=== PATIENT | male | born 1940 | race Caucasian/White ===

== ENCOUNTER 2017-06-25 19:42 | Emergency (ER) | payer OTHER ==
[2017-06-25 20:37] LABS: Absolute Lymphocytes (CBC) 1.2 K/uL (0.7-4.9); Absolute Monocytes 0.7 K/uL (0.1-1.3); Absolute Neutrophil 8.8 K/uL (1.8-8.0); Basophils % 0.5 % (0-1.3); Eosinophils % 0.5 % (0-4.4); Hematocrit 47.7 % (39.6-49.0); Lymphocytes % 11.1 % (15.3-44.8); MCH 30.1 pg (27.0-35.0); MPV 7.1 fL (7.6-11.3); Monocytes % 6.8 % (3.3-12.3); RBC Red Blood Cell Count 5.24 M/uL (4.33-5.43)
[2017-06-25 20:41] LABS: Protime INR 0.98
--- NOTE | 2017-06-25 20:41 | RAD REPORT ---
EXAM DESCRIPTION: RAD - Chest Single View - 06/25/2017 8:34 pm CLINICAL HISTORY: Chest pain. COMPARISON: 09/20/2016, 05/31/2015 FINDINGS: Portable technique limits examination quality. The lungs are grossly clear. The heart is normal in size. No displaced fractures. IMPRESSION: No acute intrathoracic process suspected.
[2017-06-25 20:53] LABS: Albumin 4.1 g/dL (3.2-5.5); Bilirubin Direct 0.2 mg/dL (0-0.2); Bilirubin Total 1.2 mg/dL (0.3-1.2)
[2017-06-25 22:05] LABS: Urine Blood TRACE (NEG); Urine Glucose NEGATIVE (NEG); Urine Protein 1+ (NEG); Urine Specific Gravity 1.025 (1.005-1.030)
--- NOTE | 2017-06-25 23:46 | ER ---
Nurse's Notes [facility] Name: Get Stephens Age: 77 yrs Sex: Male : 1940 Arrival Date: 06/25/2017 Time: 19:43 Bed 26 Private MD: Diagnosis: Chest pain, unspecified Presentation: 06/25 20:14 Presenting complaint: Patient states: Pt. c/o of a burning feeling in his chest off and rk2 on lasting approx. 5-6 min \T\ a time... pt. states that this started yesterday afternoon. Denies radiating pain; however, states that pt. comes on with exertion. Also states that he had SOB with exertion as well as episodes of sweating. Difficulty sleeping and loss of appetite. Transition of care: patient was not received from another setting of care. Onset of symptoms was June 25, 2017. Care prior to arrival: None. 20:14 Method Of Arrival: Ambulatory rk2 20:14 Acuity: LARA 3 rk2 Triage Assessment: 20:19 General: Appears in no apparent distress. Behavior is calm, cooperative. Pain: Denies rk2 pain. Historical: - Allergies: 20:19 Penicillins; rk2 - Immunization history:: Pneumococcal vaccine is up to date, Flu vaccine is not up to date. - Social history:: Smoking status: Patient/guardian denies using tobacco, the patient reports quitting approximately 36 years ago. Screenin:15 Abuse screen: Denies threats or abuse. rk2 20:15 Nutritional screening: No deficits noted. Tuberculosis screening: No symptoms or risk rk2 factors identified. Fall Risk None identified. Assessment: 20:15 General: Appears in no apparent distress. slender, well groomed, well developed, well rk2 nourished. Pain: Denies pain. Pain does not radiate. Pain began 1 day ago. Neuro: Level of Consciousness is alert, obeys commands, Oriented to person, place, time, situation. 20:15 Cardiovascular: Rhythm is sinus rhythm. Respiratory: Airway is patent Respiratory rk2 effort is even, unlabored, Respiratory pattern is regular, symmetrical. Derm: Skin is pink, warm \T\ dry. 21:30 Reassessment: Pt. resting in room \T\ this time... appears to be in no obvious distress. rk2 Denies CP \T\ this time. No needs voiced. 22:30 Reassessment: Pt. resting in room, nobody \T\ bedside. Pt. appears to be in no rk2 distress... warm blanket given. No other needs voiced \T\ this time. Vital Signs: 20:19 BP 157 / 90; Pulse 104; Resp 17; Pulse Ox 95% on R/A; rk2 22:48 BP 139 / 62; Pulse 84; Resp 16; Pulse Ox 97% on R/A; rk2 23:30 BP 133 / 66; Pulse 73; Resp 16; Pulse Ox 97% on R/A; rk2 06/26 00:20 BP 132 / 69; Pulse 93; Resp 16; Pulse Ox 98% on R/A; rk2 ED Course: 06/25 19:43 Patient arrived in ED. do 19:45 Dmitri Lassiter PA is PHCP. jr8 19:45 Darwin Carson MD is Attending Physician. jr8 20:15 Patient has correct armband on for positive identification. Placed in gown. Bed in low rk2 position. Call light in reach. air sampling and monitoring on. Pulse ox on. 20:15 Arm band placed on. rk2 20:15 Patient maintains SpO2 saturation greater than 95% on room air. rk2 20:16 Triage completed. rk2 20:35 X-ray completed. Portable x-ray completed in exam room. Patient tolerated procedure kc2 well. 20:35 XRAY Chest (1 view) In Process Unspecified. EDMS 20:45 Margi Osborne RN is Primary Nurse. rk2 23:19 Troponin (emerg Dept Use Only) Sent. rk2 06/26 00:22 No provider procedures requiring assistance completed. IV discontinued. rk2 Administered Medications: No medications were administered Outcome: 06/25 23:45 Discharge ordered by . jr8 06/26 00:22 Discharged to home ambulatory. rk2 Condition: good Discharge instructions given to patient. 00:23 Patient left the ED. rk2 Signatures: Dispatcher [employer] EDMS Dmitri Lassiter PA PA jr8 Liz Garcia Kelsie kc2 Margi Osborne, MIRELLA RN rk2
--- NOTE | 2017-06-25 23:46 | EDPHYS ---
Physician Documentation [facility] Name: Get Stephens Age: 77 yrs Sex: Male : 1940 Arrival Date: 06/25/2017 Time: 19:43 Bed 26 Private MD: ED Physician Darwin Carson HPI: 06/25 20:35 This 77 yrs old Male presents to ER via Ambulatory with complaints of Chest jr8 Pain, Breathing Difficulty. 20:35 Onset: acutely, yesterday. The pain does not radiate. Associated signs and symptoms: jr8 Pertinent positives: diaphoresis, nausea. The chest pain is described as burning. Duration: The patient or guardian reports multiple episodes. Modifying factors: The symptoms are alleviated by nothing. the symptoms are aggravated by activity. Severity of pain: At its worst the pain was moderate. The patient has not experienced similar symptoms in the past. The patient has not recently seen a physician. 20:40 Patient stated that for the past 48 hours has noticed a worsening of burning in chest. jr8 Stated that it worsens with exertion. Noticed that also extremely short of breath with minimal activity. Normally works out 5 days a week. Historical: - Allergies: 20:19 Penicillins; rk2 - Immunization history:: Pneumococcal vaccine is up to date, Flu vaccine is not up to date. - Social history:: Smoking status: Patient/guardian denies using tobacco, the patient reports quitting approximately 36 years ago. ROS: 20:35 Eyes: Negative for injury, pain, redness, and discharge, ENT: Negative for injury, jr8 pain, and discharge, Neck: Negative for injury, pain, and swelling, Back: Negative for injury and pain, MS/Extremity: Negative for injury and deformity, Skin: Negative for injury, rash, and discoloration, Neuro: Negative for headache, weakness, numbness, tingling, and seizure. 20:35 Cardiovascular: Positive for chest pain, Negative for edema, orthopnea, palpitations, paroxysmal nocturnal dyspnea. 20:35 Respiratory: Positive for dyspnea on exertion, Negative for cough, hemoptysis, orthopnea, pleurisy, sputum production, wheezing. 20:35 Abdomen/GI: Positive for nausea, Negative for abdominal pain, vomiting, diarrhea, constipation, abdominal cramps, abdominal distension, anorexia, dysphagia, hematemesis, black/tarry stool, rectal pain, rectal bleeding, bowel incontinence, flatulence. Exam: 20:35 Eyes: Pupils equal round and reactive to light, extra-ocular motions intact. Lids and jr8 lashes normal. Conjunctiva and sclera are non-icteric and not injected. Cornea within normal limits. Periorbital areas with no swelling, redness, or edema. ENT: Nares patent. No nasal discharge, no septal abnormalities noted. Tympanic membranes are normal and external auditory canals are clear. Oropharynx with no redness, swelling, or masses, exudates, or evidence of obstruction, uvula midline. Mucous membranes moist. Neck: Trachea midline, no thyromegaly or masses palpated, and no cervical lymphadenopathy. Supple, full range of motion without nuchal rigidity, or vertebral point tenderness. No Meningismus. Cardiovascular: Regular rate and rhythm with a normal S1 and S2. No gallops, murmurs, or rubs. Normal PMI, no JVD. No pulse deficits. Respiratory: Lungs have equal breath sounds bilaterally, clear to auscultation and percussion. No rales, rhonchi or wheezes noted. No increased work of breathing, no retractions or nasal flaring. Abdomen/GI: Soft, non-tender, with normal bowel sounds. No distension or tympany. No guarding or rebound. No evidence of tenderness throughout. Back: No spinal tenderness. No costovertebral tenderness. Full range of motion. Skin: Warm, dry with normal turgor. Normal color with no rashes, no lesions, and no evidence of cellulitis. MS/ Extremity: Pulses equal, no cyanosis. Neurovascular intact. Full, normal range of motion. Neuro: Awake and alert, GCS 15, oriented to person, place, time, and situation. Cranial nerves II-XII grossly intact. Motor strength 5/5 in all extremities. Sensory grossly intact. Cerebellar exam normal. Normal gait. Vital Signs: 20:19 BP 157 / 90; Pulse 104; Resp 17; Pulse Ox 95% on R/A; rk2 22:48 BP 139 / 62; Pulse 84; Resp 16; Pulse Ox 97% on R/A; rk2 23:30 BP 133 / 66; Pulse 73; Resp 16; Pulse Ox 97% on R/A; rk2 06/26 00:20 BP 132 / 69; Pulse 93; Resp 16; Pulse Ox 98% on R/A; rk2 MDM: 06/25 19:45 Patient medically screened. [facility] 23:45 Data reviewed: vital signs, nurses notes, lab test result(s), EKG, radiologic studies, [facility] plain films, and as a result, I will discharge patient. Data interpreted: Pulse oximetry: on room air is 97 %. Interpretation: normal. Counseling: I had a detailed discussion with the patient and/or guardian regarding: the historical points, exam findings, and any diagnostic results supporting the discharge/admit diagnosis, lab results, radiology results, the need for outpatient follow up, a group contract analyst, a family practitioner, to return to the emergency department if symptoms worsen or persist or if there are any questions or concerns that arise at home. Special discussion: Based on the patient's history, exam, and Dx evaluation, there is no indication for emergent intervention or inpatient Tx. It is understood by the patient/guardian that if the Sx's persist or worsen they need to return immediately for re-evaluation. 06/25 20:06 Order name: CPK; Complete Time: 21:10 [facility] 06/25 20:06 Order name: Basic Metabolic Panel; Complete Time: 21:10 [facility] 06/25 20:06 Order name: BNP; Complete Time: 21:10 [facility] 06/25 20:06 Order name: CBC with Diff; Complete Time: 20:41 [facility] 06/25 20:06 Order name: LFT's; Complete Time: 21:10 [facility] 06/25 20:06 Order name: Magnesium; Complete Time: 21:10 [facility] 06/25 20:06 Order name: PT-INR; Complete Time: 20:42 [facility] 06/25 20:06 Order name: Ptt, Activated; Complete Time: 20:42 [facility] 06/25 20:06 Order name: Troponin (emerg Dept Use Only); Complete Time: 21:10 [facility] 06/25 20:06 Order name: XRAY Chest (1 view); Complete Time: 20:42 [facility] 06/25 20:06 Order name: EKG; Complete Time: 20:07 [facility] 06/25 20:06 Order name: Cardiac monitoring; Complete Time: 20:45 [facility] 06/25 21:49 Order name: Urine Dipstick--Ancillary (enter results); Complete Time: 22:20 [facility] 06/25 23:04 Order name: Troponin (emerg Dept Use Only); Complete Time: 23:45 8 06/25 20:06 Order name: EKG - Nurse/Tech; Complete Time: 20:45 06/25 20:06 Order name: IV Saline Lock; Complete Time: 20:45 8 06/25 20:06 Order name: Labs collected and sent; Complete Time: 20:45 [facility] 06/25 20:06 Order name: O2 Per Protocol; Complete Time: :45 [facility] 06/25 20:06 Order name: O2 Sat Monitoring; Complete Time: 20:45 06/25 20:06 Order name: Urine Dipstick-Ancillary (obtain specimen); Complete Time: 21:43 jr8 Administered Medications: No medications were administered Disposition: 06/26 05:41 Co-signature as Attending Physician, Darwin Carson MD. ma2 Disposition: 06/25/17 23:45 Discharged to Home. Impression: Chest pain, unspecified. - Condition is Stable. - Discharge Instructions: Nonspecific Chest Pain, Aspirin and Your Heart. - Medication Reconciliation Form, Thank You Letter, Antibiotic Education, Prescription Opioid Use form. - Follow up: Private Physician; When: 2 - 3 days; Reason: Recheck today's complaints, Continuance of care, Re-evaluation by your physician. - Problem is new. - Symptoms have improved. Signatures: Dispatcher [employer] Dmitri Borjas PA PA jr8 Darwin Carson MD MD ma2 Margi Osborne RN RN rk2
[2017-06-26 00:39] VITALS: BP 132/69; O2SAT 98
--- NOTE | 2017-06-27 22:39 | EKG ---
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
== END 2017-06-26 00:23 | disposition home or self-care (01) ==
LOC: ER 19:42
DX: R07.9 Chest pain, unspecified (principal); Z88.0 Allergy status to penicillin
CPT/HCPCS: 36415; 71045; 80048; 80076; 81003; 82550; 83735; 83880; 84484; 85025; 85610; 85730; 93005; 99285

== ENCOUNTER 2017-11-08 12:35 | Day surgery (SDC) | payer OTHER ==
[2017-11-08] MEDS ORDERED: NS 0.9% VIAL 10 ML ONE (12:57)
[2017-11-08] MEDS ORDERED: CYCLOPENTOLATE 1% OPTH 2 ML ONE (13:01)
[2017-11-08] MEDS ORDERED: BUPIVACAINE 0.25% PF 10 ML VIAL ONE (13:01)
[2017-11-08] MEDS ORDERED: TETRACAINE HCL 0.5% 2ML OPTH ONE (13:01)
[2017-11-08] MEDS ORDERED: NA CHLORIDE 0.9% 500 ML ONE (13:02)
[2017-11-08] MEDS ORDERED: LIDOCAINE 2% INJ, MPF 2 ML 3 ML ONE (13:02)
[2017-11-08] MEDS ORDERED: PHENYLEPHRINE 10% OPTH 5ML ONE (13:02)
[2017-11-08] MEDS ORDERED: CYCLOPENTOLATE 1% OPTH 2 ML OPTH ONE ×2 (13:18→13:30)
[2017-11-08] MEDS ORDERED: PHENYLEPHRINE 10% OPTH 5ML OPTH ONE ×2 (13:18→13:30)
[2017-11-08] MEDS ORDERED: LIDOCAINE 1% MPF 5 ML VIAL ONE (13:38)
[2017-11-08] MEDS ORDERED: PROPOFOL 200 MG/20 ML VIAL IV ONE (13:38)
[2017-11-08] MEDS: EPINEPHRINE/PF 1 MG/ML AMP ONE ×4 (14:08→14:39)
[2017-11-08] MEDS: BALANCED SALT IRRIG PLAIN 500 ML BTL IRR ONE ×2 (14:08→14:39)
[2017-11-08] MEDS: DUOVISC 1 KIT OPTH ONE ×2 (14:09→14:39)
[2017-11-08] MEDS: MOXIFLOXACIN HCL 10 DROPS/ML **OR USE OPTH ONE ×2 (14:09→14:39)
--- NOTE | 2017-11-08 14:27 | P.BOP ---
Preoperative diagnosis: Nuclear sclerotic cataract OS Postoperative diagnosis: Same Primary procedure: Phacoemulsification with IOL OS Estimated blood loss: None Anesthesia: Local (Topical wtih anesthesia for cataract surgery) Complications: None Implants: [id number] +19.0 Transferred to: Other (Day surgery) Condition: Good
[2017-11-08 15:59] VITALS: BP 147/51; TEMP 97.8; O2SAT 100
--- NOTE | 2017-11-09 02:00 | OP ---
Surgeon: Jazmine Maya MD Anesthesiologist: 1. Manjeet Britton CRNA. 2. Luis Carlos Payton M.D. Preoperative Diagnosis: Nuclear sclerotic cataract left eye. Operation Performed: Phacoemulsification with intraocular lens implant, left eye. Anesthesia: Per cataract surgery. Complications: None. Description Of Procedure: In day surgery, the patient was prepped with Betadine and draped. A conju nctival incision was made in the inferior nasal quadrant with Josiah scissors. A sub-Tenon block c onsisting of a 1:1 mixture of 2% Xylocaine and 0.25% bupivacaine was placed through the conjunctival incision with a blunt cannula. A [place] balloon was placed over the eye and the patient was transferr ed to the operating room. In the operating room the patient was prepped and draped in the usual sterile fashion for ophthalmic surgery. A lid speculum was placed in the left eye. Two paracentesis sites were made superiorly and inferiorly in the limbal cornea. Viscoat was placed in the anterior chamber and a crescent blade wa s used to make a corneal groove and tunnel, and a keratome was used to enter the anterior chamber. P rovisc was placed in the anterior chamber and a 360 degree capsulotomy was performed with a cystitome . The lens was hydrodissected with BSS and rotated freely. The lens was removed with a stop and cho p technique. A 3.88 phaco CDE was used to remove the lens. Residual cortex was removed with the irr igation and aspiration. Provisc was placed in the capsular bag. A ZCB00, +19.0 diopter lens was tio dylon in the capsular bag without complications. Irrigation and aspiration was used to remove residual viscoelastic. The paracentesis sites were hydrated with BSS. The wound and paracentesis sites were inspected and found to be watertight. Vigamox 0.07 cc was placed intracamerally at the end of the p rocedure. The eye was irrigated with balanced salt solution. The eye was patched with a soft cotton patch and Dennis metal shield. The patient was returned to day surgery in good condition. Comments: 1:5000 epinephrine was placed in the anterior chamber prior to Viscoat and throughout the procedure. Discharge Instructions: Mr. Get Stephens is discharged to home in good condition and is to follow up with Dr. Maya in the morning. JHL/EL Voice ID: [id number] Report ID: [id number]
== END 2017-11-08 15:55 | disposition home or self-care (01) ==
LOC: OR 12:35
PROVIDERS: ATTEND Ophthalmology Retina Specialist
PROC: 08RK3JZ Replacement of Left Lens with Synthetic Substitute, Percutaneous Approach (ICD-10-PCS; principal; 2017-11-08 12:30)
DX: H25.12 Age-related nuclear cataract, left eye (principal); I10 Essential (primary) hypertension; E78.00 Pure hypercholesterolemia, unspecified; Z88.0 Allergy status to penicillin; K21.9 Gastro-esophageal reflux disease without esophagitis
CPT/HCPCS: 66984; J0171 ×2; J3490

== ENCOUNTER 2018-12-20 11:49 | Observation (INO) | payer OTHER ==
--- NOTE | 2018-12-20 12:26 | EKG ---
Test Date: 2018-12-20 Test Time: 12:09:11 Railroad Brake Repairer: ARMIDA MEASUREMENT RESULTS: Intervals: Rate: 99 MA: 150 QRSD: 94 QT: 370 QTc: 474 [place]: P: 83 MA: 150 QRS: 79 T: 66 INTERPRETIVE STATEMENTS: Sinus rhythm with fusion complexes Otherwise normal ECG Compared to ECG 06/25/2017 20:47:27 Fusion complex(es) now present Electronically Signed On 12-20-18 12:25:55 CDT by Edilberto Tejada
[2018-12-20 12:42] LABS: Basophils % 0.6 % (0-1.3); Hematocrit 38.4 % (39.6-49.0); Lymphocytes % 11.8 % (15.3-44.8); MPV 7.5 fL (7.6-11.3); RBC Red Blood Cell Count 4.05 M/uL (4.33-5.43)
[2018-12-20 13:01] LABS: Protime INR 1.02
[2018-12-20 13:02] LABS: ALT/SGPT 28 U/L (12-78); AST/SGOT 31 U/L (15-37); Albumin 3.5 g/dL (3.4-5.0); Alkaline Phosphatase 57 U/L (45-117); BUN Blood Urea Nitrogen 21 mg/dL (7-18); Bicarbonate 22 mmol/L (21-32); Bilirubin Direct 0.2 mg/dL (0-0.2); Bilirubin Total 0.6 mg/dL (0.2-1.0); Glucose Level 106 mg/dL (74-106); Magnesium 2.2 mg/dL (1.8-2.4); NT PRO-BNP 89 pg/mL (<450); Potassium 3.4 mmol/L (3.5-5.1); Protein, Total 6.2 g/dL (6.4-8.2); Sodium Level 137 mmol/L (136-145); Troponin (Emerg Dept Use Only) < 0.02 ng/mL (0.0-0.045)
--- NOTE | 2018-12-20 13:06 | RAD REPORT ---
EXAM DESCRIPTION: CT - Head Brain Wo Cont - 12/20/2018 1:00 pm CLINICAL HISTORY: SYNCOPE Fall, trauma, head injury COMPARISON: No comparisons TECHNIQUE: All CT scans are performed using dose optimization technique as appropriate and may inclu de automated exposure control or mA/KV adjustment according to patient size. FINDINGS: No intracranial hemorrhage, hydrocephalus or extra-axial fluid collection.No areas of brai n edema or evidence of midline shift. The paranasal sinuses and mastoids are clear. The calvarium is intact. IMPRESSION: No acute intracranial abnormality.
--- NOTE | 2018-12-20 13:06 | RAD REPORT ---
EXAM DESCRIPTION: RAD - Chest Single View - 12/20/2018 12:53 pm CLINICAL HISTORY: Syncope, htn COMPARISON: CR; Chest 01/28/2018 TECHNIQUE: AP portable chest image was obtained 1247 pm . FINDINGS: Lungs are clear. Heart and vasculature are normal. No measurable pleural effusion and no p neumothorax. No acute bony abnormality seen. No acute aortic findings suspected. IMPRESSION: No acute cardiopulmonary process.
--- NOTE | 2018-12-20 13:18 | ER ---
Nurse's Notes [facility] Name: Get Stephens Age: 78 yrs Sex: Male : 1940 Arrival Date: 12/20/2018 Time: 11:52 Bed 27 Private MD: Rafael Larios E Diagnosis: Syncope and collapse Presentation: 12/20 11:59 Presenting complaint: Patient states: At about 1045 this morning I passed out and then la1 fell on my right hip, pt ambulatory. Transition of care: patient was not received from another setting of care. Onset of symptoms was December 20, 2018. Risk Assessment: Do you want to hurt yourself or someone else? Patient reports no desire to harm self or others. Initial Sepsis Screen: Does the patient meet any 2 criteria? HR > 90 bpm. Does the patient have a suspected source of infection? No. Patient's initial sepsis screen is negative. Care prior to arrival: None. 11:59 Method Of Arrival: Wheelchair la1 11:59 Acuity: LARA 2 la1 12:14 Mechanism of Injury: Fall from standing position. Trauma event details: Injury occurred ca1 in the [facility], Injury occurred: at home. Injury occurred: December 20, 2018 Injury occurred at: 10:45. Trauma Activation: Not Applicable Physician: ED Physician; Name: ; Notified At: ; Arrived At: Physician: General Surgeon; Name: ; Notified At: ; Arrived At: Physician: Radiology; Name: ; Notified At: ; Arrived At: Physician: Respiratory; Name: ; Notified At: ; Arrived At: Physician: Lab; Name: ; Notified At: ; Arrived At: Historical: - Allergies: 12:01 PENICILLINS; la1 - Home Meds: 14:26 valsartan-hydrochlorothiazide 160-12.5 mg oral tab 1 tab once daily [Active]; ca1 tamsulosin 0.4 mg oral cp24 1 cap once daily [Active]; simvastatin 10 mg Oral tab 1 tab once daily [Active]; meclizine 25 mg Oral tab 1 tab 3 times per day for Vertigo [Active]; ondansetron HCl 4 mg Oral tab 1 tabs 3 times per day [Active]; - PMHx: 12:01 Hypertension; vertigo; GERD; High Cholesterol; la1 - PSHx: 14:26 None; ca1 - Immunization history:: Adult Immunizations up to date. - Social history:: Smoking status: Patient/guardian denies using tobacco, Patient/guardian denies using alcohol, street drugs, The patient lives with family. - Immunization history: Last tetanus immunization:. - Ebola Screening: : No symptoms or risks identified at this time. - Family history:: not pertinent. Screenin:07 Abuse screen: Denies threats or abuse. Denies injuries from another. Nutritional ca1 screening: No deficits noted. Tuberculosis screening: No symptoms or risk factors identified. Fall Risk Fall in past 12 months (25 points). Secondary diagnosis (15 points) Vertigo. IV access (20 points). Total Meyer Fall Scale indicates High Risk Score (45 or more points). Fall prevention measures have been instituted. Side Rails Up X 2 As available patient and family educated on Fall Prevention Program and Strategies. Primary Survey: 12:13 NO uncontrolled hemorrhage observed. A: The patient is alert. Airway:. Breathing/Chest: ca1 Respiratory pattern: regular, Respiratory effort: spontaneous, unlabored, Breath sounds: clear, bilaterally. Chest inspection: symmetrical rise and fall of the chest. Circulation: Cardiac rhythm: sinus tachycardia Heart tones present. Pulses: palpable bilateral radial, brachial, femoral, popliteal, posterior tibial and and dorsalis pedis arteries.. Skin color: pink, Skin temperature: warm, dry. Disability Alert. Exposure/Environment: All clothing and personal items were removed. Forensic evidence collection is not deemed to be indicated at this time. Items placed in patient belonging bag. There is no evidence of uncontrolled external bleeding. No obvious injuries are noted at this time. A warming method has been applied: A warm blanket has been provided to the patient. 12:25 Reassessment Airway Airway Patent Breathing/Chest Respiratory pattern Regular ca1 Respiratory effort Spontaneous Unlabored Breath sounds Clear Chest inspection Symmetrical Circulation Heart rhythm Sinus rhythm Heart tones Present Pulses Palpable Color [place] Temperature Warm Dry Disability Alert. Assessment: 12:07 General: Appears in no apparent distress. comfortable, Behavior is calm, cooperative, ca1 appropriate for age. Pain: Denies pain. Neuro: Level of Consciousness is awake, alert, obeys commands, Oriented to Appropriate for age Reports dizziness, since 5 years ago and takes meclizine for it, but has not worked very well. Pt states, "I have always had vertigo but this is the first time I passed out. I do not remember anything about it, I just found myself on the floor". Cardiovascular: Heart tones S1 S2 present Capillary refill < 3 seconds Patient's skin is warm and dry. Rhythm is sinus tachycardia. Respiratory: Airway is patent Respiratory effort is even, unlabored, Respiratory pattern is regular, symmetrical, Breath sounds are clear bilaterally. GI: Abdomen is flat, non-distended, Bowel sounds present X 4 quads. Abd is soft and non tender X 4 quads. Reports nausea, since "I was diagnosed with vertigo but I am also taking medication for it", as pt stated. : No deficits noted. No signs and/or symptoms were reported regarding the genitourinary system. EENT: No deficits noted. No signs and/or symptoms were reported regarding the EENT system. Derm: Skin is intact, is healthy with good turgor, Skin is pink, warm \\T\\ dry. Musculoskeletal: Circulation, motion, and sensation intact. Capillary refill < 3 seconds, Range of motion: intact in all extremities. 13:00 Reassessment: Patient appears in no apparent distress at this time. Patient and/or ca1 family updated on plan of care and expected duration. Pain level reassessed. Patient is alert, oriented x 3, equal unlabored respirations, skin warm/dry/pink. 14:00 Reassessment: Patient appears in no apparent distress at this time. Patient is alert, ca1 oriented x 3, equal unlabored respirations, skin warm/dry/pink. 14:27 Reassessment: called for report. Nurse will call back in 10 minutes. ca1 Vital Signs: 12:01 BP 97 / 71; Pulse 112; Resp 18; Temp 97.5; Pulse Ox 100% on R/A; Weight 68.04 kg; la1 Height 5 ft. 10 in. (177.80 cm); 12:07 BP 123 / 82; Pulse 102; Resp 18 S; Pulse Ox 96% on R/A; Pain 0/10; ca1 13:00 BP 108 / 60; Pulse 97; Resp 17 S; Pulse Ox 100% on R/A; ca1 14:20 BP 139 / 65; Pulse 84; Resp 20; Pulse Ox 99% on R/A; ca1 12:01 Body Mass Index 21.52 (68.04 kg, 177.80 cm) la1 Stephanie Coma Score: 12:13 Eye Response: spontaneous(4). Verbal Response: oriented(5). Motor Response: obeys ca1 commands(6). Total: 15. Trauma Score (Adult): 12:13 Eye Response: spontaneous(1); Verbal Response: oriented(1); Motor Response: obeys ca1 commands(2); Systolic BP: > 89 mm Hg(4); Respiratory Rate: 10 to 29 per min(4); Stephanie Score: 15; Trauma Score: 12 ED Course: 11:52 Patient arrived in ED. mr 11:52 Rafael Larios MD is Private Physician. mr 12:00 Triage completed. la1 12:01 Arm band placed on right wrist. la1 12:02 Sapna Morales, MIRELLA is Primary Nurse. ca1 12:07 Patient has correct armband on for positive identification. Placed in gown. Bed in low ca1 position. Call light in reach. Side rails up X2. school bus monitor on. Pulse ox on. NIBP on. Warm blanket given. 12:07 No provider procedures requiring assistance completed. ca1 12:12 EKG done, by polysomnograph tech. reviewed by Darwin Carson MD. at1 12:13 Darwin Carson MD is Attending Physician. ma2 12:14 Patient maintains SpO2 saturation greater than 95% on room air. ca1 12:15 Thermoregulation: warm blanket given to patient. ca1 12:24 Initial lab(s) drawn, by ks, sent to lab. Inserted saline lock: 20 gauge in right ca1 antecubital area, using aseptic technique. Blood collected. 12:35 Basic Metabolic Panel Sent. ca1 12:35 CBC with Diff Sent. ca1 12:35 LFT's Sent. ca1 12:35 Magnesium Sent. ca1 12:36 NT PRO-BNP Sent. ca1 12:36 PT-INR Sent. ca1 12:36 Troponin (emerg Dept Use Only) Sent. ca1 12:54 XRAY Chest (1 view) In Process Unspecified. EDMS 13:03 CT Head Brain wo Cont In Process Unspecified. EDMS 13:17 Darwin Carson MD is Hospitalizing Provider. ma2 13:17 Power Liang MD is Hospitalizing Provider. ma2 14:35 Patient admitted, IV remains in place. ca1 Administered Medications: 13:25 Drug: NS 0.9% 1000 ml Route: IV; Rate: 1 bolus; Site: right antecubital; ca1 14:26 Follow up: Response: No adverse reaction; IV Status: Completed infusion ca1 Output: 14:35 Urine: 0ml; Total: 0ml. ca1 Outcome: 13:18 Decision to Hospitalize by Provider. ma2 14:34 Admitted to Tele accompanied by tech, via stretcher, room 405, with chart, Report ca1 called to Verona Pearl RN 14:34 Condition: stable 14:34 Patient's length of stay was not longer than 2 hours. 14:50 Patient left the ED. ca1 Signatures: Dispatcher [employer] EDMS Charles Lisa Novoa, Colette, rate manager EKG Tat1 Vasquez Jones RN RN [email or web address] Darwin Carson MD MD ma2 Sapna Morales RN RN ca1 Corrections: (The following items were deleted from the chart) 12:15 12:14 Trauma event details: Injury occurred in the [facility], Injury occurred: ca1 at home. Injury occurred: December 20, 2018 Injury occurred at: 10:30 ca1 14:26 14:20 Pulse 93bpm; Resp 20bpm; Pulse Ox 99% RA; ca1 ca1
--- NOTE | 2018-12-20 13:19 | EDPHYS ---
Physician Documentation [facility] Name: Get Stephens Age: 78 yrs Sex: Male : 1940 Arrival Date: 12/20/2018 Time: 11:52 Bed 27 Private MD: Rafael Larios E ED Physician Darwin Carson HPI: 12/20 13:15 This 78 yrs old Male presents to ER via Wheelchair with complaints of Fall ma2 Injury, Syncope. 13:15 Details of fall: The patient fell from an upright position. Onset: The symptoms/episode ma2 began/occurred suddenly, gradually, 2 hour(s) ago. Severity of symptoms: At their worst the symptoms were very mild, in the emergency department the symptoms are unchanged. The patient has not experienced similar symptoms in the past. Historical: - Allergies: 12:01 PENICILLINS; la1 - Home Meds: 14:26 valsartan-hydrochlorothiazide 160-12.5 mg oral tab 1 tab once daily [Active]; ca1 tamsulosin 0.4 mg oral cp24 1 cap once daily [Active]; simvastatin 10 mg Oral tab 1 tab once daily [Active]; meclizine 25 mg Oral tab 1 tab 3 times per day for Vertigo [Active]; ondansetron HCl 4 mg Oral tab 1 tabs 3 times per day [Active]; - PMHx: 12:01 Hypertension; vertigo; GERD; High Cholesterol; la1 - PSHx: 14:26 None; ca1 - Immunization history:: Adult Immunizations up to date. - Social history:: Smoking status: Patient/guardian denies using tobacco, Patient/guardian denies using alcohol, street drugs, The patient lives with family. - Immunization history: Last tetanus immunization:. - Ebola Screening: : No symptoms or risks identified at this time. - Family history:: not pertinent. ROS: 13:15 Constitutional: Negative for fever, chills, and weight loss. ma2 13:15 All other systems are negative. Exam: 13:15 Constitutional: This is a well developed, well nourished patient who is awake, alert, ma2 and in no acute distress. Head/Face: Normocephalic, atraumatic. Eyes: Pupils equal round and reactive to light, extra-ocular motions intact. Lids and lashes normal. Conjunctiva and sclera are non-icteric and not injected. Cornea within normal limits. Periorbital areas with no swelling, redness, or edema. ENT: Nares patent. No nasal discharge, no septal abnormalities noted. Tympanic membranes are normal and external auditory canals are clear. Oropharynx with no redness, swelling, or masses, exudates, or evidence of obstruction, uvula midline. Mucous membranes moist. Neck: Trachea midline, no thyromegaly or masses palpated, and no cervical lymphadenopathy. Supple, full range of motion without nuchal rigidity, or vertebral point tenderness. No Meningismus. Chest/axilla: Normal chest wall appearance and motion. Nontender with no deformity. No lesions are appreciated. Cardiovascular: Regular rate and rhythm with a normal S1 and S2. No gallops, murmurs, or rubs. Normal PMI, no JVD. No pulse deficits. Respiratory: Lungs have equal breath sounds bilaterally, clear to auscultation and percussion. No rales, rhonchi or wheezes noted. No increased work of breathing, no retractions or nasal flaring. Abdomen/GI: Soft, non-tender, with normal bowel sounds. No distension or tympany. No guarding or rebound. No evidence of tenderness throughout. Back: No spinal tenderness. No costovertebral tenderness. Full range of motion. Skin: Warm, dry with normal turgor. Normal color with no rashes, no lesions, and no evidence of cellulitis. MS/ Extremity: Pulses equal, no cyanosis. Neurovascular intact. Full, normal range of motion. Neuro: Awake and alert, GCS 15, oriented to person, place, time, and situation. Cranial nerves II-XII grossly intact. Motor strength 5/5 in all extremities. Sensory grossly intact. Cerebellar exam normal. Normal gait. Vital Signs: 12:01 BP 97 / 71; Pulse 112; Resp 18; Temp 97.5; Pulse Ox 100% on R/A; Weight 68.04 kg; la1 Height 5 ft. 10 in. (177.80 cm); 12:07 BP 123 / 82; Pulse 102; Resp 18 S; Pulse Ox 96% on R/A; Pain 0/10; ca1 13:00 BP 108 / 60; Pulse 97; Resp 17 S; Pulse Ox 100% on R/A; ca1 14:20 BP 139 / 65; Pulse 84; Resp 20; Pulse Ox 99% on R/A; ca1 12:01 Body Mass Index 21.52 (68.04 kg, 177.80 cm) la1 [place] Coma Score: 12:13 Eye Response: spontaneous(4). Verbal Response: oriented(5). Motor Response: obeys ca1 commands(6). Total: 15. Trauma Score (Adult): 12:13 Eye Response: spontaneous(1); Verbal Response: oriented(1); Motor Response: obeys ca1 commands(2); Systolic BP: > 89 mm Hg(4); Respiratory Rate: 10 to 29 per min(4); Stephanie Score: 15; Trauma Score: 12 MDM: 12:13 Patient medically screened. ma2 13:15 Differential diagnosis: abrasion, closed head injury, contusion. Data reviewed: vital ma2 signs, nurses notes. Counseling: I had a detailed discussion with the patient and/or guardian regarding: the historical points, exam findings, and any diagnostic results supporting the discharge/admit diagnosis, the presence of at least one elevated blood pressure reading (>120/80) during this emergency department visit, the need for outpatient follow up. Response to treatment: the patient's symptoms have mildly improved after treatment. 12/20 12:08 Order name: Basic Metabolic Panel; Complete Time: 13:08 12/20 12:08 Order name: CBC with Diff; Complete Time: 12:55 12/20 12:08 Order name: LFT's; Complete Time: 13:08 12/20 12:08 Order name: Magnesium; Complete Time: 13:08 12/20 12:08 Order name: NT PRO-BNP; Complete Time: 13:08 12/20 12:08 Order name: PT-INR; Complete Time: 13:08 12/20 12:08 Order name: Troponin (emerg Dept Use Only); Complete Time: 13:08 12/20 12:08 Order name: XRAY Chest (1 view); Complete Time: 13:09 12/20 12:08 Order name: EKG; Complete Time: 12:09 12/20 12:08 Order name: Cardiac monitoring; Complete Time: 12:16 12/20 12:08 Order name: EKG - Nurse/Tech; Complete Time: 12:16 la1 12/20 12:43 Order name: CT Head Brain wo Cont; Complete Time: 13:09 ma2 12/20 13:30 Order name: Carotid Artery Bilateral EDMS 12/20 12:08 Order name: IV Saline Lock; Complete Time: 12:24 la1 12/20 12:08 Order name: Labs collected and sent; Complete Time: 12:24 la1 12/20 12:08 Order name: O2 Per Protocol; Complete Time: 12:16 la1 12/20 12:08 Order name: O2 Sat Monitoring; Complete Time: 12:16 la Administered Medications: 13:25 Drug: NS 0.9% 1000 ml Route: IV; Rate: 1 bolus; Site: right antecubital; ca1 14:26 Follow up: Response: No adverse reaction; IV Status: Completed infusion ca1 Disposition: 12/20/18 13:18 Hospitalization ordered by Power Liang for Observation. Preliminary diagnosis is Syncope and collapse. - Bed requested for Telemetry/MedSurg (observation). - Status is Observation. ca1 - Condition is Stable. - Problem is new. - Symptoms are unchanged. UTI on Admission? No Signatures: Dispatcher [employer] EDWY Sheba Jean bd Vasquez Jones RN RN la1 Darwin Carson MD MD ma2 Sapna Morales, MIRELLA RN ca1 Corrections: (The following items were deleted from the chart) 14:00 13:18 Hospitalization Ordered by Power Liang MD for Observation. Preliminary diagnosis bd is Syncope and collapse. Bed requested for Telemetry/MedSurg (observation). Status is Observation. Condition is Stable. Problem is new. Symptoms are unchanged. UTI on Admission? No. ma2 14:50 14:00 12/20/2018 13:18 Hospitalization Ordered by Power Liang MD for Observation. ca1 Preliminary diagnosis is Syncope and collapse. Bed requested for Telemetry/MedSurg (observation). Status is Observation. Condition is Stable. Problem is new. Symptoms are unchanged. UTI on Admission? No. bd
[2018-12-20] MEDS ORDERED: NA CHLORIDE 0.9% 1,000 ML ONE (13:23)
--- NOTE | 2018-12-20 14:33 | RAD REPORT ---
EXAM DESCRIPTION: US - CP - 12/20/2018 2:16 pm CLINICAL HISTORY: Syncopal episode Headache, syncope COMPARISON: CT MULTIPLANAR RECONSTRUCTION dated 04/14/2012 TECHNIQUE: Real-time sonographic evaluation of both carotid systems was performed. Doppler interroga tion was performed with waveform tracing bilaterally. FINDINGS: Normal high resistance waveforms are noted in both external carotid arteries. The common c arotid arteries and internal carotid arteries show normal low resistance waveforms. Moderate hard plaquing is seen in the right proximal internal carotid artery. Luminal narrowing based on NASCET criteria is estimated at 50%. A large amount of soft plaque is present in the proximal le ft internal carotid artery, visually resulting in stenosis of 50-70% based on NASCET criteria.Peak sy stolic and end diastolic velocity values and the ICA/CCA ratios are in the non-hemodynamically signif icant range. The left vertebral artery could not be definitively identified. Forward flow seen in the right verteb ral artery. IMPRESSION: Significant hard and soft plaquing is seen in both internal carotid arteries as detailed above. These result in a visual stenosis bilaterally however hemodynamic significance is not demonst rated. Consider follow-up MR angiography of the neck vessels for further detailed workup.
[2018-12-20 15:30] LABS: Thyroid Stimulating Hormone 1.41 uIU/mL (0.360-3.740)
[2018-12-20] MEDS: NA CHLORIDE 0.9% 1,000 ML IV SCH (15:57)
[2018-12-20] MEDS: ENOXAPARIN 40 MG/0.4 ML SQ SCH (15:58)
[2018-12-20 16:37] VITALS: BMI 20.9
[2018-12-20 17:19] LABS: Urine Appearance CLEAR; Urine Bilirubin NEGATIVE (NEG); Urine Blood TRACE (NEG); Urine Color YELLOW; Urine Glucose NEGATIVE (NEG); Urine Protein NEGATIVE (NEG); Urine Urobilinogen 0.2 mg/dL (0.2-1.0)
--- NOTE | 2018-12-20 17:53 | P.HP ---
Certification for Inpatient Patient admitted to: Observation With expected LOS: <2 Midnights Practitioner: I am a practitioner with admitting privileges, knowledge of patient current condition, hospital course, and medical plan of care. Services: Services provided to patient in accordance with Admission requirements found in Title 42 Section 412.3 of the Code of Federal Regulations Patient History Date of Service: 12/20/18 Primary Care Provider: Dr. Larios Reason for admission: Syncopal episode History of Present Illness: This is a 78-year-old male with past medical history of hypertension, GERD, hyperlipidemia and vertigo who presents to the emergency room with complaints of an episode of a fall. Per patient, he was standing up by the sink and he fell from a standing position. He states that he does not remember falling but he does remember waking up on the floor in a position. He does not think he hit anything in particular. He was able to eventually get up and pull himself up. He states that he has had a history of vertigo, he is episodes of dizziness that come on acutely. He denies any specific position that makes it worse. He states he awaiting that makes the dizziness, on more frequently as if he has any sudden movements. During this fall, he denies any specific sudden movements. He also denies moving his bowels or urine, biting his tongue , any headache, any chest pain, shortness of breath any vision changes speech changes. He denies any pain at this time from the fall. He therefore came to the emergency room via EMS. In the ER, patient's blood pressure was slightly low at 90 7/71, heart rate of 112, respirations of 18, afebrile at 97.5, satting well at 96%. His BMI is 21.5. His labs were remarkable for creatinine of 1.70. Head CT was negative for any acute abnormalities. Chest x-ray was normal. He received IV fluids in the ER At the time of my exam, he was alert oriented x3, in no acute distress. He was hemodynamically stable. He was complaining of pain at the base of his neck, in between his to shoulder blades. He states this is not a new pain, this comes on frequently due to stress and strain on her shoulders. Allergies Penicillins Allergy (Verified 11/03/17 11:08) Hives/Rash,muscular problems Home medications list reviewed: Yes Home Medications: Meclizine HCl 25 mg PO TIDP PRN 12/20/18 Ondansetron [Zofran (Odt)*] 4 mg PO Q8HP 12/20/18 Simvastatin 10 mg PO DAILY 12/20/18 Tamsulosin [Flomax*] 0.4 mg PO DAILY 12/20/18 Valsartan/Hydrochlorothiazide [Valsartan-Hctz 80-12.5 mg Tab] 1 tab PO DAILY 10/31 - Past Medical/Surgical History Has patient received pneumonia vaccine in the past: No Diabetic: No -: Hypertension -: Hyperlipidemia -: Enlarged prostate -: Polyps removal from colon - Family History Father -: Heart disease, Hypertension - Social History Smoking Status: Former smoker Alcohol use: No CD- Drugs: No Caffeine use: No Place of Residence: Home Review of Systems 10-point ROS is otherwise unremarkable Physical Examination - Vital Signs Temperature: 97.6 F Blood Pressure: 129/59 Pulse: 96 Respirations: 18 Pulse Ox (%): 96 - Physical Exam General: Alert, In no apparent distress, Oriented x3 HEENT: Atraumatic, PERRLA, Mucous membr. moist/pink, EOMI, Sclerae nonicteric Neck: Supple, 2+ carotid pulse no bruit, No LAD, Without JVD or thyroid abnormality Respiratory: Clear to auscultation bilaterally, Normal air movement Cardiovascular: Regular rate/rhythm, Normal S1 S2 Gastrointestinal: Normal bowel sounds, No tenderness Musculoskeletal: No swelling, No contractures, No erythema, No tenderness, No warmth Integumentary: No rashes Neurological: Normal gait, Normal speech, Normal strength at 5/5 x4 extr, Normal tone, Normal affect - Studies Laboratory Data (last 24 hrs) 12/20/18 12:21: PT 12.0, INR 1.02 12/20/18 12:21: WBC 8.7, Hgb 13.8, Hct 38.4 L, Plt Count 160 12/20/18 12:21: Sodium 137, Potassium 3.4 L, BUN 21 H, Creatinine 1.70 H, Glucose 106, Magnesium 2.2, Total Bilirubin 0.6, AST 31, ALT 28, Alkaline Phosphatase 57 Assessment and Plan - Problems (Diagnosis) (1) Fall Current Visit: Yes Status: Acute Plan: Unsure if this is secondary to vertigo versus other etiology -CT of the head negative -orthostatics vital signs negative -will continue meclizine to see if that will help -physical therapy consulted -echo ordered, pending Qualifiers: Encounter type: initial encounter Qualified Code(s): W19.XXXA - Unspecified fall, initial encounter (2) Carotid stenosis, bilateral Current Visit: Yes Status: Acute Plan: -carotid ultrasound shows bilateral Significant hard and soft plaquing is seen in both internal carotid arteries as detailed above. These result in a visual stenosis bilaterally however hemodynamic significance is not demonstrated.Moderate hard plaquing is seen in the right proximal internal carotid artery. Luminal narrowing based on NASCET criteria is estimated at 50%. A large amount of soft plaque is present in the proximal left internal carotid artery, visually resulting in stenosis of 50-70% based on NASCET criteria. -MRA of the neck ordered, pending -cardiology consult (3) Hypertension Current Visit: No Status: Chronic Plan: Blood pressure stable, will restart home medications as tolerated Qualifiers: Hypertension type: essential hypertension Qualified Code(s): I10 - Essential (primary) hypertension (4) Hyperlipidemia Current Visit: Yes Status: Chronic Plan: Will continue statin, Qualifiers: Hyperlipidemia type: unspecified Qualified Code(s): E78.5 - Hyperlipidemia , unspecified (5) Gastroesophageal reflux Current Visit: No Status: Chronic Plan: Stable, continue home medications Qualifiers: Esophagitis presence: esophagitis presence not specified Qualified Code(s) : K21.9 - Gastro-esophageal reflux disease without esophagitis (6) Vertigo Current Visit: No Status: Chronic Plan: -Will get physical therapy -continue meclizine (7) Acute kidney injury Current Visit: Yes Status: Acute Plan: Likely pre renal, due to hypotension -blood pressure is improved with IV fluids -will continue to monitor creatinine/kidney function - Plan DVT prophylaxis: Lovenox GI prophylaxis: Protonix, home medication Diet: Heart healthy Disposition: Pending symptomatic improvement. - Advance Directives Does patient have a Living Will: No Does patient have a Durable POA for Healthcare: No Time Spent Managing Pts Care (In Minutes): 55
[2018-12-20] MEDS ORDERED: HOME MED 1 EA UNK (Meclizine Hcl [Meclizine Hcl] 25 MG) PO PRN (17:59)
[2018-12-20] MEDS ORDERED: PNEUMOCOCCAL VACCINE 0.5 ML IMVAC ONE (18:00)
[2018-12-20] MEDS ORDERED: INFLUENZA VACCINE (for 3y+) 0.5 ML DOSE IMVAC ONE (18:00)
[2018-12-20] MEDS ORDERED: MECLIZINE HCL 12.5 MG TAB PO PRN (18:16)
[2018-12-20 18:21] LABS: Urine Bacteria <20 /HPF (NONE SEEN); Urine Culture Reflex Order REFLEXED; Urine RBC <5 /HPF (NONE SEEN)
[2018-12-20] MEDS ORDERED: POTASSIUM CL SA 10 MEQ TAB PO ONE (20:00)
[2018-12-20] MEDS: ATORVASTATIN 80 MG TAB PO SCH ×2 (21:00→22:27)
[2018-12-21] MEDS: NA CHLORIDE 0.9% 1,000 ML IV SCH ×2 (02:39→16:04)
[2018-12-21 04:38] LABS: Absolute Lymphocytes (CBC) 1.2 K/uL (0.7-4.9); Basophils % 0.6 % (0-1.3); Hematocrit 35.9 % (39.6-49.0); Lymphocytes % 16.7 % (15.3-44.8); MPV 7.6 fL (7.6-11.3); RBC Red Blood Cell Count 3.74 M/uL (4.33-5.43)
[2018-12-21 05:09] LABS: Albumin 3.2 g/dL (3.4-5.0); Bilirubin Total 1.1 mg/dL (0.2-1.0); Phosphorus 2.4 mg/dL (2.5-4.9); Potassium 3.9 mmol/L (3.5-5.1); Protein, Total 5.7 g/dL (6.4-8.2)
[2018-12-21] MEDS: ENOXAPARIN 40 MG/0.4 ML SQ SCH (08:51)
[2018-12-21] MEDS: POTASS/SODIUM PHOSPHATE 1 PKT POWD.PACK PO SCH ×3 (08:52→12:24)
[2018-12-21] MEDS ORDERED: VALSARTAN 80 MG TAB PO SCH (09:00)
[2018-12-21] MEDS ORDERED: HYDROCHLOROTHIAZIDE PO SCH (09:00)
[2018-12-21] MEDS ORDERED: hydroCHLOROthiazide 12.5 MG CAP PO SCH (09:00)
[2018-12-21] MEDS ORDERED: POTASSIUM CL SA 10 MEQ TAB PO ONE (09:00)
[2018-12-21] MEDS ORDERED: VALSARTAN PO SCH (09:00)
[2018-12-21] MEDS ORDERED: TAMSULOSIN 0.4 MG SR CAP PO SCH (09:00)
--- NOTE | 2018-12-21 10:38 | RAD REPORT ---
EXAM DESCRIPTION: CT - Neck Angio - 12/21/2018 9:13 am CLINICAL HISTORY: Plaquing of carotid arteries Carotid stenosis. COMPARISON: CT MULTIPLANAR RECONSTRUCTION dated 04/14/2012 TECHNIQUE: CT angiography of the neck vessels was performed with MIPs. All CT scans are performed using dose optimization technique as appropriate and may include automated exposure control or mA/KV adjustment according to patient size. FINDINGS: A left aortic arch is identified with normal three vessel configuration of the great vesse ls. No significant flow abnormality is seen of the common carotid bilaterally. Moderate hard plaque is seen involving the right carotid bulb resulting 50-60% stenosis based on NASC ET criteria. Mild hard plaque is seen involving the left carotid bulb with stenosis of less than 50% seen based on NASCET criteria. The left vertebral artery is very diminutive but patent. Right vertebral artery is dominant and demon strates forward flow. IMPRESSION: 50-60% atherosclerotic stenosis present right carotid bulb.
--- NOTE | 2018-12-21 11:13 | ECHO ---
HEIGHT: 5 ft 10 in WEIGHT: 146 lb 8 oz DATE OF STUDY: 12/21/[address]: Power Liang MD 2-DIMENSIONAL: YES M.MODE: YES DOPPLER: YES COLOR FLOW: YES TDS: NO PORTABLE: NO DEFINITY: NO BUBBLE STUDY: NO DIAGNOSIS: SYNCOPAL EPISODE CARDIAC HISTORY: CATHERIZATION: NO SURGERY: NO PROSTHETIC VALVE: NO PACEMAKER: NO MEASUREMENTS (cm) DIASTOLIC (NORMALS) SYSTOLIC (NORMALS) IVSd 1.0 (0.6-1.2) LA Diam 3.2 (1.9-4.0) LVEF 53% LVIDd 4.4 (3.5-5.7) LVIDs 3.2 (2.0-3.5) %FS 27% LVPWd 1.1 (0.6-1.2) Ao Diam 3.3 (2.0-3.7) 2 DIMENSIONAL ASSESSMENT: RIGHT ATRIUM: NORMAL LEFT ATRIUM: NORMAL RIGHT VENTRICLE: NORMAL LEFT VENTRICLE: NORMAL TRICUSPID VALVE: NORMAL MITRAL VALVE: NORMAL PULMONIC VALVE: NORMAL AORTIC VALVE: NORMAL PERICARDIAL EFFUSION: NONE AORTIC ROOT: NORMAL LEFT VENTRICULAR WALL MOTION: NORMAL. DOPPLER/COLOR FLOW: PHYSIOLOGIC TRICUSPID REGURGITATION. NORMAL RIGHT VENTRICULAR SYSTOLIC PRESSURE. COMMENTS: NORMAL 2D ECHO WITH DOPPLER. TECHNOLOGIST: MED SANDERSON
[2018-12-21 12:07] VITALS: TEMP 97.6
--- NOTE | 2018-12-21 12:26 | CON ---
Chief Complaint: Loss of consciousness. History Of Present Illness: Mr. Stephens is 78. He was sitting for a long time and eating breakfast, s tood up to brush his teeth, lost consciousness. He actually was aware he was swallowing, but his vis ion got dark. When he hit the ground, he was able to avoid injuring himself, used his hand, and guid ed his fall somewhat. He laid still for a minute and then was able to stand up and came to the [facility]. Since being here, cardiac enzymes are normal. He has had a carotid Doppler that revealed bilat eral 50% to 70% stenoses. These would not be considered bad enough to cause a syncope or stroke. Th e patient has never had a stroke or myocardial infarction or any vascular surgery. Home Medications: Tamsulosin, Zofran, meclizine, simvastatin, valsartan 80, hydrochlorothiazide 12.5 , and Nexium 40. Allergies: HE IS ALLERGIC TO PENICILLINS. Social History: He uses no tobacco. Physical Examination: General: Alert, oriented, pleasant, not in distress. Lungs: Clear. Heart: Within normal limits. I do not detect a carotid bruit. Impression: My impression is that the carotid arteries are unrelated to his syncope. Plan: I think we need to do bilateral arm blood pressures simultaneously and orthostatic vital signs and do a CT angio of the carotids. I think this is basically orthostasis, perhaps he should reduce his blood pressure medicin es some. SUDARSHAN/EL Voice ID: [id number] Report ID: [id number]
[2018-12-21 13:48] VITALS: O2SAT 96
[2018-12-21 16:08] VITALS: BP 123/61
--- NOTE | 2018-12-21 17:10 | P.SSS ---
Patient History Date of Service: 12/21/18 Primary Care Provider: Dr. Larios Reason for admission: Syncopal episode History of Present Illness: This is a 78-year-old male with past medical history of hypertension, GERD, hyperlipidemia and vertigo who presents to the emergency room with complaints of an episode of a fall. Per patient, he was standing up by the sink and he fell from a standing position. He states that he does not remember falling but he does remember waking up on the floor in a position. He does not think he hit anything in particular. He was able to eventually get up and pull himself up. He states that he has had a history of vertigo, he is episodes of dizziness that come on acutely. He denies any specific position that makes it worse. He states he awaiting that makes the dizziness, on more frequently as if he has any sudden movements. During this fall, he denies any specific sudden movements. He also denies moving his bowels or urine, biting his tongue , any headache, any chest pain, shortness of breath any vision changes speech changes. He denies any pain at this time from the fall. He therefore came to the emergency room via EMS. In the ER, patient's blood pressure was slightly low at 90 7/71, heart rate of 112, respirations of 18, afebrile at 97.5, satting well at 96%. His BMI is 21.5. His labs were remarkable for creatinine of 1.70. Head CT was negative for any acute abnormalities. Chest x-ray was normal. He received IV fluids in the ER At the time of my exam, he was alert oriented x3, in no acute distress. He was hemodynamically stable. He was complaining of pain at the base of his neck, in between his to shoulder blades. He states this is not a new pain, this comes on frequently due to stress and strain on her shoulders. Allergies Penicillins Allergy (Verified 11/03/17 11:08) Hives/Rash,muscular problems Home medications list reviewed: Yes Home Medications: Esomeprazole Magnesium 40 mg PO DAILY 12/20/18 Meclizine HCl 25 mg PO TIDP PRN 12/20/18 Ondansetron [Zofran (Odt)*] 4 mg PO Q8HP 12/20/18 Tamsulosin [Flomax*] 0.4 mg PO DAILY 12/20/18 Valsartan/Hydrochlorothiazide [Valsartan-Hctz 80-12.5 mg Tab] 1 tab PO DAILY 10/31 Atorvastatin Calcium [Lipitor] 80 mg PO BEDTIME #30 tab 12/21/18 - Past Medical/Surgical History Has patient received pneumonia vaccine in the past: No Diabetic: No -: Hypertension -: Hyperlipidemia -: Enlarged prostate -: Polyps removal from colon - Family History Father -: Heart disease, Hypertension - Social History Smoking Status: Former smoker Alcohol use: No CD- Drugs: No Caffeine use: No Place of Residence: Home Review of Systems 10-point ROS is otherwise unremarkable Physical Examination - Vital Signs Temperature: 97.6 F Blood Pressure: 123/61 Pulse: 94 Respirations: 18 Pulse Ox (%): 94 - Physical Exam General: Alert, In no apparent distress HEENT: Atraumatic, PERRLA, Mucous membr. moist/pink, EOMI, Sclerae nonicteric Neck: Supple, 2+ carotid pulse no bruit, No LAD, Without JVD or thyroid abnormality Respiratory: Clear to auscultation bilaterally, Normal air movement Cardiovascular: Regular rate/rhythm, Normal S1 S2 Gastrointestinal: Normal bowel sounds, No tenderness Musculoskeletal: No tenderness Integumentary: No rashes Neurological: Normal gait, Normal speech, Normal strength at 5/5 x4 extr, Normal tone, Normal affect Lymphatics: No axilla or inguinal lymphadenopathy - Diagnosis (Problem(s)) (1) Fall Current Visit: Yes Status: Acute Plan: Likely secondary to vertigo. -CT of the head negative -orthostatics vital signs negative -will continue meclizine to see if that will help -physical therapy consulted -echo negative Qualifiers: Encounter type: initial encounter Qualified Code(s): W19.XXXA - Unspecified fall, initial encounter (2) Carotid stenosis, bilateral Current Visit: Yes Status: Acute Plan: -carotid ultrasound shows bilateral Significant hard and soft plaquing is seen in both internal carotid arteries as detailed above. These result in a visual stenosis bilaterally however hemodynamic significance is not demonstrated.Moderate hard plaquing is seen in the right proximal internal carotid artery. Luminal narrowing based on NASCET criteria is estimated at 50%. A large amount of soft plaque is present in the proximal left internal carotid artery, visually resulting in stenosis of 50-70% based on NASCET criteria. -CTA of the neck shows 50-60% atherosclerotic stenosis of right carotid bulb. These findings are not likely was causing the patient's symptoms. -cardiology consult, recommendations appreciated. Cleared for discharge by cardiology (3) Hypertension Current Visit: No Status: Chronic Qualifiers: Hypertension type: essential hypertension Qualified Code(s): I10 - Essential (primary) hypertension (4) Hyperlipidemia Current Visit: Yes Status: Chronic Qualifiers: Hyperlipidemia type: unspecified Qualified Code(s): E78.5 - Hyperlipidemia , unspecified (5) Gastroesophageal reflux Current Visit: No Status: Chronic Qualifiers: Esophagitis presence: esophagitis presence not specified Qualified Code(s) : K21.9 - Gastro-esophageal reflux disease without esophagitis (6) Vertigo Current Visit: No Status: Chronic (7) Acute kidney injury Current Visit: Yes Status: Acute Plan: Resolved - Disposition Discharge Date: 12/21/18 Disposition: ROUTINE DISCHARGE Condition: GOOD Consultations: Cardiology Patient Discharge Instructions: Please follow up with primary care physician in couple of days. Please follow up with cardiology in in a few weeks. Return to the emergency room for worsening symptoms. Diet: AHA Activity: Ad mariah Time Spent Managing Pts Care (In Minutes): 55
== END 2018-12-21 18:07 | disposition home or self-care (01) ==
LOC: ER 11:49 → ERHOLD 13:27 → 4TH 14:36
PROVIDERS: ADMIT Family Medicine; ATTEND Family Medicine
DX: R42 Dizziness and giddiness (principal); I65.23 Occlusion and stenosis of bilateral carotid arteries; N17.9 Acute kidney failure, unspecified; I10 Essential (primary) hypertension; E78.5 Hyperlipidemia, unspecified; K21.9 Gastro-esophageal reflux disease without esophagitis; Z88.0 Allergy status to penicillin
CPT/HCPCS: 93005; 93306; 87088; 85025 ×2; 81001; 87086; 80048; 36415; 83735 ×2; 84100; 85610; 80076; 84443; 84484; 84439; 80053; 83880; 70450; 70498; 71045; 93880; 97112; 97116; 97161; 94760 ×3; 96360; 99285; Q9967; J1650 ×2; J7030 ×4; G0378 ×3; J8597

== ENCOUNTER 2020-11-01 08:38 | Emergency (ER) | payer OTHER ==
--- NOTE | 2020-11-01 11:08 | EKG ---
Test Date: 2020-11-01 Test Time: 09:31:04 Registry Np: BOBBI MEASUREMENT RESULTS: Intervals: Rate: 94 [place]: 144 QRSD: 84 QT: 370 QTc: 462 [place]: P: -19 [place]: 144 QRS: -46 T: -10 INTERPRETIVE STATEMENTS: Suspect unspecified pacemaker failure Sinus rhythm with marked sinus arrhythmia Left anterior fascicular block Abnormal ECG Compared to ECG 12/20/2018 12:09:11 Left anterior fascicular block now present Fusion complex(es) no longer present Electronically Signed On 11-01-20 11:07:23 CDT by Ozzy Fish
--- NOTE | 2020-11-01 11:17 | RAD REPORT ---
EXAM DESCRIPTION: RAD - Chest Single View - 11/01/2020 10:45 am CLINICAL HISTORY: CHEST PAIN COMPARISON: Portable December 2018 TECHNIQUE: AP portable chest image was obtained 11/01/2020 10:45 am . FINDINGS: Lungs are clear. Interstitial pattern not clearly different from comparison. Heart and vas culature are normal. No measurable pleural effusion and no pneumothorax. No acute bony abnormality se en. No acute aortic findings suspected. IMPRESSION: No acute cardiopulmonary process. No significant change from comparison study.
[2020-11-01 14:27] LABS: Basophils % 0.6 % (0-1.3); Hematocrit 46.6 % (39.6-49.0); Lymphocytes % 8.1 % (15.3-44.8); MPV 7.4 fL (7.6-11.3); RBC Red Blood Cell Count 4.86 M/uL (4.33-5.43)
[2020-11-01 14:30] LABS: Protime INR 0.92
[2020-11-01 15:22] LABS: ALT/SGPT 43 U/L (12-78); AST/SGOT 34 U/L (15-37); Albumin 4.1 g/dL (3.4-5.0); Alkaline Phosphatase 70 U/L (45-117); BUN Blood Urea Nitrogen 24 mg/dL (7-18); Bicarbonate 25 mmol/L (21-32); Bilirubin Direct 0.3 mg/dL (0-0.2); Bilirubin Total 0.9 mg/dL (0.2-1.0); Glucose Level 120 mg/dL (74-106); Magnesium 2.6 mg/dL (1.8-2.4); NT PRO-BNP 65 pg/mL (<450); Potassium 4.2 mmol/L (3.5-5.1); Protein, Total 7.6 g/dL (6.4-8.2); Sodium Level 141 mmol/L (136-145); Troponin (Emerg Dept Use Only) < 0.02 ng/mL (0.0-0.045)
--- NOTE | 2020-11-01 16:21 | ER ---
Nurse's Notes [facility] Name: Get Stephens Age: 80 yrs Sex: Male : 1940 Arrival Date: 11/01/2020 Time: 08:39 Bed DIS3 Private MD: Carrie Miramontes Diagnosis: Chest pain, unspecified Presentation: 11/01 09:26 Chief complaint: Patient states: chest pressure and pain. Coronavirus screen: Client da3 denies travel out of the [place] in the last 14 days. Ebola Screen: No symptoms or risks identified at this time. Risk Assessment: Do you want to hurt yourself or someone else? Patient reports no desire to harm self or others. 09:26 Method Of Arrival: Ambulatory da3 09:26 Acuity: LARA 3 da3 16:46 Initial Sepsis Screen: Does the patient meet any 2 criteria? No. Patient's initial ll1 sepsis screen is negative. Does the patient have a suspected source of infection? No. Patient's initial sepsis screen is negative. Onset of symptoms was November 01, 2020. Triage Assessment: 09:29 General: Appears in no apparent distress. uncomfortable, Behavior is calm, cooperative. da3 Historical: - Allergies: 16:46 PENICILLINS; ll1 - PMHx: 16:46 GERD; High Cholesterol; Hypertension; Vertigo; ll1 - Immunization history:: Osito and Osito 1 shot. - Social history:: Smoking status: unknown. Screenin:41 Abuse screen: Denies threats or abuse. Nutritional screening: No deficits noted. ll1 Tuberculosis screening: No symptoms or risk factors identified. Fall Risk IV access (20 points). Total Meyer Fall Scale indicates No Risk (0-24 pts). Assessment: 16:40 General: Appears in no apparent distress. Behavior is calm, cooperative, appropriate ll1 for age. Pain: Denies pain. had CP earlier, none now. Pain began today. Neuro: No deficits noted. Cardiovascular: Reports chest pain, Heart tones S1 S2 Capillary refill < 3 seconds Clubbing of nail beds is absent JVD Patient's skin is warm and dry. Rhythm is regular. Respiratory: No deficits noted. Vital Signs: 09:28 BP 113 / 53; Pulse 108; Resp 20; Temp 97.8; Pulse Ox 98% on R/A; da3 13:05 BP 120 / 55; Pulse 72; ll1 16:40 BP 147 / 64; Pulse 72; Resp 18; Pulse Ox 98% ; ll1 ED Course: 08:39 Patient arrived in ED. am2 08:39 Carrie Miramontes FNP-C is Private Physician. am2 09:02 Los Torres MD is Attending Physician. kdr 09:28 Triage completed. da3 09:36 EKG done, by ED staff, reviewed by Los Torres MD. em1 10:45 Chest Single View XRAY In Process Unspecified. EDMS 13:47 Missed attempt(s): 20 gauge in left antecubital area. Bleeding controlled, band aid dh3 applied, catheter tip intact. 13:57 Inserted saline lock: 20 gauge in right antecubital area, using aseptic technique. 3 16:28 Dixon Blackwood, RN is Primary Nurse. ll1 16:41 Arm band placed on Patient placed in an exam room, on a stretcher. ll1 16:44 No provider procedures requiring assistance completed. IV discontinued, intact, ll1 bleeding controlled, No redness/swelling at site. Pressure dressing applied. Patient maintains SpO2 saturation greater than 95% on room air. 16:46 Patient has correct armband on for positive identification. Call light in reach. Side ll1 rails up X 1. Cardiac monitoring not applicable on this patient. Administered Medications: No medications were administered Outcome: 16:20 Discharge ordered by . kdr 16:46 Discharged to home ambulatory. ll1 16:46 Condition: stable 16:46 Discharge instructions given to patient, Instructed on discharge instructions, follow up and referral plans. Demonstrated understanding of instructions, follow-up care. 16:46 Patient left the ED. ll1 Signatures: Dispatcher [employer] EDNM Los Torres MD MD kdr Martinez, Eric em1 Colette Simms amRosi Tam 3 Dixon Blackwood, RN RN ll1 Ilya Coffey, RN RN da3
--- NOTE | 2020-11-01 16:21 | EDPHYS ---
Physician Documentation [facility] Name: Get Stephens Age: 80 yrs Sex: Male : 1940 Arrival Date: 11/01/2020 Time: 08:39 Bed DIS3 Private MD: Carrie Miramontes ED Physician Los Torres HPI: 11/01 14:48 This 80 yrs old Male presents to ER via Ambulatory with complaints of Chest kdr Tightness, Chest Pain, Shortness Of Breath. 14:48 The patient or guardian reports chest pain that is located primarily in the anterior kdr chest wall, bilaterally. Onset: gradually, Has been developing for the last several months. The pain does not radiate. Associated signs and symptoms: Pertinent positives: shortness of breath, Patient states that he gets short of breath with exertion. The chest pain is described as aching, dull, a pressure, squeezing. Duration: The patient or guardian reports a single episode, that is now resolved, The patient or guardian reports multiple episodes, that have now resolved, that are intermittent, that wax and wane, with no pattern. Modifying factors: The symptoms are alleviated by nothing. the symptoms are aggravated by Patient states that he is vigorous in his exercise and normally encounter this discomfort during exertion. The pain typically occurs when he is involved in daily activities that are not especially strenuous. Severity of pain: At its worst the pain was mild moderate just prior to arrival, in the emergency department the pain is unchanged. The patient has not experienced similar symptoms in the past. The patient has not recently seen a physician. Historical: - Allergies: 16:46 PENICILLINS; ll1 - PMHx: 16:46 GERD; High Cholesterol; Hypertension; Vertigo; ll1 - Immunization history:: Osito and Osito 1 shot. - Social history:: Smoking status: unknown. ROS: 18:58 Constitutional: Negative for fever, chills, and weight loss, Eyes: Negative for injury, kdr pain, redness, and discharge, ENT: Negative for injury, pain, and discharge, Neck: Negative for injury, pain, and swelling, Respiratory: Negative for shortness of breath, cough, wheezing, and pleuritic chest pain, Abdomen/GI: Negative for abdominal pain, nausea, vomiting, diarrhea, and constipation, Back: Negative for injury and pain, : Negative for injury, bleeding, discharge, and swelling, MS/Extremity: Negative for injury and deformity, Skin: Negative for injury, rash, and discoloration, Neuro: Negative for headache, weakness, numbness, tingling, and seizure activity. Psych: Negative for depression, anxiety, suicide ideation, homicidal ideation, and hallucinations, Allergy/Immunology: Negative for hives, rash, and allergies, Endocrine: Negative for neck swelling, polydipsia, polyuria, polyphagia, and marked weight changes, Hematologic/Lymphatic: Negative for swollen nodes, abnormal bleeding, and unusual bruising. 18:58 Cardiovascular: Positive for chest pain, Negative for edema, orthopnea, palpitations, paroxysmal nocturnal dyspnea. Exam: 18:58 Constitutional: This is a well developed, well nourished patient who is awake, alert, kdr and in no acute distress. Head/Face: Normocephalic, atraumatic. Eyes: Pupils equal round and reactive to light, extra-ocular motions intact. Lids and lashes normal. Conjunctiva and sclera are non-icteric and not injected. Cornea within normal limits. Periorbital areas with no swelling, redness, or edema. Neck: Trachea midline, no thyromegaly or masses palpated, and no cervical lymphadenopathy. Supple, full range of motion without nuchal rigidity, or vertebral point tenderness. No Meningismus. Chest/axilla: Normal chest wall appearance and motion. Nontender with no deformity. No lesions are appreciated. Cardiovascular: Regular rate and rhythm with a normal S1 and S2. No gallops, murmurs, or rubs. Normal PMI, no JVD. No pulse deficits. Respiratory: Lungs have equal breath sounds bilaterally, clear to auscultation and percussion. No rales, rhonchi or wheezes noted. No increased work of breathing, no retractions or nasal flaring. Abdomen/GI: Soft, non-tender, with normal bowel sounds. No distension or tympany. No guarding or rebound. No evidence of tenderness throughout. Back: No spinal tenderness. No costovertebral tenderness. Full range of motion. Skin: Warm, dry with normal turgor. Normal color with no rashes, no lesions, and no evidence of cellulitis. MS/ Extremity: Pulses equal, no cyanosis. Neurovascular intact. Full, normal range of motion. Neuro: Awake and alert, GCS 15, oriented to person, place, time, and situation. Cranial nerves II-XII grossly intact. Motor strength 5/5 in all extremities. Sensory grossly intact. Cerebellar exam normal. Normal gait. Psych: Awake, alert, with orientation to person, place and time. Behavior, mood, and affect are within normal limits. 18:58 ECG was reviewed by the Attending Physician. Vital Signs: 09:28 BP 113 / 53; Pulse 108; Resp 20; Temp 97.8; Pulse Ox 98% on R/A; da3 13:05 BP 120 / 55; Pulse 72; ll1 16:40 BP 147 / 64; Pulse 72; Resp 18; Pulse Ox 98% ; ll1 MDM: 16:20 Patient medically screened. kdr 18:58 Data reviewed: vital signs, nurses notes, lab test result(s), radiologic studies. kdr Counseling: I had a detailed discussion with the patient and/or guardian regarding: the historical points, exam findings, and any diagnostic results supporting the discharge/admit diagnosis, lab results, radiology results, the need for outpatient follow up. 11/01 13:36 Order name: Basic Metabolic Panel; Complete Time: 16:19 [facility] 11/01 13:36 Order name: CBC with Diff [facility] 11/01 13:36 Order name: LFT's; Complete Time: 16:19 [facility] 11/01 13:36 Order name: Magnesium; Complete Time: 16:19 [facility] 11/01 13:36 Order name: NT PRO-BNP; Complete Time: 16:19 [facility] 11/01 13:36 Order name: PT-INR; Complete Time: 14:48 [facility] 11/01 09:42 Order name: EKG; Complete Time: 09:42 em1 11/01 09:42 Order name: EKG - Nurse/Tech; Complete Time: 09:42 em1 11/01 09:42 Order name: Chest Single View XRAY; Complete Time: 14:48 1 11/01 12:45 Order name: EKG Electrocardiogram [facility] 11/01 13:36 Order name: Troponin (emerg Dept Use Only); Complete Time: 16:19 kdr 11/01 13:36 Order name: IV Saline Lock; Complete Time: 13:56 kdr 11/01 13:36 Order name: Labs collected and sent; Complete Time: 13:50 kdr 11/01 13:36 Order name: O2 Per Protocol; Complete Time: 13:50 kdr 11/01 13:36 Order name: O2 Sat Monitoring; Complete Time: 13:50 kdr Administered Medications: No medications were administered Disposition Summary: 11/01/20 16:20 Discharge Ordered Location: Home kdr Problem: new kdr Symptoms: are resolved kdr Condition: Stable kdr Diagnosis - Chest pain, unspecified kdr Followup: kdr - With: Private Physician - When: 2 - 3 days - Reason: If symptoms return, Further diagnostic work-up, Recheck today's complaints, Continuance of care, Re-evaluation by your physician Discharge Instructions: - Discharge Summary Sheet ll1 Forms: - Medication Reconciliation Form kdr - Thank You Letter kdr - Antibiotic Education kdr - Prescription Opioid Use kdr - Work release form ll1 Signatures: Dispatcher [employer] Los Allen MD MD kdr Micah Sherwood Lynsay, RN RN ll1 Ilya Coffey RN RN da3
[2020-11-01 18:01] VITALS: TEMP 97.8; O2SAT 98
[2020-11-01 18:03] VITALS: BP 147/64
[2020-11-01 18:51] LABS: Blood Morphology Comment NOT SEEN (NOT SEEN); Platelet Estimate ADEQ; White Blood Cell Scan OK (OK)
--- NOTE | 2020-11-03 10:45 | EKG ---
Test Date: 2020-11-01 Test Time: 09:31:36 Boiler Inspector: EM MEASUREMENT RESULTS: Intervals: Rate: 103 CO: 148 QRSD: 84 QT: 370 QTc: 484 [place]: P: -20 CO: 148 QRS: -46 T: -8 INTERPRETIVE STATEMENTS: Sinus tachycardia Left anterior fascicular block Abnormal ECG Compared to ECG 11/01/2020 09:31:04 Sinus rhythm no longer present Sinus arrhythmia no longer present Electronically Signed On 11-03-20 10:40:23 CDT by Ozzy Fish
== END 2020-11-01 16:46 | disposition home or self-care (01) ==
LOC: ER 08:38
DX: R07.9 Chest pain, unspecified (principal); I10 Essential (primary) hypertension; Z88.0 Allergy status to penicillin
CPT/HCPCS: 36415; 71045; 80048; 80076; 83735; 83880; 84484; 85025; 85610; 93005; 99284

== ENCOUNTER 2021-07-08 08:22 | Day surgery (SDC) | payer OTHER ==
[2021-07-03 10:54] LABS: Absolute Lymphocytes (CBC) 1.2 K/uL (0.7-4.9); Hematocrit 43.4 % (39.6-49.0); Lymphocytes % 14.6 % (15.3-44.8); MPV 7.1 fL (7.6-11.3); RBC Red Blood Cell Count 4.85 M/uL (4.33-5.43)
--- NOTE | 2021-07-03 10:56 | RAD REPORT ---
EXAM DESCRIPTION: RAD - Chest Pa And Lat (2 Views) - 07/03/2021 10:43 am CLINICAL HISTORY: Preop Chest pain. COMPARISON: Chest Single View dated 11/01/2020; Chest Single View dated 12/20/2018; Chest Pa And Lat ( 2 Views) dated 01/28/2018; Chest Single View dated 06/25/2017 FINDINGS: The lungs are clear. The heart is normal in size. No displaced fractures. Aortic atheroscl erosis. IMPRESSION: No acute or concerning finding suspected.
[2021-07-03 11:02] LABS: Protime INR 1.01
[2021-07-08] MEDS ORDERED: Ringers Lactate 1,000 ML IV ONE (08:58)
[2021-07-08] MEDS: CLINDAMYCIN 600MG/D5W 600 MG/50 ML BAG IV ONE ×2 (10:04→10:31)
[2021-07-08] MEDS: Gentamicin Inj 160 MG in NA CHLORIDE 0.9% 100 ML IV ONE ×2 (10:04→10:11)
[2021-07-08] MEDS ORDERED: propofoL 200 MG/20 ML VIAL IV ONE (10:16)
[2021-07-08] MEDS ORDERED: FENTANYL CITR 100 MCG/2 ML ONE (10:17)
[2021-07-08] MEDS ORDERED: LIDOCAINE 1% MPF 5 ML VIAL ONE (10:17)
[2021-07-08] MEDS ORDERED: ONDANSETRON 4 MG/2 ML VIAL ONE ×2 (10:19→11:43)
[2021-07-08] MEDS ORDERED: EPHEDRINE SULF 50 MG/ML VIAL ONE (11:26)
[2021-07-08 12:24] VITALS: O2SAT 100
[2021-07-08] MEDS ORDERED: OPIUM/BELLADONNA SUPPOS (30-16.2 MG) PR ONE (12:38)
[2021-07-08 13:27] VITALS: BP 175/73; TEMP 96.2
--- NOTE | 2021-07-09 15:00 | OP ---
Surgeon: LINDA POLLARD Preoperative Diagnoses: 1.BPH with lower urinary tract obstruction. 2.History of acute urinary retention. Postoperative Diagnoses: 1.BPH with lower urinary tract obstruction. 2.History of acute urinary retention. Procedures: 1.Cystoscopy. 2.Urethral dilation using sounds. 3.Bipolar transurethral resection of the prostate. Indication For Procedure: Mr. Stephens is an 81-year-old gentleman with severe hearing deficit, hyperte nsion, GERD, hypercholesterolemia, and large volume incomplete emptying associated with severely both ersome lower urinary symptoms due to BPH complicated by acute cysto prostatitis in the setting of a l arge indirect right inguinal hernia with bladder diverticula and BPH with significant lateral and med briana lobar hypertrophy with intravesical projection of the median lobe seen cystoscopically on . He underwent urodynamics evaluation, which revealed significant instability of the bladder; so I counseled him on the risk of incontinence post resection of his prostate to relieve the obstructive component of his lower urinary symptoms. I also explained that once the obstruction was relieved, t here was a chance the bladder might learn to decrease its instability in time, but we would likely ne ed significant medical therapy upfront. He understood the risks and potential side effects and agree d to proceed. Procedure In Detail: The patient was consented in the preoperative holding area before being transfe rred to the operative suite where general anesthesia was induced. He was given clindamycin and genta micin IV antimicrobial prophylaxis and Pneumoboots were provided for DVT prophylaxis. He was placed in the lithotomy position, padded and secured to the table appropriately. His genitalia were prepped using Hibiclens and he was draped in standard fashion. The case was begun using urethral sounds to dilate the meatus and fossa navicularis to 30-Taiwanese. Then, using the 26-Taiwanese bipolar resectoscope sheath, the urethra was traversed using a visual obturator and the bladder entered. The bladder was surveyed, and as previously had been noted, there was significant cellule and diverticular formation at multiple points throughout his bladder and the bladder was markedly trabeculated. The median lob e was intravesically projecting and overlying the trigone. The ureteral orifices were visible and I resected the component of the median lobe directly distal and overlying the ureteral orifice on each side before then resecting the remainder of the median lobe until it was even with the level of the b ladder neck. I then resected the remainder of the median bar to create a smooth trough down to the l evel of the verumontanum. Once done, I then performed some additional resection of the lateral lobar hypertrophy and anterior intravesical projection in order to create a widely patent channel, but wit hout excessively resecting the tissue at the apex of the prostate in order to preserve some potential to decrease the expected amount of detrusor instability related urgent continence. All prostate chi ps were Ellik evacuated from his bladder. I then performed a careful search for bleeding and fulgura kaelyn any and all bleeding vessels. With his bladder decompressed, additional fulguration was performe d until the prostatic fossa was completely hemostatic with the bladder decompressed and no fluid infl ow with outflow only with no bleeding noted. As a result, with a widely patent fossa, I backfilled h is bladder and then placed a 22-Taiwanese 3-way Keen catheter with ease with 40 cc of sterile water in the balloon. I then placed the catheter to moderate traction after taking the patient out of the lit hotomy position, and he was connected to slow drip CBI. He was then transferred to a stretcher and t hen to the recovery room in good condition and the efflux of fluid and urine was crystal clear. Complications: None. Discharge Disposition: He will be discharged with a 7 day prescription of antimicrobial, likely Bact rim and will follow up on either Wednesday or Wednesday for catheter removal and voiding trial. Subsequent followup will then be planned to manage any ongoing detrusor instability; so I would likel y see him back in about a month. CHRIST/EL Voice ID: [id number] Report ID: [id number]
== END 2021-07-08 14:22 | disposition home or self-care (01) ==
LOC: OR 08:22
PROVIDERS: ATTEND Urology
PROC: 0VT08ZZ Resection of Prostate, Via Natural or Artificial Opening Endoscopic (ICD-10-PCS; principal; 2021-07-08 10:15)
DX: N40.1 Benign prostatic hyperplasia with lower urinary tract symptoms (principal); R33.9 Retention of urine, unspecified; I10 Essential (primary) hypertension; K21.9 Gastro-esophageal reflux disease without esophagitis; E78.00 Pure hypercholesterolemia, unspecified; Z20.822 Contact with and (suspected) exposure to COVID-19
CPT/HCPCS: 93005; 87088; 85025; 87086; 80048; 36415; 85610; 88305; 87077; 87186; 71046; 52601; U0002; J2704; J1580; J3010; J7120; J2405 ×2

== ENCOUNTER 2022-03-10 09:13 | Day surgery (SDC) | payer OTHER ==
[2022-02-24 16:15] LABS: Absolute Lymphocytes (CBC) 1.2 K/uL (0.7-4.9); Hematocrit 43.4 % (39.6-49.0); Lymphocytes % 15.2 % (15.3-44.8); MPV 7.4 fL (7.6-11.3); RBC Red Blood Cell Count 4.72 M/uL (4.33-5.43)
[2022-02-24 16:31] LABS: Potassium 3.5 mmol/L (3.5-5.1)
--- NOTE | 2022-02-26 08:08 | EKG ---
Test Date: 2022-02-24 Test Time: 15:41:38 Hr Receptionist: MAGO MEASUREMENT RESULTS: Intervals: Rate: 65 WI: 156 QRSD: 90 QT: 430 QTc: 447 [place]: P: 77 WI: 156 QRS: 94 T: 83 INTERPRETIVE STATEMENTS: Normal sinus rhythm Rightward axis Borderline ECG Compared to ECG 07/03/2021 09:19:34 Sinus arrhythmia no longer present Electronically Signed On 02-26-22 08:02:24 C4 PLANNER by Ozzy Fish
[2022-03-10] MEDS ORDERED: CLINDAMYCIN 600MG/D5W 50 ML IV ONE (09:30)
[2022-03-10] MEDS ORDERED: Gentamicin Inj 160 MG in NA CHLORIDE 0.9% 100 ML IV ONE (09:30)
[2022-03-10] MEDS ORDERED: Ringers Lactate 1,000 ML IV ONE ×2 (09:46→14:09)
[2022-03-10] MEDS ORDERED: LABETALOL 20 MG/4ML SYRINGE IV ONE ×2 (10:00→10:14)
[2022-03-10] MEDS ORDERED: FENTANYL CITR 100 MCG/2 ML ONE (12:38)
[2022-03-10] MEDS ORDERED: propofoL 200 MG/20 ML VIAL IV ONE (12:39)
[2022-03-10] MEDS ORDERED: LIDOCAINE 1% MPF 5 ML VIAL ONE (12:39)
[2022-03-10] MEDS ORDERED: ONDANSETRON 4 MG/2 ML VIAL ONE (12:42)
[2022-03-10] MEDS ORDERED: GLYCOPYRROLATE 0.2 MG/ML SYR ONE ×2 (13:49→13:51)
[2022-03-10] MEDS ORDERED: CODEINE 30MG/APAP 300MG TAB PO PRN (14:24)
[2022-03-10] MEDS ORDERED: PHENAZOPYRIDINE 100MG TAB PO ONE ×2 (14:24→15:08)
--- NOTE | 2022-03-10 14:31 | OP ---
Surgeon: LINDA POLLARD Preoperative Diagnoses: 1.Bladder diverticula. 2.Bladder lesion within the right lateral wall superior diverticulum. 3.BPH with obstruction and symptoms. Postoperative Diagnoses: 1.Bladder diverticula. 2.Bladder lesion within the right lateral wall superior diverticulum. 3.BPH with obstruction and symptoms. Principal Procedures: 1.Cystoscopy with diverticular bladder biopsies and fulguration. 2.Bipolar completion transurethral resection of the prostate. Indication For Procedure: Mr. Stephens is an 81-year-old gentleman who presented following prior bipola r TURP 07/08/2021 with improvement in his urinary symptoms, but persistent bothersome symptoms. He a lso had some dysuria and so he underwent cystoscopy on 02/12/2022 revealing a largely resected prosta tic fossa posteriorly, but with residual anterior overhang obstructing the prostatic urethral lumen a nd erythema of mucosa seen within the superolateral of 2 right posterior bladder diverticula. As a r esult, he was recommended for biopsy of the mucosal lesion seen in the diverticulum and we would perf orm a completion TURP at that time. Procedure In Detail: The patient was consented in the preoperative holding area before being transfe rred to the operative suite where general anesthesia was induced. He was given clindamycin and genta micin 2-3 mg/kg IV antimicrobial prophylaxis, and pneumo boots were provided for DVT prophylaxis. He was placed in the lithotomy position, padded and secured to the table appropriately. His genitalia were prepped with Hibiclens and he was draped in standard fashion. The case was begun using urethral sounds to dilate the meatus and fossa navicularis to 30-Zambian. Then, using the 26-Zambian bipolar r esectoscope sheath and visual boring machine operator horizontal, I was able to navigate via the urethra into his bladder with ease. As has previously been noted, there was significant posterior and lateral resection with some residual anterolateral tissue overhanging into the prostatic urethral lumen. I then entered the [facility] and surveyed the bladder in its entirety. There were no papillary mucosal lesions, foreign tyree s, or stones noted throughout. There were multiple bladder diverticula, particularly in the right la teral wall where there were 2. I surveyed each of those diverticula in detail, and the superior of t he 2 diverticula in the right lateral wall posteriorly was noted to have with irregular sessile eryth ematous patch of mucosa. As a result, using cold cup biopsy forceps through the resectoscope sheath, I superficially sampled the mucosa of the erythematous lesion within the diverticulum, taking care t o not enter the muscular layer because the diverticulum is notorious for not having a complete muscul ar wall. I was successfully able to biopsy just the mucosa in 3 different positions within the diver ticulum without perforating the diverticulum, and then I utilized the bipolar electrode to fulgurate the mucosa in that region. Each of those specimens were sent for pathologic analysis as right latera l wall diverticular bladder biopsy. I then turned my attention to the prostatic urethra and began re secting any residual adenoma seen within the entirety of the urethra especially that from the previou sly observed anterolateral overhang. With the bladder completely decompressed and surveyed at differ ent points, I ensured that the prostatic urethral lumen was widely patent from the verumontanum into the bladder neck. All prostate chips were Ellik evacuated and sent for pathologic analysis as prosta te chips. With the bladder decompressed, I carefully fulgurated the entirety of the prostatic fossa to ensure complete hemostasis. I then backfilled the bladder with several 100 cc of saline before pa ssing a 22-Zambian 3-way Keen catheter with ease into his bladder. 30 cc of sterile water was placed in the balloon, and the catheter was connected to a floor bag. He was then taken out of the lithoto my position, awakened from general anesthesia, transferred to a stretcher, and then transferred to [facility] recovery room in good condition. Complications: None. Discharge Disposition: He should follow up in the Urology Clinic within about 2 weeks to discuss the results of the biopsies taken. Subsequent followup should be established intervally in about 3 months' time to reassess his lower ur inary symptoms. WR/MODL Voice ID: [id number] Report ID: [id number]
[2022-03-10 14:57] VITALS: BP 164/59; TEMP 97.7; O2SAT 99
== END 2022-03-10 15:40 | disposition home or self-care (01) ==
LOC: DS 09:13 → OR 15:40
PROVIDERS: ATTEND Urology
PROC: 0VT08ZZ Resection of Prostate, Via Natural or Artificial Opening Endoscopic (ICD-10-PCS; 2022-03-10)
PROC: 0TBB8ZX Excision of Bladder, Via Natural or Artificial Opening Endoscopic, Diagnostic (ICD-10-PCS; principal; 2022-03-10 11:30)
DX: C61 Malignant neoplasm of prostate (principal); N32.9 Bladder disorder, unspecified; N40.1 Benign prostatic hyperplasia with lower urinary tract symptoms; R30.0 Dysuria; Z90.79 Acquired absence of other genital organ(s)
CPT/HCPCS: 52204; 52630; 93005; 87088; 85025; 87086; 80048; 36415; 88305; J2704; J2001; J1580; J3010; J7120 ×2; J2405

== ENCOUNTER 2022-12-12 16:28 | Inpatient (IN) | payer OTHER ==
--- OUTSIDE RECORDS SUMMARY | 2022-12-12 16:33 | XMS REPORT | Continuity of Care Document ---
:1940 Author Organization [facility] t Address 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 - [facility] urinary disorder [facility] Lower BPH with Problem Common urinary obstructio Spiri t tract n/lower - [facility] symptoms urinary [facility] due [facility] tract [facility] benign symptoms [facility] prostatic Center hypertroph y [id number] S/P TURP Problem Comm on Spirit [facility] [id number] Dysuria Problem Common Spirit [facility] [id number] Lesion of Problem Com mon bladder Spirit [facility] Benign BPH loc Problem Common prostatic w/o ur Spirit hypertroph obs/LUTS - [facility] I y without [facility] [id number] Painful Problem Commo n bladder Spirit spasm [facility] [id number] Recurrent Problem Com mon vertigo Spirit [facility] [id number] Wears Problem Common hearing Spirit aid [facility] [id number] 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 - [facility] recurrence [facility] (T1-2a, [facility] [place]<7 Center & PSA<10) Gastroesop Chronic Problem Comm on hageal GERD [facility] reflux - [facility] disease [facility] Benign BPH NOS w Problem Common prostatic ur Spirit hypertroph obs/LUTS - [facility] I y with [facility] obstructio Medica l n Center Essential Essential Problem Com mon hypertensi hypertensi Sp [place] on on [facility] Dyslipidem Dyslipidem Problem C ommon ia ia [facility] [id number] Urinary Problem Commo n retention [facility] Bladder Bladder Problem Common diverticul diverticul Sp [place] um um [facility] Disorder Bladder Problem Common of urinary disorder, Spi rit bladder unspecifie - [facility] d [facility] [id number] Indirect Problem Com mon [id number] right [facility] inguinal - [facility] hernia [facility] [id number] Acute Problem Common prostatiti Spirit s [facility] Benign Benign Problem Common prostatic prostatic Spir it hyperplasi hyperplasi - [facility] a a [facility] Allergies, Adverse Reactions, Alerts Allergy Allergy Status Severity Reaction(s) Onset Inactive Treating Comm ents Source Name Type Date Date Clinician penicill penicill Active limb Common in G in G distortion [facility] Social History Social Habit Start Date Stop Date Quantity Comments Source History of Tobacco Use Co mmon [facility] Sex Assigned At Com [facility] Smoking Status Start Date Stop Date Source Former Smoker 2022-07-30 00:00:00 2022-07-30 00:00:00 Common S pirit [facility] Medications Ordered Filled Start Stop Current Ordering Indication Dosage Frequency Signature Comments Components Source Medication Medication Date Date Medication? Clinician (SIG) Name Name Myrbetriq Myrbetriq 2022- No 1{table QD Myrbetriq 25 MG 25 MG 03-25 t} 25 MG 00:00: 00:00 00 :00 Myrbetriq Myrbetriq 2022- No 1{table QD Myrbetriq 25 MG 25 MG 03-25 t} 25 MG 00:00: 00:00 00 :00 Myrbetriq Myrbetriq 0 3- No 1{table QD Myrbetriq 25 MG 25 MG 03-25 t} 25 MG 00:00: 00:00 00 :00 Tamsulosin Tamsulosin 2021-0 2- No 1{capsu QD Tamsulosin HCl 0.4 MG HCl 0.4 MG 07-21 le} HCl 0.4 MG 00:00: 00:00 00 :00 Tamsulosin Tamsulosin 2- No 1{capsu QD Tamsulosin HCl 0.4 MG HCl 0.4 MG 07-21 le} HCl 0.4 MG 00:00: 00:00 00 :00 Tamsulosin Tamsulosin 2- No 1{capsu QD Tamsulosin HCl 0.4 MG HCl 0.4 MG 07-21 le} HCl 0.4 MG 00:00: 00:00 00 :00 Tamsulosin Tamsulosin 0 2- No 1{capsu QD Tamsulosin HCl 0.4 MG HCl 0.4 MG 07-21 le} HCl 0.4 MG 00:00: 00:00 00 :00 Levaquin Levaquin 2020-1- No 1{table QD Levaquin 500 MG 500 MG 04-29 t} 500 MG 00:00: 00:00 00 :00 Levaquin Levaquin 2020-1- No 1{table QD Levaquin 500 MG 500 MG 04-29 t} 500 MG 00:00: 00:00 00 :00 Levaquin Levaquin 2020-1- No 1{table QD Levaquin 500 MG 500 MG 04-29 t} 500 MG 00:00: 00:00 00 :00 Meclizine Meclizine No Meclizine HCl 25 MG HCl 25 MG HCl 25 MG Valsartan-h Valsartan-h No QD Valsartan- ydroCHLOROt ydroCHLOROt hydroCHLOR hiazide hiazide Othiazide 80-12.5 MG 80-12.5 MG 80-12.5 MG Simvastatin Simvastatin No QD Simvastati 10 MG 10 MG n 10 MG Esomeprazol Esomeprazol No QD Esomeprazo e Magnesium e Magnesium le 40 MG 40 MG Magnesium 40 MG Simvastatin Simvastatin No QD Simvastati 10 MG 10 MG n 10 MG Meclizine Meclizine No Meclizine HCl 25 MG HCl 25 MG HCl 25 MG Valsartan-h Valsartan-h No QD Valsartan- ydroCHLOROt ydroCHLOROt hydroCHLOR hiazide hiazide Othiazide 80-12.5 MG 80-12.5 MG 80-12.5 MG Esomeprazol Esomeprazol No QD Esomeprazo e Magnesium e Magnesium le 40 MG 40 MG Magnesium 40 MG Valsartan-h Valsartan-h No QD Valsartan- ydroCHLOROt ydroCHLOROt hydroCHLOR hiazide hiazide Othiazide 80-12.5 MG 80-12.5 MG 80-12.5 MG Simvastatin Simvastatin No QD Simvastati 10 MG 10 MG n 10 MG Meclizine Meclizine No Meclizine HCl 25 MG HCl 25 MG HCl 25 MG Esomeprazol Esomeprazol No QD Esomeprazo e Magnesium e Magnesium le 40 MG 40 MG Magnesium 40 MG Valsartan-h Valsartan-h No QD Valsartan- ydroCHLOROt ydroCHLOROt hydroCHLOR hiazide hiazide Othiazide 80-12.5 MG 80-12.5 MG 80-12.5 MG Simvastatin Simvastatin No QD Simvastati 10 MG 10 MG n 10 MG Meclizine Meclizine No Meclizine HCl 25 MG HCl 25 MG HCl 25 MG Esomeprazol Esomeprazol No QD Esomeprazo e Magnesium e Magnesium le 40 MG 40 MG Magnesium 40 MG Meclizine Meclizine No Meclizine HCl 25 MG HCl 25 MG HCl 25 MG Simvastatin Simvastatin No QD Simvastati 10 MG 10 MG n 10 MG Valsartan-h Valsartan-h No QD Valsartan- ydroCHLOROt ydroCHLOROt hydroCHLOR hiazide hiazide Othiazide 80-12.5 MG 80-12.5 MG 80-12.5 MG Esomeprazol Esomeprazol No QD Esomeprazo e Magnesium e Magnesium le 40 MG 40 MG Magnesium 40 MG Simvastatin Simvastatin No QD Simvastati 10 MG 10 MG n 10 MG Valsartan-h Valsartan-h No QD Valsartan- ydroCHLOROt ydroCHLOROt hydroCHLOR hiazide hiazide Othiazide 80-12.5 MG 80-12.5 MG 80-12.5 MG Meclizine Meclizine No Meclizine HCl 25 MG HCl 25 MG HCl 25 MG Esomeprazol Esomeprazol No QD Esomeprazo e Magnesium e Magnesium le 40 MG 40 MG Magnesium 40 MG Simvastatin Simvastatin No QD Simvastati 10 MG 10 MG n 10 MG Valsartan-h Valsartan-h No QD Valsartan- ydroCHLOROt ydroCHLOROt hydroCHLOR hiazide hiazide Othiazide 80-12.5 MG 80-12.5 MG 80-12.5 MG Meclizine Meclizine No Meclizine HCl 25 MG HCl 25 MG HCl 25 MG Esomeprazol Esomeprazol No QD Esomeprazo e Magnesium e Magnesium le 40 MG 40 MG Magnesium 40 MG Simvastatin Simvastatin No QD Simvastati 10 MG 10 MG n 10 MG Valsartan-h Valsartan-h No QD Valsartan- ydroCHLOROt ydroCHLOROt hydroCHLOR hiazide hiazide Othiazide 80-12.5 MG 80-12.5 MG 80-12.5 MG Meclizine Meclizine No Meclizine HCl 25 MG HCl 25 MG HCl 25 MG Esomeprazol Esomeprazol No QD Esomeprazo e Magnesium e Magnesium le 40 MG 40 MG Magnesium 40 MG Meclizine Meclizine No Meclizine HCl 25 MG HCl 25 MG HCl 25 MG Simvastatin Simvastatin No 1{table QD Simvastati 10 MG 10 MG t_in_th n 10 MG e_eveni ng} Valsartan-h Valsartan-h No 1{table QD Valsartan- ydroCHLOROt ydroCHLOROt t} hydroCHLOR hiazide hiazide Othiazide 80-12.5 MG 80-12.5 MG 80-12.5 MG Esomeprazol Esomeprazol No QD Esomeprazo e Magnesium e Magnesium le 40 MG 40 MG Magnesium 40 MG Simvastatin Simvastatin No 1{table QD Simvastati 10 MG 10 MG t_in_th n 10 MG e_eveni ng} Valsartan-h Valsartan-h No 1{table QD Valsartan- ydroCHLOROt ydroCHLOROt t} hydroCHLOR hiazide hiazide Othiazide 80-12.5 MG 80-12.5 MG 80-12.5 MG Gaviscon Gaviscon No 2{table QID Gaviscon 80-14.2 MG 80-14.2 MG ts_afte 80-14.2 MG r_meals _and_at _bedtim e_as_ne eded} Meclizine Meclizine No Meclizine HCl 25 MG HCl 25 MG HCl 25 MG Testosteron Testosteron No Testostero e e ne L-Lysine L-Lysine No L-Lysine B12 B12 No B12 Meclizine Meclizine No Meclizine HCl 25 MG HCl 25 MG HCl 25 MG Valsartan-h Valsartan-h No 1{table QD Valsartan- ydroCHLOROt ydroCHLOROt t} hydroCHLOR hiazide hiazide Othiazide 80-12.5 MG 80-12.5 MG 80-12.5 MG Zinc Zinc No Zinc Vitamin C Vitamin C No Vitamin C Simvastatin Simvastatin No 1{table QD Simvastati 10 MG 10 MG t_in_th n 10 MG e_eveni ng} Vitamin D3 Vitamin D3 No Vitamin D3 Potassium Potassium No Potassium Selenium Selenium No Selenium Gaviscon Gaviscon No 2{table QID Gaviscon 80-14.2 MG 80-14.2 MG ts_afte 80-14.2 MG r_meals _and_at _bedtim e_as_ne eded} Meclizine Meclizine No Meclizine HCl 25 MG HCl 25 MG HCl 25 MG Zinc Zinc No Zinc Potassium Potassium No Potassium Valsartan-h Valsartan-h No 1{table QD Valsartan- ydroCHLOROt ydroCHLOROt t} hydroCHLOR hiazide hiazide Othiazide 80-12.5 MG 80-12.5 MG 80-12.5 MG Vitamin C Vitamin C No Vitamin C Testosteron Testosteron No Testostero e e ne Vitamin D3 Vitamin D3 No Vitamin D3 L-Lysine L-Lysine No L-Lysine Simvastatin Simvastatin No 1{table QD Simvastati 10 MG 10 MG t_in_th n 10 MG e_eveni ng} Selenium Selenium No Selenium B12 B12 No B12 Gaviscon Gaviscon No 2{table QID Gaviscon 80-14.2 MG 80-14.2 MG ts_afte 80-14.2 MG r_meals _and_at _bedtim e_as_ne eded} Testosteron Testosteron No Testostero e e ne Potassium Potassium No Potassium Zinc Zinc No Zinc L-Lysine L-Lysine No L-Lysine Meclizine Meclizine No Meclizine HCl 25 MG HCl 25 MG HCl 25 MG Valsartan-h Valsartan-h No 1{table QD Valsartan- ydroCHLOROt ydroCHLOROt t} hydroCHLOR hiazide hiazide Othiazide 80-12.5 MG 80-12.5 MG 80-12.5 MG Esomeprazol Esomeprazol No Esomeprazo e Magnesium e Magnesium le 40 MG 40 MG Magnesium 40 MG B12 B12 No B12 Simvastatin Simvastatin No 1{table QD Simvastati 10 MG 10 MG t_in_th n 10 MG e_eveni ng} Gaviscon Gaviscon No 2{table QID Gaviscon 80-14.2 MG 80-14.2 MG ts_afte 80-14.2 MG r_meals _and_at _bedtim e_as_ne eded} Vitamin C Vitamin C No Vitamin C Selenium Selenium No Selenium Vitamin D3 Vitamin D3 No Vitamin D3 Testosteron Testosteron No Testostero e e ne Potassium Potassium No Potassium Zinc Zinc No Zinc L-Lysine L-Lysine No L-Lysine Meclizine Meclizine No Meclizine HCl 25 MG HCl 25 MG HCl 25 MG Valsartan-h Valsartan-h No 1{table QD Valsartan- ydroCHLOROt ydroCHLOROt t} hydroCHLOR hiazide hiazide Othiazide 80-12.5 MG 80-12.5 MG 80-12.5 MG Esomeprazol Esomeprazol No Esomeprazo e Magnesium e Magnesium le 40 MG 40 MG Magnesium 40 MG B12 B12 No B12 Simvastatin Simvastatin No 1{table QD Simvastati 10 MG 10 MG t_in_th n 10 MG e_eveni ng} Gaviscon Gaviscon No 2{table QID Gaviscon 80-14.2 MG 80-14.2 MG ts_afte 80-14.2 MG r_meals _and_at _bedtim e_as_ne eded} Vitamin C Vitamin C No Vitamin C Selenium Selenium No Selenium Vitamin D3 Vitamin D3 No Vitamin D3 Testosteron Testosteron No Testostero e e ne Potassium Potassium No Potassium Zinc Zinc No Zinc L-Lysine L-Lysine No L-Lysine Meclizine Meclizine No Meclizine HCl 25 MG HCl 25 MG HCl 25 MG Valsartan-h Valsartan-h No 1{table QD Valsartan- ydroCHLOROt ydroCHLOROt t} hydroCHLOR hiazide hiazide Othiazide 80-12.5 MG 80-12.5 MG 80-12.5 MG Esomeprazol Esomeprazol No Esomeprazo e Magnesium e Magnesium le 40 MG 40 MG Magnesium 40 MG B12 B12 No B12 Simvastatin Simvastatin No 1{table QD Simvastati 10 MG 10 MG t_in_th n 10 MG e_eveni ng} Gaviscon Gaviscon No 2{table QID Gaviscon 80-14.2 MG 80-14.2 MG ts_afte 80-14.2 MG r_meals _and_at _bedtim e_as_ne eded} Vitamin C Vitamin C No Vitamin C Selenium Selenium No Selenium Vitamin D3 Vitamin D3 No Vitamin D3 L-Lysine L-Lysine No L-Lysine Vitamin C Vitamin C No Vitamin C Meclizine Meclizine No Meclizine HCl 25 MG HCl 25 MG HCl 25 MG Selenium Selenium No Selenium Simvastatin Simvastatin No 1{table QD Simvastati 10 MG 10 MG t_in_th n 10 MG e_eveni ng} Valsartan-h Valsartan-h No 1{table QD Valsartan- ydroCHLOROt ydroCHLOROt t} hydroCHLOR hiazide hiazide Othiazide 80-12.5 MG 80-12.5 MG 80-12.5 MG Tamsulosin Tamsulosin No Tamsulosin HCl 0.4 MG HCl 0.4 MG HCl 0.4 MG Testosteron Testosteron No Testostero e e ne Zinc Zinc No Zinc Esomeprazol Esomeprazol No Esomeprazo e Magnesium e Magnesium le 40 MG 40 MG Magnesium 40 MG Potassium Potassium No Potassium Gaviscon Gaviscon No 2{table QID Gaviscon 80-14.2 MG 80-14.2 MG ts_afte 80-14.2 MG r_meals _and_at _bedtim e_as_ne eded} B12 B12 No B12 Vitamin D3 Vitamin D3 No Vitamin D3 L-Lysine L-Lysine No L-Lysine Vitamin C Vitamin C No Vitamin C Meclizine Meclizine No Meclizine HCl 25 MG HCl 25 MG HCl 25 MG Selenium Selenium No Selenium Simvastatin Simvastatin No 1{table QD Simvastati 10 MG 10 MG t_in_th n 10 MG e_eveni ng} Valsartan-h Valsartan-h No 1{table QD Valsartan- ydroCHLOROt ydroCHLOROt t} hydroCHLOR hiazide hiazide Othiazide 80-12.5 MG 80-12.5 MG 80-12.5 MG Tamsulosin Tamsulosin No Tamsulosin HCl 0.4 MG HCl 0.4 MG HCl 0.4 MG Testosteron Testosteron No Testostero e e ne Zinc Zinc No Zinc Esomeprazol Esomeprazol No Esomeprazo e Magnesium e Magnesium le 40 MG 40 MG Magnesium 40 MG Potassium Potassium No Potassium Gaviscon Gaviscon No 2{table QID Gaviscon 80-14.2 MG 80-14.2 MG ts_afte 80-14.2 MG r_meals _and_at _bedtim e_as_ne eded} B12 B12 No B12 Vitamin D3 Vitamin D3 No Vitamin D3 L-Lysine L-Lysine No L-Lysine Vitamin C Vitamin C No Vitamin C Meclizine Meclizine No Meclizine HCl 25 MG HCl 25 MG HCl 25 MG Selenium Selenium No Selenium Simvastatin Simvastatin No 1{table QD Simvastati 10 MG 10 MG t_in_th n 10 MG e_eveni ng} Valsartan-h Valsartan-h No 1{table QD Valsartan- ydroCHLOROt ydroCHLOROt t} hydroCHLOR hiazide hiazide Othiazide 80-12.5 MG 80-12.5 MG 80-12.5 MG Tamsulosin Tamsulosin No Tamsulosin HCl 0.4 MG HCl 0.4 MG HCl 0.4 MG Esomeprazol Esomeprazol No Esomeprazo e Magnesium e Magnesium le 40 MG 40 MG Magnesium 40 MG Zinc Zinc No Zinc B12 B12 No B12 Potassium Potassium No Potassium Gaviscon Gaviscon No 2{table QID Gaviscon 80-14.2 MG 80-14.2 MG ts_afte 80-14.2 MG r_meals _and_at _bedtim e_as_ne eded} Testosteron Testosteron No Testostero e e ne Vitamin D3 Vitamin D3 No Vitamin D3 Simvastatin Simvastatin No 1{table QD Simvastati 10 MG 10 MG t_in_ n 10 MG e_eveni ng} Valsartan-h Valsartan-h No 1{table QD Valsartan- ydroCHLOROt ydroCHLOROt t} hydroCHLOR hiazide hiazide Othiazide 80-12.5 MG 80-12.5 MG 80-12.5 MG Gaviscon Gaviscon No 2{table QID Gaviscon 80-14.2 MG 80-14.2 MG ts_afte 80-14.2 MG r_meals _and_at _bedtim e_as_ne eded} Meclizine Meclizine No Meclizine HCl 25 MG HCl 25 MG HCl 25 MG Meclizine Meclizine No Meclizine HCl 25 MG HCl 25 MG HCl 25 MG Valsartan-h Valsartan-h No QD Valsartan- ydroCHLOROt ydroCHLOROt hydroCHLOR hiazide hiazide Othiazide 80-12.5 MG 80-12.5 MG 80-12.5 MG Simvastatin Simvastatin No QD Simvastati 10 MG 10 MG n 10 MG Esomeprazol Esomeprazol No QD Esomeprazo e Magnesium e Magnesium le 40 MG 40 MG Magnesium 40 MG Meclizine Meclizine No Meclizine HCl 25 MG HCl 25 MG HCl 25 MG Valsartan-h Valsartan-h No QD Valsartan- ydroCHLOROt ydroCHLOROt hydroCHLOR hiazide hiazide Othiazide 80-12.5 MG 80-12.5 MG 80-12.5 MG Simvastatin Simvastatin No QD Simvastati 10 MG 10 MG n 10 MG Esomeprazol Esomeprazol No QD Esomeprazo e Magnesium e Magnesium le 40 MG 40 MG Magnesium 40 MG Tamsulosin Tamsulosin 2021- No 1{capsu QD Tamsulosin HCl 0.4 MG HCl 0.4 MG 12-10 le} HCl 0.4 MG 00:00 :00 Tamsulosin Tamsulosin 2021- No 1{capsu QD Tamsulosin HCl 0.4 MG HCl 0.4 MG 12-10 le} HCl 0.4 MG 00:00 :00 Tamsulosin Tamsulosin 2021- No 1{capsu QD Tamsulosin HCl 0.4 MG HCl 0.4 MG 12-10 le} HCl 0.4 MG 00:00 :00 Tamsulosin Tamsulosin 2021- No 1{capsu QD Tamsulosin HCl 0.4 MG HCl 0.4 MG 12-10 le} HCl 0.4 MG 00:00 :00 Tamsulosin Tamsulosin 2021- No 1{capsu QD Tamsulosin HCl 0.4 MG HCl 0.4 MG 12-10 le} HCl 0.4 MG 00:00 :00 Tamsulosin Tamsulosin 2021- No 1{capsu QD Tamsulosin HCl 0.4 MG HCl 0.4 MG 12-10 le} HCl 0.4 MG 00:00 :00 Tamsulosin Tamsulosin 2021- No 1{capsu QD Tamsulosin HCl 0.4 MG HCl 0.4 MG 12-10 le} HCl 0.4 MG 00:00 :00 Tamsulosin Tamsulosin 2021- No 1{capsu QD Tamsulosin HCl 0.4 MG HCl 0.4 MG 12-10 le} HCl 0.4 MG 00:00 :00 Tamsulosin Tamsulosin 2021- No 1{capsu QD Tamsulosin HCl 0.4 MG HCl 0.4 MG 12-10 le} HCl 0.4 MG 00:00 :00 Tamsulosin Tamsulosin 2021- No 1{capsu QD Tamsulosin HCl 0.4 MG HCl 0.4 MG 12-10 le} HCl 0.4 MG 00:00 :00 Tamsulosin Tamsulosin 2021- No 1{capsu QD Tamsulosin HCl 0.4 MG HCl 0.4 MG 12-10 le} HCl 0.4 MG 00:00 :00 Tamsulosin Tamsulosin 2021- No 1{capsu QD Tamsulosin HCl 0.4 MG HCl 0.4 MG 12-10 le} HCl 0.4 MG 00:00 :00 Tamsulosin Tamsulosin 2021- No 1{capsu QD Tamsulosin HCl 0.4 MG HCl 0.4 MG 12-10 le} HCl 0.4 MG 00:00 :00 Tamsulosin Tamsulosin 2021- No 1{capsu QD Tamsulosin HCl 0.4 MG HCl 0.4 MG 12-10 le} HCl 0.4 MG 00:00 :00 Vital Signs Vital Name Observation Time Observation Value Comments Source height 2022-03-25 09:45:00 67 [in_i] [facility] weight 2022-03-25 09:45:00 147 [lb_av] [facility] temperature 2022-03-25 09:45:00 98.4 [degF] [facility] bmi 2022-03-25 09:45:00 23.02 kg/m2 [facility] oximetry 2022-03-25 09:45:00 97 % [facility] respiratory rate 2022-03-25 09:45:00 16 /min Comm on [facility] blood pressure 2022-03-25 09:45:00 113 mm[Hg] [facility] - systolic [facility] blood pressure 2022-03-25 09:45:00 58 mm[Hg] [facility] - diastolic [facility] height 2022-02-12 11:00:00 67 [in_i] [facility] weight 2022-02-12 11:00:00 150 [lb_av] [facility] temperature 2022-02-12 11:00:00 98.8 [degF] [facility] bmi 2022-02-12 11:00:00 23.49 kg/m2 [facility] oximetry 2022-02-12 11:00:00 97 % Common [facility] respiratory rate 2022-02-12 11:00:00 18 /min Comm on [facility] blood pressure 2022-02-12 11:00:00 145 mm[Hg] Common [facility] - systolic [facility] blood pressure 2022-02-12 11:00:00 64 mm[Hg] Common [facility] - diastolic [facility] height 2021-12-08 08:00:00 67 [in_i] Common [facility] weight 2021-12-08 08:00:00 146 [lb_av] [facility] temperature 2021-12-08 08:00:00 97.8 [degF] [facility] bmi 2021-12-08 08:00:00 22.86 kg/m2 [facility] oximetry 2021-12-08 08:00:00 97 % [facility] respiratory rate 2021-12-08 08:00:00 16 /min Comm on [facility] blood pressure 2021-12-08 08:00:00 126 mm[Hg] Common [facility] - systolic [facility] blood pressure 2021-12-08 08:00:00 62 mm[Hg] Common [facility] diastolic [facility] height 2021-08-13 09:00:00 67.5 [in_i] Common [facility] weight 2021-08-13 09:00:00 149.8 [lb_av] [facility] temperature 2021-08-13 09:00:00 99.1 [degF] [facility] bmi 2021-08-13 09:00:00 23.11 kg/m2 [facility] oximetry 2021-08-13 09:00:00 98 % [facility] respiratory rate 2021-08-13 09:00:00 16 /min Comm on [facility] blood pressure 2021-08-13 09:00:00 143 mm[Hg] Common [facility] - systolic [facility] blood pressure 2021-08-13 09:00:00 65 mm[Hg] Common [facility] - diastolic [facility] height 2021-07-11 08:00:00 67.5 [in_i] Common [facility] weight 2021-07-11 08:00:00 149 [lb_av] [facility] temperature 2021-07-11 08:00:00 97.7 [degF] Common [facility] bmi 2021-07-11 08:00:00 22.99 kg/m2 [facility] oximetry 2021-07-11 08:00:00 95 % Common [facility] respiratory rate 2021-07-11 08:00:00 16 /min Comm on [facility] blood pressure 2021-07-11 08:00:00 139 mm[Hg] Common [facility] - systolic [facility] blood pressure 2021-07-11 08:00:00 66 mm[Hg] Common [facility] - diastolic [facility] height 2021-07-11 08:00:00 67.5 [in_i] Common [facility] weight 2021-07-11 08:00:00 149 [lb_av] Common [facility] temperature 2021-07-11 08:00:00 97.7 [degF] Common S pirit [facility] bmi 2021-07-11 08:00:00 22.99 kg/m2 Common [facility] oximetry 2021-07-11 08:00:00 95 % Common [facility] respiratory rate 2021-07-11 08:00:00 16 /min Comm on [facility] blood pressure 2021-07-11 08:00:00 139 mm[Hg] Common [facility] - systolic [facility] blood pressure 2021-07-11 08:00:00 66 mm[Hg] Common [facility] - diastolic [facility] height 2021-05-28 13:30:00 67.5 [in_i] Common S pirit [facility] weight 2021-05-28 13:30:00 165 [lb_av] [facility] temperature 2021-05-28 13:30:00 98.6 [degF] Common S pirit [facility] bmi 2021-05-28 13:30:00 25.46 kg/m2 Common S pirit [facility] oximetry 2021-05-28 13:30:00 96 % Common [facility] respiratory rate 2021-05-28 13:30:00 16 /min Comm on [facility] - [facility] blood pressure 2021-05-28 13:30:00 123 mm[Hg] Common [facility] - systolic [facility] blood pressure 2021-05-28 13:30:00 60 mm[Hg] Common [facility] - diastolic [facility] height 2021-03-13 13:15:00 67.5 [in_i] Common [facility] weight 2021-03-13 13:15:00 139.8 [lb_av] Common [facility] - [facility] temperature 2021-03-13 13:15:00 98 [degF] Common S pirit [facility] bmi 2021-03-13 13:15:00 21.57 kg/m2 [facility] S [facility] oximetry 2021-03-13 13:15:00 94 % Common S pirit - [facility] blood pressure 2021-03-13 13:15:00 90 mm[Hg] Common [facility] - systolic [facility] blood pressure 2021-03-13 13:15:00 42 mm[Hg] Common [facility] - diastolic [facility] height 2021-02-26 14:00:00 67.5 [in_i] Common S pirit - [facility] weight 2021-02-26 14:00:00 151 [lb_av] Common S pirit [facility] temperature 2021-02-26 14:00:00 98.2 [degF] [facility] bmi 2021-02-26 14:00:00 23.3 kg/m2 [facility] oximetry 2021-02-26 14:00:00 97 % [facility] respiratory rate 2021-02-26 14:00:00 16 /min Comm on [facility] blood pressure 2021-02-26 14:00:00 140 mm[Hg] Common [facility] - systolic [facility] blood pressure 2021-02-26 14:00:00 82 mm[Hg] Common [facility] - diastolic [facility] height 2021-02-26 15:30:00 67.5 [in_i] [facility] weight 2021-02-26 15:30:00 150.6 [lb_av] [facility] temperature 2021-02-26 15:30:00 98.3 [degF] [facility] bmi 2021-02-26 15:30:00 23.24 kg/m2 [facility] oximetry 2021-02-26 15:30:00 100 % [facility] respiratory rate 2021-02-26 15:30:00 18 /min Comm on [facility] blood pressure 2021-02-26 15:30:00 199 mm[Hg] [facility] [place] [facility] blood pressure 2021-02-26 15:30:00 95 mm[Hg] Common [facility] diastolic [facility] Procedures This patient has no known procedures. Encounters Start End Encounter Admission Attending Care Care Encounter Source Date/Time Date/Time Type Type Clinicians Facility Department ID 2021-12-05 Outpatient [facility] tayADITYA [facility] [id number] Common 10:25:01 Carrie [facility] 2021-11-06 Outpatient [facility]ST maggiSTEPHANIE [facility] [id number] Common 08:07:01 Carrie [facility] 2021-07-14 Outpatient [place], STLMLC STLMLC [id number] Common 09:54:02 Carrie [id number] [facility] 2021-04-09 Outpatient Fe, STLMLC STLMLC [id number] Common 14:25:22 Carrie [id number] [facility] 2022-03-30 2022-03-30 (TEL) STLMLC STLMLC [id number] Co mmon 00:00:00 00:00:00 [facility] 2022-03-25 2022-03-25 (TEL) STLMLC STLMLC [id number] Co mmon 00:00:00 00:00:00 [facility] 2022-03-25 2022-03-25 OFFICE STLMLC STLMLC [id number] Co mmon 00:00:00 00:00:00 VISIT [facility] ESTAB PT - [facility]I LEVEL 2 [facility] 2022-03-12 2022-03-12 (TEL) STLMLC STLMLC [id number] Co mmon 00:00:00 00:00:00 [facility] 2022-02-12 2022-02-12 OFFICE STLMLC STLMLC [id number] Co mmon 00:00:00 00:00:00 VISIT [facility] ESTAB PT - [facility]I LEVEL 4 [facility] 2021-12-08 2021-12-08 OFFICE STLMLC STLMLC [id number] Co mmon 00:00:00 00:00:00 VISIT EST Spir it PT LEVEL 3 - [facility] 2021-11-10 2021-11-10 (TEL) STLMLC STLMLC [id number] Co mmon 00:00:00 00:00:00 [facility] 2021-08-13 2021-08-13 OFFICE STLMLC STLMLC [id number] Co mmon 00:00:00 00:00:00 VISIT [facility] ESTAB PT - [facility]I LEVEL 1 [facility] 2021-07-21 2021-07-21 (TEL) STLMLC STLMLC [id number] Co mmon 00:00:00 00:00:00 [facility] 2021-07-11 2021-07-11 OFFICE STLMLC STLMLC [id number] Co mmon 00:00:00 00:00:00 VISIT EST Spir it PT LEVEL 3 - [facility] 2021-07-11 2021-07-11 SUB ANNUAL STLMLC STLMLC [id number] Common 00:00:00 00:00:00 MCR [facility] WELLNESS - [facility]I VISIT [facility] 2021-07-10 2021-07-10 Postop STLMLC STLMLC [id number] Co mmon 00:00:00 00:00:00 visit Spirit - [facility] 2021-07-09 2021-07-09 (ESTPT) STLMLC STLMLC [id number] Co mmon 00:00:00 00:00:00 Brit barajas Patient - [facility] 2021-07-07 2021-07-07 (TEL) STLMLC STLMLC [id number] Co mmon 00:00:00 00:00:00 [facility] 2021-05-28 2021-05-28 OFFICE STLMLC STLMLC [id number] Co mmon 00:00:00 00:00:00 VISIT EST Spir it PT LEVEL 3 - [facility] 2021-04-23 2021-04-23 (PROC) STLMLC STLMLC [id number] Co mmon 00:00:00 00:00:00 Procedure Spir it - [facility] 2021-03-13 2021-03-13 OFFICE STLMLC STLMLC [id number] Co mmon 00:00:00 00:00:00 VISIT [facility] ESTAB PT - [facility]I LEVEL 2 [facility] 2021-02-26 2021-02-26 OFFICE STLMLC STLMLC [id number] Co mmon 00:00:00 00:00:00 VISIT [facility] ESTAB PT - [facility]I LEVEL 4 [facility] 2021-02-26 2021-02-26 (TEL) STLMLC STLMLC [id number] Co mmon 00:00:00 00:00:00 [facility] - [facility] 2021-02-26 2021-02-26 OFFICE STLMLC STLMLC [id number] Co mmon 00:00:00 00:00:00 VISIT NEW Spir it PT LEVEL 4 - [facility] Results This patient has no known results.
[2022-12-12 16:51] LABS: Absolute Lymphocytes (CBC) 1.3 K/uL (0.7-4.9); Hematocrit 39.3 % (39.6-49.0); MCV 88.2 fL (80-100); Platelets 392 thou/uL (152-406); RBC Red Blood Cell Count 4.45 M/uL (4.33-5.43)
[2022-12-12] MEDS ORDERED: ACETAMINOPHEN 500 MG TAB ONE (16:57)
[2022-12-12 17:10] LABS: Albumin 2.6 g/dL (3.4-5.0); Bilirubin Direct 0.3 mg/dL (0-0.2); Bilirubin Indirect, Calculated 0.5 mg/dL (0.2-0.8); Bilirubin Total 0.8 mg/dL (0.2-1.0); Magnesium 2.4 mg/dL (1.6-2.4); Potassium 3.4 mEq/L (3.5-5.1); Protein, Total 6.6 g/dL (6.4-8.2); Troponin High Sensitivity 11.7 pg/mL (<58.9)
--- NOTE | 2022-12-12 17:30 | RAD REPORT ---
EXAM DESCRIPTION: Dhruv Single View12/12/2022 5:13 pm CLINICAL HISTORY: Chest pain COMPARISON: 2021 FINDINGS: The lungs appear clear of acute infiltrate. The heart is normal size IMPRESSION: No acute abnormalities displayed
[2022-12-12] MEDS ORDERED: NA CHLORIDE 0.9% 1,000 ML ONE (17:50)
--- NOTE | 2022-12-12 18:39 | ER ---
Nurse's Notes [facility] Name: Get Stephens Age: 82 yrs Sex: Male : 1940 Arrival Date: 12/12/2022 Time: 16:28 Bed 2 Private MD: Diagnosis: Acute kidney failure, unspecified;Chest pain, unspecified;Dehydration Presentation: 12/12 16:24 Chief complaint: EMS states: Neighbor had called EMS stating patient has complained of iw chest pain on/off for the past 10 days. Patient refusing chest pain at this time. Very [place]. 16:24 Coronavirus screen: At this time, the client does not indicate any symptoms associated iw with coronavirus-19. Ebola Screen: Patient denies travel to an Ebola-affected area in the 21 days before illness onset. Initial Sepsis Screen: Does the patient meet any 2 criteria? No. Patient's initial sepsis screen is negative. Does the patient have a suspected source of infection? No. Patient's initial sepsis screen is negative. Risk Assessment: Do you want to hurt yourself or someone else? Patient reports no desire to harm self or others. Onset of symptoms was November 2022. 16:24 Method Of Arrival: EMS: [facility] iw 16:24 Acuity: LARA 3 iw 16:40 Care prior to arrival: Medication(s) given: ASA, 81 mg, x 4, IV initiated. 20 GA, in iw the right antecubital area, Glucose check: 113. Historical: - Allergies: 16:37 PENICILLINS; iw - Home Meds: 18:33 esomeprazole magnesium oral [Active]; meclizine 25 mg Oral tab 1 tab 3 times per day nj1 for Vertigo [Active]; simvastatin Oral [Active]; tamsulosin 0.4 mg Oral cp24 1 cap once daily [Active]; valsartan-hydrochlorothiazide Oral [Active]; - PMHx: 16:37 GERD; High Cholesterol; Hypertension; Vertigo; BPH (Unknown); iw - Immunization history:: Adult Immunizations unknown. - Social history:: Smoking status: Patient/guardian denies using tobacco, but has a distant history of tobacco abuse. Screenin:[address] [facility] ED Fall Risk Assessment (Adult) Score/Fall Risk Level 0 - 2 = Low Risk iw Oriented to surroundings, Maintained a safe environment, Hourly rounding (assess needs \\T\\ fall precautionary measures) done. Abuse screen: Denies threats or abuse. Denies injuries from another. Nutritional screening: No deficits noted. Tuberculosis screening: No symptoms or risk factors identified. Assessment: 16:30 General: Appears in no apparent distress. comfortable, Behavior is calm, cooperative, iw appropriate for age. 16:30 Pain: Denies pain. Neuro: No deficits noted. Cardiovascular: No deficits noted. iw Respiratory: No deficits noted. 16:50 Neuro: Denies dizziness, States he has "severe vertigo". Has fallen yesterday but does nj1 not hurt anywhere at this time, has refused the tylenol ordered by the ED provider. States at times his head "feels heavy", he is able to drive but sometimes with movement is like "im going to the wall". This RN has made ED provider, Sridhar WIGGINS, aware.. 17:40 Reassessment: Patient appears in no apparent distress at this time. Patient and/or nj1 family updated on plan of care and expected duration. Pain level reassessed. Patient is alert, oriented x 3, equal unlabored respirations, skin warm/dry/pink. 18:35 Reassessment: Patient appears in no apparent distress at this time. Patient and/or nj1 family updated on plan of care and expected duration. Pain level reassessed. Patient is alert, oriented x 3, equal unlabored respirations, skin warm/dry/pink. 19:24 Reassessment: Patient appears in no apparent distress at this time. Patient and/or nj1 family updated on plan of care and expected duration. Pain level reassessed. Patient is alert, oriented x 3, equal unlabored respirations, skin warm/dry/pink. 20:20 Reassessment: Patient appears in no apparent distress at this time. Patient and/or nj1 family updated on plan of care and expected duration. Pain level reassessed. Patient is alert, oriented x 3, equal unlabored respirations, skin warm/dry/pink. 20:24 Reassessment: Unsuccessful attempt to call report at this time. [facility] Vital Signs: 16:24 BP 137 / 60; Pulse 85; Resp 18; Temp 97.7(O); Pulse Ox 98% on R/A; Weight 71.67 kg; iw Height 5 ft. 10 in. ; Pain 0/10; 17:40 BP 123 / 56; Pulse 64; Resp 19; Pulse Ox 99% ; Pain 0/10; nj1 18:35 BP 149 / 61; Pulse 62; Resp 20; Pulse Ox 100% ; nj1 19:25 BP 149 / 85; Pulse 60; Resp 21; Pulse Ox 99% on R/A; Pain 0/10; nj1 20:20 BP 140 / 88; Pulse 65; Resp 20; Pulse Ox 100% ; nj1 20:25 BP 139 / 64; Pulse 56; Resp 15; Pulse Ox 99% ; nj1 16:24 Body Mass Index 22.67 (71.67 kg, 177.8 cm) iw 16:24 Pain Scale: Adult iw 17:40 Pain Scale: Adult nj1 19:25 Pain Scale: Adult nj1 ED Course: 16:29 Patient arrived in ED. sb4 16:30 Elies Theodore PA-C is PHCP. sb4 16:30 Los Torres MD is Attending Physician. sb4 16:34 Sarah Hernandez, MIRELLA is Primary Nurse. iw 16:37 Triage completed. iw 16:38 Arm band placed on. iw 16:39 Patient has correct armband on for positive identification. Bed in low position. Call iw light in reach. Provided Education on: call light, fall precautions. 16:41 Maintain EMS IV. Dressing intact. Good blood return noted. Site clean \\T\\ dry. Gauge \\T\\ iw site: 20 g R AC. 17:15 XRAY Chest (1 view) In Process Unspecified. EDMS 17:48 Primary Nurse role handed off by Sarah Hernandez RN nj1 17:48 Pearl Rawls, MIRELLA is Primary Nurse. nj1 17:50 Radiology exam delayed due to pt refusing head CT at this time, RN notified. ls3 18:37 Joseph Elliott MD is Hospitalizing Provider. sb4 20:21 No provider procedures requiring assistance completed. Patient admitted, IV remains in nj1 place. Administered Medications: 16:35 CANCELLED (Physician Discretion): aspirinchewable tablet 324 mg PO once; 81 mg tablets sb4 x 4 16:55 Not Given (Patient Refused): [id number] mg PO once nj1 17:42 Drug: NS 0.9% IV 1000 ml IV at 1 bolus Per protocol; 1000 mL bolus Route: IV; Rate: 1 nj1 bolus; Site: right antecubital; 20:00 Follow up: Response: No adverse reaction; IV Status: Completed infusion; IV Intake: nj1 1000ml Medication: 16:40 VIS not applicable for this client. iw Intake: 20:00 IV: 1000ml; Total: 1000ml. nj1 Output: 20:15 Urine: 150ml (Voided); Total: 150ml. nj1 Outcome: 18:38 Decision to Hospitalize by Provider. sb4 20:31 Admitted to Med/surg accompanied by nurse, via wheelchair, room 222, Report called to franny Farrar RN 20:31 Condition: stable 20:31 Instructed on the need for admit, 20:57 Patient left the ED. bp Signatures: Dispatcher [employer] EDMS Sarah Hernandez, RN RN iw Evangelista Walker RN RN bp Chantel Cadet ls3 Elise Theodore, PA-C PA-C sb4 Pearl Rawls RN RN nj1 Corrections: (The following items were deleted from the chart) 17:00 16:30 Cardiovascular: No deficits noted. iw nj1 17:51 17:50 Radiology exam delayed due to pt refused Head CT at this time, RN notified ls3 ls3
--- NOTE | 2022-12-12 18:39 | EDPHYS ---
Physician Documentation [facility] Name: Get Stephens Age: 82 yrs Sex: Male : 1940 Arrival Date: 12/12/2022 Time: 16:28 Bed 2 Private MD: ED Physician Los Torres HPI: 12/12 16:44 This 82 yrs old Male presents to ER via EMS with complaints of chest pain. sb4 18:40 Patient is an 82-year-old male with past medical history of hypertension hyperlipidemia sb4 presents with chest pain. Apparently he has had chest pain on and off for 10 days now so his neighbors called an ambulance. He denies any chest pain at this time. He does endorse dizziness, but states that this is chronic. He denies any shortness of breath, nausea, vomiting, diaphoresis. Historical: - Allergies: 16:37 PENICILLINS; iw - Home Meds: 18:33 esomeprazole magnesium oral [Active]; meclizine 25 mg Oral tab 1 tab 3 times per day nj1 for Vertigo [Active]; simvastatin Oral [Active]; tamsulosin 0.4 mg Oral cp24 1 cap once daily [Active]; valsartan-hydrochlorothiazide Oral [Active]; - PMHx: 16:37 GERD; High Cholesterol; Hypertension; Vertigo; BPH (Unknown); iw - Immunization history:: Adult Immunizations unknown. - Social history:: Smoking status: Patient/guardian denies using tobacco, but has a distant history of tobacco abuse. ROS: 18:40 Constitutional: Negative for fever, chills, and weight loss, sb4 18:40 Neuro: Positive for dizziness, 18:40 All other systems are negative, Exam: 18:40 Head/Face: Normocephalic, atraumatic. Eyes: Extra-ocular motions intact. Periorbital sb4 areas with no swelling, redness, or edema. 18:40 Cardiovascular: Regular rate and rhythm with a normal S1 and S2. Respiratory: Lungs have equal breath sounds bilaterally, clear to auscultation and percussion. No rales, rhonchi or wheezes noted. No increased work of breathing, no retractions or nasal flaring. Abdomen/GI: Soft, non-tender, no distension. Skin: Warm, dry with normal turgor. Normal color with no rashes, no lesions, and no evidence of cellulitis. MS/ Extremity: Pulses equal, no cyanosis. Neurovascular intact. Full, normal range of motion. Neuro: Awake and alert, GCS 15, oriented to person, place, time, and situation. Motor strength 5/5 in all extremities. Sensory grossly intact. 18:40 Constitutional: The patient appears alert, awake, frail, 18:40 ENT: Very hard of hearing, hearing aids in place bilaterally. 18:40 ENT: Mouth: Oral mucosa: dry, Vital Signs: 16:24 BP 137 / 60; Pulse 85; Resp 18; Temp 97.7(O); Pulse Ox 98% on R/A; Weight 71.67 kg; iw Height 5 ft. 10 in. ; Pain 0/10; 17:40 BP 123 / 56; Pulse 64; Resp 19; Pulse Ox 99% ; Pain 0/10; nj1 18:35 BP 149 / 61; Pulse 62; Resp 20; Pulse Ox 100% ; nj1 19:25 BP 149 / 85; Pulse 60; Resp 21; Pulse Ox 99% on R/A; Pain 0/10; nj1 20:20 BP 140 / 88; Pulse 65; Resp 20; Pulse Ox 100% ; nj1 20:25 BP 139 / 64; Pulse 56; Resp 15; Pulse Ox 99% ; nj1 16:24 Body Mass Index 22.67 (71.67 kg, 177.8 cm) iw 16:24 Pain Scale: Adult iw 17:40 Pain Scale: Adult nj1 19:25 Pain Scale: Adult nj1 MDM: 16:30 Patient medically screened. sb4 17:37 Scoring Tools HEART Score: History: ECG: Age: Risk Factors: 1 or 2 risk factors (1), sb4 Troponin: Total Score = 3. 18:40 Differential diagnosis: acute myocardial infarction, chest wall pain, congestive heart sb4 failure costochondritis, esophagitis, pneumonia, unstable angina. Data reviewed: vital signs, nurses notes, EMS record, lab test result(s), EKG, radiologic studies, and as a result, I will admit patient. Consideration of Admission/Observation Patient was admitted/placed on observation. Management of patient was discussed with the following: Hospitalist: Vasquez FUENTES. Care significantly affected by the following chronic conditions: Hypertension. Counseling: I had a detailed discussion with the patient and/or guardian regarding the historical points, exam findings, and any diagnostic results supporting the discharge/admit diagnosis, the presence of at least one elevated blood pressure reading (>120/80) during this emergency department visit, lab results, radiology results, the need for further work-up and treatment in the hospital. 12/12 16:30 Order name: Basic Metabolic Panel; Complete Time: 17:10 sb4 12/12 16:30 Order name: CBC with Diff; Complete Time: 16:53 sb4 12/12 16:30 Order name: LFT's; Complete Time: 17:10 sb4 12/12 16:30 Order name: Magnesium; Complete Time: 17:10 sb4 12/12 16:30 Order name: NT PRO-BNP; Complete Time: 17:10 sb4 12/12 16:30 Order name: Troponin HS; Complete Time: 17:10 sb4 12/12 17:17 Order name: UAM; Complete Time: 20:31 sb4 12/12 16:30 Order name: XRAY Chest (1 view); Complete Time: 17:32 sb4 12/12 16:30 Order name: EKG; Complete Time: 16:31 sb4 12/12 16:30 Order name: Cardiac monitoring; Complete Time: 16:40 sb4 12/12 16:30 Order name: EKG - Nurse/Tech; Complete Time: 16:40 sb4 12/12 16:30 Order name: IV Saline Lock; Complete Time: 16:40 sb4 12/12 16:30 Order name: Labs collected and sent; Complete Time: 16:40 sb4 12/12 16:30 Order name: O2 Per Protocol; Complete Time: 16:40 sb4 12/12 16:30 Order name: O2 Sat Monitoring; Complete Time: 16:40 sb4 EC:45 Rate is 78 beats/min. Rhythm is regular, Normal Sinus Rhythm. QRS [place] is Normal. [place] sb4 interval is normal at 150 msec. QRS interval is normal at 100 msec. QT interval is normal at 402 msec. No Q waves. T waves are Normal. No ST changes noted. Clinical impression: Normal ECG. Interpreted by me. Administered Medications: 16:35 CANCELLED (Physician Discretion): aspirinchewable tablet 324 mg PO once; 81 mg tablets sb4 x 4 16:55 Not Given (Patient Refused): [id number] mg PO once nj1 17:42 Drug: NS 0.9% IV 1000 ml IV at 1 bolus Per protocol; 1000 mL bolus Route: IV; Rate: 1 nj1 bolus; Site: right antecubital; 20:00 Follow up: Response: No adverse reaction; IV Status: Completed infusion; IV Intake: nj1 1000ml Disposition Summary: 12/12/22 18:38 Hospitalization Ordered Notes: Hospitalization Status: Inpatient Admission sb4 Provider: Joseph Elliott sb4 Location: Telemetry/MedSur (Inpatient) sb4 Condition: Fair sb4 Problem: new sb4 Symptoms: are unchanged sb4 Bed/Room Type: Standard sb4 Room Assignment: 222(12/12/22 20:07) cg Diagnosis - Acute kidney failure, unspecified sb4 - Chest pain, unspecified sb4 - Dehydration sb4 Forms: - Medication Reconciliation Form sb4 - SBAR form sb4 - Leadership Thank You Letter sb4 Signatures: Dispatcher [employer] EDSarah Blancas RN MIRELLA Vasquez Jones, RUNWAY MODEL-C RUNWAY MODEL-Cla1 Juanita Bliss RN Elise Martinez, PA-C PA-C sb4 Pearl Rawls RN RN nj1 Corrections: (The following items were deleted from the chart) 16:35 16:30 Aspirin PO Chewable Tablet 324 mg PO once; 81 mg tablets x 4 ordered. sb4 sb4 18:35 16:54 Head Brain Wo Cont+CT.RAD.BRZ ordered. EDMS EDMS 20:07 18:38 sb4 cg
--- NOTE | 2022-12-12 20:02 | P.HP ---
Certification for Inpatient Patient admitted to: Inpatient With expected LOS: >2 Midnights Patient will require the following post-hospital care: None Practitioner: I am a practitioner with admitting privileges, knowledge of patient current condition, hospital course, and medical plan of care. Services: Services provided to patient in accordance with Admission requirements found in Title 42 Section 412.3 of the Code of Federal Regulations Patient History Date of Service: 12/12/22 Reason for admission: DEIRDRE History of Present Illness: 82-year-old male with history of vertigo, hypertension, hyperlipidemia, BPH, GERD presents to the emergency department with chief complaint of vertigo, pain. He reports he has been dealing with chronic vertigo over the course of the last 5 years significantly limiting his ability to perform ADLs. His neighbor called EMS as he was reportedly complaining of chest pain over the course of the last few days. Patient currently denies chest pain, reports has been hurting "from head to toe". He was evaluated in the emergency department his labs are significant for acute kidney injury with a creatinine of 2.06 EKG without STEMI criteria initial high-sensitivity troponin is negative he refused a CT scan of his head. He does take meclizine as needed at home which she reports only mildly helps with the symptoms, he has never seen a neurologist and he refuses to have an MRI due to severe claustrophobia. He will need to be admitted for acute kidney injury, will also rule out ACS and have patient seen by PT/ne urology. Allergies Penicillins Allergy (Verified 02/24/22 15:18) Hives/Rash,muscular problems Home Medications: Esomeprazole Magnesium 40 mg PO DAILY 12/20/18 Meclizine HCl 25 mg PO TIDP PRN 12/20/18 Tamsulosin [Flomax*] 0.4 mg PO DAILY 12/20/18 Valsartan/Hydrochlorothiazide [Valsartan-Hctz 80-12.5 mg Tab] 1 tab PO DAILY 12/20/18 Ascorbate Calcium [Vitamin C] 500 mg PO DAILY 07/03/21 Cholecalciferol (Vitamin D3) [Vitamin D 1000 Iu Tab*] 1,000 unit PO DAILY 07/03/21 Lysine 1,000 mg PO DAILY 07/03/21 Potassium Gluconate [Potassium] 99 mg PO DAILY 07/03/21 Selenium 200 mcg PO DAILY 07/03/21 Simvastatin 10 mg PO DAILY 07/03/21 Zinc 50 mg PO DAILY 07/03/21 Mag/Aluminum/Sod Bicarb/Alginc [Gaviscon 80-14.2 mg Tab Chew] 2 tab PO QID 02/24/22 Mecobalamin [B12 Active] 1 tab PO DAILY 02/24/22 Testosterone Undecanoate [Kyzatrex] 1 tab PO TID 02/24/22 levoFLOXacin [Levaquin] 500 mg PO DAILY #5 tab 03/10/22 - Past Medical/Surgical History Diabetic: No -: Hypertension -: Hyperlipidemia -: Enlarged prostate -: Vertigo -: Polyps removal from colon Psychosocial/ Personal History: Lives at home alone - Family History Father -: Heart disease, Hypertension - Social History Smoking Status: Never smoker Alcohol use: No CD- Drugs: No Caffeine use: No Place of Residence: Home Review of Systems 10-point ROS is otherwise unremarkable ENT: Other (Extremely hard of hearing) Neurological: Other (Vertigo) Physical Examination - Physical Exam General: Alert, In no apparent distress, Oriented x3 HEENT: Atraumatic, PERRLA, Mucous membr. moist/pink, EOMI, Sclerae nonicteric Neck: Supple, 2+ carotid pulse no bruit, No LAD, Without JVD or thyroid abnormality Respiratory: Clear to auscultation bilaterally, Normal air movement Cardiovascular: Regular rate/rhythm, Normal S1 S2 Gastrointestinal: Normal bowel sounds, No tenderness Musculoskeletal: No tenderness Integumentary: No rashes Neurological: Normal gait, Normal speech, Normal strength at 5/5 x4 extr, Normal tone, Normal affect Lymphatics: No axilla or inguinal lymphadenopathy - Studies Laboratory Data (last 24 hrs) 12/12/22 12/12/22 16:35 16:35 WBC 10.40 Hgb 13.3 L Hct 39.3 L Plt Count 392 Sodium 136 Potassium 3.4 L BUN 72 H Creatinine 2.06 H Glucose 115 H Magnesium 2.4 Total Bilirubin 0.8 AST 20 ALT 32 Alkaline Phosphatase 46 Assessment and Plan - Plan Assessment: Acute kidney injury ACS rule out Vertigo Hypertension Hyperlipidemia BPH GERD Plan: Acute kidney injury Continue IV fluids, hold NASRIN/ARB/diuretics, appears dry at this time. Nephrology consult and renal ultrasound ordered. ACS rule out There was some reported chest pain but patient currently denies. Will trend troponins and monitor on telemetry. If he develops chest pain or has elevated troponins will consult neurology. Vertigo As needed meclizine, neurology consult, PT consult. Patient refuses MRI, has never been evaluated formally for his vertigo he reports which she has been having for about 5 years. Hypertension Hyperlipidemia BPH GERD Continue home medications. DVT PPX: Heparin subcu Code status: Full Discharge Plan: Home Plan to discharge in: 48 Hours - Advance Directives Does patient have a Living Will: No Does patient have a Durable POA for Healthcare: No - Code Status/Comfort Care Code Status Assessed: Yes (Full code) Critical Care: No Time Spent Managing Pts Care (In Minutes): 55
[2022-12-12 20:30] LABS: Specific Gravity 1.018 (1.005-1.030); Urine Bacteria None Seen /HPF (<20); Urine Bilirubin NEGATIVE (Negative); Urine Blood 3+ (Negative); Urine Clarity Extremely Turbid (Clear); Urine Color Yellow (Yellow); Urine Glucose NEGATIVE (Negative); Urine Mucus Slight /HPF (None Seen); Urine Protein TRACE (Negative); Urine RBC >50 /HPF (None Seen); Urine Urobilinogen Normal (Normal)
[2022-12-12] MEDS ORDERED: ACETAMINOPHEN 500 MG TAB PO PRN (22:30)
[2022-12-12] MEDS ORDERED: ONDANSETRON 4 MG/2 ML VIAL IV PRN (22:30)
[2022-12-13] MEDS: NA CHLORIDE 0.9% 1,000 ML IV SCH ×4 (00:24→14:35)
[2022-12-13] MEDS: ATORVASTATIN 40 MG TAB PO SCH ×2 (00:25→21:07)
[2022-12-13] MEDS: HEPARIN 5000 UNIT/ML 1 ML VIAL SQ SCH ×3 (00:25→21:07)
[2022-12-13 03:43] VITALS: BMI 17.3
[2022-12-13 05:10] LABS: Hematocrit 37.2 % (39.6-49.0); Lymphocytes % 12.1 % (15.3-44.8); MCV 88.4 fL (80-100); MPV 7.2 fL (7.6-11.3); Platelets 337 thou/uL (152-406); RBC Red Blood Cell Count 4.21 M/uL (4.33-5.43)
[2022-12-13 05:35] LABS: Potassium 3.5 mEq/L (3.5-5.1); Thyroid Stimulating Hormone 1.1 uIU/mL (0.358-3.740); Troponin High Sensitivity 19.5 pg/mL (<58.9)
--- NOTE | 2022-12-13 07:22 | P.PN ---
Date of Service: 12/13/22 Subjective: Doing okay - denies chest pain chronic vertigo been slowly getting worse for years; +afraid to get out of chair/bed d/t vertigo no acute events overnight hard of hearing reports burning/stinging sensation when urinating ROS: 10 point ROS as noted above, otherwise negative Physical Exam: GEN: Alert, oriented, NAD, hard of hearing HEENT: Normal conjunctiva, sclera anicteric CV: Regular rate and rhythm, no edema Pulm: Nonlabored respirations on room air, clear bilaterally ABD: Soft, nontender, nondistended Neuro: Normal speech, normal affect vitals reviewed Problem List: DEIRDRE suspected UTI Vertigo Chest pain h/o BPH s/p TURP (03/10/22) h/o ?prostate cancer Hypertension Hyperlipidemia GERD DEIRDRE renal u/s (12/12): Mildly increased renal cortical echogenicity. Hypoechoic ovoid lesion near the pelvis of the left kidney measuring up to 1.6 cm, not well characterized, for which additional evaluation by renal mass protocol CT or MRI is recommended to evaluate for solid versus cystic nature. -> Outpatient testing, non-urgent Nephrology consulted Continue IV fluids hold NASRIN/ARB/diuretics for now suspect prerenal/hypovolemic r/o retention/obstructive giving his PMH suspected UTI h/o BPH s/p TURP x2 (07/08/21 & 03/10/22) h/o ?prostate cancer patient noted h/o BPH s/p TURP x2 with Dr. Conklin on 07/08/21 and 03/10/22 renal u/s (12/12): Some debris within the urinary bladder, could relate to ongoing cystitis or UTI. UA suggestive of UTI; +symptomatic: reports burning sensation when urinating urine cx (12/12): pending Start empiric levaquin (12/13-), renally dose afebrile, no leukocytosis Vertigo Patient refuses MRI, has never been evaluated formally for his vertigo he reports which he has been having for about 5 years. neurology consult PT consult. Chest pain troponins negative x3; monitor on tele There was some reported chest pain but patient currently denies. Hypertension Hyperlipidemia GERD Confirm home medications, restart as appropriate VTE: heparin sq Code: Full Dispo: home vs SNF; ~2-3 days
[2022-12-13] MEDS: ASPIRIN EC 81 MG TAB PO SCH (07:57)
--- NOTE | 2022-12-13 08:47 | RAD REPORT ---
EXAM DESCRIPTION: US - Renal Ultrasound-Complete - 12/13/2022 6:28 am CLINICAL HISTORY: sincere COMPARISON: CT ABDOMEN PELVIS WO CONTRAST dated 06/10/2013 TECHNIQUE: Sonographic grayscale and color flow images of the kidneys and bladder were obtained. FINDINGS: Both kidneys are normal in size, and shape. Mildly increased cortical echogenicity bilater ally. The right kidney measures 9.6 cm in length. No hydronephrosis, focal mass or perinephric fluid. The left kidney measures 10.1 cm in length. No hydronephrosis, or perinephric fluid. Midpole 1.6 x 1. 5 x 1.3 cm hypoechoic ovoid lesion near the pelvis, indeterminate. No echogenic calculi. The urinary bladder is slightly suboptimally distended. Mild debris within the bladder. Prostatomegal y. IMPRESSION: Mildly increased renal cortical echogenicity, may correlate to medical renal disease. Hypoechoic ovoid lesion near the pelvis of the left kidney measuring up to 1.6 cm, not well character ized, for which additional evaluation by renal mass protocol CT or MRI is recommended to evaluate for solid versus cystic nature. Some debris within the urinary bladder, could relate to ongoing cystitis or UTI. Please correlate wit h urinalysis results.
[2022-12-13] MEDS ORDERED: Levofloxacin500mg IV 500 MG/100 ML BAG IV ONE (12:00)
--- NOTE | 2022-12-13 14:42 | EKG ---
Test Date: 2022-12-12 Test Time: 16:35:05 [employer]: EHSAN MEASUREMENT RESULTS: Intervals: Rate: 78 MI: 150 QRSD: 100 QT: 402 QTc: 458 [place]: P: 88 MI: 150 QRS: 89 T: 72 INTERPRETIVE STATEMENTS: Normal sinus rhythm Normal ECG Compared to ECG 10/26/2022 08:50:00 Right-axis deviation no longer present Electronically Signed On 12-13-22 14:41:23 CDT by Kyaw Gao
--- NOTE | 2022-12-13 14:45 | P.CNS ---
Date of Consult: 12/13/22 Reason for Consult: DEIRDRE Requesting Physician: Vasquez Jones Chief Complaint: DEIRDRE History of Present Illness: Pt is a elderly 82-year-old male with history of chronic vertigo symptoms, underlying hypertension for which he has Valsartan/HCTZ listed, a hx of reported BPH with possible prior TURPs who came in with reports of dizziness, difficult in ambulating even short distance, near fall, non specific generalized pain, other. Pt is a poor historian so information obtained primarily through chart review. Pt reports vertigo symptoms chronic for several years, persistent and reports little relief with Meclizine use. Allergies Penicillins Allergy (Verified 02/24/22 15:18) Hives/Rash,muscular problems Home Medications: Esomeprazole Magnesium 40 mg PO DAILY 12/20/18 Meclizine HCl 25 mg PO TIDP PRN 12/20/18 Tamsulosin [Flomax*] 0.4 mg PO DAILY 12/20/18 Valsartan/Hydrochlorothiazide [Valsartan-Hctz 80-12.5 mg Tab] 1 tab PO DAILY 12/20/18 Ascorbate Calcium [Vitamin C] 500 mg PO DAILY 07/03/21 Cholecalciferol (Vitamin D3) [Vitamin D 1000 Iu Tab*] 1,000 unit PO DAILY 07/03/21 Lysine 1,000 mg PO DAILY 07/03/21 Selenium 200 mcg PO DAILY 07/03/21 Simvastatin 10 mg PO DAILY 07/03/21 Zinc 50 mg PO DAILY 07/03/21 Mag/Aluminum/Sod Bicarb/Alginc [Gaviscon 80-14.2 mg Tab Chew] 2 tab PO QID 02/24/22 Mecobalamin [B12 Active] 1 tab PO DAILY 02/24/22 Testosterone Undecanoate [Kyzatrex] 1 tab PO TID 02/24/22 - Past Medical/Surgical History Diabetic: No -: Hypertension -: Hyperlipidemia -: Enlarged prostate -: Vertigo -: Polyps removal from colon Psychosocial/ Personal History: Lives at home alone - Family History Father Medical History: Heart disease, Hypertension - Social History Smoking Status: Former smoker Alcohol use: No CD- Drugs: No Caffeine use: No Place of Residence: Home Review of Systems General: Weakness Eyes: Unremarkable ENT: Unremarkable Respiratory: Unremarkable Cardiovascular: Light Headedness, As per HPI Gastrointestinal: Unremarkable Genitourinary: Other (Abnormal UA on admission), As per HPI Musculoskeletal: Other (Generalized pain, soreness) Neurological: Weakness, Other (Near fall, vertigo), As per HPI Physical Examination Temp Pulse Resp BP Pulse Ox 97.0 F 85 18 167/68 H 95 12/13/22 12:00 12/13/22 12:00 12/13/22 12:00 12/13/22 12:00 12/13/22 12:00 General: Alert, Cooperative, Other (Elderly, frail) HEENT: Atraumatic, Normocephalic Neck: Supple Respiratory: Normal air movement Cardiovascular: No edema, Regular rate/rhythm, Normal S1 S2 Gastrointestinal: Soft and benign, Non-distended, No tenderness Musculoskeletal: No swelling, No contractures, No tenderness Integumentary: No tenderness/swelling, No warmth Neurological: Normal speech, Normal tone, Normal affect Laboratory Data (last 24 hrs) 12/12/22 12/12/22 16:35 16:35 WBC 10.40 Hgb 13.3 L Hct 39.3 L Plt Count 392 Sodium 136 Potassium 3.4 L BUN 72 H Creatinine 2.06 H Glucose 115 H Magnesium 2.4 Total Bilirubin 0.8 AST 20 ALT 32 Alkaline Phosphatase 46 Conclusions/Impression: A/P) 1. Stage 1 DEIRDRE episode 2nd to likely some pre-renal component, relative BP lowering with concurrent ARB use, complicated UTI, other 2. Cr level downward trending with hydration. 3. Abnormal UA with pyuria and microscopic hematuria. Hx of BPH unspecified, renal imaging shows some prostomegaly and bladder debris. Cont Abx, f/u UCx 4. Cont alpha jayde but move to bedtime dosing. 5. With pt's dizziness/vertigo symptoms, check orthostatic vitals 6. BP has been labile, non elevated at times, mild to mod elevated at other times. Monitor off scheduled anti hypertensives for now. Candelario Mercado MD, JALIL
[2022-12-13] MEDS: TAMSULOSIN 0.4 MG SR CAP PO SCH (21:07)
[2022-12-14] MEDS: MELATONIN 5 MG TABLET PO PRN (01:11)
[2022-12-14 04:07] LABS: Absolute Lymphocytes (CBC) 0.8 K/uL (0.7-4.9); Hematocrit 35.2 % (39.6-49.0); Lymphocytes % 7.8 % (15.3-44.8); MCV 88.2 fL (80-100); MPV 7.2 fL (7.6-11.3); Platelets 304 thou/uL (152-406); RBC Red Blood Cell Count 3.99 M/uL (4.33-5.43)
[2022-12-14 04:21] LABS: Potassium 3.3 mEq/L (3.5-5.1)
[2022-12-14] MEDS ORDERED: WATER FOR INJ,STERILE 10 ML IM PRN ×2 (07:01→13:26)
[2022-12-14] MEDS ORDERED: ZIPRASIDONE MESYLA 20 MG/VIAL IM ONE ×2 (07:01→13:26)
--- NOTE | 2022-12-14 07:12 | P.PN ---
Date of Service: 12/14/22 Subjective: doing okay slightly more confused today no acute events overnight afebrile ROS: 10 point ROS as noted above, otherwise negative Physical Exam: GEN: Alert, orientedx2, NAD, hard of hearing HEENT: Normal conjunctiva, sclera anicteric CV: Regular rate and rhythm, no edema Pulm: Nonlabored respirations on room air, clear bilaterally ABD: Soft, nontender, nondistended Neuro: Normal speech, normal affect vitals reviewed Problem List: DEIRDRE suspected UTI Vertigo Chest pain h/o BPH s/p TURP (03/10/22) h/o ?prostate cancer Hypertension Hyperlipidemia GERD DEIRDRE renal u/s (12/12): Mildly increased renal cortical echogenicity. Hypoechoic ovoid lesion near the pelvis of the left kidney measuring up to 1.6 cm, not well characterized, for which additional evaluation by renal mass protocol CT or MRI is recommended to evaluate for solid versus cystic nature. -> Outpatient testing, non-urgent Nephrology consulted Continue IV fluids hold NASRIN/ARB/diuretics for now suspect prerenal/hypovolemic r/o retention/obstructive giving his PMH improving suspected UTI h/o BPH s/p TURP x2 (07/08/21 & 03/10/22) h/o ?prostate cancer patient noted h/o BPH s/p TURP x2 with Dr. Conklin on 07/08/21 and 03/10/22 renal u/s (12/12): Some debris within the urinary bladder, could relate to ongoing cystitis or UTI. UA suggestive of UTI; +symptomatic: reports burning sensation when urinating urine cx (12/12): prelim no growth continue empiric levaquin (12/13-), renally dose afebrile, no leukocytosis continue flomax Vertigo Patient refuses MRI, has never been evaluated formally for his vertigo he reports which he has been having for about 5 years. neurology consult PT consult. Chest pain troponins negative x3; monitor on tele There was some reported chest pain but patient currently denies. Hypertension Hyperlipidemia GERD Confirm home medications, restart as appropriate VTE: heparin sq Code: Full Dispo: home vs SNF; ~2-3 days
[2022-12-14] MEDS: NA CHLORIDE 0.9% 1,000 ML IV SCH (07:15)
[2022-12-14] MEDS: HEPARIN 5000 UNIT/ML 1 ML VIAL SQ SCH ×2 (08:40→19:56)
[2022-12-14] MEDS: ASPIRIN EC 81 MG TAB PO SCH (08:40)
[2022-12-14] MEDS ORDERED: Levofloxacin 250mg IV 250 MG/50 ML BAG IV SCH (09:00)
[2022-12-14] MEDS ORDERED: Levofloxacin500mg IV 500 MG/100 ML BAG IV ONE (10:00)
[2022-12-14] MEDS ORDERED: WATER FOR INJ,STERILE 10 ML ONE ×2 (10:14→14:45)
[2022-12-14] MEDS: ATORVASTATIN 40 MG TAB PO SCH (19:56)
[2022-12-14] MEDS: TAMSULOSIN 0.4 MG SR CAP PO SCH (19:56)
[2022-12-14] MEDS: ENSURE ENLIVE 237 ML CAN PO SCH (19:57)
--- NOTE | 2022-12-14 21:44 | P.PN ---
Date of Service: 12/14/22 Vital Signs Temp Pulse Resp BP Pulse Ox 97.6 F 67 17 154/62 H 98 12/14/22 20:00 12/14/22 20:00 12/14/22 20:00 12/14/22 20:00 12/14/22 20:00 Medications Acetaminophen (Acetaminophen 500 Mg Tab) 500 mg PO Q4HP PRN PRN Reason: Pain scale 2-4 (Mild) Aspirin (Aspirin Ec 81 Mg Tab) 81 mg PO DAILY [facility] Last Admin: 12/14/22 08:40 Dose: 81 mg Atorvastatin Calcium (Atorvastatin 40 Mg Tab) 40 mg PO BEDTIME [facility] Last Admin: 12/14/22 19:56 Dose: 40 mg Heparin Sodium (Porcine) (Heparin 5000 Unit/Ml 1 Ml Vial) 5,000 unit SQ Q12HR [facility] Last Admin: 12/14/22 19:56 Dose: 5,000 unit Sodium Chloride (Ns 1000 Ml Ivbag) 1,000 mls @ 60 mls/hr IV .[id number] [facility] Last Admin: 12/14/22 07:15 Dose: Not Given Levofloxacin/Dextrose (Levaquin 750 Mg/150 Ml Ivpb (Premix)) 750 mg in 150 mls @ 100 mls/hr IV Q48H [facility]; Protocol Melatonin (Melatonin 5 Mg Tablet) 5 mg PO BEDTIME PRN PRN PRN Reason: INSOMNIA Last Admin: 12/14/22 01:11 Dose: 5 mg Nutritional Formula (Ensure Enlive 237 Ml Can) 237 ml PO BID [facility] Last Admin: 12/14/22 19:57 Dose: 237 ml Ondansetron HCl (Ondansetron 4 Mg/2 Ml Vial) 4 mg IV Q6HP PRN PRN Reason: NAUSEA / VOMITING Sodium Chloride (Flush Normal Saline 10 Ml) 10 ml IV BID [facility] Last Admin: 12/14/22 19:56 Dose: 10 ml Sterile Water (Water For Inj,Sterile 10 Ml) 1.2 ml IM UD PRN PRN Reason: DILUTION OF MED Tamsulosin HCl (Tamsulosin 0.4 Mg Sr Cap) 0.4 mg PO BEDTIME [facility] Last Admin: 12/14/22 19:56 Dose: 0.4 mg Assessment/ Plan: Nephrology No dyspnea No chest pain Dysphagia Anorexia No acute events overnight Vitals, medications, blood work and imaging reviewed in the chart. NAD. NCAT. MMM. Neck supple. Normal respiratory effort. RRR. Abd ND. No C/C. LE Edema none. No rash. Awake. Normal speech. Stage I DEIRDRE likely due to hypovolemia CKD III -No NSAIDs -Change IVF to 1/2NS Hypokalemia -Replete prn HTN with CKD -Start Lisinopril Daily BPH with LUTS -Contiue Flomax Hospitalist note reviewed
[2022-12-15] MEDS: MELATONIN 5 MG TABLET PO PRN (00:02)
[2022-12-15] MEDS: NACHLORIDE 0.45% 1,000 ML IV SCH ×3 (00:05→23:00)
[2022-12-15] MEDS ORDERED: HALOPERIDOL LACT 5 MG/ML INJ IM PRN (00:23)
[2022-12-15] MEDS ORDERED: HALOPERIDOL LACT 5 MG/ML INJ ONE ×2 (00:37→00:38)
[2022-12-15] MEDS: LORazepam 2 MG/ML VIAL IV PRN (06:12)
[2022-12-15 06:26] LABS: Absolute Lymphocytes (CBC) 0.8 K/uL (0.7-4.9); Hematocrit 33.2 % (39.6-49.0); Lymphocytes % 9.9 % (15.3-44.8); MCV 87.7 fL (80-100); Platelets 255 thou/uL (152-406); RBC Red Blood Cell Count 3.78 M/uL (4.33-5.43)
[2022-12-15 06:37] LABS: Potassium 3.7 mEq/L (3.5-5.1)
[2022-12-15] MEDS: ENSURE ENLIVE 237 ML CAN PO SCH ×2 (08:42→21:00)
[2022-12-15] MEDS: ASPIRIN EC 81 MG TAB PO SCH (08:42)
[2022-12-15] MEDS ORDERED: lisinopriL 10 MG TAB PO SCH (09:00)
[2022-12-15] MEDS: HEPARIN 5000 UNIT/ML 1 ML VIAL SQ SCH ×2 (10:15→23:21)
--- NOTE | 2022-12-15 12:50 | EKG ---
Test Date: 2022-12-15 Test Time: 02:57:04 [employer]: ANTHONY MEASUREMENT RESULTS: Intervals: Rate: 73 MO: 126 QRSD: 134 QT: 396 QTc: 436 [place]: P: 46 MO: 126 QRS: -47 T: 5 INTERPRETIVE STATEMENTS: Sinus rhythm with marked sinus arrhythmia Right bundle branch block Left anterior fascicular block Bifascicular block Voltage criteria for left ventricular hypertrophy Abnormal ECG Compared to ECG 12/12/2022 16:35:05 Right bundle-branch block now present Left anterior fascicular block now present Bifascicular block now present Left ventricular hypertrophy now present Electronically Signed On 12-15-22 12:48:17 CDT by Kyaw Gao
--- NOTE | 2022-12-15 14:02 | P.PN ---
Subjective Date of Service: 12/15/22 Chief Complaint: DEIRDRE Patient was sleeping during my examination this morning. He was difficult to arouse. Per report, patient was agitated last night and was given a dose of Haldol. Physical Examination - Vital Signs Temperature: 96.8 F Blood Pressure: 201/75 Pulse: 57 Respirations: 17 Pulse Ox (%): 98 Assessment And Plan - Plan Physical Exam: GEN: Alert, sleeping, NAD. HEENT: Normal conjunctiva, sclera anicteric CV: Regular rate and rhythm, no edema Pulm: Nonlabored respirations on room air, clear bilaterally ABD: Soft, nontender, nondistended Neuro: Normal speech, normal affect vitals reviewed Problem List: DEIRDRE suspected UTI Vertigo Chest pain h/o BPH s/p TURP (03/10/22) h/o ?prostate cancer Hypertension Hyperlipidemia GERD DEIRDRE renal u/s (12/12): Mildly increased renal cortical echogenicity. Hypoechoic ovoid lesion near the pelvis of the left kidney measuring up to 1.6 cm, not well characterized, for which additional evaluation by renal mass protocol CT or MRI is recommended to evaluate for solid versus cystic nature. -> Outpatient testing, non-urgent Nephrology is following. Patient receiving IV hydration NASRIN/ARB/diuretics on hold for now DEIRDRE resolved. suspected UTI h/o BPH s/p TURP x2 (07/08/21 & 03/10/22) h/o ?prostate cancer patient noted h/o BPH s/p TURP x2 with Dr. Conklin on 07/08/21 and 03/10/22 renal u/s (12/12): Some debris within the urinary bladder, could relate to ongoing cystitis or UTI. UA suggestive of UTI; +symptomatic: reports burning sensation when urinating urine cx (12/12): prelim no growth continue empiric levaquin (12/13-), renally dose afebrile, no leukocytosis continue flomax Vertigo Patient refuses MRI, has never been evaluated formally for his vertigo he reports which he has been having for about 5 years. neurology consult. Patient noted to be orthostatic. PT consulted. Unsteady gait noted. Recommend compression stockings. Anticipating disposition to skilled rehab. Chest pain troponins negative x3; monitor on tele ACS ruled out. Hypertension Hyperlipidemia GERD Continue home medications. VTE: heparin sq Code: Full Dispo: SNF.
--- NOTE | 2022-12-15 20:30 | P.PN ---
Date of Service: 12/15/22 Vital Signs Temp Pulse Resp BP Pulse Ox 97.1 F 43 L 17 151/67 H 96 12/15/22 16:00 12/15/22 16:00 12/15/22 16:00 12/15/22 16:00 12/15/22 16:00 Medications Acetaminophen (Acetaminophen 500 Mg Tab) 500 mg PO Q4HP PRN PRN Reason: Pain scale 2-4 (Mild) Aspirin (Aspirin Ec 81 Mg Tab) 81 mg PO DAILY [facility] Last Admin: 12/15/22 08:42 Dose: Not Given Atorvastatin Calcium (Atorvastatin 40 Mg Tab) 40 mg PO BEDTIME [facility] Last Admin: 12/14/22 19:56 Dose: 40 mg Haloperidol Lactate (Haloperidol Lact 5 Mg/Ml Inj) 5 mg IM 1X PRN PRN Reason: aggitation Heparin Sodium (Porcine) (Heparin 5000 Unit/Ml 1 Ml Vial) 5,000 unit SQ Q12HR [facility] Last Admin: 12/15/22 10:15 Dose: 5,000 unit Levofloxacin/Dextrose (Levaquin 750 Mg/150 Ml Ivpb (Premix)) 750 mg in 150 mls @ 100 mls/hr IV Q48H [facility]; Protocol Sodium Chloride (Sodium Chloride 0.45%) 1,000 mls @ 80 mls/hr IV .[id number] [facility] Last Admin: 12/15/22 10:30 Dose: Not Given Lisinopril (Lisinopril 10 Mg Tab) 10 mg PO DAILY [facility] Last Admin: 12/15/22 08:44 Dose: Not Given Lorazepam (Lorazepam 2 Mg/Ml Vial) 1 mg IV Q4H PRN PRN Reason: ANXIETY Last Admin: 12/15/22 06:12 Dose: 1 mg Melatonin (Melatonin 5 Mg Tablet) 5 mg PO BEDTIME PRN PRN PRN Reason: INSOMNIA Last Admin: 12/15/22 00:02 Dose: 5 mg Nutritional Formula (Ensure Enlive 237 Ml Can) 237 ml PO BID [facility] Last Admin: 12/15/22 08:42 Dose: Not Given Ondansetron HCl (Ondansetron 4 Mg/2 Ml Vial) 4 mg IV Q6HP PRN PRN Reason: NAUSEA / VOMITING Sodium Chloride (Flush Normal Saline 10 Ml) 10 ml IV BID [facility] Last Admin: 12/15/22 08:51 Dose: Not Given Sterile Water (Water For Inj,Sterile 10 Ml) 1.2 ml IM UD PRN PRN Reason: DILUTION OF MED Tamsulosin HCl (Tamsulosin 0.4 Mg Sr Cap) 0.4 mg PO BEDTIME [facility] Last Admin: 12/14/22 19:56 Dose: 0.4 mg Assessment/ Plan: Nephrology No dyspnea No chest pain No acute events overnight Vitals, medications, blood work and imaging reviewed in the chart. NAD. NCAT. MMM. Neck supple. Normal respiratory effort. RRR. Abd ND. No C/C. LE Edema none. No rash. Awake. Normal speech. Stage I DEIRDRE likely due to hypovolemia CKD III -No NSAIDs -Continue IVF Hypokalemia -Replete prn HTN with CKD -Increase Lisinopril BID BPH with LUTS -Contiue [facility] Hospitalist note reviewed
[2022-12-15] MEDS: ATORVASTATIN 40 MG TAB PO SCH (21:00)
[2022-12-15] MEDS: TAMSULOSIN 0.4 MG SR CAP PO SCH (21:00)
[2022-12-15] MEDS: lisinopriL 10 MG TAB PO SCH (21:00)
[2022-12-16 04:08] LABS: Potassium 3.5 mEq/L (3.5-5.1)
[2022-12-16] MEDS: NACHLORIDE 0.45% 1,000 ML IV SCH (08:21)
[2022-12-16] MEDS: HEPARIN 5000 UNIT/ML 1 ML VIAL SQ SCH ×2 (08:21→20:42)
[2022-12-16] MEDS: ENSURE ENLIVE 237 ML CAN PO SCH ×2 (08:22→20:42)
[2022-12-16] MEDS: ASPIRIN EC 81 MG TAB PO SCH (08:22)
[2022-12-16] MEDS: lisinopriL 10 MG TAB PO SCH ×2 (08:23→20:41)
[2022-12-16] MEDS ORDERED: Levofloxacin 750mg IV 750 MG/150 ML BAG IV SCH (09:00)
--- NOTE | 2022-12-16 12:34 | P.PN ---
Subjective Date of Service: 12/16/22 Chief Complaint: DEIRDRE Patient is awake but states he has trouble speaking. His tongue and oral mucosa looks parched dry No agitation reported. Physical Examination - Vital Signs Temperature: 97.1 F Blood Pressure: 144/70 Pulse: 71 Respirations: 14 Pulse Ox (%): 98 Assessment And Plan - Plan Physical Exam: GEN: Awake, NAD. HEENT: Normal conjunctiva, sclera anicteric, dry oral mucosa and dry tongue CV: Regular rate and rhythm, no edema Pulm: Nonlabored respirations on room air, clear bilaterally ABD: Soft, nontender, nondistended Neuro: No focal motor deficit, globally weak. vitals reviewed Problem List: DEIRDRE suspected UTI Vertigo Chest pain h/o BPH s/p TURP (03/10/22) h/o ?prostate cancer Hypertension Hyperlipidemia GERD DEIRDRE renal u/s (12/12): Mildly increased renal cortical echogenicity. Hypoechoic ovoid lesion near the pelvis of the left kidney measuring up to 1.6 cm, not well characterized, for which additional evaluation by renal mass protocol CT or MRI is recommended to evaluate for solid versus cystic nature. -> Outpatient testing, non-urgent Nephrology is following. Patient receiving IV hydration NASRIN/ARB/diuretics on hold for now DEIRDRE resolved. suspected UTI h/o BPH s/p TURP x2 (07/08/21 & 03/10/22) h/o ?prostate cancer patient noted h/o BPH s/p TURP x2 with Dr. Conklin on 07/08/21 and 03/10/22 renal u/s (12/12): Some debris within the urinary bladder, could relate to ongoing cystitis or UTI. UA suggestive of UTI; +symptomatic: reports burning sensation when urinating urine cx (12/12):no growth continue empiric levaquin (12/13-), renally dose afebrile, no leukocytosis continue flomax Vertigo Patient refused MRI, has never been evaluated formally for his vertigo he reports which he has been having for about 5 years. neurology consulted. Patient noted to be orthostatic. PT consulted. Unsteady gait previously noted. Now patient is globally weak Recommend compression stockings. Anticipating disposition to skilled rehab. Dementia with behavioral abnormality Patient was agitated for a few nights. He received a dose of Haldol IM 2 nights ago. Patient is more calm today. Continue PT. Chest pain troponins negative x3; monitor on tele ACS ruled out. Hypertension Hyperlipidemia GERD Continue home medications. VTE: heparin sq Code: Full Dispo: SNF.
--- NOTE | 2022-12-16 20:35 | P.PN ---
Date of Service: 12/16/22 Vital Signs Temp Pulse Resp BP Pulse Ox 97.1 F 82 14 146/67 H 98 12/16/22 16:00 12/16/22 16:00 12/16/22 16:00 12/16/22 16:00 12/16/22 16:00 Medications Acetaminophen (Acetaminophen 500 Mg Tab) 500 mg PO Q4HP PRN PRN Reason: Pain scale 2-4 (Mild) Aspirin (Aspirin Ec 81 Mg Tab) 81 mg PO DAILY [facility] Last Admin: 12/16/22 08:22 Dose: Not Given Atorvastatin Calcium (Atorvastatin 40 Mg Tab) 40 mg PO BEDTIME [facility] Last Admin: 12/15/22 21:00 Dose: Not Given Haloperidol Lactate (Haloperidol Lact 5 Mg/Ml Inj) 5 mg IM 1X PRN PRN Reason: aggitation Heparin Sodium (Porcine) (Heparin 5000 Unit/Ml 1 Ml Vial) 5,000 unit SQ Q12HR [facility] Last Admin: 12/16/22 08:21 Dose: 5,000 unit Levofloxacin/Dextrose (Levaquin 750 Mg/150 Ml Ivpb (Premix)) 750 mg in 150 mls @ 100 mls/hr IV Q24H [facility]; Protocol Lisinopril (Lisinopril 10 Mg Tab) 10 mg PO BID [facility] Last Admin: 12/16/22 08:23 Dose: Not Given Lorazepam (Lorazepam 2 Mg/Ml Vial) 1 mg IV Q4H PRN PRN Reason: ANXIETY Last Admin: 12/15/22 06:12 Dose: 1 mg Melatonin (Melatonin 5 Mg Tablet) 5 mg PO BEDTIME PRN PRN PRN Reason: INSOMNIA Last Admin: 12/15/22 00:02 Dose: 5 mg Nutritional Formula (Ensure Enlive 237 Ml Can) 237 ml PO BID [facility] Last Admin: 12/16/22 08:22 Dose: Not Given Ondansetron HCl (Ondansetron 4 Mg/2 Ml Vial) 4 mg IV Q6HP PRN PRN Reason: NAUSEA / VOMITING Sodium Chloride (Flush Normal Saline 10 Ml) 10 ml IV BID [facility] Last Admin: 12/16/22 08:22 Dose: 10 ml Sterile Water (Water For Inj,Sterile 10 Ml) 1.2 ml IM UD PRN PRN Reason: DILUTION OF MED Tamsulosin HCl (Tamsulosin 0.4 Mg Sr Cap) 0.4 mg PO BEDTIME [facility] Last Admin: 10/03/23 21:00 Dose: Not Given Assessment/ Plan: Nephrology No dyspnea No chest pain No acute events overnight Vitals, medications, blood work and imaging reviewed in the chart. NAD. NCAT. MMM. Neck supple. Normal respiratory effort. RRR. Abd ND. No C/C. LE Edema none. No rash. Awake. Abnormal speech. Stage I DEIRDRE likely due to hypovolemia CKD III -No NSAIDs -Discontinue IVF Hypokalemia -Replete prn HTN with CKD -Increase Lisinopril BPH with LUTS -Contiue [place] Hospitalist note reviewed
[2022-12-16] MEDS: ATORVASTATIN 40 MG TAB PO SCH (20:41)
[2022-12-16] MEDS: TAMSULOSIN 0.4 MG SR CAP PO SCH (20:41)
[2022-12-17 03:04] LABS: Absolute Lymphocytes (CBC) 0.8 K/uL (0.7-4.9); Lymphocytes % 8.5 % (15.3-44.8); MCV 87.4 fL (80-100); MPV 7.4 fL (7.6-11.3); Platelets 256 thou/uL (152-406); RBC Red Blood Cell Count 4.24 M/uL (4.33-5.43)
[2022-12-17 03:20] LABS: Potassium 3.3 mEq/L (3.5-5.1)
[2022-12-17] MEDS ORDERED: Levofloxacin 750mg IV 750 MG/150 ML BAG IV SCH (09:00)
[2022-12-17] MEDS: HEPARIN 5000 UNIT/ML 1 ML VIAL SQ SCH ×2 (09:25→20:43)
[2022-12-17] MEDS: ASPIRIN EC 81 MG TAB PO SCH (09:25)
[2022-12-17] MEDS: lisinopriL 10 MG TAB PO SCH ×2 (09:25→21:00)
[2022-12-17] MEDS: ENSURE ENLIVE 237 ML CAN PO SCH ×2 (09:26→20:43)
--- NOTE | 2022-12-17 12:29 | P.PN ---
Subjective Date of Service: 12/17/22 Chief Complaint: DEIRDRE Patient is doing much better today. He has been carrying out conversation though slightly confused No agitation reported. Physical Examination - Vital Signs Temperature: 97.0 F Blood Pressure: 157/81 Pulse: 94 Respirations: 16 Pulse Ox (%): 96 Assessment And Plan - Plan Physical Exam: GEN: Awake, NAD. HEENT: Normal conjunctiva, sclera anicteric, moist oral mucosa. CV: Regular rate and rhythm, no edema Pulm: Nonlabored respirations on room air, clear bilaterally ABD: Soft, nontender, nondistended Neuro: No focal motor deficit, globally weak. vitals reviewed Problem List: DEIRDRE suspected UTI Vertigo Chest pain h/o BPH s/p TURP (03/10/22) h/o ?prostate cancer Hypertension Hyperlipidemia GERD DEIRDRE renal u/s (12/12): Mildly increased renal cortical echogenicity. Hypoechoic ovoid lesion near the pelvis of the left kidney measuring up to 1.6 cm, not well characterized, for which additional evaluation by renal mass protocol CT or MRI is recommended to evaluate for solid versus cystic nature. -> Outpatient testing, non-urgent Nephrology is following. NASRIN/ARB/diuretics on hold for now DEIRDRE resolved. IV fluid discontinued. suspected UTI h/o BPH s/p TURP x2 (07/08/21 & 03/10/22) h/o ?prostate cancer patient noted h/o BPH s/p TURP x2 with Dr. Conklin on 07/08/21 and 03/10/22 renal u/s (12/12): Some debris within the urinary bladder, could relate to ongoing cystitis or UTI. UA suggestive of UTI; +symptomatic: reports burning sensation when urinating urine cx (12/12):no growth continue empiric levaquin (12/13-), renally dose afebrile, no leukocytosis continue flomax Vertigo Patient refused MRI, has never been evaluated formally for his vertigo he reports which he has been having for about 5 years. neurology consulted. Patient noted to be orthostatic. PT consulted. Unsteady gait previously noted. Patient is globally weak Recommend compression stockings. Anticipating disposition to skilled rehab. Dementia with behavioral abnormality Patient was agitated for a few nights. He received a dose of Haldol IM 2 nights ago. Patient has been calm and cooperative since yesterday. He was seen ambulating with a walker in the hallway during PT today Chest pain troponins negative x3; monitor on tele ACS ruled out. Hypertension Hyperlipidemia GERD Continue home medications. VTE: heparin sq Code: Full Dispo: SNF.
[2022-12-17] MEDS: LORazepam 2 MG/ML VIAL IV PRN ×2 (18:07→22:41)
[2022-12-17] MEDS ORDERED: POTASSIUM CL SA 10 MEQ TAB PO ONE (19:49)
--- NOTE | 2022-12-17 19:50 | P.PN ---
Date of Service: 12/17/22 Vital Signs Temp Pulse Resp BP Pulse Ox 97.1 F 115 H 16 164/78 H 95 12/17/22 16:00 12/17/22 16:00 12/17/22 16:00 12/17/22 16:00 12/17/22 16:00 Medications Acetaminophen (Acetaminophen 500 Mg Tab) 500 mg PO Q4HP PRN PRN Reason: Pain scale 2-4 (Mild) Aspirin (Aspirin Ec 81 Mg Tab) 81 mg PO DAILY [facility] Last Admin: 12/17/22 09:25 Dose: 81 mg Atorvastatin Calcium (Atorvastatin 40 Mg Tab) 40 mg PO BEDTIME [facility] Last Admin: 12/16/22 20:41 Dose: 40 mg Haloperidol Lactate (Haloperidol Lact 5 Mg/Ml Inj) 5 mg IM 1X PRN PRN Reason: aggitation Heparin Sodium (Porcine) (Heparin 5000 Unit/Ml 1 Ml Vial) 5,000 unit SQ Q12HR [facility] Last Admin: 12/17/22 09:25 Dose: 5,000 unit Levofloxacin (Levofloxacin 750 Mg Tab) 750 mg PO DAILY [facility]; Protocol Lisinopril (Lisinopril 10 Mg Tab) 20 mg PO BID [facility] Last Admin: 12/17/22 09:25 Dose: 20 mg Lorazepam (Lorazepam 2 Mg/Ml Vial) 1 mg IV Q4H PRN PRN Reason: ANXIETY Last Admin: 12/17/22 18:07 Dose: 1 mg Melatonin (Melatonin 5 Mg Tablet) 5 mg PO BEDTIME PRN PRN PRN Reason: INSOMNIA Last Admin: 12/15/22 00:02 Dose: 5 mg Metoprolol Tartrate (Metoprolol Tar 25 Mg Tab) 25 mg PO BID 6AM 6PM [facility] Nutritional Formula (Ensure Enlive 237 Ml Can) 237 ml PO BID [facility] Last Admin: 12/17/22 09:26 Dose: 237 ml Ondansetron HCl (Ondansetron 4 Mg/2 Ml Vial) 4 mg IV Q6HP PRN PRN Reason: NAUSEA / VOMITING Sodium Chloride (Flush Normal Saline 10 Ml) 10 ml IV BID [facility] Last Admin: 12/17/22 09:00 Dose: 10 ml Sterile Water (Water For Inj,Sterile 10 Ml) 1.2 ml IM UD PRN PRN Reason: DILUTION OF MED Tamsulosin HCl (Tamsulosin 0.4 Mg Sr Cap) 0.4 mg PO BEDTIME [facility] Last Admin: 12/16/22 20:41 Dose: 0.4 mg Assessment/ Plan: Nephrology No dyspnea No chest pain No acute events overnight Vitals, medications, blood work and imaging reviewed in the chart. NAD. NCAT. MMM. Neck supple. Normal respiratory effort. RRR. Abd ND. No C/C. LE Edema none. No rash. Awake. Abnormal speech. Stage I DEIRDRE likely due to hypovolemia CKD III -No NSAIDs Hypokalemia -Replete today HTN with CKD -Continue Lisinopril -Start Metoprolol BPH with LUTS -[facility] Hospitalist note reviewed Case reviewed with Dr. Polanco
[2022-12-17] MEDS: TAMSULOSIN 0.4 MG SR CAP PO SCH (20:43)
[2022-12-17] MEDS: ATORVASTATIN 40 MG TAB PO SCH (20:44)
[2022-12-17] MEDS ORDERED: POTASSIUM 25 MEQ EFFERV TAB PO ONE (20:47)
[2022-12-18 03:37] LABS: Potassium 3.4 mEq/L (3.5-5.1)
[2022-12-18] MEDS: METOPROLOL TAR 25 MG TAB PO SCH ×2 (04:54→17:01)
[2022-12-18] MEDS: levoFLOXacin 750 MG TAB PO SCH (07:27)
[2022-12-18] MEDS: ASPIRIN EC 81 MG TAB PO SCH (07:27)
[2022-12-18] MEDS: HEPARIN 5000 UNIT/ML 1 ML VIAL SQ SCH ×2 (07:40→20:30)
[2022-12-18] MEDS: ENSURE ENLIVE 237 ML CAN PO SCH ×2 (09:00→20:36)
[2022-12-18] MEDS: lisinopriL 10 MG TAB PO SCH ×2 (09:00→20:29)
--- NOTE | 2022-12-18 14:49 | P.PN ---
Subjective Date of Service: 12/18/22 Chief Complaint: DEIRDRE Patient is doing much better today. He remained confused. No agitation reported. Physical Examination - Vital Signs Temperature: 97.6 F Blood Pressure: 163/72 Pulse: 66 Respirations: 16 Pulse Ox (%): 96 Assessment And Plan - Plan Physical Exam: GEN: Awake, NAD. HEENT: Normal conjunctiva, sclera anicteric, moist oral mucosa. CV: Regular rate and rhythm, no edema Pulm: Nonlabored respirations on room air, clear bilaterally ABD: Soft, nontender, nondistended Neuro: No focal motor deficit, Confused vitals reviewed Problem List: DEIRDRE suspected UTI Vertigo Chest pain h/o BPH s/p TURP (03/10/22) h/o ?prostate cancer Hypertension Hyperlipidemia GERD DEIRDER renal u/s (12/12): Mildly increased renal cortical echogenicity. Hypoechoic ovoid lesion near the pelvis of the left kidney measuring up to 1.6 cm, not well characterized, for which additional evaluation by renal mass protocol CT or MRI is recommended to evaluate for solid versus cystic nature. -> Outpatient testing, non-urgent Nephrology is following. NASRIN/ARB/diuretics on hold for now DEIRDRE resolved. IV fluid discontinued. suspected UTI h/o BPH s/p TURP x2 (07/08/21 & 03/10/22) h/o ?prostate cancer patient noted h/o BPH s/p TURP x2 with Dr. Conklin on 07/08/21 and 03/10/22 renal u/s (12/12): Some debris within the urinary bladder, could relate to ongoing cystitis or UTI. UA suggestive of UTI; +symptomatic urine cx (12/12):no growth continue empiric levaquin (12/13-). afebrile, no leukocytosis continue flomax Vertigo Patient refused MRI, has never been evaluated formally for his vertigo he reports which he has been having for about 5 years. neurology consulted. Patient noted to be orthostatic. PT consulted. Unsteady gait previously noted. Ambulated with a walker in the hallway during PT Recommend compression stockings. Anticipating disposition to skilled rehab. Dementia with behavioral abnormality Patient was agitated for a few nights. He received a dose of Haldol IM 2 nights ago. Patient has been calm and cooperative. Chest pain troponins negative x3; monitor on tele ACS ruled out. Hypertension Hyperlipidemia GERD Continue home medications. VTE: heparin sq Code: Full Dispo: SNF. Social service on board trying to find and contact family member regarding SNF placement.
[2022-12-18] MEDS: TAMSULOSIN 0.4 MG SR CAP PO SCH (20:30)
[2022-12-18] MEDS: ATORVASTATIN 40 MG TAB PO SCH (20:30)
[2022-12-18] MEDS: LORazepam 2 MG/ML VIAL IV PRN (20:31)
[2022-12-19] MEDS: METOPROLOL TAR 25 MG TAB PO SCH ×2 (06:03→17:13)
[2022-12-19] MEDS: lisinopriL 10 MG TAB PO SCH ×2 (07:39→20:14)
[2022-12-19] MEDS: levoFLOXacin 750 MG TAB PO SCH (07:39)
[2022-12-19] MEDS: ENSURE ENLIVE 237 ML CAN PO SCH ×2 (07:40→20:15)
[2022-12-19] MEDS: ASPIRIN EC 81 MG TAB PO SCH (07:40)
[2022-12-19] MEDS: HEPARIN 5000 UNIT/ML 1 ML VIAL SQ SCH ×2 (07:40→20:15)
--- NOTE | 2022-12-19 14:40 | P.PN ---
Subjective Date of Service: 12/19/22 Chief Complaint: DEIRDRE Patient remained confused No agitation reported. He is tolerating diet. Physical Examination - Vital Signs Temperature: 98.6 F Blood Pressure: 162/77 Pulse: 72 Respirations: 18 Pulse Ox (%): 98 Assessment And Plan - Plan Physical Exam: GEN: Awake, NAD. HEENT: Normal conjunctiva, sclera anicteric, moist oral mucosa. CV: Regular rate and rhythm, no edema Pulm: Nonlabored respirations on room air, clear bilaterally ABD: Soft, nontender, nondistended Neuro: No focal motor deficit, Confused vitals reviewed Problem List: DEIRDRE suspected UTI Vertigo Chest pain h/o BPH s/p TURP (03/10/22) h/o ?prostate cancer Hypertension Hyperlipidemia GERD DEIRDRE renal u/s (12/12): Mildly increased renal cortical echogenicity. Hypoechoic ovoid lesion near the pelvis of the left kidney measuring up to 1.6 cm, not well characterized, for which additional evaluation by renal mass protocol CT or MRI is recommended to evaluate for solid versus cystic nature. -> Outpatient testing, non-urgent Nephrology is following. NASRIN/ARB/diuretics on hold for now DEIRDRE resolved. IV fluid discontinued. suspected UTI h/o BPH s/p TURP x2 (07/08/21 & 03/10/22) h/o ?prostate cancer patient noted h/o BPH s/p TURP x2 with Dr. Conklin on 07/08/21 and 03/10/22 renal u/s (12/12): Some debris within the urinary bladder, could relate to ongoing cystitis or UTI. UA suggestive of UTI; +symptomatic urine cx (12/12):no growth continue empiric levaquin (12/13-). afebrile, no leukocytosis continue flomax Vertigo/orthostasis Patient refused MRI, has never been evaluated formally for his vertigo he reports which he has been having for about 5 years. neurology consulted. Patient noted to be orthostatic. PT consulted. Unsteady gait previously noted. Patient has been ambulating in the hallway with a walker with PT. Compression stockings. Anticipating disposition to skilled rehab. Dementia with behavioral abnormality Patient was agitated for a few nights. He received a dose of Haldol IM 2 nights ago. Patient has been calm and cooperative. No more agitation. Chest pain troponins negative x3; monitor on tele ACS ruled out. Hypertension Hyperlipidemia GERD Continue home medications. VTE: heparin sq Code: Full Dispo: SNF. Social service on board trying to find and contact family member regarding SNF placement.
[2022-12-19] MEDS: TAMSULOSIN 0.4 MG SR CAP PO SCH (20:13)
[2022-12-19] MEDS: MELATONIN 5 MG TABLET PO PRN (20:14)
[2022-12-19] MEDS: ATORVASTATIN 40 MG TAB PO SCH (20:14)
[2022-12-19] MEDS: LORazepam 2 MG/ML VIAL IV PRN (20:53)
[2022-12-20] MEDS ORDERED: HALOPERIDOL LACT 5 MG/ML INJ IM PRN (05:34)
[2022-12-20] MEDS ORDERED: HALOPERIDOL LACT 5 MG/ML INJ ONE (05:48)
[2022-12-20] MEDS: METOPROLOL TAR 25 MG TAB PO SCH ×2 (06:00→17:10)
[2022-12-20] MEDS: ENSURE ENLIVE 237 ML CAN PO SCH ×2 (09:00→20:48)
[2022-12-20] MEDS: lisinopriL 10 MG TAB PO SCH ×2 (09:00→20:47)
[2022-12-20] MEDS: levoFLOXacin 750 MG TAB PO SCH (09:00)
[2022-12-20] MEDS: HEPARIN 5000 UNIT/ML 1 ML VIAL SQ SCH ×2 (09:00→20:48)
[2022-12-20] MEDS: ASPIRIN EC 81 MG TAB PO SCH ×2 (09:00→17:11)
--- NOTE | 2022-12-20 13:05 | P.PN ---
Subjective Date of Service: 12/20/22 Chief Complaint: DEIRDRE Patient remain confused Nursing staff report he was somehow agitated overnight. Physical Examination - Vital Signs Temperature: 96.6 F Blood Pressure: 129/59 Pulse: 65 Respirations: 20 Pulse Ox (%): 99 Assessment And Plan - Plan Physical Exam: GEN: NAD. HEENT: Normal conjunctiva, sclera anicteric, moist oral mucosa. CV: Regular rate and rhythm, no edema Pulm: Nonlabored respirations on room air, clear bilaterally ABD: Soft, nontender, nondistended Neuro: No focal motor deficit, Confused vitals reviewed Problem List: DEIRDRE suspected UTI Vertigo Chest pain h/o BPH s/p TURP (03/10/22) h/o ?prostate cancer Hypertension Hyperlipidemia GERD DEIRDRE renal u/s (12/12): Mildly increased renal cortical echogenicity. Hypoechoic ovoid lesion near the pelvis of the left kidney measuring up to 1.6 cm, not well characterized, for which additional evaluation by renal mass protocol CT or MRI is recommended to evaluate for solid versus cystic nature. -> Outpatient testin g, non-urgent Nephrology is following. NASRIN/ARB/diuretics on hold for now DEIRDRE resolved. IV fluid discontinued. suspected UTI h/o BPH s/p TURP x2 (07/08/21 & 03/10/22) h/o ?prostate cancer patient noted h/o BPH s/p TURP x2 with Dr. Conklin on 07/08/21 and 03/10/22 renal u/s (12/12): Some debris within the urinary bladder, could relate to ongoing cystitis or UTI. UA suggestive of UTI; +symptomatic urine cx (12/12):no growth continue empiric levaquin (12/13-). afebrile, no leukocytosis continue flomax Vertigo/orthostasis Patient refused MRI, has never been evaluated formally for his vertigo he reports which he has been having for about 5 years. neurology consulted. Patient noted to be orthostatic. PT consulted. Unsteady gait previously noted. Patient has been ambulating in the hallway with a walker with PT. Compression stockings. Anticipating disposition to skilled rehab. Dementia with behavioral abnormality Patient is intermittently agitated. He received a dose of Haldol IM earlier this morning. Chest pain troponins negative x3; monitor on tele ACS ruled out. Hypertension Hyperlipidemia GERD Continue home medications. VTE: heparin sq Code: Full Dispo: SNF. Social service on board trying to find and contact family member regarding SNF placement.
[2022-12-20] MEDS: ATORVASTATIN 40 MG TAB PO SCH (20:47)
[2022-12-20] MEDS: TAMSULOSIN 0.4 MG SR CAP PO SCH (20:47)
[2022-12-21] MEDS: METOPROLOL TAR 25 MG TAB PO SCH ×2 (06:00→17:57)
[2022-12-21] MEDS: HEPARIN 5000 UNIT/ML 1 ML VIAL SQ SCH ×2 (09:00→21:40)
[2022-12-21] MEDS: ENSURE ENLIVE 237 ML CAN PO SCH ×2 (09:00→21:42)
[2022-12-21] MEDS: lisinopriL 10 MG TAB PO SCH ×2 (09:17→21:40)
[2022-12-21] MEDS: ASPIRIN EC 81 MG TAB PO SCH (09:17)
--- NOTE | 2022-12-21 11:09 | P.PN ---
Subjective Date of Service: 12/21/22 Chief Complaint: DEIRDRE Patient is awake but remains confused. No agitation reported overnight. Physical Examination - Vital Signs Temperature: 97.8 F Blood Pressure: 162/85 Pulse: 73 Respirations: 18 Pulse Ox (%): 97 Assessment And Plan - Plan Physical Exam: GEN: NAD. HEENT: Normal conjunctiva, sclera anicteric, moist oral mucosa. CV: Regular rate and rhythm, no edema Pulm: Nonlabored respirations on room air, clear bilaterally ABD: Soft, nontender, nondistended Neuro: No focal motor deficit, Confused vitals reviewed Problem List: DEIRDRE suspected UTI Vertigo Chest pain h/o BPH s/p TURP (03/10/22) h/o ?prostate cancer Hypertension Hyperlipidemia GERD DEIRDRE renal u/s (12/12): Mildly increased renal cortical echogenicity. Hypoechoic ovoid lesion near the pelvis of the left kidney measuring up to 1.6 cm, not well characterized, for which additional evaluation by renal mass protocol CT or MRI is recommended to evaluate for solid versus cystic nature. -> Outpatient testing, non-urgent Nephrology is following. NASRIN/ARB/diuretics on hold for now DEIRDRE resolved. IV fluid discontinued. Patient is tolerating diet. suspected UTI h/o BPH s/p TURP x2 (07/08/21 & 03/10/22) h/o ?prostate cancer patient noted h/o BPH s/p TURP x2 with Dr. Conklin on 07/08/21 and 03/10/22 renal u/s (12/12): Some debris within the urinary bladder, could relate to ongoing cystitis or UTI. UA suggestive of UTI; +symptomatic urine cx (12/12):no growth continue empiric levaquin (12/13-). afebrile, no leukocytosis continue flomax Vertigo/orthostasis Patient refused MRI, has never been evaluated formally for his vertigo he reports which he has been having for about 5 years. neurology consulted. Patient noted to be orthostatic. PT consulted. Unsteady gait previously noted. Patient has been ambulating in the hallway with a walker with PT. Compression stockings. Anticipating disposition to skilled rehab. Dementia with behavioral abnormality Patient is intermittently agitated. He is getting IM Haldol intermittently. We will start low-dose Seroquel at bedtime for now. Chest pain troponins negative x3; monitor on tele ACS ruled out. Hypertension Hyperlipidemia GERD Continue home medications. VTE: heparin sq Code: Full Dispo: SNF. Social service on board trying to find and contact family member regarding SNF placement.
[2022-12-21] MEDS: QUETIAPINE 25 MG TAB PO SCH (21:40)
[2022-12-21] MEDS: TAMSULOSIN 0.4 MG SR CAP PO SCH (21:40)
[2022-12-21] MEDS: ATORVASTATIN 40 MG TAB PO SCH (21:41)
--- NOTE | 2022-12-21 22:03 | P.PN ---
Date of Service: 12/21/22 Vital Signs Temp Pulse Resp BP Pulse Ox 98.4 F 68 18 122/58 L 97 12/21/22 16:00 12/21/22 16:00 12/21/22 16:00 12/21/22 16:00 12/21/22 16:00 Medications Acetaminophen (Acetaminophen 500 Mg Tab) 500 mg PO Q4HP PRN PRN Reason: Pain scale 2-4 (Mild) Aspirin (Aspirin Ec 81 Mg Tab) 81 mg PO DAILY [facility] Last Admin: 12/21/22 09:17 Dose: 81 mg Atorvastatin Calcium (Atorvastatin 40 Mg Tab) 40 mg PO BEDTIME [facility] Last Admin: 12/20/22 20:47 Dose: 40 mg Heparin Sodium (Porcine) (Heparin 5000 Unit/Ml 1 Ml Vial) 5,000 unit SQ Q12HR [facility] Last Admin: 12/21/22 09:00 Dose: Not Given Lisinopril (Lisinopril 10 Mg Tab) 20 mg PO BID [facility] Last Admin: 12/21/22 09:17 Dose: 20 mg Melatonin (Melatonin 5 Mg Tablet) 5 mg PO BEDTIME PRN PRN PRN Reason: INSOMNIA Last Admin: 12/19/22 20:14 Dose: 5 mg Metoprolol Tartrate (Metoprolol Tar 25 Mg Tab) 25 mg PO BID 6AM 6PM [facility] Last Admin: 12/21/22 17:57 Dose: 25 mg Nutritional Formula (Ensure Enlive 237 Ml Can) 237 ml PO BID [facility] Last Admin: 12/21/22 09:00 Dose: Not Given Ondansetron HCl (Ondansetron 4 Mg/2 Ml Vial) 4 mg IV Q6HP PRN PRN Reason: NAUSEA / VOMITING Last Admin: 12/19/22 21:06 Dose: 4 mg Quetiapine Fumarate (Quetiapine 25 Mg Tab) 25 mg PO BEDTIME [facility] Sodium Chloride (Flush Normal Saline 10 Ml) 10 ml IV BID [facility] Last Admin: 12/21/22 09:00 Dose: 10 ml Sterile Water (Water For Inj,Sterile 10 Ml) 1.2 ml IM UD PRN PRN Reason: DILUTION OF MED Tamsulosin HCl (Tamsulosin 0.4 Mg Sr Cap) 0.4 mg PO BEDTIME [facility] Last Admin: 12/20/22 20:47 Dose: 0.4 mg Assessment/ Plan: Nephrology No dyspnea No chest pain No acute events overnight Limited IH/ ROS due to dementia Vitals, medications, blood work and imaging reviewed in the chart. NAD. NCAT. MMM. Neck supple. Normal respiratory effort. RRR. Abd ND. No C/C. LE Edema none. No rash. Awake. Normal speech. Stage I DEIRDRE likely due to hypovolemia, resolved -No NSAIDs Hypokalemia -Replete prn HTN with CKD -Continue Lisinopril -Continue Metoprolol BPH with LUTS -[facility] Hospitalist note reviewed Case reviewed with Dr. Polanco
[2022-12-22] MEDS: METOPROLOL TAR 25 MG TAB PO SCH ×3 (06:00→17:29)
--- NOTE | 2022-12-22 06:47 | P.PN ---
Date of Service: 12/22/22 Subjective: no acute events overnight sitter remains at bedside / needed. patient with confusion not answering completely appropriate able to tell me he has a cousin in [place], who has a son. Doesn't recall phone # ROS: 10 point ROS as noted above, otherwise negative Physical Exam: GEN: Alert, orientedx1, NAD, hard of hearing HEENT: Normal conjunctiva, sclera anicteric CV: Regular rate and rhythm, no edema Pulm: Nonlabored respirations on room air, clear bilaterally ABD: Soft, nontender, nondistended Neuro: Normal speech, normal affect vitals reviewed Problem List: DEIRDRE, resolved suspected UTI Vertigo Chest pain h/o BPH s/p TURP (03/10/22) h/o ?prostate cancer Hypertension Hyperlipidemia GERD DEIRDRE, resolved renal u/s (12/12): Mildly increased renal cortical echogenicity. Hypoechoic ovoid lesion near the pelvis of the left kidney measuring up to 1.6 cm, not well characterized, for which additional evaluation by renal mass protocol CT or MRI is recommended to evaluate for solid versus cystic nature. -> Outpatient testing, non-urgent Nephrology consulted suspect prerenal/hypovolemic improved with IVF suspected UTI h/o BPH s/p TURP x2 (07/08/21 & 03/10/22) h/o ?prostate cancer patient noted h/o BPH s/p TURP x2 with Dr. Conklin on 07/08/21 and 03/10/22 renal u/s (12/12): Some debris within the urinary bladder, could relate to ongoing cystitis or UTI. UA suggestive of UTI; +symptomatic: reports burning sensation when urinating urine cx (12/12): no growth s/p empiric levaquin (12/13-12/17) afebrile, no leukocytosis continue flomax Vertigo/orthostasis Patient refused MRI, has never been evaluated formally for his vertigo he reports which he has been having for about 5 years. neurology consulted. Patient noted to be orthostatic initially PT consulted. Unsteady gait previously noted. Compression stockings. Anticipating disposition to skilled rehab. Dementia with behavioral abnormality Patient is intermittently agitated. cont seroquel at bedtime neuro consulted for mental capacity eval, currently patietn without decision making capacity, uncertain if near baseline and went unnoticed since no family nearby, or a drastic change Chest pain troponins negative x3; monitor on tele ACS ruled out. Hypertension Hyperlipidemia GERD Continue home medications. VTE: heparin sq Code: Full Dispo: SNF; pending discussion / finding family member to make medical decisions
[2022-12-22] MEDS: lisinopriL 10 MG TAB PO SCH ×2 (09:00→20:39)
[2022-12-22] MEDS: HEPARIN 5000 UNIT/ML 1 ML VIAL SQ SCH ×2 (09:00→20:40)
[2022-12-22] MEDS: ASPIRIN EC 81 MG TAB PO SCH (09:00)
[2022-12-22] MEDS: ENSURE ENLIVE 237 ML CAN PO SCH ×2 (09:00→20:43)
[2022-12-22] MEDS: MELATONIN 5 MG TABLET PO PRN (20:39)
[2022-12-22] MEDS: TAMSULOSIN 0.4 MG SR CAP PO SCH (20:39)
[2022-12-22] MEDS: QUETIAPINE 25 MG TAB PO SCH (20:39)
[2022-12-22] MEDS: ATORVASTATIN 40 MG TAB PO SCH (20:40)
--- NOTE | 2022-12-22 20:53 | P.PN ---
Date of Service: 12/22/22 Vital Signs Temp Pulse Resp BP Pulse Ox 97.2 F 98 H 18 139/62 98 12/22/22 18:14 12/22/22 18:14 12/22/22 18:14 12/22/22 18:14 12/22/22 18:14 Medications Acetaminophen (Acetaminophen 500 Mg Tab) 500 mg PO Q4HP PRN PRN Reason: Pain scale 2-4 (Mild) Aspirin (Aspirin Ec 81 Mg Tab) 81 mg PO DAILY [facility] Last Admin: 12/22/22 09:00 Dose: Not Given Atorvastatin Calcium (Atorvastatin 40 Mg Tab) 40 mg PO BEDTIME [facility] Last Admin: 12/21/22 21:41 Dose: 40 mg Heparin Sodium (Porcine) (Heparin 5000 Unit/Ml 1 Ml Vial) 5,000 unit SQ Q12HR [facility] Last Admin: 12/22/22 09:00 Dose: Not Given Lisinopril (Lisinopril 10 Mg Tab) 20 mg PO BID [facility] Last Admin: 12/22/22 09:00 Dose: Not Given Melatonin (Melatonin 5 Mg Tablet) 5 mg PO BEDTIME PRN PRN PRN Reason: INSOMNIA Last Admin: 12/19/22 20:14 Dose: 5 mg Metoprolol Tartrate (Metoprolol Tar 25 Mg Tab) 25 mg PO BID 6AM 6PM [facility] Last Admin: 12/22/22 17:29 Dose: 25 mg Nutritional Formula (Ensure Enlive 237 Ml Can) 237 ml PO BID [facility] Last Admin: 12/22/22 09:00 Dose: Not Given Ondansetron HCl (Ondansetron 4 Mg/2 Ml Vial) 4 mg IV Q6HP PRN PRN Reason: NAUSEA / VOMITING Last Admin: 12/19/22 21:06 Dose: 4 mg Quetiapine Fumarate (Quetiapine 25 Mg Tab) 25 mg PO BEDTIME [facility] Last Admin: 12/21/22 21:40 Dose: 25 mg Sodium Chloride (Flush Normal Saline 10 Ml) 10 ml IV BID [facility] Last Admin: 12/22/22 09:00 Dose: Not Given Sterile Water (Water For Inj,Sterile 10 Ml) 1.2 ml IM UD PRN PRN Reason: DILUTION OF MED Tamsulosin HCl (Tamsulosin 0.4 Mg Sr Cap) 0.4 mg PO BEDTIME [facility] Last Admin: 12/21/22 21:40 Dose: 0.4 mg Assessment/ Plan: Nephrology No dyspnea No chest pain No acute events overnight Limited IH/ ROS due to dementia Vitals, medications, blood work and imaging reviewed in the chart. NAD. NCAT. MMM. Neck supple. Normal respiratory effort. RRR. Abd ND. No C/C. LE Edema none. No rash. Awake. Normal speech. Stage I DEIRDRE likely due to hypovolemia, resolved -No NSAIDs Hypokalemia -Replete prn HTN with CKD -Continue Lisinopril -Continue Metoprolol BPH with LUTS -[facility] Hospitalist note reviewed Case reviewed with Dr. Elliott
[2022-12-23 03:52] LABS: Lymphocytes % 27.7 % (15.3-44.8); MCV 87.8 fL (80-100); MPV 7.4 fL (7.6-11.3); Platelets 189 thou/uL (152-406); RBC Red Blood Cell Count 3.64 M/uL (4.33-5.43)
[2022-12-23 04:04] LABS: Phosphorus 3.4 mg/dL (2.5-4.9); Potassium 3.4 mEq/L (3.5-5.1)
[2022-12-23] MEDS: METOPROLOL TAR 25 MG TAB PO SCH ×2 (05:48→17:48)
--- NOTE | 2022-12-23 07:11 | P.PN ---
Date of Service: 12/23/22 Subjective: Doing okay - says he gets confused/disoriented at times seems somewhat more alert / aware today; able to have some conversation, some answers seemingly out of left field no acute events overnight talking and responding but not answering completely appropriate can remember birthday and age; doesn't recall current year or specific location; said either in hospital/residential/ or fdc afebrile ROS: 10 point ROS as noted above, otherwise negative Physical Exam: GEN: Alert, orientedx2, NAD, hard of hearing HEENT: Normal conjunctiva, sclera anicteric CV: Regular rate and rhythm, no edema Pulm: Nonlabored respirations on room air, clear bilaterally ABD: Soft, nontender, nondistended Neuro: Normal speech, normal affect; hard of hearing - limiting some of exam vitals reviewed Problem List: DEIRDRE, resolved suspected UTI Dementia Vertigo Chest pain h/o BPH s/p TURP (03/10/22) h/o prostate cancer Hypertension Hyperlipidemia GERD DEIRDRE, resolved renal u/s (12/12): Mildly increased renal cortical echogenicity. Hypoechoic ovoid lesion near the pelvis of the left kidney measuring up to 1.6 cm, not well characterized for which additional evaluation by renal mass protocol CT or MRI is recommended to evaluate for solid versus cystic nature. -> Outpatient testing, non-urgent Nephrology consulted suspect prerenal/hypovolemic improved with IVF; stable off IVF suspected UTI h/o BPH s/p TURP x2 (07/08/21 & 03/10/22) h/o prostate cancer patient noted h/o BPH s/p TURP x2 with Dr. Conklin on 07/08/21 and 03/10/22 renal u/s (12/12): Some debris within the urinary bladder, could relate to ongoing cystitis or UTI. UA suggestive of UTI; +symptomatic: reports burning sensation when urinating urine cx (12/12): no growth s/p empiric levaquin (12/13-12/17) afebrile, no leukocytosis continue flomax Dementia initially concerned for acute encephalopathy; however no significant change in last ~11 days suspect patient is at/near baseline with dementia states occasionallly forgets things does not have decision making capacity currently trying to get a hold of next of kin with no luck so far Vertigo/orthostasis Patient refused MRI, has never been evaluated formally for his vertigo he reports which he has been having for about 5 years. neurology consulted. Patient noted to be orthostatic initially PT consulted. Unsteady gait previously noted. Compression stockings. Anticipating disposition to skilled rehab. Dementia with behavioral abnormality Patient is intermittently agitated. cont seroquel at bedtime neuro consulted for mental capacity eval, currently patient without decision making capacity, uncertain if near baseline and went unnoticed since no family nearby, or a drastic change Chest pain troponins negative x3; monitor on tele ACS ruled out. Hypertension Hyperlipidemia GERD Continue home medications. VTE: heparin sq Code: Full Dispo: SNF; pending discussion / finding family member to make medical decisions
[2022-12-23] MEDS: lisinopriL 10 MG TAB PO SCH ×2 (09:00→20:51)
[2022-12-23] MEDS: HEPARIN 5000 UNIT/ML 1 ML VIAL SQ SCH ×2 (09:00→20:51)
[2022-12-23] MEDS: ASPIRIN EC 81 MG TAB PO SCH (09:00)
[2022-12-23] MEDS: ENSURE ENLIVE 237 ML CAN PO SCH ×2 (09:00→20:59)
[2022-12-23] MEDS: QUETIAPINE 25 MG TAB PO SCH (20:51)
[2022-12-23] MEDS: ATORVASTATIN 40 MG TAB PO SCH (20:52)
[2022-12-23] MEDS: TAMSULOSIN 0.4 MG SR CAP PO SCH (20:52)
--- NOTE | 2022-12-23 21:54 | P.PN ---
Date of Service: 12/23/22 Vital Signs Temp Pulse Resp BP Pulse Ox 97.4 F 77 16 158/71 H 97 12/23/22 16:00 12/23/22 20:51 12/23/22 16:00 12/23/22 20:51 12/23/22 16:00 Medications Acetaminophen (Acetaminophen 500 Mg Tab) 500 mg PO Q4HP PRN PRN Reason: Pain scale 2-4 (Mild) Aspirin (Aspirin Ec 81 Mg Tab) 81 mg PO DAILY [facility] Last Admin: 12/23/22 09:00 Dose: 81 mg Atorvastatin Calcium (Atorvastatin 40 Mg Tab) 40 mg PO BEDTIME [facility] Last Admin: 12/23/22 20:52 Dose: 40 mg Heparin Sodium (Porcine) (Heparin 5000 Unit/Ml 1 Ml Vial) 5,000 unit SQ Q12HR [facility] Last Admin: 12/23/22 20:51 Dose: 5,000 unit Lisinopril (Lisinopril 10 Mg Tab) 20 mg PO BID [facility] Last Admin: 12/23/22 20:51 Dose: 20 mg Melatonin (Melatonin 5 Mg Tablet) 5 mg PO BEDTIME PRN PRN PRN Reason: INSOMNIA Last Admin: 12/22/22 20:39 Dose: 5 mg Metoprolol Tartrate (Metoprolol Tar 25 Mg Tab) 25 mg PO BID 6AM 6PM [facility] Last Admin: 12/23/22 17:48 Dose: 25 mg Nutritional Formula (Ensure Enlive 237 Ml Can) 237 ml PO BID [facility] Last Admin: 12/23/22 20:59 Dose: 237 ml Ondansetron HCl (Ondansetron 4 Mg/2 Ml Vial) 4 mg IV Q6HP PRN PRN Reason: NAUSEA / VOMITING Last Admin: 12/19/22 21:06 Dose: 4 mg Quetiapine Fumarate (Quetiapine 25 Mg Tab) 25 mg PO BEDTIME [facility] Last Admin: 12/23/22 20:51 Dose: 25 mg Sodium Chloride (Flush Normal Saline 10 Ml) 10 ml IV BID [facility] Last Admin: 12/23/22 20:52 Dose: 10 ml Sterile Water (Water For Inj,Sterile 10 Ml) 1.2 ml IM UD PRN PRN Reason: DILUTION OF MED Tamsulosin HCl (Tamsulosin 0.4 Mg Sr Cap) 0.4 mg PO BEDTIME [facility] Last Admin: 12/23/22 20:52 Dose: 0.4 mg Assessment/ Plan: Nephrology No dyspnea No chest pain No acute events overnight Limited IH/ ROS due to dementia Vitals, medications, blood work and imaging reviewed in the chart. NAD. NCAT. MMM. Neck supple. Normal respiratory effort. RRR. Abd ND. No C/C. LE Edema none. No rash. Awake. Normal speech. Stage I DEIRDRE likely due to hypovolemia, resolved -No NSAIDs Hypokalemia -Replete potassium Microscopic Hematuria -Repeat UA HTN with CKD -Continue Lisinopril -Continue Metoprolol Anemia in chronic illness -Monitor H&H BPH with LUTS -[facility] Hospitalist note reviewed
[2022-12-23] MEDS ORDERED: WATER FOR INJ,STERILE 10 ML IM PRN (22:32)
[2022-12-23] MEDS ORDERED: ZIPRASIDONE MESYLA 20 MG/VIAL IM ONE (22:32)
[2022-12-24 01:28] LABS: Calcium Oxalate Crystals- Ur Few /HPF (None Seen); Specific Gravity 1.028 (1.005-1.030); Urine Bacteria <20 /HPF (<20); Urine Bilirubin NEGATIVE (Negative); Urine Blood 3+ (OVER) (Negative); Urine Clarity Extremely Turbid (Clear); Urine Color Yellow (Yellow); Urine Glucose NEGATIVE (Negative); Urine Mucus 4+ /HPF (None Seen); Urine Protein 1+ (Negative); Urine RBC >50 /HPF (None Seen); Urine Urobilinogen Normal (Normal); Urine pH 5.5 (5.0-7.0)
[2022-12-24 05:07] LABS: Potassium 3.2 mEq/L (3.5-5.1)
[2022-12-24] MEDS: METOPROLOL TAR 25 MG TAB PO SCH ×2 (06:33→17:06)
--- NOTE | 2022-12-24 07:01 | P.PN ---
Date of Service: 12/24/22 Subjective: oriented x2, more conversive today; expressed frustration / awareness of forgetfulness still not fully comprehending limitations / situation denies any urinary difficulties / discomfort, but uncertain how much he remembers ROS: 10 point ROS as noted above, otherwise negative Physical Exam: GEN: Alert, orientedx2, NAD, hard of hearing HEENT: Normal conjunctiva, sclera anicteric CV: Regular rate and rhythm, no edema Pulm: Nonlabored respirations on room air, clear bilaterally ABD: Soft, nontender, nondistended Neuro: Normal speech, normal affect; hard of hearing - limiting some of exam vitals reviewed Problem List: DEIRDRE, resolved suspected UTI Dementia with behavioral abnormality Vertigo/orthostasis Chest pain h/o prior CVA h/o BPH s/p TURP (03/10/22) h/o prostate cancer Hypertension Hyperlipidemia GERD DEIRDRE, resolved renal u/s (12/12): Mildly increased renal cortical echogenicity. Hypoechoic ovoid lesion near the pelvis of the left kidney measuring up to 1.6 cm, not well characterized for which additional evaluation by renal mass protocol CT or MRI is recommended to evaluate for solid versus cystic nature. -> Outpatient testing, non-urgent Nephrology consulted suspect prerenal/hypovolemic improved with IVF; stable off IVF suspected UTI h/o BPH s/p TURP x2 (07/08/21 & 03/10/22) h/o prostate cancer patient noted h/o BPH s/p TURP x2 with Dr. Conklin on 07/08/21 and 03/10/22 renal u/s (12/12): Some debris within the urinary bladder, could relate to ongoing cystitis or UTI. UA suggestive of UTI; +symptomatic: reports burning sensation when urinating urine cx (12/12): no growth s/p empiric levaquin (12/13-12/17) afebrile, no leukocytosis continue flomax repeat UA on 12/23 done to f/u on micro hematuria; noted +WBC, +leuk est denies symptoms on 12/24, no fever, no leukocytosis, will monitor and f/u on culture Dementia with behavioral abnormality h/o prior CVA initially concerned for acute encephalopathy; however no significant change in last ~11 days Patient is intermittently agitated. 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 reports last time they spoke to patient was ~2021 and could tell back then patient was showing signs of dementia does not have decision making capacity currently; ss/cm working to see whether or not Ya can make decisions for the patient suspect patient is at/near baseline with dementia states occasionally forgets things neuro consulted last week for mental capacity eval, currently patient without decision making capacity Vertigo/orthostasis Patient refused MRI, has never been evaluated formally for his vertigo he reports which he has been having for about 5 years. neurology consulted. Patient noted to be orthostatic initially PT consulted. Unsteady gait previously noted. Compression stockings. Anticipating disposition to skilled rehab. Chest pain troponins negative x3; monitor on tele ACS ruled out. Hypertension Hyperlipidemia GERD Continue home medications. VTE: heparin sq Code: Full Dispo: SNF; pending discussion / finding family member to make medical decisions
[2022-12-24] MEDS: lisinopriL 10 MG TAB PO SCH ×2 (08:26→21:37)
[2022-12-24] MEDS: ASPIRIN EC 81 MG TAB PO SCH (08:26)
[2022-12-24] MEDS: HEPARIN 5000 UNIT/ML 1 ML VIAL SQ SCH ×2 (08:27→21:38)
[2022-12-24] MEDS: ENSURE ENLIVE 237 ML CAN PO SCH ×2 (08:27→21:00)
[2022-12-24] MEDS ORDERED: POTASSIUM CL SA 10 MEQ TAB PO ONE ×3 (10:10→15:00)
[2022-12-24] MEDS: NACHLORIDE 0.45% 1,000 ML IV SCH ×2 (11:53→22:00)
[2022-12-24] MEDS ORDERED: POTASSIUM 25 MEQ EFFERV TAB PO ONE (15:00)
--- NOTE | 2022-12-24 20:04 | P.PN ---
Date of Service: 12/24/22 Vital Signs Temp Pulse Resp BP Pulse Ox 97.5 F 63 16 132/60 100 12/24/22 16:00 12/24/22 17:06 12/24/22 16:00 12/24/22 17:06 12/24/22 16:00 Medications Acetaminophen (Acetaminophen 500 Mg Tab) 500 mg PO Q4HP PRN PRN Reason: Pain scale 2-4 (Mild) Aspirin (Aspirin Ec 81 Mg Tab) 81 mg PO DAILY [facility] Last Admin: 12/24/22 08:26 Dose: 81 mg Atorvastatin Calcium (Atorvastatin 40 Mg Tab) 40 mg PO BEDTIME [facility] Last Admin: 12/23/22 20:52 Dose: 40 mg Heparin Sodium (Porcine) (Heparin 5000 Unit/Ml 1 Ml Vial) 5,000 unit SQ Q12HR [facility] Last Admin: 12/24/22 08:27 Dose: 5,000 unit Sodium Chloride (Sodium Chloride 0.45%) 1,000 mls @ 100 mls/hr IV .Q10H [facility] Last Admin: 12/24/22 11:53 Dose: 1,000 mls Lisinopril (Lisinopril 10 Mg Tab) 20 mg PO BID [facility] Last Admin: 12/24/22 08:26 Dose: 20 mg Melatonin (Melatonin 5 Mg Tablet) 5 mg PO BEDTIME PRN PRN PRN Reason: INSOMNIA Last Admin: 12/22/22 20:39 Dose: 5 mg Metoprolol Tartrate (Metoprolol Tar 25 Mg Tab) 25 mg PO BID 6AM 6PM [facility] Last Admin: 12/24/22 17:06 Dose: 25 mg Nutritional Formula (Ensure Enlive 237 Ml Can) 237 ml PO BID [facility] Last Admin: 12/24/22 08:27 Dose: 237 ml Ondansetron HCl (Ondansetron 4 Mg/2 Ml Vial) 4 mg IV Q6HP PRN PRN Reason: NAUSEA / VOMITING Last Admin: 12/19/22 21:06 Dose: 4 mg Quetiapine Fumarate (Quetiapine 25 Mg Tab) 25 mg PO BEDTIME [facility] Last Admin: 12/23/22 20:51 Dose: 25 mg Sodium Chloride (Flush Normal Saline 10 Ml) 10 ml IV BID [facility] Last Admin: 12/24/22 08:27 Dose: 10 ml Sterile Water (Water For Inj,Sterile 10 Ml) 1.2 ml IM UD PRN PRN Reason: DILUTION OF MED Last Admin: 12/23/22 23:23 Dose: 1.2 ml Tamsulosin HCl (Tamsulosin 0.4 Mg Sr Cap) 0.4 mg PO BEDTIME [facility] Last Admin: 12/23/22 20:52 Dose: 0.4 mg Assessment/ Plan: Nephrology No dyspnea No chest pain No acute events overnight Limited IH/ ROS due to dementia Vitals, medications, blood work and imaging reviewed in the chart. NAD. NCAT. MMM. Neck supple. Normal respiratory effort. RRR. Abd ND. No C/C. LE Edema none. No rash. Awake. Normal speech. Stage I DEIRDRE likely due to hypovolemia, resolved Proteinuria -No NSAIDs -Start IVF with 1/2NS Hypokalemia -Replete potassium Microscopic Hematuria -Follow up culture HTN with CKD -Continue Lisinopril -Continue Metoprolol Anemia in chronic illness -Monitor H&H BPH with LUTS -Cont[facility] Hospitalist note reviewed Case reviewed with Dr. Elliott
[2022-12-24] MEDS: ATORVASTATIN 40 MG TAB PO SCH (21:37)
[2022-12-24] MEDS: QUETIAPINE 25 MG TAB PO SCH (21:38)
[2022-12-24] MEDS: TAMSULOSIN 0.4 MG SR CAP PO SCH (21:38)
[2022-12-24] MEDS ORDERED: HALOPERIDOL LACT 5 MG/ML INJ IV ONE (22:52)
[2022-12-24] MEDS ORDERED: HALOPERIDOL LACT 5 MG/ML INJ ONE (23:10)
[2022-12-25] MEDS ORDERED: ZIPRASIDONE MESYLA 20 MG/VIAL IM ONE ×2 (01:50→02:07)
[2022-12-25] MEDS ORDERED: WATER FOR INJ,STERILE 10 ML IM PRN (01:50)
[2022-12-25] MEDS ORDERED: LORazepam 2 MG/ML VIAL IV ONE (05:22)
[2022-12-25] MEDS ORDERED: LORazepam 2 MG/ML VIAL ONE (05:37)
[2022-12-25] MEDS: METOPROLOL TAR 25 MG TAB PO SCH ×2 (05:52→17:23)
--- NOTE | 2022-12-25 07:27 | P.PN ---
Date of Service: 12/25/22 Subjective: sleepy, opens eyes and responds with few words; after receiving ativan agitated overnight seems to be sundowning at night ROS: 10 point ROS as noted above, otherwise negative Physical Exam: GEN: Alert, orientedx2, NAD, hard of hearing HEENT: Normal conjunctiva, sclera anicteric CV: Regular rate and rhythm, no edema Pulm: Nonlabored respirations on room air, clear bilaterally ABD: Soft, nontender, nondistended Neuro: Normal speech, normal affect; hard of hearing - limiting some of exam vitals reviewed Problem List: DEIRDRE, resolved suspected UTI Dementia with behavioral abnormality Vertigo/orthostasis Chest pain h/o prior CVA h/o BPH s/p TURP (03/10/22) h/o prostate cancer Hypertension Hyperlipidemia GERD DEIRDRE, resolved renal u/s (12/12): Mildly increased renal cortical echogenicity. Hypoechoic ovoid lesion near the pelvis of the left kidney measuring up to 1.6 cm, not well characterized for which additional evaluation by renal mass protocol CT or MRI is recommended to evaluate for solid versus cystic nature. -> Outpatient testing, non-urgent Nephrology consulted suspect prerenal/hypovolemic, improved with IVF; stable off IVF suspected UTI h/o BPH s/p TURP x2 (07/08/21 & 03/10/22) h/o prostate cancer patient noted h/o BPH s/p TURP x2 with Dr. Conklin on 07/08/21 and 03/10/22 renal u/s (12/12): Some debris within the urinary bladder, could relate to ongoing cystitis or UTI. UA suggestive of UTI; +symptomatic: reports burning sensation when urinating urine cx (12/12): no growth s/p empiric levaquin (12/13-12/17) afebrile, no leukocytosis continue flomax repeat UA on 12/23 done to f/u on micro hematuria; noted +WBC, +leuk est denies symptoms on 12/24, no fever, no leukocytosis, will monitor and f/u on culture urine cx(12/24): mixed tristan; <10,000 CFU/ML Dementia with behavioral abnormality h/o prior CVA initially concerned for acute encephalopathy; however no significant change in last ~11 days Patient is intermittently agitated at night cont seroquel at bedtime 12/23 - Per Ya Doll (cousin): lives in [place] and is bedbound after a stroke and 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 reports last time they spoke to patient was ~2021 and could tell back then patient was showing signs of dementia does not have decision making capacity currently; ss/cm working to see whether or not Ya can make decisions for the patient suspect patient is at/near baseline with dementia states occasionally forgets things neuro consulted last week for mental capacity eval, currently patient without decision making capacity Vertigo/orthostasis; chronic Patient refused MRI, has never been evaluated formally for his vertigo he reports which he has been having for about 5 years. neurology consulted. Patient noted to be orthostatic initially PT consulted. Unsteady gait previously noted. Compression stockings. Anticipating disposition to SNF Chest pain troponins negative x3; monitor on tele ACS ruled out. Hypertension Hyperlipidemia GERD Continue home medications. decreased lisinopril to daily from BID (12/25) VTE: heparin sq Code: Full Dispo: SNF; pending discussion / finding family member to make medical decisions
[2022-12-25 08:19] LABS: Absolute Lymphocytes (CBC) 0.7 K/uL (0.7-4.9); Hematocrit 32.2 % (39.6-49.0); Lymphocytes % 11.4 % (15.3-44.8); MCV 87.8 fL (80-100); MPV 7.2 fL (7.6-11.3); Platelets 177 thou/uL (152-406); RBC Red Blood Cell Count 3.67 M/uL (4.33-5.43)
[2022-12-25 08:31] LABS: C-Reactive Protein 4.57 mg/L (<3.00); Potassium 3.5 mEq/L (3.5-5.1)
[2022-12-25] MEDS: lisinopriL 10 MG TAB PO SCH (09:00)
[2022-12-25] MEDS: ASPIRIN EC 81 MG TAB PO SCH (09:00)
[2022-12-25] MEDS: ENSURE ENLIVE 237 ML CAN PO SCH ×2 (09:00→21:00)
[2022-12-25] MEDS: NACHLORIDE 0.45% 1,000 ML IV SCH (10:12)
[2022-12-25] MEDS: HEPARIN 5000 UNIT/ML 1 ML VIAL SQ SCH ×2 (10:15→22:43)
[2022-12-25] MEDS ORDERED: NACHLORIDE 0.45% 1,000 ML IV SCH (10:28)
[2022-12-25] MEDS: MELATONIN 5 MG TABLET PO PRN (22:42)
[2022-12-25] MEDS: TAMSULOSIN 0.4 MG SR CAP PO SCH (22:43)
[2022-12-25] MEDS: ATORVASTATIN 40 MG TAB PO SCH (22:43)
[2022-12-26] MEDS: METOPROLOL TAR 25 MG TAB PO SCH ×2 (06:00→23:00)
--- NOTE | 2022-12-26 06:48 | P.PN ---
Date of Service: 12/26/22 Subjective: confused this morning no acute events overnight worried - states he can't remember who he is or where he is at, asking "who signed off on this", "who gave permission for me to be here" "Who is going to pay for all this" ROS: 10 point ROS as noted above, otherwise negative Physical Exam: GEN: Alert, orientedx1, NAD, hard of hearing HEENT: Normal conjunctiva, sclera anicteric CV: Regular rate and rhythm, no edema Pulm: Nonlabored respirations on room air, clear bilaterally ABD: Soft, nontender, nondistended Neuro: Normal speech, normal affect; hard of hearing - limiting some of exam vitals reviewed Problem List: DEIRDRE, resolved suspected UTI Dementia with behavioral abnormality Vertigo/orthostasis Chest pain h/o prior CVA h/o BPH s/p TURP (03/10/22) h/o prostate cancer Hypertension Hyperlipidemia GERD DEIRDRE, resolved renal u/s (12/12): Mildly increased renal cortical echogenicity. Hypoechoic ovoid lesion near the pelvis of the left kidney measuring up to 1.6 cm, not well characterized for which additional evaluation by renal mass protocol CT or MRI is recommended to evaluate for solid versus cystic nature. -> Outpatient testing, non-urgent Nephrology consulted suspect prerenal/hypovolemic, improved with IVF; stable off IVF suspected UTI h/o BPH s/p TURP x2 (07/08/21 & 03/10/22) h/o prostate cancer patient noted h/o BPH s/p TURP x2 with Dr. Conklin on 07/08/21 and 03/10/22 renal u/s (12/12): Some debris within the urinary bladder, could relate to ongoing cystitis or UTI. UA suggestive of UTI; +symptomatic: reports burning sensation when urinating urine cx (12/12): no growth s/p empiric levaquin (12/13-12/17) afebrile, no leukocytosis continue flomax repeat UA on 12/23 done to f/u on micro hematuria; noted +WBC, +leuk est denies symptoms on 12/24, no fever, no leukocytosis, will monitor and f/u on culture urine cx(12/24): mixed tristan; <10,000 CFU/ML CRP 4.57 -> 8.02 (12/26) Dementia with behavioral abnormality h/o prior CVA initially concerned for acute encephalopathy; however no significant change in last ~11 days Patient is intermittently agitated at night cont seroquel at bedtime 12/23 - Per Ya Doll (cousin): lives in [place] and is bedbound after a stroke and 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 reports last time they spoke to patient was ~cyril 2022 and could tell back then patient was showing signs of dementia does not have decision making capacity currently; ss/cm working to see whether or not Ya can make decisions for the patient suspect patient is at/near baseline with dementia states occasionally forgets things neuro consulted last week for mental capacity eval, currently patient without decision making capacity Vertigo/orthostasis; chronic Patient refused MRI, has never been evaluated formally for his vertigo he reports which he has been having for about 5 years. neurology consulted. Patient noted to be orthostatic initially PT consulted. Unsteady gait previously noted. Compression stockings. Anticipating disposition to SNF Chest pain troponins negative x3; monitor on tele ACS ruled out. Hypertension Hyperlipidemia GERD Continue home medications. continue lisinopril daily VTE: heparin sq Code: Full Dispo: SNF; pending discussion / finding family member to make medical decisions
[2022-12-26] MEDS: ENSURE ENLIVE 237 ML CAN PO SCH ×2 (09:00→21:00)
[2022-12-26] MEDS: ASPIRIN EC 81 MG TAB PO SCH (11:06)
[2022-12-26] MEDS: lisinopriL 20 MG TAB PO SCH (11:06)
[2022-12-26] MEDS: HEPARIN 5000 UNIT/ML 1 ML VIAL SQ SCH ×2 (11:07→23:01)
[2022-12-26] MEDS: TAMSULOSIN 0.4 MG SR CAP PO SCH (23:00)
[2022-12-26] MEDS: MELATONIN 5 MG TABLET PO PRN (23:00)
[2022-12-26] MEDS: ATORVASTATIN 40 MG TAB PO SCH (23:01)
--- NOTE | 2022-12-27 07:08 | P.PN ---
Date of Service: 12/27/22 Subjective: ate all of his breakfast confused, no significant agitation events overnight. re-directable not sure where he is ROS: 10 point ROS as noted above, otherwise negative Physical Exam: GEN: Alert, orientedx1, NAD, hard of hearing HEENT: Normal conjunctiva, sclera anicteric CV: Regular rate and rhythm, no edema Pulm: Nonlabored respirations on room air, clear bilaterally ABD: Soft, nontender, nondistended Neuro: Normal speech; hard of hearing - limiting some of exam; no focal defecit vitals reviewed Problem List: DEIRDRE, resolved suspected UTI Dementia with behavioral abnormality Vertigo/orthostasis Chest pain h/o prior CVA h/o BPH s/p TURP (03/10/22) h/o prostate cancer Hypertension Hyperlipidemia GERD DEIRDRE, resolved renal u/s (12/12): Mildly increased renal cortical echogenicity. Hypoechoic ovoid lesion near the pelvis of the left kidney measuring up to 1.6 cm, not well characterized for which additional evaluation by renal mass protocol CT or MRI is recommended to evaluate for solid versus cystic nature. -> Outpatient testing, non-urgent Nephrology consulted suspect prerenal/hypovolemic, improved with IVF; stable off IVF suspected UTI h/o BPH s/p TURP x2 (07/08/21 & 03/10/22) h/o prostate cancer patient noted h/o BPH s/p TURP x2 with Dr. Conklin on 07/08/21 and 03/10/22 renal u/s (12/12): Some debris within the urinary bladder, could relate to ongoing cystitis or UTI. UA suggestive of UTI; +symptomatic: reports burning sensation when urinating urine cx (12/12): no growth s/p empiric levaquin (12/13-12/17) afebrile, no leukocytosis continue flomax repeat UA on 12/23 done to f/u on micro hematuria; noted +WBC, +leuk est denies symptoms on 12/24, no fever, no leukocytosis, will monitor and f/u on culture urine cx(12/24): mixed tristan; <10,000 CFU/ML CRP 4.57 -> 8.02 (12/26) Dementia with behavioral abnormality h/o prior CVA initially concerned for acute encephalopathy; however no significant change in last ~11 days Patient is intermittently agitated at night cont seroquel at bedtime 12/23 - Per Ya Doll (cousin): lives in [place] and is bedbound after a stroke and 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 reports last time they spoke to patient was ~2021 and could tell back then patient was showing signs of dementia does not have decision making capacity currently; ss/cm working to see whether or not Ya can make decisions for the patient suspect patient is at/near baseline with dementia states occasionally forgets things neuro consulted last week for mental capacity eval, currently patient without decision making capacity psych consult wednesday Vertigo/orthostasis; chronic Patient refused MRI, has never been evaluated formally for his vertigo he r eports which he has been having for about 5 years. neurology consulted. Patient noted to be orthostatic initially PT consulted. Unsteady gait previously noted. Compression stockings. Anticipating disposition to SNF Chest pain troponins negative x3; monitor on tele ACS ruled out. Hypertension Hyperlipidemia GERD Continue home medications. continue lisinopril daily VTE: heparin sq Code: Full Dispo: SNF; pending discussion / finding family member to make medical decisions
[2022-12-27 07:19] LABS: Magnesium 1.9 mg/dL (1.6-2.4); Phosphorus 2.5 mg/dL (2.5-4.9); Potassium 3.6 mEq/L (3.5-5.1)
[2022-12-27] MEDS: METOPROLOL TAR 25 MG TAB PO SCH ×2 (07:20→17:03)
[2022-12-27] MEDS: ENSURE ENLIVE 237 ML CAN PO SCH ×2 (09:00→20:44)
[2022-12-27] MEDS: ASPIRIN EC 81 MG TAB PO SCH (09:47)
[2022-12-27] MEDS: lisinopriL 20 MG TAB PO SCH (09:47)
[2022-12-27] MEDS: HEPARIN 5000 UNIT/ML 1 ML VIAL SQ SCH ×2 (09:47→20:44)
[2022-12-27] MEDS ORDERED: LORazepam 2 MG/ML VIAL IV ONE (13:50)
[2022-12-27] MEDS ORDERED: DIPHENHYDRAMINE 50 MG/ML VIAL IV ONE (15:00)
[2022-12-27] MEDS: MELATONIN 5 MG TABLET PO PRN (20:44)
[2022-12-27] MEDS: TAMSULOSIN 0.4 MG SR CAP PO SCH (20:44)
[2022-12-27] MEDS: ATORVASTATIN 40 MG TAB PO SCH (20:44)
[2022-12-28] MEDS: METOPROLOL TAR 25 MG TAB PO SCH ×2 (06:00→16:54)
--- NOTE | 2022-12-28 06:51 | P.PN ---
Date of Service: 12/28/22 Subjective: agitated yesterday evening confused denies pain ROS: 10 point ROS as noted above, otherwise negative Physical Exam: GEN: Alert, orientedx1, NAD, hard of hearing HEENT: Normal conjunctiva, sclera anicteric CV: Regular rate and rhythm, no edema Pulm: Nonlabored respirations on room air, clear bilaterally ABD: Soft, nontender, nondistended Neuro: Normal speech; no focal deficit vitals reviewed Problem List: DEIRDRE, resolved suspected UTI Dementia with behavioral abnormality Vertigo/orthostasis Chest pain h/o prior CVA h/o BPH s/p TURP (03/10/22) h/o prostate cancer Hypertension Hyperlipidemia GERD DEIRDRE, resolved renal u/s (12/12): Mildly increased renal cortical echogenicity. Hypoechoic ovoid lesion near the pelvis of the left kidney measuring up to 1.6 cm, not well guanaco acterized for which additional evaluation by renal mass protocol CT or MRI is recommended to evaluate for solid versus cystic nature. -> Outpatient testing, non-urgent Nephrology consulted suspect prerenal/hypovolemic, improved with IVF; stable off IVF suspected UTI h/o BPH s/p TURP x2 (07/08/21 & 03/10/22) h/o prostate cancer patient noted h/o BPH s/p TURP x2 with Dr. Conklin on 07/08/21 and 03/10/22 renal u/s (12/12): Some debris within the urinary bladder, could relate to ongoing cystitis or UTI. UA suggestive of UTI; +symptomatic: reports burning sensation when urinating urine cx (12/12): no growth s/p empiric levaquin (12/13-12/17) afebrile, no leukocytosis continue flomax repeat UA on 12/23 done to f/u on micro hematuria; noted +WBC, +leuk est denies symptoms on 12/24, no fever, no leukocytosis, will monitor and f/u on culture urine cx(12/24): mixed tristan; <10,000 CFU/ML CRP 4.57 -> 8.02 (12/26) Dementia with behavioral abnormality h/o prior CVA initially concerned for acute encephalopathy; however no significant change in last ~11 days Patient is intermittently agitated at night dc'd seroquel at bedtime a few days ago, the following day was one of best, he was wearing glasses, told me he wasn't sure how he got here / recognized he was confused and not at home, but seemed to have some paranoia unclear if expected paranoia of someone confused / memory difficulty vs paranoid 12/23 - Per Ya Doll (cousin): lives in [place] and is bedbound after a stroke and 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 reports last time they spoke to patient was ~2021 and could tell back then patient was showing signs of dementia does not have decision making capacity currently; ss/cm working to see whether or not Ya can make decisions for the patient suspect patient is at/near baseline with dementia patient becomes slightly aggressive/frustrated when not letting him get out of bed, but concerned he may fall states occasionally forgets things neuro consulted last week for mental capacity eval, currently patient without decision making capacity unsure if patient would benefit [facility] psych consulted, paged 12/28 Vertigo/orthostasis; chronic Patient refused MRI, has never been evaluated formally for his vertigo he reports which he has been having for about 5 years. neurology consulted. Patient noted to be orthostatic initially PT consulted. Unsteady gait previously noted. Compression stockings. Anticipating disposition to SNF Chest pain troponins negative x3; monitor on tele ACS ruled out. Hypertension Hyperlipidemia GERD Continue home medications. continue lisinopril daily VTE: heparin sq Code: Full Dispo: SNF; pending discussion / finding family member to make medical decisions
[2022-12-28 08:09] LABS: Lymphocytes % 17.8 % (15.3-44.8); MCV 87.7 fL (80-100); Platelets 195 thou/uL (152-406); RBC Red Blood Cell Count 3.65 M/uL (4.33-5.43)
[2022-12-28 08:24] LABS: Albumin 2.3 g/dL (3.4-5.0); Bilirubin Total 0.9 mg/dL (0.2-1.0); Magnesium 1.9 mg/dL (1.6-2.4); Phosphorus 3.1 mg/dL (2.5-4.9); Potassium 3.7 mEq/L (3.5-5.1); Protein, Total 5.2 g/dL (6.4-8.2)
[2022-12-28] MEDS: ASPIRIN EC 81 MG TAB PO SCH (08:34)
[2022-12-28] MEDS: ENSURE ENLIVE 237 ML CAN PO SCH ×2 (08:34→20:58)
[2022-12-28] MEDS: lisinopriL 20 MG TAB PO SCH (08:34)
[2022-12-28] MEDS: HEPARIN 5000 UNIT/ML 1 ML VIAL SQ SCH ×2 (08:34→20:57)
[2022-12-28] MEDS: ATORVASTATIN 40 MG TAB PO SCH (20:57)
[2022-12-28] MEDS: TAMSULOSIN 0.4 MG SR CAP PO SCH (20:57)
[2022-12-28] MEDS: MELATONIN 5 MG TABLET PO PRN (20:58)
--- NOTE | 2022-12-28 20:59 | P.PN ---
Date of Service: 12/28/22 Vital Signs Temp Pulse Resp BP Pulse Ox 97.1 F 85 14 149/70 H 99 12/28/22 16:00 12/28/22 16:54 12/28/22 16:00 12/28/22 16:54 12/28/22 16:00 Medications Acetaminophen (Acetaminophen 500 Mg Tab) 500 mg PO Q4HP PRN PRN Reason: Pain scale 2-4 (Mild) Aspirin (Aspirin Ec 81 Mg Tab) 81 mg PO DAILY [facility] Last Admin: 12/28/22 08:34 Dose: 81 mg Atorvastatin Calcium (Atorvastatin 40 Mg Tab) 40 mg PO BEDTIME [facility] Last Admin: 12/27/22 20:44 Dose: 40 mg Heparin Sodium (Porcine) (Heparin 5000 Unit/Ml 1 Ml Vial) 5,000 unit SQ Q12HR [facility] Last Admin: 12/28/22 08:34 Dose: 5,000 unit Lisinopril (Lisinopril 20 Mg Tab) 20 mg PO DAILY [facility] Last Admin: 12/28/22 08:34 Dose: 20 mg Melatonin (Melatonin 5 Mg Tablet) 5 mg PO BEDTIME PRN PRN PRN Reason: INSOMNIA Last Admin: 12/27/22 20:44 Dose: 5 mg Metoprolol Tartrate (Metoprolol Tar 25 Mg Tab) 25 mg PO BID 6AM 6PM [facility] Last Admin: 12/28/22 16:54 Dose: 25 mg Nutritional Formula (Ensure Enlive 237 Ml Can) 237 ml PO BID [facility] Last Admin: 12/28/22 08:34 Dose: Not Given Ondansetron HCl (Ondansetron 4 Mg/2 Ml Vial) 4 mg IV Q6HP PRN PRN Reason: NAUSEA / VOMITING Last Admin: 12/19/22 21:06 Dose: 4 mg Sodium Chloride (Flush Normal Saline 10 Ml) 10 ml IV BID [facility] Last Admin: 12/28/22 08:34 Dose: 10 ml Sterile Water (Water For Inj,Sterile 10 Ml) 1.2 ml IM UD PRN PRN Reason: DILUTION OF MED Last Admin: 12/23/22 23:23 Dose: 1.2 ml Tamsulosin HCl (Tamsulosin 0.4 Mg Sr Cap) 0.4 mg PO BEDTIME [facility] Last Admin: 12/27/22 20:44 Dose: 0.4 mg Assessment/ Plan: Nephrology No dyspnea No chest pain No acute events overnight Limited IH/ ROS due to dementia Vitals, medications, blood work and imaging reviewed in the chart. NAD. NCAT. MMM. Neck supple. Normal respiratory effort. RRR. Abd ND. No C/C. LE Edema none. No rash. Awake. Normal speech. Stage I DEIRDRE likely due to hypovolemia, resolved Proteinuria -No NSAIDs -IVF prn Hypokalemia -Replete potassium prn Microscopic Hematuria -Culture negative X2 -Consider urology evaluation HTN with CKD -Continue Lisinopril -Continue Metoprolol Anemia in chronic illness -Monitor H&H BPH with LUTS -Contiue [facility] Hospitalist note reviewed
[2022-12-29] MEDS: METOPROLOL TAR 25 MG TAB PO SCH ×2 (06:12→17:30)
[2022-12-29] MEDS: lisinopriL 20 MG TAB PO SCH (08:18)
[2022-12-29] MEDS: ENSURE ENLIVE 237 ML CAN PO SCH ×2 (08:18→21:00)
[2022-12-29] MEDS: ASPIRIN EC 81 MG TAB PO SCH (08:18)
--- NOTE | 2022-12-29 11:16 | RAD REPORT ---
EXAM DESCRIPTION: CT - Ct Stroke Brain Wo Cont - 12/29/2022 11:02 am CLINICAL HISTORY: AMS Headache, drowsiness, CVA symptomology COMPARISON: Head Brain Wo Cont dated 12/20/2018 TECHNIQUE: All CT scans are performed using dose optimization technique as appropriate and may inclu de automated exposure control or mA/KV adjustment according to patient size. FINDINGS: No intracranial hemorrhage, hydrocephalus or extra-axial fluid collection.Mild brain atrop hy.No areas of brain edema or evidence of midline shift. The paranasal sinuses and mastoids are clear. The calvarium is intact. IMPRESSION: No acute intracranial abnormality. The findings were discussed with Dr. Polanco On 12-29-22 at 11:03 am by telephone.
--- NOTE | 2022-12-29 11:32 | RAD REPORT ---
EXAM DESCRIPTION: CT - Head angio - 12/29/2022 11:10 am CLINICAL HISTORY: AMS Headache, drowsiness, CVA symptomology COMPARISON: Ct Stroke Brain Wo Cont dated 12/29/2022; Head Brain Wo Cont dated 12/20/2018 TECHNIQUE: CT angiography of the head was performed with MIPs. All CT scans are performed using dose optimization technique as appropriate and may include automated exposure control or mA/KV adjustment according to patient size. FINDINGS: No evidence of large vessel occlusion. No evidence of aneurysm is detected. No flow-limiti ng stenosis or vascular malformation identified. Antegrade flow is seen in the vertebral arteries. Right vertebral artery is mildly dominant. The visualized dural venous sinuses are patent. IMPRESSION: No significant flow abnormality is detected.
--- NOTE | 2022-12-29 11:39 | RAD REPORT ---
EXAM DESCRIPTION: CT - Neck Angio - 12/29/2022 11:11 am CLINICAL HISTORY: AMS Headache, drowsiness COMPARISON: Neck Angio dated 12/21/2018; CT MULTIPLANAR RECONSTRUCTION dated 04/14/2012 TECHNIQUE: CT angiography of the neck vessels was performed with MIPs. All CT scans are performed using dose optimization technique as appropriate and may include automated exposure control or mA/KV adjustment according to patient size. FINDINGS: A left aortic arch is identified with normal three vessel configuration of the great vesse ls. No significant flow abnormality is seen of the common carotid bilaterally. Large amount of hard plaque is seen proximal right internal carotid artery and carotid artery bulb re sulting in severe stenosis estimated 80-90% based on NASCET criteria. Mild hard plaque is present involving the proximal left internal carotid artery artery and bulb resul ting stenosis of less than 50% based on NASCET criteria. The left vertebral artery is quite diminutive with no definitive flow seen in the proximal left verte bral. The right vertebral artery is dominant. IMPRESSION: Severe stenosis resulting from hard plaque seen proximal right ICA. Very diminutive appearance to the left vertebral artery with proximal left vertebral artery flow not seen in the neck. The right vertebral artery is dominant and supplies the majority of blood flow to t he basilar artery. NASCET criteria used. Mild 0-49% stenosis Moderate 50-69% stenosis Severe 70-99% stenosis
--- NOTE | 2022-12-29 19:24 | P.PN ---
Subjective Date of Service: 12/29/22 Chief Complaint: DEIRDRE Patient patient was briefly unresponsive. Rapid response was called on him. CT head was done to rule out stroke and it was negative. Patient was later up sitting in bed after couple of hours. Patient is confused. Physical Examination - Vital Signs Temperature: 97.5 F Blood Pressure: 126/60 Pulse: 66 Respirations: 14 Pulse Ox (%): 96 Assessment And Plan - Plan Physical Exam: GEN: Alert, orientedx1, NAD, hard of hearing CV: Regular rate and rhythm, no edema Pulm: Nonlabored respirations on room air, clear bilaterally ABD: Soft, nontender, nondistended Neuro: Normal speech; no focal deficit vitals reviewed Problem List: DEIRDRE, resolved suspected UTI Dementia with behavioral abnormality Vertigo/orthostasis Chest pain h/o prior CVA h/o BPH s/p TURP (03/10/22) h/o prostate cancer Hypertension Hyperlipidemia GERD DEIRDRE, resolved renal u/s (12/12): Mildly increased renal cortical echogenicity. Hypoechoic ovoid lesion near the pelvis of the left kidney measuring up to 1.6 cm, not well characterized for which additional evaluation by renal mass protocol CT or MRI is recommended to evaluate for solid versus cystic nature. -> Outpatient testing, non-urgent Nephrology consulted suspect prerenal/hypovolemic, improved with IVF; stable off IVF suspected UTI h/o BPH s/p TURP x2 (07/08/21 & 03/10/22) h/o prostate cancer patient noted h/o BPH s/p TURP x2 with Dr. Conklin on 07/08/21 and 03/10/22 renal u/s (12/12): Some debris within the urinary bladder, could relate to ongoing cystitis or UTI. UA suggestive of UTI; +symptomatic: reports burning sensation when urinating urine cx (12/12): no growth s/p empiric levaquin (12/13-12/17) afebrile, no leukocytosis continue flomax repeat UA on 12/23 done to f/u on micro hematuria; noted +WBC, +leuk est denies symptoms on 12/24, no fever, no leukocytosis, will monitor and f/u on culture urine cx(12/24): mixed tristan; <10,000 CFU/ML CRP 4.57 -> 8.02 (12/26) Dementia with behavioral abnormality h/o prior CVA initially concerned for acute encephalopathy; however no significant change in last ~11 days Patient is intermittently agitated at night 12/23 - Per Ya Doll (cousin): lives in [place] and is bedbound after a stroke and 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 Patient becomes agitated and aggressive intermittently. neuro consulted last week for mental capacity eval, currently patient without decision making capacity unsure if patient would benefit from [facility] Seen by psychiatry who recommended Haldol as needed and Cogentin and if that does not control his agitation to consider [facility] placement. Vertigo/orthostasis; chronic Patient refused MRI, has never been evaluated formally for his vertigo he re ports which he has been having for about 5 years. neurology consulted. Patient noted to be orthostatic initially PT consulted. Unsteady gait previously noted. Compression stockings. Chest pain troponins negative x3; monitor on tele ACS ruled out. Hypertension Hyperlipidemia GERD Continue home medications. continue lisinopril daily VTE: heparin sq Code: Full Dispo: SNF versus [facility] placement.
[2022-12-29] MEDS: TAMSULOSIN 0.4 MG SR CAP PO SCH (20:54)
[2022-12-29] MEDS: MELATONIN 5 MG TABLET PO PRN (20:55)
[2022-12-29] MEDS: ATORVASTATIN 40 MG TAB PO SCH (20:55)
--- NOTE | 2022-12-29 22:14 | P.PN ---
Date of Service: 12/29/22 Vital Signs Temp Pulse Resp BP Pulse Ox 98.2 F 61 16 145/76 H 97 12/29/22 20:00 12/29/22 20:00 12/29/22 20:00 12/29/22 20:00 12/29/22 20:00 Medications Acetaminophen (Acetaminophen 500 Mg Tab) 500 mg PO Q4HP PRN PRN Reason: Pain scale 2-4 (Mild) Aspirin (Aspirin Ec 81 Mg Tab) 81 mg PO DAILY [facility] Last Admin: 12/29/22 08:18 Dose: 81 mg Atorvastatin Calcium (Atorvastatin 40 Mg Tab) 40 mg PO BEDTIME [facility] Last Admin: 12/29/22 20:55 Dose: 40 mg Lisinopril (Lisinopril 20 Mg Tab) 20 mg PO DAILY [facility] Last Admin: 12/29/22 08:18 Dose: 20 mg Melatonin (Melatonin 5 Mg Tablet) 5 mg PO BEDTIME PRN PRN PRN Reason: INSOMNIA Last Admin: 12/29/22 20:55 Dose: 5 mg Metoprolol Tartrate (Metoprolol Tar 25 Mg Tab) 25 mg PO BID 6AM 6PM [facility] Last Admin: 12/29/22 17:30 Dose: 25 mg Nutritional Formula (Ensure Enlive 237 Ml Can) 237 ml PO BID [facility] Last Admin: 12/29/22 08:18 Dose: Not Given Ondansetron HCl (Ondansetron 4 Mg/2 Ml Vial) 4 mg IV Q6HP PRN PRN Reason: NAUSEA / VOMITING Last Admin: 12/19/22 21:06 Dose: 4 mg Sodium Chloride (Flush Normal Saline 10 Ml) 10 ml IV BID [facility] Last Admin: 12/29/22 08:18 Dose: 10 ml Sterile Water (Water For Inj,Sterile 10 Ml) 1.2 ml IM UD PRN PRN Reason: DILUTION OF MED Last Admin: 12/23/22 23:23 Dose: 1.2 ml Tamsulosin HCl (Tamsulosin 0.4 Mg Sr Cap) 0.4 mg PO BEDTIME [facility] Last Admin: 12/29/22 20:54 Dose: 0.4 mg Assessment/ Plan: Nephrology No dyspnea No chest pain No acute events overnight Limited IH/ ROS due to dementia Vitals, medications, blood work and imaging reviewed in the chart. NAD. NCAT. MMM. Neck supple. Normal respiratory effort. RRR. Abd ND. No C/C. LE Edema none. No rash. Awake. Normal speech. Stage I DEIRDRE likely due to hypovolemia, resolved Proteinuria -No NSAIDs -IVF prn Hypokalemia -Replete potassium prn Microscopic Hematuria -Culture negative X2 -Consider urology evaluation if persistent HTN with CKD -Continue Lisinopril -Continue Metoprolol Anemia in chronic illness -Monitor H&H BPH with LUTS -Contiue [facility] Hospitalist note reviewed
[2022-12-30] MEDS: METOPROLOL TAR 25 MG TAB PO SCH ×2 (06:12→17:18)
[2022-12-30] MEDS: lisinopriL 20 MG TAB PO SCH (08:11)
[2022-12-30] MEDS: ASPIRIN EC 81 MG TAB PO SCH (08:12)
[2022-12-30] MEDS: ENSURE ENLIVE 237 ML CAN PO SCH ×2 (08:13→20:44)
--- NOTE | 2022-12-30 13:21 | P.PN ---
Subjective Date of Service: 12/30/22 Chief Complaint: DEIRDRE Patient is much better today. He was participating in conversation although confused. He also ambulated with a walker during PT today. No agitation or aggression over the last couple of days He has not needed a sitter. Physical Examination - Vital Signs Temperature: 97.3 F Blood Pressure: 149/59 Pulse: 71 Respirations: 16 Pulse Ox (%): 98 Assessment And Plan - Plan Physical Exam: GEN: Alert, orientedx1, NAD, hard of hearing CV: Regular rate and rhythm, no edema Pulm: Nonlabored respirations on room air, clear bilaterally ABD: Soft, nontender, nondistended Neuro: Normal speech; no focal deficit vitals reviewed Problem List: DEIRDRE, resolved suspected UTI Dementia with behavioral abnormality Vertigo/orthostasis Chest pain h/o prior CVA h/o BPH s/p TURP (03/10/22) h/o prostate cancer Hypertension Hyperlipidemia GERD DEIRDRE, resolved renal u/s (12/12): Mildly increased renal cortical echogenicity. Hypoechoic ovoid lesion near the pelvis of the left kidney measuring up to 1.6 cm, not well characterized. Renal mass CT protocol. Nephrology saw and evaluated patient. DEIRDRE resolved with IV fluid. suspected UTI h/o BPH s/p TURP x2 (07/08/21 & 03/10/22) h/o prostate cancer H/o BPH s/p TURP x2 with Dr. Conklin on 07/08/21 and 03/10/22 renal u/s (12/12): Some debris within the urinary bladder, could relate to ongoing cystitis or UTI. UA suggestive of UTI; +symptomatic: reports burning sensation when urinating urine cx (12/12): no growth s/p empiric levaquin (12/13-12/17) afebrile, no leukocytosis continue flomax repeat UA on 12/23 done to f/u on micro hematuria; noted +WBC, +leuk est denies symptoms on 12/24, no fever, no leukocytosis, will monitor and f/u on culture urine cx(12/24): mixed tristan; <10,000 CFU/ML CRP 4.57 -> 8.02 (12/26) Patient is voiding without difficulty. Dementia with behavioral abnormality h/o prior CVA No agitation over the last couple of days. 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 neuro consulted last week for mental capacity eval, currently patient without decision making capacity Patient seen evaluated by psychiatry and recommended agitation control with Haldol and Cogentin. Patient has no needed Haldol over the last 24 hours. Vertigo/orthostasis; chronic Patient refused MRI, has never been evaluated formally for his vertigo he reports which he has been having for about 5 years. neurology consulted. Patient noted to be orthostatic initially PT consulted. Unsteady gait previously noted. Compression stockings recommended. Patient is ambulating with a walker. Chest pain troponins negative x3; monitor on tele ACS ruled out. Hypertension Hyperlipidemia GERD Continue home medications. continue lisinopril daily VTE: heparin sq Code: Full Dispo: SNF placement.
--- NOTE | 2022-12-30 19:23 | RAD REPORT ---
EXAM DESCRIPTION: CT - Abdomen Pelvis W/Wo Contrast - 12/30/2022 2:50 pm CLINICAL HISTORY: Renal mass protocol COMPARISON: CT ABDOMEN PELVIS WO CONTRAST dated 06/10/2013; CT ABD PELVIS W WO CONTRAST dated 04/14/19 13; Renal Ultrasound-Complete dated 12/13/2022 TECHNIQUE: Thin cut axial CT imaging of the abdomen and pelvis was performed before and after intrav enous administration of 100 mL Isovue 300. Multiplanar reformats were generated and reviewed. All CT scans are performed using dose optimization technique as appropriate and may include automated exposure control or mA/KV adjustment according to patient size. FINDINGS: Peripheral small wedge-shaped ground-glass opacities, could reflect peripheral scarring or interstitial pneumonitis. The liver shows small hypoattenuating parenchymal lesions. The largest lesion in the left liver lobe has decreased in size now measuring 2 centimeter, previously 4.5 cm, and demonstrates internal fluid density. Spleen, adrenal glands, and pancreas show no suspicious findings. Gallbladder was surgically removed. Symmetric renal function is seen with no hydronephrosis or suspicious renal mass. Right interpolar mayers bcentimeter cortical cyst, and small parapelvic cysts on the left, measuring up to 1 cm. The left-bonnie ed parapelvic cyst may correlate to the ultrasound finding. No dilated bowel loops or bowel wall thickening. Colonic diverticulosis. No free air, free fluid or i nflammatory stranding. Right inguinal hernia containing fat. No suspicious mass or bulky lymphadenopa thy. The urinary bladder shows numerous diverticular and trabeculation, with contrast opacification r elated to head and neck angiogram performed earlier on the same day. No suspicious bony findings. IMPRESSION: No suspicious renal mass. Small left parapelvic cysts, 1 of which may correlate to the h ypoechoic lesion seen on ultrasound. No other acute findings. Incidental note made of liver cysts, the largest of which have decreased in size since the prior exam.
[2022-12-30] MEDS: ATORVASTATIN 40 MG TAB PO SCH (20:44)
[2022-12-30] MEDS: TAMSULOSIN 0.4 MG SR CAP PO SCH (20:44)
[2022-12-30] MEDS: MELATONIN 5 MG TABLET PO PRN (20:47)
--- NOTE | 2022-12-30 22:20 | P.PN ---
Date of Service: 12/30/22 Vital Signs Temp Pulse Resp BP Pulse Ox 97.5 F 59 14 138/63 100 12/30/22 16:00 12/30/22 16:00 12/30/22 16:00 12/30/22 16:00 12/30/22 16:00 Medications Acetaminophen (Acetaminophen 500 Mg Tab) 500 mg PO Q4HP PRN PRN Reason: Pain scale 2-4 (Mild) Aspirin (Aspirin Ec 81 Mg Tab) 81 mg PO DAILY [facility] Last Admin: 12/30/22 08:12 Dose: 81 mg Atorvastatin Calcium (Atorvastatin 40 Mg Tab) 40 mg PO BEDTIME [facility] Last Admin: 12/30/22 20:44 Dose: 40 mg Lisinopril (Lisinopril 20 Mg Tab) 20 mg PO DAILY [facility] Last Admin: 12/30/22 08:11 Dose: 20 mg Melatonin (Melatonin 5 Mg Tablet) 5 mg PO BEDTIME PRN PRN PRN Reason: INSOMNIA Last Admin: 12/30/22 20:47 Dose: 5 mg Metoprolol Tartrate (Metoprolol Tar 25 Mg Tab) 25 mg PO BID 6AM 6PM [facility] Last Admin: 12/30/22 17:18 Dose: 25 mg Nutritional Formula (Ensure Enlive 237 Ml Can) 237 ml PO BID [facility] Last Admin: 12/30/22 20:44 Dose: 237 ml Ondansetron HCl (Ondansetron 4 Mg/2 Ml Vial) 4 mg IV Q6HP PRN PRN Reason: NAUSEA / VOMITING Last Admin: 12/19/22 21:06 Dose: 4 mg Sodium Chloride (Flush Normal Saline 10 Ml) 10 ml IV BID [facility] Last Admin: 12/30/22 20:44 Dose: 10 ml Sterile Water (Water For Inj,Sterile 10 Ml) 1.2 ml IM UD PRN PRN Reason: DILUTION OF MED Last Admin: 12/23/22 23:23 Dose: 1.2 ml Tamsulosin HCl (Tamsulosin 0.4 Mg Sr Cap) 0.4 mg PO BEDTIME [facility] Last Admin: 12/30/22 20:44 Dose: 0.4 mg Assessment/ Plan: Nephrology No dyspnea No chest pain No acute events overnight Limited IH/ ROS due to dementia Vitals, medications, blood work and imaging reviewed in the chart. NAD. NCAT. MMM. Neck supple. Normal respiratory effort. RRR. Abd ND. No C/C. LE Edema none. No rash. Awake. Normal speech. Stage I DEIRDRE likely due to hypovolemia, resolved Proteinuria -No NSAIDs -IVF prn Hypokalemia -Replete potassium prn Microscopic Hematuria -Culture negative X2 -Consider urology evaluation if persistent HTN with CKD -Continue Lisinopril -Continue Metoprolol Anemia in chronic illness -Monitor H&H BPH with LUTS -Contiue [facility] Hospitalist note reviewed
[2022-12-31] MEDS: METOPROLOL TAR 25 MG TAB PO SCH (06:39)
[2022-12-31] MEDS: ENSURE ENLIVE 237 ML CAN PO SCH (09:00)
[2022-12-31] MEDS: lisinopriL 20 MG TAB PO SCH (09:00)
--- NOTE | 2022-12-31 10:50 | P.DS ---
Admission Date: 12/12/22 Discharge Date: 12/31/22 Disposition: TRANSFER TO SKILLED NURSING Discharge Condition: FAIR Reason for Admission: DEIRDRE Brief History of Present Illness: 82-year-old male with history of vertigo, hypertension, hyperlipidemia, BPH, GERD presented to the emergency department with chief complaint of vertigo, pain. He reported he has been dealing with chronic vertigo over the course of the last 5 years significantly limiting his ability to perform ADLs. His neighbor called EMS as he was reportedly complaining of chest pain. He was evaluated in the emergency department his labs are significant for acute kidney injury with a creatinine of 2.06, EKG without STEMI criteria, initial high- sensitivity troponin is negative, he refused a CT scan of his head. He was taking meclizine as needed at home which he reports only mildly helps with the symptoms. He refused to have an MRI due to severe claustrophobia. Patient was hospitalized for further management. Hospital Course: Diagnosis DEIRDRE, resolved suspected UTI Dementia with behavioral abnormality Vertigo/orthostasis Chest pain h/o prior CVA h/o BPH s/p TURP (03/10/22) h/o prostate cancer Hypertension Hyperlipidemia GERD DEIRDRE, resolved renal u/s (12/12): Mildly increased renal cortical echogenicity. Hypoechoic ovoid lesion near the pelvis of the left kidney measuring up to 1.6 cm, not well characterized. Renal mass CT protocol demonstrated simple renal cyst. No mass. Nephrology saw and evaluated patient. DEIRDRE resolved with IV fluid. suspected UTI h/o BPH s/p TURP x2 (07/08/21 & 03/10/22) h/o prostate cancer H/o BPH s/p TURP x2 with Dr. Conklin on 07/08/21 and 03/10/22 renal u/s (12/12): Some debris within the urinary bladder, could relate to o ngoing cystitis or UTI. UA suggestive of UTI; +symptomatic: reports burning sensation when urinating urine cx (12/12): no growth s/p empiric levaquin (12/13-12/17) afebrile, no leukocytosis continued flomax repeat UA on 12/23 done to f/u on micro hematuria; noted +WBC, +leuk est denies symptoms on 12/24, no fever, no leukocytosis. urine cx(12/24): mixed tristan; <10,000 CFU/ML CRP 4.57 -> 8.02 (12/26) Patient is voiding without difficulty. Dementia with behavioral abnormality h/o prior CVA No agitation over the last few days. 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 neuro consulted last week for mental capacity eval, currently patient without decision making capacity Patient seen evaluated by psychiatry and recommended agitation control with Haldol and Cogentin. Patient has no needed Haldol over the last 48 hours. Vertigo/orthostasis; chronic Patient refused MRI, has never been evaluated formally for his vertigo he reports which he has been having for about 5 years. neurology consulted. Patient noted to be orthostatic initially PT consulted. Unsteady gait previously noted. Compression stockings recommended. Patient is ambulating with a walker. Chest pain troponins negative x3; monitor on tele ACS ruled out. Hypertension Hyperlipidemia GERD Continued home medications. continued lisinopril daily and has also been on metoprolol. Hearing impairment Patient is hard of hearing even with hearing aid. Vital Signs/Physical Exam: Temp Pulse Resp BP Pulse Ox 97.0 F 67 16 99/55 L 95 12/31/22 08:00 12/31/22 09:00 12/31/22 08:00 12/31/22 09:00 12/31/22 08:00 General: In no apparent distress, Confused, Other (Awake and interactive.) HEENT: Mucous membr. moist/pink Neck: JVD not distended Respiratory: Clear to auscultation bilaterally, Normal air movement Cardiovascular: No edema, Regular rate/rhythm, Normal S1 S2 Gastrointestinal: Normal bowel sounds, Soft and benign, Non-distended, No tenderness Musculoskeletal: No swelling Integumentary: No cyanosis Neurological: Normal speech, Normal strength at 5/5 x4 extr, Dementia Laboratory Data at Discharge: WBC 5.50 thou/uL (4.3-10.9) 12/28/22 07:58 Hgb 11.4 g/dL (13.6-17.9) L 12/28/22 07:58 Hct 32.0 % (39.6-49.0) L 12/28/22 07:58 Plt Count 195 thou/uL (152-406) 12/28/22 07:58 Sodium 141 mEq/L (136-145) 12/28/22 07:58 Potassium 3.7 mEq/L (3.5-5.1) 12/28/22 07:58 BUN 17 mg/dL (7-18) 12/28/22 07:58 Creatinine 0.67 mg/dL (0.70-1.30) L 12/28/22 07:58 Glucose 96 mg/dL (74-106) 12/28/22 07:58 Phosphorus 3.1 mg/dL (2.5-4.9) 12/28/22 07:58 Magnesium 1.9 mg/dL (1.6-2.4) 12/28/22 07:58 Total Bilirubin 0.9 mg/dL (0.2-1.0) 12/28/22 07:58 AST 27 U/L (15-37) 12/28/22 07:58 ALT 25 U/L (16-61) 12/28/22 07:58 Alkaline Phosphatase 55 U/L (45-117) 12/28/22 07:58 Home Medications: Esomeprazole Magnesium 40 mg PO DAILY 12/20/18 Tamsulosin [Flomax*] 0.4 mg PO DAILY 12/20/18 Valsartan/Hydrochlorothiazide [Valsartan-Hctz 80-12.5 mg Tab] 1 tab PO DAILY 12/20/18 Ascorbate Calcium [Vitamin C] 500 mg PO DAILY 07/03/21 Cholecalciferol (Vitamin D3) [Vitamin D 1000 Iu Tab*] 1,000 unit PO DAILY 07/03/21 Lysine 1,000 mg PO DAILY 07/03/21 Selenium 200 mcg PO DAILY 07/03/21 Simvastatin 10 mg PO DAILY 07/03/21 Zinc 50 mg PO DAILY 07/03/21 Mag/Aluminum/Sod Bicarb/Alginc [Gaviscon 80-14.2 mg Tab Chew] 2 tab PO QID 02/24/22 Mecobalamin [B12 Active] 1 tab PO DAILY 02/24/22 Testosterone Undecanoate [Kyzatrex] 1 tab PO TID 02/24/22 Aspirin [Aspirin EC 81 MG] 81 mg PO DAILY #30 tab 12/31/22 Atorvastatin Calcium [Lipitor] 40 mg PO BEDTIME tab 12/31/22 Ensure Enlive 237 ml PO BID can 12/31/22 Metoprolol Tartrate [Lopressor*] 25 mg PO BID 6AM 6PM #0 tab 12/31/22 lisinopriL [Prinivil*] 20 mg PO DAILY tab 12/31/22 New Medications: Aspirin [Aspirin EC 81 MG] 81 mg PO DAILY #30 tab Diet: Regular Activity: Fall precautions Time spent managing pt's care (in minutes): 39
[2022-12-31 12:34] VITALS: BP 103/58; TEMP 97.6
[2022-12-31 12:58] VITALS: O2SAT 95
[2022-12-31] MEDS: ASPIRIN EC 81 MG TAB PO SCH (13:12)
--- NOTE | 2022-12-31 22:21 | P.PN ---
Date of Service: 12/31/22 Vital Signs Temp Pulse Resp BP Pulse Ox 97.6 F 57 14 103/58 L 97 12/31/22 12:00 12/31/22 12:00 12/31/22 12:00 12/31/22 12:00 12/31/22 12:00 Assessment/ Plan: Nephrology No dyspnea No chest pain No acute events overnight Limited IH/ ROS due to dementia Vitals, medications, blood work and imaging reviewed in the chart. NAD. NCAT. MMM. Neck supple. Normal respiratory effort. RRR. Abd ND. No C/C. LE Edema none. No rash. Awake. Normal speech. Stage I DEIRDRE likely due to hypovolemia, resolved Proteinuria -No NSAIDs -IVF prn Hypokalemia -Replete potassium prn Microscopic Hematuria -Culture negative X2 -Consider urology evaluation if persistent HTN with CKD -Continue Lisinopril -Continue Metoprolol Anemia in chronic illness -Monitor H&H BPH with LUTS -Contiue Flomax Hospitalist note reviewed Case reviewed with hospitalist team
== END 2022-12-31 14:00 | DRG 683 ==
LOC: ER 16:28 → 2ND 19:45
PROVIDERS: ADMIT Nurse Practitioner; ATTEND Internal Medicine
DX: N17.9 Acute kidney failure, unspecified (principal); F03.911 Unspecified dementia, unspecified severity, with agitation; N39.0 Urinary tract infection, site not specified; E86.0 Dehydration; I12.9 Hypertensive chronic kidney disease with stage 1 through stage 4 chronic kidney disease, or unspecified chronic kidney disease; N18.30 Chronic kidney disease, stage 3 unspecified; D63.1 Anemia in chronic kidney disease; N40.1 Benign prostatic hyperplasia with lower urinary tract symptoms; E87.6 Hypokalemia; E78.00 Pure hypercholesterolemia, unspecified; H91.90 Unspecified hearing loss, unspecified ear; E86.1 Hypovolemia; N28.1 Cyst of kidney, acquired; K21.9 Gastro-esophageal reflux disease without esophagitis; F40.240 Claustrophobia; R42 Dizziness and giddiness; R45.1 Restlessness and agitation; R31.29 Other microscopic hematuria; Z60.2 Problems related to living alone; Z97.4 Presence of external hearing-aid; Z88.0 Allergy status to penicillin; Z79.82 Long term (current) use of aspirin; Z74.01 Bed confinement status; Z86.73 Personal history of transient ischemic attack (TIA), and cerebral infarction without residual deficits; Z85.46 Personal history of malignant neoplasm of prostate; Z87.891 Personal history of nicotine dependence; Z79.899 Other long term (current) drug therapy
CPT/HCPCS: 36415; 70450; 70496; 70498; 71045; 74178; 76770; 80048; 80053; 80076; 81001; 82947; 83735; 83880; 84100; 84145; 84439; 84443; 84484; 85025; 86140; 87086; 87088; 92526; 92610; 93005; 96360; 96361; 97116; 97161; 97530; 99285; J1200; J1630; J1644; J2405; J3486; J7030; Q9967

== ENCOUNTER 2024-03-23 05:06 | Inpatient (IN) | payer OTHER ==
--- OUTSIDE RECORDS SUMMARY | 2024-03-23 05:10 | XMS REPORT | Continuity of Care Document ---
Author Name Unknown Address [address] [facility] [address] [place] [address] [facility] thconnect Address [address] [facility] [address] [place] [address] Care Team Providers Care Property Site Manager Name Role Phone SARWAT CARSON Primary Care Physician Unavaila Carrie Gonzalez Attending Clinician Unavailable AMANDA HEWITT Attending Clinician UnavailSTEPHENIE Cerda Attending Clinician Unavailable Stephenie Phillips MD Attending Clinician [phone] MAYELIN ALDANA Attending Clinician Unavailable Mayelin Aldana MD Attending Clinician [phone] Amanda Funes Attending Clinician [phone] CLARK_BAHGopal_Bren Attending Clinician Unavailable ANAIBAHGopal_Bren Admitting Clinician Unavailable Payers Payer Name Policy Type Policy Number Effective Date Expirati on Date Source MEDICARE PART A \T\ B [id number] 2006 00:00:00 [employer] SENIOR SUPPLEMENT [id number] 2023 00:00:00 [place]: [employer] [id number] 2006 00:00:00 [facility] ([facility] [id number] 2016 00:00:00 2023 00:00:00 Problems Condition Name Condition Details Condition Category Status Onset Date Resolution Date Last Treatment Date Treating Clinician Comments Source Dysuria Dysuria Problem Active 2023-03 1-23 00:00: 00 [facility] 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 Problem Active 8-07 00:00: 00 [facility] Vertigo Vertigo Problem Active 7- 00:00: 00 [facility] Liver enzymes level above reference range Liver Enzymes Level above Reference Range Problem Active 09-26 00:00: 00 [facility] Urinary incontinen ce Urinary Incontinen ce Problem Active 08-12 00:00: 00 [facility] Disorder of vitamin B12 Disorder of Vitamin B12 Problem Active 08-11 00:00: 00 [facility] Liver cyst Liver Cyst Problem Active 08-11 00:00: 00 [facility] BPH (benign prostatic hyperplasi a) BPH (benign prostatic hyperplasi a) Disease Active 07-07 00:00: 00 [facility] Esophageal reflux Esophageal reflux Disease Active 4 00:00: 00 [facility] HLD (hyperlipi demia) HLD (hyperlipi demia) Disease Active 07-07 00:00: 00 [facility] HTN (hypertens ion) HTN (hypertens ion) Disease Active 07-07 00:00: 00 [facility] Rectal bleeding Rectal bleeding Disease Active 4 00:00: 00 [facility] Grade I hemorrhoid s Grade I hemorrhoid s Disease Active 4- 00:00: 00 [facility] Chronic idiopathic constipati on Chronic idiopathic constipati on Disease Active 425 00:00: 00 [facility] Sensorineu ral hearing loss of bilateral ears Sensorineu ral Hearing Loss of Bilateral Ears Problem Active 3-06 00:00: 00 [facility] Moderate protein-ca joyce malnutriti on (weight for age 60-74 percent of standard) Moderate Protein-ca joyce Malnutriti on (Weight for Age 60-74 Percent of Standard) Problem Active 2022-03 2 00:00: 00 [facility] Indirect right inguinal hernia Indirect Right Inguinal Hernia Problem Active 2022-03 2-05 00:00: 00 [facility] Vascular dementia without behavioral disturbanc e Vascular Dementia without Behavioral Disturbanc e Problem Active 2022-03 00:00: 00 [facility] Secondary immune deficiency disorder Secondary Immune Deficiency Disorder Problem Active 2022-03 00:00: 00 [facility] Atheroscle rosis of aorta Atheroscle rosis of Aorta Problem Active 2022-03 00:00: 00 [facility] Peripheral vascular disease Peripheral Vascular Disease Problem Active 2022-03 00:00: 00 [facility] Hyperlipid emia Hyperlipid emia Problem Active 2022-03 0- 00:00: 00 [facility] Senile purpura Senile Purpura Problem Active 2022-03 0-20 00:00: 00 [facility] Hypercoagu lability state Hypercoagu lability State Problem Active 2022-03 0-20 00:00: 00 [facility] Hypertensi ve heart disease Hypertensi ve Heart Disease Problem Active 2022-03 0-20 00:00: 00 [facility] Carotid artery stenosis Carotid Artery Stenosis Problem Active 2022-03 0-20 00:00: 00 [facility] Gastroesop hageal reflux disease Gastroesop hageal Reflux Disease Problem Active 2022-03 0-20 00:00: 00 [facility] Benign prostatic hyperplasi a Benign Prostatic Hyperplasi a Problem Active 2022-03 0-20 00:00: 00 [facility] Functional gait abnormalit y Functional Gait Abnormalit y Problem Active 2022-03 0-20 00:00: 00 [facility] History of malignant neoplasm of prostate History of Malignant Neoplasm of Prostate Problem Active 2022-03 0-20 00:00: 00 [facility] History of cerebrovas cular accident History of Cerebrovas cular Accident Problem Active 2022-03 0-20 00:00: 00 [facility] Need for personal care assistance Need for Personal Care Assistance Problem Active 2022-03 0-20 00:00: 00 [facility] At high risk for fall At High Risk for Fall Problem Active 2022-03 0-20 00:00: 00 [facility] [id number] Foreign body in bladder, initial encounter Problem [facility] [id number] Detrusor instabilit y Problem [facility] [id number] Voiding dysfunctio n [facility] Neurogenic dysfunctio n of the urinary bladder Neurogenic urinary bladder disorder Problem [facility] Lower urinary tract symptoms due to benign prostatic hypertroph y BPH with obstructio n/lower urinary tract symptoms Problem [facility] [id number] S/P TURP Problem Commo n [facility] [id number] Lesion of bladder Problem [facility] Benign prostatic hypertroph y without outflow obstructio n BPH loc w/o ur obs/LUTS Problem [facility] [id number] Painful bladder spasm Problem [facility] [id number] Wears hearing aid Problem [facility] [id number] Cancer of prostate w/low recurrence risk (T1-2a, Jennings<7 & PSA<10) Problem [facility] Benign prostatic hypertroph y with outflow obstructio n BPH loc w urin obs/LUTS Problem [facility] Essential hypertensi on Essential hypertensi on Problem [facility] Dyslipidem ia Dyslipidem ia Problem [facility] [id number] Urinary retention Problem [facility] Bladder diverticul um Bladder diverticul um Problem [facility] Disorder of urinary bladder Bladder disorder, unspecifie d Problem [facility] [id number] Acute prostatiti s Problem [facility] [id number] Sensation of chest pressure Problem [facility] Urinary tract obstructio n Urinary obstructio n Problem [facility] [id number] Jock itch Problem Comm on [facility] Allergies, Adverse Reactions, Alerts Allergy Name Allergy Type Status Severity Reaction(s) Onset Date Inactive Date Treating Clinician Comments Source PENICILL IN G SODIUM Allergy to substanc e Active 07-07 00:00: 00 [facility] PENICILL IN G SODIUM DRUG INGREDI Active Unknown-Cmnt 07-07 00:00: 00 [facility] Penicill in G Sodium Drug Allergy Active Unknown - See comments 07-07 00:00: 00 [facility] penicill in G penicill in G Active limb distortion [facility] PENICILL INS Allergy to substanc e Active [facility] Depakote Allergy to substanc e Active [facility] NO KNOWN ALLERGIE S Drug Class Active [facility] Social History Social Habit Start Date Stop Date Quantity Comments Source History of Tobacco Use [facility] use and exposure 2023-07-08 00:00:00 2023-07-08 00:00:00 Smokeless tobacco non-user [facility] History of Social function 2023-06-25 00:00:00 2023-06-25 00:00:00 [facility] Sex assigned at 1940 00:00:00 1940 00:00:00 [facility] Smoking Status Start Date Stop Date Source Former Smoker [facility] Never smoked tobacco [facility] Tobacco smoking consumption unknown [facility] Medications Ordered Medication Name Filled Medication Name Start Date Stop Date Current Medication? Ordering Clinician Indication Dosage Frequency Signature (SIG) Comments Components Source Ascorbate Calcium 500 mg Tab 07-07 08:21: 35 Yes Take by mouth. [facility] Cholecalcif sarbjit, Vitamin D3, 25 mcg (1,000 unit) Chew 07-07 08:18: 23 Yes Take by mouth. [facility] vitamin B-12 1,000 mcg tablet 07-07 08:18: 23 Yes 1000ug Take 1 tablet by mouth in the morning. [facility] selenium 200 mcg Cap 07-07 08:18: 23 Yes Take by mouth. [facility] ondansetron (ZOFRAN) 4 mg tablet 07-07 08:18: 23 Yes 4mg Take 1 tablet by mouth every 8 (eight) hours as needed. [facility] Al Hyd-Mg Tr-Alg Ac-Sod Bicarb (GAVISCON) 80-14.2 mg Chew 07-07 08:18: 23 Yes Take by mouth. [facility] aspirin 81 mg Cap 07-07 08:14: 26 Yes Take by mouth. [facility] polyethylen e glycol 3350 (MIRALAX) 17 gram powder 07-07 00:00: 00 Yes [id number] Take 1 packet dissolved in 4-8 ounces beverage. [facility] Wheat Dextrin (BENEFIBER CLEAR) 3 gram/3.5 gram PwPk 07-07 00:00: 00 Yes [id number] 1{dose} Take 1 Dose by mouth in the morning. [facility] tamsulosin 0.4 mg 24 hr capsule 06-24 00:00: 00 Yes [id number] .4mg Take 1 capsule by mouth in the morning and 1 capsule in the evening. [facility] tamsulosin 0.4 mg 24 hr capsule 06-24 00:00: 00 Yes [id number] .4mg Take 1 capsule by mouth in the morning and 1 capsule in the evening. [facility] famotidine 20 mg tablet 06-22 00:00: 00 Yes [facility] lisinopriL 20 mg tablet 06-15 00:00: 00 Yes [facility] tamsulosin 0.4 mg 24 hr capsule 06-15 00:00: 00 06-24 00:00 :00 No [facility] atorvastati n 40 mg tablet 06-14 00:00: 00 Yes [facility] metoprolol tartrate 25 mg tablet 06-07 00:00: 00 Yes [facility] esomeprazol e 40 mg capsule 06-07 00:00: 00 Yes [facility] esomeprazol e 40 mg capsule 06-07 00:00: 00 Yes [facility] cloNIDine 0.1 mg tablet 06-06 00:00: 00 Yes [facility] Nystatin [id number] UNIT/GM Nystatin [id number] UNIT/GM 2023-0 8-16 00:00: 00 No 1{appli cation} BID Nystatin 055439 UNIT/GM Nystatin 844908 UNIT/GM Nystatin 760746 UNIT/GM 2023-0 8-16 00:00: 00 No 1{appli cation} BID Nystatin 703084 UNIT/GM Nystatin 006929 UNIT/GM Nystatin 054714 UNIT/GM 2023-0 8-16 00:00: 00 No 1{appli cation} BID Nystatin 289238 UNIT/GM Nystatin 404868 UNIT/GM Nystatin 537611 UNIT/GM 2023-0 8-16 00:00: 00 No 1{appli cation} BID Nystatin 335553 UNIT/GM Nystatin 729460 UNIT/GM Nystatin 424371 UNIT/GM 2023-0 8-16 00:00: 00 No 1{appli cation} BID Nystatin 698111 UNIT/GM Nystatin 268251 UNIT/GM Nystatin 043250 UNIT/GM 2023-0 8-16 00:00: 00 No 1{appli cation} BID Nystatin 904353 UNIT/GM Nystatin 338498 UNIT/GM Nystatin 085595 UNIT/GM 2023-0 8-16 00:00: 00 No 1{appli cation} BID Nystatin 306762 UNIT/GM Nystatin 082436 UNIT/GM Nystatin 530513 UNIT/GM 2023-0 8-16 00:00: 00 No 1{appli cation} BID Nystatin [id number] UNIT/GM Myrbetriq 25 MG Myrbetriq 25 MG 3-0 1-11 00:00: 00 07-23 00:00 :00 No 1{table t} QD Myrbetriq 25 MG Myrbetriq 25 MG Myrbetriq 25 MG 3-0 1-11 00:00: 00 07-23 00:00 :00 No 1{table t} QD Myrbetriq 25 MG Myrbetriq 25 MG Myrbetriq 25 MG 3-0 1-11 00:00: 00 07-23 00:00 :00 No 1{table t} QD Myrbetriq 25 MG Tamsulosin HCl 0.4 MG Tamsulosin HCl 0.4 MG 2-0 5-09 00:00: 00 01-17 00:00 :00 No 1{capsu le} QD Tamsulosin HCl 0.4 MG Levaquin 500 MG Levaquin 500 MG 2020-03 2- 00:00: 00 03-11 00:00 :00 No 1{table t} QD Levaquin 500 MG Levaquin 500 MG Levaquin 500 MG 2020-03 2- 00:00: 00 03-11 00:00 :00 No 1{table t} QD Levaquin 500 MG aspirin 81 mg tablet,jacqueline yed release Take 1 tablet every day by oral route. aspirin 81 mg tablet,jacqueline yed release Take 1 tablet every day by oral route. No 1 Q1D aspirin 81 mg tablet,del ayed release Take 1 tablet every day by oral route. [facility] cholecalcif sarbjit (vitamin D3) 25 mcg (1,000 unit) tablet Take 1 tablet every day by oral route. cholecalcif sarbjit (vitamin D3) 25 mcg (1,000 unit) tablet Take 1 tablet every day by oral route. No 1 Q1D cholecalci ferol (vitamin D3) 25 mcg (1,000 unit) tablet Take 1 tablet every day by oral route. [facility] selenium 200 mcg capsule selenium 200 mcg capsule No 1capsul e(s) Q1D selenium 200 mcg capsule [facility] meclizine 25 mg tablet meclizine 25 mg tablet No meclizine 25 mg tablet [facility] donepezil 10 mg tablet Take 1 tablet every day by oral route for 30 days. donepezil 10 mg tablet Take 1 tablet every day by oral route for 30 days. No 1 Q1D donepezil 10 mg tablet Take 1 tablet every day by oral route for 30 days. [facility] Meclizine HCl 25 MG Meclizine HCl 25 MG No Meclizine HCl 25 MG Valsartan-h ydroCHLOROt hiazide 80-12.5 MG Valsartan-h ydroCHLOROt hiazide 80-12.5 MG No QD Valsartan- hydroCHLOR Othiazide 80-12.5 MG Simvastatin 10 MG Simvastatin 10 MG No QD Simvastati n 10 MG Simvastatin 10 MG Simvastatin 10 MG No QD Simvastati n 10 MG Valsartan-h ydroCHLOROt hiazide 80-12.5 MG Valsartan-h ydroCHLOROt hiazide 80-12.5 MG No QD Valsartan- hydroCHLOR Othiazide 80-12.5 MG Meclizine HCl 25 MG Meclizine HCl 25 MG No Meclizine HCl 25 MG Simvastatin 10 MG Simvastatin 10 MG No 1{table t_in_th e_eveni ng} QD Simvastati n 10 MG Gaviscon 80-14.2 MG Gaviscon 80-14.2 MG No 2{table ts_afte r_meals _and_at _bedtim e_as_ne eded} QID Gaviscon 80-14.2 MG Testosteron e Testosteron e No Testostero ne Meclizine HCl 25 MG Meclizine HCl 25 MG No Meclizine HCl 25 MG Valsartan-h ydroCHLOROt hiazide 80-12.5 MG Valsartan-h ydroCHLOROt hiazide 80-12.5 MG No 1{table t} QD Valsartan- hydroCHLOR Othiazide 80-12.5 MG Simvastatin 10 MG Simvastatin 10 MG No 1{table t_in_ e_eveni ng} QD Simvastati n 10 MG Meclizine HCl 25 MG Meclizine HCl 25 MG No Meclizine HCl 25 MG Zinc Zinc No Zinc Valsartan-h ydroCHLOROt hiazide 80-12.5 MG Valsartan-h ydroCHLOROt hiazide 80-12.5 MG No 1{table t} QD Valsartan- hydroCHLOR Othiazide 80-12.5 MG Simvastatin 10 MG Simvastatin 10 MG No 1{table t_in_ e_eveni ng} QD Simvastati n 10 MG Testosteron e Testosteron e No Testostero ne Meclizine HCl 25 MG Meclizine HCl 25 MG No Meclizine HCl 25 MG Valsartan-h ydroCHLOROt hiazide 80-12.5 MG Valsartan-h ydroCHLOROt hiazide 80-12.5 MG No 1{table t} QD Valsartan- hydroCHLOR Othiazide 80-12.5 MG Esomeprazol e Magnesium 40 MG Esomeprazol e Magnesium 40 MG No Esomeprazo le Magnesium 40 MG Simvastatin 10 MG Simvastatin 10 MG No 1{table t_in e_eveni ng} QD Simvastati n 10 MG Testosteron e Testosteron e No Testostero ne Meclizine HCl 25 MG Meclizine HCl 25 MG No Meclizine HCl 25 MG Valsartan-h ydroCHLOROt hiazide 80-12.5 MG Valsartan-h ydroCHLOROt hiazide 80-12.5 MG No 1{table t} QD Valsartan- hydroCHLOR Othiazide 80-12.5 MG Esomeprazol e Magnesium 40 MG Esomeprazol e Magnesium 40 MG No Esomeprazo le Magnesium 40 MG Simvastatin 10 MG Simvastatin 10 MG No 1{table t_in e_eveni ng} QD Simvastati n 10 MG Testosteron e Testosteron e No Testostero ne Meclizine HCl 25 MG Meclizine HCl 25 MG No Meclizine HCl 25 MG Valsartan-h ydroCHLOROt hiazide 80-12.5 MG Valsartan-h ydroCHLOROt hiazide 80-12.5 MG No 1{table t} QD Valsartan- hydroCHLOR Othiazide 80-12.5 MG Esomeprazol e Magnesium 40 MG Esomeprazol e Magnesium 40 MG No Esomeprazo le Magnesium 40 MG Simvastatin 10 MG Simvastatin 10 MG No 1{table t_in e_eveni ng} QD Simvastati n 10 MG L-Lysine L-Lysine No L-Lysine Meclizine HCl 25 MG Meclizine HCl 25 MG No Meclizine HCl 25 MG Simvastatin 10 MG Simvastatin 10 MG No 1{table t_in e_eveni ng} QD Simvastati n 10 MG Valsartan-h ydroCHLOROt hiazide 80-12.5 MG Valsartan-h ydroCHLOROt hiazide 80-12.5 MG No 1{table t} QD Valsartan- hydroCHLOR Othiazide 80-12.5 MG Esomeprazol e Magnesium 40 MG Esomeprazol e Magnesium 40 MG No Esomeprazo le Magnesium 40 MG L-Lysine L-Lysine No L-Lysine Meclizine HCl 25 MG Meclizine HCl 25 MG No Meclizine HCl 25 MG Simvastatin 10 MG Simvastatin 10 MG No 1{table t_in e_eveni ng} QD Simvastati n 10 MG Valsartan-h ydroCHLOROt hiazide 80-12.5 MG Valsartan-h ydroCHLOROt hiazide 80-12.5 MG No 1{table t} QD Valsartan- hydroCHLOR Othiazide 80-12.5 MG Esomeprazol e Magnesium 40 MG Esomeprazol e Magnesium 40 MG No Esomeprazo le Magnesium 40 MG L-Lysine L-Lysine No L-Lysine Meclizine HCl 25 MG Meclizine HCl 25 MG No Meclizine HCl 25 MG Simvastatin 10 MG Simvastatin 10 MG No 1{table t_in e_eveni ng} QD Simvastati n 10 MG Valsartan-h ydroCHLOROt hiazide 80-12.5 MG Valsartan-h ydroCHLOROt hiazide 80-12.5 MG No 1{table t} QD Valsartan- hydroCHLOR Othiazide 80-12.5 MG Esomeprazol e Magnesium 40 MG Esomeprazol e Magnesium 40 MG No Esomeprazo le Magnesium 40 MG Valsartan-h ydroCHLOROt hiazide 80-12.5 MG Valsartan-h ydroCHLOROt hiazide 80-12.5 MG No 1{table t} QD Valsartan- hydroCHLOR Othiazide 80-12.5 MG Esomeprazol e Magnesium 40 MG Esomeprazol e Magnesium 40 MG No Esomeprazo le Magnesium 40 MG Meclizine HCl 25 MG Meclizine HCl 25 MG No Meclizine HCl 25 MG Vitamin D3 Vitamin D3 No Vitamin D3 Simvastatin 10 MG Simvastatin 10 MG No 1{table t_in e_eveni ng} QD Simvastati n 10 MG Tamsulosin HCl 0.4 MG Tamsulosin HCl 0.4 MG No Tamsulosin HCl 0.4 MG Valsartan-h ydroCHLOROt hiazide 80-12.5 MG Valsartan-h ydroCHLOROt hiazide 80-12.5 MG No 1{table t} QD Valsartan- hydroCHLOR Othiazide 80-12.5 MG Esomeprazol e Magnesium 40 MG Esomeprazol e Magnesium 40 MG No Esomeprazo le Magnesium 40 MG Meclizine HCl 25 MG Meclizine HCl 25 MG No Meclizine HCl 25 MG Vitamin D3 Vitamin D3 No Vitamin D3 Simvastatin 10 MG Simvastatin 10 MG No 1{table t_in_th e_eveni ng} QD Simvastati n 10 MG Tamsulosin HCl 0.4 MG Tamsulosin HCl 0.4 MG No Tamsulosin HCl 0.4 MG Valsartan-h ydroCHLOROt hiazide 80-12.5 MG Valsartan-h ydroCHLOROt hiazide 80-12.5 MG No 1{table t} QD Valsartan- hydroCHLOR Othiazide 80-12.5 MG Esomeprazol e Magnesium 40 MG Esomeprazol e Magnesium 40 MG No Esomeprazo le Magnesium 40 MG Potassium Potassium No Potassium Meclizine HCl 25 MG Meclizine HCl 25 MG No Meclizine HCl 25 MG Simvastatin 10 MG Simvastatin 10 MG No Simvastati n 10 MG Tamsulosin HCl 0.4 MG Tamsulosin HCl 0.4 MG No Tamsulosin HCl 0.4 MG Valsartan-h ydroCHLOROt hiazide 80-12.5 MG Valsartan-h ydroCHLOROt hiazide 80-12.5 MG No 1{table t} QD Valsartan- hydroCHLOR Othiazide 80-12.5 MG Esomeprazol e Magnesium 40 MG Esomeprazol e Magnesium 40 MG No Esomeprazo le Magnesium 40 MG Potassium Potassium No Potassium Meclizine HCl 25 MG Meclizine HCl 25 MG No Meclizine HCl 25 MG Simvastatin 10 MG Simvastatin 10 MG No Simvastati n 10 MG Tamsulosin HCl 0.4 MG Tamsulosin HCl 0.4 MG No Tamsulosin HCl 0.4 MG Valsartan-h ydroCHLOROt hiazide 80-12.5 MG Valsartan-h ydroCHLOROt hiazide 80-12.5 MG No 1{table t} QD Valsartan- hydroCHLOR Othiazide 80-12.5 MG Esomeprazol e Magnesium 40 MG Esomeprazol e Magnesium 40 MG No Esomeprazo le Magnesium 40 MG Potassium Potassium No Potassium Meclizine HCl 25 MG Meclizine HCl 25 MG No Meclizine HCl 25 MG Simvastatin 10 MG Simvastatin 10 MG No Simvastati n 10 MG Tamsulosin HCl 0.4 MG Tamsulosin HCl 0.4 MG No Tamsulosin HCl 0.4 MG Simvastatin 10 MG Simvastatin 10 MG No 1{table t_in_th e_eveni ng} QD Simvastati n 10 MG B12 B12 No B12 Valsartan-h ydroCHLOROt hiazide 80-12.5 MG Valsartan-h ydroCHLOROt hiazide 80-12.5 MG No 1{table t} QD Valsartan- hydroCHLOR Othiazide 80-12.5 MG Meclizine HCl 25 MG Meclizine HCl 25 MG No Meclizine HCl 25 MG Esomeprazol e Magnesium 40 MG Esomeprazol e Magnesium 40 MG No Esomeprazo le Magnesium 40 MG Simvastatin 10 MG Simvastatin 10 MG No Simvastati n 10 MG Valsartan-h ydroCHLOROt hiazide 80-12.5 MG Valsartan-h ydroCHLOROt hiazide 80-12.5 MG No 1{table t} QD Valsartan- hydroCHLOR Othiazide 80-12.5 MG Gaviscon 80-14.2 MG Gaviscon 80-14.2 MG No 2{table ts_afte r_meals _and_at _bedtim e_as_ne eded} QID Gaviscon 80-14.2 MG Tamsulosin HCl 0.4 MG Tamsulosin HCl 0.4 MG No Tamsulosin HCl 0.4 MG Meclizine HCl 25 MG Meclizine HCl 25 MG No Meclizine HCl 25 MG B12 B12 No B12 Meclizine HCl 25 MG Meclizine HCl 25 MG No Meclizine HCl 25 MG Esomeprazol e Magnesium 40 MG Esomeprazol e Magnesium 40 MG No Esomeprazo le Magnesium 40 MG Simvastatin 10 MG Simvastatin 10 MG No Simvastati n 10 MG Valsartan-h ydroCHLOROt hiazide 80-12.5 MG Valsartan-h ydroCHLOROt hiazide 80-12.5 MG No 1{table t} QD Valsartan- hydroCHLOR Othiazide 80-12.5 MG Tamsulosin HCl 0.4 MG Tamsulosin HCl 0.4 MG No Tamsulosin HCl 0.4 MG B12 B12 No B12 Meclizine HCl 25 MG Meclizine HCl 25 MG No Meclizine HCl 25 MG Esomeprazol e Magnesium 40 MG Esomeprazol e Magnesium 40 MG No Esomeprazo le Magnesium 40 MG Simvastatin 10 MG Simvastatin 10 MG No Simvastati n 10 MG Valsartan-h ydroCHLOROt hiazide 80-12.5 MG Valsartan-h ydroCHLOROt hiazide 80-12.5 MG No 1{table t} QD Valsartan- hydroCHLOR Othiazide 80-12.5 MG Tamsulosin HCl 0.4 MG Tamsulosin HCl 0.4 MG No Tamsulosin HCl 0.4 MG Meclizine HCl 25 MG Meclizine HCl 25 MG No Meclizine HCl 25 MG Valsartan-h ydroCHLOROt hiazide 80-12.5 MG Valsartan-h ydroCHLOROt hiazide 80-12.5 MG No QD Valsartan- hydroCHLOR Othiazide 80-12.5 MG Simvastatin 10 MG Simvastatin 10 MG No QD Simvastati n 10 MG Esomeprazol e Magnesium 40 MG Esomeprazol e Magnesium 40 MG No QD Esomeprazo le Magnesium 40 MG Tamsulosin HCl 0.4 MG Tamsulosin HCl 0.4 MG 02-21 00:00 :00 No 1{capsu le} QD Tamsulosin HCl 0.4 MG Tamsulosin HCl 0.4 MG Tamsulosin HCl 0.4 MG 02-21 00:00 :00 No 1{capsu le} QD Tamsulosin HCl 0.4 MG Tamsulosin HCl 0.4 MG Tamsulosin HCl 0.4 MG 02-21 00:00 :00 No 1{capsu le} QD Tamsulosin HCl 0.4 MG Tamsulosin HCl 0.4 MG Tamsulosin HCl 0.4 MG 02-21 00:00 :00 No 1{capsu le} QD Tamsulosin HCl 0.4 MG Immunizations Ordered Immunization Name Filled Immunization Name Date Status Comments Source COVID-19 Vaccine (check24) COVID-19 Vaccine (check24) 2020-05-30 14:43:00 Completed [facility] COVID-19 Vaccine (Marco) COVID-19 Vaccine (Marco) 2020-05-30 14:43:00 Completed [facility] COVID-19 Vaccine (Marco) COVID-19 Vaccine (Marco) 2020-05-30 14:43:00 Completed [facility] COVID-19 Vaccine (Marco) COVID-19 Vaccine (Marco) 2020-05-30 14:43:00 Completed [facility] COVID-19 Vaccine (Marco) COVID-19 Vaccine (Marco) 2020-05-30 14:43:00 Completed [facility] COVID-19 Vaccine (Marco) COVID-19 Vaccine (Marco) 2020-05-30 14:43:00 Completed [facility] COVID-19 Vaccine (Marco) COVID-19 Vaccine (Marco) 2020-05-30 14:43:00 Completed [facility] COVID-19 Vaccine (Marco) COVID-19 Vaccine (Marco) 2020-05-30 14:43:00 Completed [facility] COVID-19 Vaccine (Marco) COVID-19 Vaccine (Marco) 2020-05-30 14:43:00 Completed [facility] COVID-19 Vaccine (Marco) COVID-19 Vaccine (Marco) 2020-05-30 14:43:00 Completed [facility] COVID-19 Vaccine (Marco) COVID-19 Vaccine (Marco) 2020-05-30 14:43:00 Completed [facility] COVID-19 Vaccine (Marco) COVID-19 Vaccine (Marco) 2020-05-30 14:43:00 Completed [facility] influenza, unspecified formulation influenza, unspecified formulation Unknown Completed [facility] COVID-19 vaccine, vector-nr, rS-Ad26, PF, 0.5 mL (Marco) COVID-19 vaccine, vector-nr, rS-Ad26, PF, 0.5 mL (Marco) Unknown Completed [facility] COVID-19 Vaccine (Marco) COVID-19 Vaccine (Marco) Unknown Completed [facility] COVID-19 Vaccine (Marco) COVID-19 Vaccine (Marco) Unknown Completed [facility] COVID-19 Vaccine (Marco) COVID-19 Vaccine (Marco) Unknown Completed [facility] COVID-19 Vaccine (Marco) COVID-19 Vaccine (Marco) Unknown Completed [facility] COVID-19 Vaccine (Marco) COVID-19 Vaccine (Marco) Unknown Completed [facility] COVID-19 Vaccine (Marco) COVID-19 Vaccine (Marco) Unknown Completed [facility] COVID-19 Vaccine (Marco) COVID-19 Vaccine (Marco) Unknown Completed [facility] COVID-19 Vaccine (Marco) COVID-19 Vaccine (Marco) Unknown Completed [facility] Vital Signs Vital Name Observation Time Observation Value Comments S ource BMI (Body Mass Index) 2024-02-25 00:00:00 22.4 kg/m2 [facility] Weight 2024-02-25 00:00:00 2360 [oz_av] [facility] BP Systolic 2024-02-25 00:00:00 138 mm[Hg] [facility] Height 2024-02-25 00:00:00 68 [in_i] [facility] BP Diastolic 2024-02-25 00:00:00 67 mm[Hg] [facility] BMI (Body Mass Index) 2024-02-04 00:00:00 22.5 kg/m2 [facility] BP Diastolic 2024-02-04 00:00:00 64 mm[Hg] [facility] Height 2024-02-04 00:00:00 68 [in_i] [facility] BP Systolic 2024-02-04 00:00:00 117 mm[Hg] [facility] Body Weight 2024-02-04 00:00:00 2372 [oz_av] [facility] BP Systolic 2024-01-20 00:00:00 125 mm[Hg] [facility] BP Diastolic 2024-01-20 00:00:00 79 mm[Hg] [facility] Height 2024-01-20 00:00:00 68 [in_i] [facility] BMI (Body Mass Index) 2024-01-20 00:00:00 22 kg/m2 [facility] Weight 2024-01-20 00:00:00 2310 [oz_av] [facility] BP Diastolic 2023-12-22 00:00:00 79 mm[Hg] [facility] BP Systolic 2023-12-22 00:00:00 125 mm[Hg] [facility] Weight 2023-12-22 00:00:00 2310 [oz_av] [facility] Height 2023-12-22 00:00:00 68 [in_i] [facility] BMI (Body Mass Index) 2023-12-22 00:00:00 22 kg/m2 [facility] BP Diastolic 2023-11-19 00:00:00 74 mm[Hg] [facility] Body Weight 2023-11-19 00:00:00 2338 [oz_av] [facility] BP Systolic 2023-11-19 00:00:00 138 mm[Hg] [facility] Height 2023-11-19 00:00:00 68 [in_i] [facility] BMI (Body Mass Index) 2023-11-19 00:00:00 22.2 kg/m2 [facility] BMI (Body Mass Index) 2023-11-12 00:00:00 21.9 kg/m2 [facility] BP Diastolic 2023-11-12 00:00:00 74 mm[Hg] [facility] Height 2023-11-12 00:00:00 68 [in_i] [facility] Weight 2023-11-12 00:00:00 2306 [oz_av] [facility] BP Systolic 2023-11-12 00:00:00 131 mm[Hg] [facility] BMI (Body Mass Index) 2023-10-19 00:00:00 21.9 kg/m2 [facility] BP Diastolic 2023-10-19 00:00:00 56 mm[Hg] [facility] BP Systolic 2023-10-19 00:00:00 125 mm[Hg] [facility] Weight 2023-10-19 00:00:00 2306 [oz_av] [facility] Height 2023-10-19 00:00:00 68 [in_i] [facility] BP Diastolic 2023-10-11 00:00:00 66 mm[Hg] [facility] Body Weight 2023-10-11 00:00:00 2360 [oz_av] [facility] BMI (Body Mass Index) 2023-10-11 00:00:00 22.4 kg/m2 [facility] Systolic 2023-10-11 00:00:00 116 mm[Hg] [facility] Height 2023-10-11 00:00:00 68 [in_i] [facility] BMI (Body Mass Index) 2023-09-27 00:00:00 21.9 kg/m2 [facility] Weight 2023-09-27 00:00:00 2304 [oz_av] [facility] BP Systolic 2023-09-27 00:00:00 137 mm[Hg] [facility] Height 2023-09-27 00:00:00 68 [in_i] [facility] BP Diastolic 2023-09-27 00:00:00 71 mm[Hg] [facility] BMI (Body Mass Index) 2023-09-23 00:00:00 21.9 kg/m2 [facility] Weight 2023-09-23 00:00:00 2304 [oz_av] [facility] BP Systolic 2023-09-23 00:00:00 140 mm[Hg] [facility] Height 2023-09-23 00:00:00 68 [in_i] [facility] BP Diastolic 2023-09-23 00:00:00 59 mm[Hg] [facility] Systolic blood pressure 2023-09-14 14:36:00 171 mm[Hg] [facility] Diastolic blood pressure 2023-09-14 14:36:00 68 mm[Hg] [facility] Heart rate 2023-09-14 14:36:00 52 /min [facility] Oxygen saturation in Arterial blood by Pulse oximetry 2023-09-14 14:36:00 99 /min [facility] Body temperature 2023-09-14 14:35:00 36.78 Kyara [facility] Body height 2023-09-14 14:35:00 177.8 cm [facility] Body weight 2023-09-14 14:35:00 65.318 kg [facility] BMI 2023-09-14 14:35:00 20.66 kg/m2 [facility] BP Systolic 2023-09-10 00:00:00 137 mm[Hg] [facility] BMI (Body Mass Index) 2023-09-10 00:00:00 21.9 kg/m2 [facility] Height 2023-09-10 00:00:00 68 [in_i] [facility] BP Diastolic 2023-09-10 00:00:00 66 mm[Hg] [facility] Body Weight 2023-09-10 00:00:00 2304 [oz_av] [facility] BMI (Body Mass Index) 2023-08-27 00:00:00 21.9 kg/m2 [facility] Systolic 2023-08-27 00:00:00 117 mm[Hg] [facility] BP Diastolic 2023-08-27 00:00:00 75 mm[Hg] [facility] Body Weight 2023-08-27 00:00:00 2304 [oz_av] [facility] Height 2023-08-27 00:00:00 68 [in_i] [facility] BP Systolic 2023-08-18 00:00:00 130 mm[Hg] [facility] BP Diastolic 2023-08-18 00:00:00 60 mm[Hg] [facility] BMI (Body Mass Index) 2023-08-18 00:00:00 21.9 kg/m2 [facility] Weight 2023-08-18 00:00:00 2304 [oz_av] [facility] Height 2023-08-18 00:00:00 68 [in_i] [facility] Height 2023-08-13 00:00:00 68 [in_i] [facility] BP Systolic 2023-08-13 00:00:00 131 mm[Hg] [facility] BP Diastolic 2023-08-13 00:00:00 68 mm[Hg] [facility] BMI (Body Mass Index) 2023-08-11 00:00:00 22.1 kg/m2 [facility] BP Diastolic 2023-08-11 00:00:00 68 mm[Hg] [facility] Body Weight 2023-08-11 00:00:00 2324 [oz_av] [facility] Height 2023-08-11 00:00:00 68 [in_i] [facility] BP Systolic 2023-08-11 00:00:00 132 mm[Hg] [facility] Weight 2023-08-04 00:00:00 2325 [oz_av] [facility] BP Systolic 2023-08-04 00:00:00 130 mm[Hg] [facility] Height 2023-08-04 00:00:00 68 [in_i] [facility] BMI (Body Mass Index) 2023-08-04 00:00:00 22.1 kg/m2 [facility] BP Diastolic 2023-08-04 00:00:00 61 mm[Hg] [facility] BP Diastolic 2023-07-30 00:00:00 66 mm[Hg] [facility] Height 2023-07-30 00:00:00 68 [in_i] [facility] BMI (Body Mass Index) 2023-07-30 00:00:00 22.1 kg/m2 [facility] Systolic 2023-07-30 00:00:00 118 mm[Hg] [facility] Weight 2023-07-30 00:00:00 2324 [oz_av] [facility] BP Systolic 2023-07-23 00:00:00 114 mm[Hg] [facility] Height 2023-07-23 00:00:00 68 [in_i] [facility] BP Diastolic 2023-07-23 00:00:00 63 mm[Hg] [facility] BMI (Body Mass Index) 2023-07-23 00:00:00 22.3 kg/m2 [facility] Weight 2023-07-23 00:00:00 2342 [oz_av] [facility] BMI (Body Mass Index) 2023-07-15 00:00:00 22.3 kg/m2 [facility] BP Diastolic 2023-07-15 00:00:00 98 mm[Hg] [facility] BP Systolic 2023-07-15 00:00:00 183 mm[Hg] [facility] Height 2023-07-15 00:00:00 68 [in_i] [facility] Weight 2023-07-15 00:00:00 2342 [oz_av] [facility] BMI (Body Mass Index) 2023-07-09 00:00:00 22.4 kg/m2 [facility] BP Diastolic 2023-07-09 00:00:00 68 mm[Hg] [facility] Body Weight 2023-07-09 00:00:00 2352 [oz_av] [facility] Height 2023-07-09 00:00:00 68 [in_i] [facility] BP Systolic 2023-07-09 00:00:00 134 mm[Hg] [facility] Systolic blood pressure 2023-07-08 13:13:00 127 mm[Hg] [facility] Diastolic blood pressure 2023-07-08 13:13:00 51 mm[Hg] [facility] Heart rate 2023-07-08 13:13:00 73 /min [facility] Body temperature 2023-07-08 13:13:00 36.44 Kyara [facility] Respiratory rate 2023-07-08 13:13:00 20 /min [facility] Body height 2023-07-08 13:13:00 177.8 cm [facility] Body weight 2023-07-08 13:13:00 66.225 kg [facility] BMI 2023-07-08 13:13:00 20.95 kg/m2 [facility] Oxygen saturation in Arterial blood by Pulse oximetry 2023-07-08 13:13:00 98 /min [facility] BP Diastolic 2023-07-05 00:00:00 83 mm[Hg] [facility] BP Systolic 2023-07-05 00:00:00 135 mm[Hg] [facility] BMI (Body Mass Index) 2023-07-05 00:00:00 22.4 kg/m2 [facility] Height 2023-07-05 00:00:00 68 [in_i] [facility] Weight 2023-07-05 00:00:00 2352 [oz_av] [facility] Systolic blood pressure 2023-06-25 16:24:00 168 mm[Hg] [facility] Diastolic blood pressure 2023-06-25 16:24:00 57 mm[Hg] [facility] Respiratory rate 2023-06-25 16:24:00 18 /min [facility] Body height 2023-06-25 16:24:00 175.3 cm [facility] Body weight 2023-06-25 16:24:00 65.227 kg [facility] BMI 2023-06-25 16:24:00 21.24 kg/m2 [facility] Oxygen saturation in Arterial blood by Pulse oximetry 2023-06-25 16:24:00 100 /min [facility] Heart rate 2023-06-25 16:20:00 65 /min [facility] Height 2023-06-25 00:00:00 68 [in_i] [facility] Weight 2023-06-25 00:00:00 2352 [oz_av] [facility] BP Systolic 2023-06-25 00:00:00 134 mm[Hg] [facility] BMI (Body Mass Index) 2023-06-25 00:00:00 22.4 kg/m2 [facility] BP Diastolic 2023-06-25 00:00:00 77 mm[Hg] [facility] BP Diastolic 2023-06-07 00:00:00 82 mm[Hg] [facility] Height 2023-06-07 00:00:00 68 [in_i] [facility] Body Weight 2023-06-07 00:00:00 2344 [oz_av] [facility] BMI (Body Mass Index) 2023-06-07 00:00:00 22.3 kg/m2 [facility] BP Systolic 2023-06-07 00:00:00 144 mm[Hg] [facility] BMI (Body Mass Index) 2023-05-13 00:00:00 21.9 kg/m2 [facility] Height 2023-05-13 00:00:00 68 [in_i] [facility] BP Diastolic 2023-05-13 00:00:00 78 mm[Hg] [facility] BP Systolic 2023-05-13 00:00:00 147 mm[Hg] [facility] Weight 2023-05-13 00:00:00 2306 [oz_av] [facility] BP Systolic 2023-04-20 00:00:00 136 mm[Hg] [facility] BMI (Body Mass Index) 2023-04-20 00:00:00 21.9 kg/m2 [facility] Diastolic 2023-04-20 00:00:00 70 mm[Hg] [facility] Height 2023-04-20 00:00:00 68 [in_i] [facility] Weight 2023-04-20 00:00:00 2306 [oz_av] [facility] height 2022-11-10 10:00:00 67 [in_i] Commo n [facility] weight 2022-11-10 10:00:00 149.0 [lb_av] Co [facility] temperature 2022-11-10 10:00:00 97.9 [degF] Com [facility] bmi 2022-11-10 10:00:00 23.33 kg/m2 Comm [facility] oximetry 2022-11-10 10:00:00 98 % Commo n [facility] respiratory rate 2022-11-10 10:00:00 15 /min [facility] blood pressure systolic 2022-11-10 10:00:00 122 mm[Hg] [facility] blood pressure diastolic 2022-11-10 10:00:00 63 mm[Hg] [facility] height 2022-10-28 15:00:00 67 [in_i] Commo n [facility] weight 2022-10-28 15:00:00 148.6 [lb_av] Co [facility] temperature 2022-10-28 15:00:00 98.2 [degF] Com [facility] bmi 2022-10-28 15:00:00 23.27 kg/m2 Comm [facility] oximetry 2022-10-28 15:00:00 97 % [facility] respiratory rate 2022-10-28 15:00:00 16 /min [facility] blood pressure systolic 2022-10-28 15:00:00 130 mm[Hg] [facility] blood pressure diastolic 2022-10-28 15:00:00 62 mm[Hg] [facility] height 2022-10-20 08:00:00 67 [in_i] Commo n [facility] weight 2022-10-20 08:00:00 152.6 [lb_av] Co on [facility] temperature 2022-10-20 08:00:00 98.8 [degF] Com [facility] bmi 2022-10-20 08:00:00 23.9 kg/m2 [facility] oximetry 2022-10-20 08:00:00 94 % [facility] respiratory rate 2022-10-20 08:00:00 16 /min [facility] blood pressure systolic 2022-10-20 08:00:00 164 mm[Hg] [facility] blood pressure diastolic 2022-10-20 08:00:00 94 mm[Hg] [facility] height 2022-07-31 11:00:00 67 [in_i] Commo n [facility] weight 2022-07-31 11:00:00 148.8 [lb_av] Co [facility] temperature 2022-07-31 11:00:00 99.1 [degF] Com [facility] bmi 2022-07-31 11:00:00 23.3 kg/m2 [facility]mo [facility] oximetry 2022-07-31 11:00:00 96 % [facility] respiratory rate 2022-07-31 11:00:00 16 /min [facility] blood pressure systolic 2022-07-31 11:00:00 123 mm[Hg] [facility] blood pressure diastolic 2022-07-31 11:00:00 62 mm[Hg] [facility] height 2022-07-31 11:40:00 67 [in_i] Commo n [facility] weight 2022-07-31 11:40:00 148.8 [lb_av] Co [facility] temperature 2022-07-31 11:40:00 99.1 [degF] Com mon [facility] bmi 2022-07-31 11:40:00 23.3 kg/m2 [facility] oximetry 2022-07-31 11:40:00 96 % Commo n [facility] respiratory rate 2022-07-31 11:40:00 16 /min [facility] blood pressure systolic 2022-07-31 11:40:00 123 mm[Hg] [facility] blood pressure diastolic 2022-07-31 11:40:00 62 mm[Hg] [facility] height 2022-04-29 15:15:00 67 [in_i] Commo n [facility] weight 2022-04-29 15:15:00 150 [lb_av] Comm on [facility] temperature 2022-04-29 15:15:00 98.6 [degF] Com mon [facility] bmi 2022-04-29 15:15:00 23.49 kg/m2 Comm [facility] oximetry 2022-04-29 15:15:00 98 % Commo n [facility] respiratory rate 2022-04-29 15:15:00 18 /min [facility] blood pressure systolic 2022-04-29 15:15:00 160 mm[Hg] [facility] blood pressure diastolic 2022-04-29 15:15:00 72 mm[Hg] Common [facility] height 2022-03-25 09:45:00 67 [in_i] Commo n [facility] weight 2022-03-25 09:45:00 147 [lb_av] Comm on [facility] temperature 2022-03-25 09:45:00 98.4 [degF] Com [facility] bmi 2022-03-25 09:45:00 23.02 kg/m2 Comm [facility] oximetry 2022-03-25 09:45:00 97 % Commo [facility] respiratory rate 2022-03-25 09:45:00 16 /min [facility] blood pressure systolic 2022-03-25 09:45:00 113 mm[Hg] Common [facility] blood pressure diastolic 2022-03-25 09:45:00 58 mm[Hg] Common [facility] height 2022-02-12 11:00:00 67 [in_i] Commo n [facility] weight 2022-02-12 11:00:00 150 [lb_av] Comm on [facility] temperature 2022-02-12 11:00:00 98.8 [degF] Com [facility] bmi 2022-02-12 11:00:00 23.49 kg/m2 Comm [facility] oximetry 2022-02-12 11:00:00 97 % Commo [facility] respiratory rate 2022-02-12 11:00:00 18 /min [facility] blood pressure systolic 2022-02-12 11:00:00 145 mm[Hg] [facility] blood pressure diastolic 2022-02-12 11:00:00 64 mm[Hg] Common [facility] height 2021-12-08 08:00:00 67 [in_i] Commo n [facility] weight 2021-12-08 08:00:00 146 [lb_av] Comm on [facility] temperature 2021-12-08 08:00:00 97.8 [degF] Com mon [facility] bmi 2021-12-08 08:00:00 22.86 kg/m2 Comm [facility] oximetry 2021-12-08 08:00:00 97 % Commo [facility] respiratory rate 2021-12-08 08:00:00 16 /min [facility] blood pressure systolic 2021-12-08 08:00:00 126 mm[Hg] Common [facility] blood pressure diastolic 2021-12-08 08:00:00 62 mm[Hg] [facility] height 2021-08-13 09:00:00 67.5 [in_i] Comm on [facility] weight 2021-08-13 09:00:00 149.8 [lb_av] Co [facility] temperature 2021-08-13 09:00:00 99.1 [degF] Com mon [facility] bmi 2021-08-13 09:00:00 23.11 kg/m2 Comm [facility] oximetry 2021-08-13 09:00:00 98 % Commo n [facility] respiratory rate 2021-08-13 09:00:00 16 /min [facility] blood pressure systolic 2021-08-13 09:00:00 143 mm[Hg] [facility] blood pressure diastolic 2021-08-13 09:00:00 65 mm[Hg] [facility] height 2021-07-11 08:00:00 67.5 [in_i] Comm on [facility] weight 2021-07-11 08:00:00 149 [lb_av] Comm on [facility] temperature 2021-07-11 08:00:00 97.7 [degF] Com [facility] bmi 2021-07-11 08:00:00 22.99 kg/m2 Comm [facility] oximetry 2021-07-11 08:00:00 95 % Commo n [facility] respiratory rate 2021-07-11 08:00:00 16 /min [facility] blood pressure systolic 2021-07-11 08:00:00 139 mm[Hg] [facility] blood pressure diastolic 2021-07-11 08:00:00 66 mm[Hg] [facility] height 2021-07-11 08:00:00 67.5 [in_i] Comm on [facility] weight 2021-07-11 08:00:00 149 [lb_av] Comm on [facility] temperature 2021-07-11 08:00:00 97.7 [degF] Com [facility] bmi 2021-07-11 08:00:00 22.99 kg/m2 Comm [facility] oximetry 2021-07-11 08:00:00 95 % Commo n [facility] respiratory rate 2021-07-11 08:00:00 16 /min [facility] blood pressure systolic 2021-07-11 08:00:00 139 mm[Hg] [facility] blood pressure diastolic 2021-07-11 08:00:00 66 mm[Hg] [facility] height 2021-05-28 13:30:00 67.5 [in_i] Comm on [facility] weight 2021-05-28 13:30:00 165 [lb_av] Comm on [facility] temperature 2021-05-28 13:30:00 98.6 [degF] Com [facility] bmi 2021-05-28 13:30:00 25.46 kg/m2 Comm [facility] oximetry 2021-05-28 13:30:00 96 % Commo n [facility] respiratory rate 2021-05-28 13:30:00 16 /min [facility] blood pressure systolic 2021-05-28 13:30:00 123 mm[Hg] [facility] blood pressure diastolic 2021-05-28 13:30:00 60 mm[Hg] Common [facility] height 2021-03-13 13:15:00 67.5 [in_i] Comm on [facility] weight 2021-03-13 13:15:00 139.8 [lb_av] Co [facility] temperature 2021-03-13 13:15:00 98 [degF] Comm on [facility] bmi 2021-03-13 13:15:00 21.57 kg/m2 Comm [facility] oximetry 2021-03-13 13:15:00 94 % Commo n [facility] blood pressure systolic 2021-03-13 13:15:00 90 mm[Hg] [facility] blood pressure diastolic 2021-03-13 13:15:00 42 mm[Hg] Common [facility] height 2021-02-26 14:00:00 67.5 [in_i] Comm on [facility] weight 2021-02-26 14:00:00 151 [lb_av] Comm on [facility] temperature 2021-02-26 14:00:00 98.2 [degF] Com mon [facility] bmi 2021-02-26 14:00:00 23.3 kg/m2 [facility]mo n [facility] oximetry 2021-02-26 14:00:00 97 % Commo n [facility] respiratory rate 2021-02-26 14:00:00 16 /min [facility] blood pressure systolic 2021-02-26 14:00:00 140 mm[Hg] [facility] blood pressure diastolic 2021-02-26 14:00:00 82 mm[Hg] [facility] height 2021-02-26 15:30:00 67.5 [in_i] Comm on [facility] weight 2021-02-26 15:30:00 150.6 [lb_av] Co [facility] temperature 2021-02-26 15:30:00 98.3 [degF] Com mon [facility] bmi 2021-02-26 15:30:00 23.24 kg/m2 Comm on [facility] oximetry 2021-02-26 15:30:00 100 % Commo n [facility] respiratory rate 2021-02-26 15:30:00 18 /min [facility] blood pressure systolic 2021-02-26 15:30:00 199 mm[Hg] [facility] blood pressure diastolic 2021-02-26 15:30:00 95 mm[Hg] [facility] Procedures Procedure Date / Time Performed Performing Clinician Source TONYA,POST-VOID RES,US,NON-IMAGING 2023-09-14 00:00:00 Stephenie Phillips [facility] TONYA,POST-VOID RES,US,NON-IMAGING 2023-06-25 16:29:00 Amanda Hewitt [facility] POCT URINALYSIS AUTO 2023-06-25 16:15:00 Indra Hewitt [facility] PVR 2022-04-29 00:00:00 [facility] En[facility] Start Date/Time End Date/Time Encounter Type Admission Type Attending Clinicians Care Facility Care Department Encounter ID Source 2021-12-05 10:25:01 Outpatient Fe Carrie [facility] [id number] [facility] 2021-11-06 08:07:01 Outpatient Carrie Miramontes [facility] [id number] [facility] 2021-07-14 09:54:02 Outpatient Carrie Miramontes [facility] [id number] [facility] 2021-04-09 14:25:22 Outpatient Carrie Miramontes [facility] [id number] [facility] 2024-02-25 00:00:00 2024-02-25 00:00:00 NATHALY Flanagan: [address] [place] [phone] , Ph. [facility] [id number] [facility] 2024-02-04 00:00:00 2024-02-04 00:00:00 Greer Shah PA: [address] [place] [phone] , Ph. [facility] [id number] [facility] 2024-01-20 00:00:00 2024-01-20 00:00:00 Sarwat Carson MD: [address] [place] [phone] , Ph. [facility] [id number] [facility] 2023-12-22 00:00:00 2023-12-22 00:00:00 Greer Shah PA: [address] [place] [phone] , Ph. [facility] [id number] [facility] 2023-11-19 00:00:00 2023-11-19 00:00:00 Greer Shah PA: [address] [place] [phone] , Ph. [facility] [id number] [facility] 2023-11-18 00:00:00 2023-11-18 00:00:00 Sarwat Carson MD: [address] [place] [phone] , Ph. [facility] [id number] [facility] 2023-11-12 00:00:00 2023-11-12 00:00:00 Greer Shah PA: [address] [place] [phone] , Ph. [facility] [id number] [facility] 2023-10-19 00:00:00 2023-10-19 00:00:00 NATHALY Flanagan: [address] [place] [phone] , Ph. [facility] [id number] [facility] 2023-10-11 00:00:00 2023-10-11 00:00:00 NATHALY Flanagan: [address] [place] [phone] , Ph. [facility] [id number] [facility] 2023-09-28 11:00:00 2023-09-28 11:00:00 Outpatient AMANDA HERNANDEZ [facility] [id number] [facility] 2023-09-27 00:00:00 2023-09-27 00:00:00 NATHALY Flanagan: [address] [place] [phone] , Ph. [facility] [id number] [facility] 2023-09-23 00:00:00 2023-09-23 00:00:00 Sarwat Carson MD: [address] [place] [phone] , Ph. [facility] [id number] [facility] 2023-09-14 09:30:00 2023-09-14 10:15:43 Outpatient R [facility] [id number] [facility] 2023-09-14 09:30:00 2023-09-14 09:45:00 Office Visit [facility] [id number] [facility] 2023-09-10 00:00:00 2023-09-10 00:00:00 NATHALY Flanagan: [address] [place], [place] [phone] , Ph. [facility] [id number] [place] 2023-08-27 00:00:00 2023-08-27 00:00:00 NATHALY Flanagan: [address] [place] [phone] , Ph. [facility] [place] [facility] [id number] [place] 2023-08-18 00:00:00 2023-08-18 00:00:00 NATHALY Flanagan: [address] [place] [phone] , Ph. [facility] [id number] [place] 2023-08-13 00:00:00 2023-08-13 00:00:00 NATHALY Flanagan: [address] [place] [phone] , Ph. [facility] - [facility] [id number] [place] 2023-08-11 00:00:00 2023-08-11 00:00:00 Greer Shah PA: [address] [place], [place] [phone] , Ph. [phone] [place] [address] - [facility] [id number] [place] 2023-08-04 00:00:00 2023-08-04 00:00:00 Greer Shah PA: [address] [place], [place] [phone] , Ph. [facility] - [facility] [id number] [place] 2023-07-30 00:00:00 2023-07-30 00:00:00 Greer Shah PA: [address] [place], [place] [phone] , Ph. [phone] [place] [address] [facility] [id number] [place] 2023-07-23 00:00:00 2023-07-23 00:00:00 Greer Shah PA: [address] [place] [phone] , Ph. [phone] [place] [address] - [facility] [id number] [place] 2023-07-15 00:00:00 2023-07-15 00:00:00 Sarwat Carson MD: [address] [place] [phone] , Ph. [facility] - [facility] [id number] [facility] 2023-07-09 00:00:00 2023-07-09 00:00:00 NATHALY Flanagan: [address] [place] [phone] , Ph. [facility] [id number] [place] 2023-07-08 08:00:00 2023-07-08 09:21:12 Outpatient R MAYELIN ALDANA [facility] [id number] [facility] 2023-07-08 08:00:00 2023-07-08 09:21:12 Office Visit [place], [facility] [id number] [facility] 2023-07-05 00:00:00 2023-07-05 00:00:00 NATHALY Flanagan: [address] [place], [place] [phone] , Ph. [facility] [id number] [place] 2023-06-25 11:00:00 2023-06-25 11:58:40 Outpatient R AMANDA HEWITT [facility] [id number] [facility] 2023-06-25 11:00:00 2023-06-25 11:58:40 Office Visit Amanda Hewitt [facility] [id number] [facility] 2023-06-25 00:00:00 2023-06-25 00:00:00 NATHALY Flanagan: [address] [place] [address] , Ph. [facility] [id number] [place] 2023-06-17 00:00:00 2023-06-17 00:00:00 Outpatient [facility]Tod d_J PRIV PRIV [id number] [place] 2023-06-10 00:00:00 2023-06-10 00:00:00 Outpatient [facility]_Tod d_J PRIV PRIV [id number] [place] 2023-06-07 00:00:00 2023-06-07 00:00:00 NATHALY Flanagan: [address] [place] [phone] , Ph. [facility] - [facility] [id number] [place] 2023-05-13 00:00:00 2023-05-13 00:00:00 Sarwat Carson MD: [address] [place] [phone] , Ph. [facility] - [facility] [id number] [place] 2023-05-13 00:00:00 2023-05-13 00:00:00 Sarwat Carson MD: [address] [place] [phone] , Ph. [facility] - [facility] [id number] [facility] [facility] 2023-04-20 00:00:00 2023-04-20 00:00:00 NATHALY Flanagan: [address] [place] [phone] , Ph. [facility] - [facility] [id number] [facility] [facility] 2023-03-25 00:00:00 2023-03-25 00:00:00 Outpatient [facility]_Tod d_J PRIV PRIV [id number] [place] 2023-03-05 00:00:00 2023-03-05 00:00:00 Outpatient [facility]_Tod d_J PRIV PRIV [id number] [facility] 2023-01-14 00:00:00 2023-01-14 00:00:00 Outpatient [facility]_Tod d_J PRIV PRIV [id number] [facility] 2023-01-14 00:00:00 2023-01-14 00:00:00 Outpatient GC_[facility]_Tod d_J PRIV PRIV [id number] [facility] 2023-01-14 00:00:00 2023-01-14 00:00:00 Outpatient [facility]Tod d_J PRIV PRIV [id number] [facility] 2023-01-14 00:00:00 2023-01-14 00:00:00 Outpatient [facility]Tod d_J PRIV PRIV [id number] [facility] 2023-01-14 00:00:00 2023-01-14 00:00:00 Outpatient [facility]Tod d_J PRIV PRIV [id number] [facility] [facility] 2023-01-14 00:00:00 2023-01-14 00:00:00 Outpatient GC_[facility]_Tod d_J PRIV PRIV [id number] [facility] 2023-01-14 00:00:00 2023-01-14 00:00:00 Outpatient GC_[facility]_Tod d_J PRIV PRIV [id number] [facility] 2023-01-01 00:00:00 2023-01-01 00:00:00 Outpatient GC_[facility]_Tod d_J PRIV PRIV [id number] [facility] 2023-01-01 00:00:00 2023-01-01 00:00:00 Outpatient GC_[facility]_Tod d_J PRIV PRIV [id number] [facility] 2023-01-01 00:00:00 2023-01-01 00:00:00 Outpatient GC_BAHC_Tod d_J PRIV PRIV [id number] [facility] 2022-12-31 00:00:00 2022-12-31 00:00:00 Outpatient GC_[facility]_Tod d_J [facility] [id number] [place] 2022-11-10 00:00:00 2022-11-10 00:00:00 OFFICE VISIT ESTAB PT LEVEL 3 STLMLC STLMLC [id number] [facility] 2022-10-28 00:00:00 2022-10-28 00:00:00 OFFICE VISIT ESTAB PT LEVEL 3 STLMLC STLMLC [id number] [facility] 2022-10-20 00:00:00 2022-10-20 00:00:00 OFFICE VISIT ESTAB PT LEVEL 3 STLMLC STLMLC [id number] [facility] 2022-08-03 00:00:00 2022-08-03 00:00:00 (TEL) STLMLC STLMLC [id number] [facility] 2022-07-31 00:00:00 2022-07-31 00:00:00 SUB ANNUAL [facility] VISIT STLMLC STLMLC [id number] [facility] 2022-07-31 00:00:00 2022-07-31 00:00:00 OFFICE VISIT ESTAB PT LEVEL 3 STLMLC STLMLC [id number] [facility] 2022-04-30 00:00:00 2022-04-30 00:00:00 (TEL) STLMLC STLMLC [id number] [facility] 2022-04-29 00:00:00 2022-04-29 00:00:00 OFFICE VISIT ESTAB PT LEVEL 2 STLMLC STLMLC [id number] [facility] 2022-03-30 00:00:00 2022-03-30 00:00:00 (TEL) STLMLC STLMLC [id number] [facility] 2022-03-25 00:00:00 2022-03-25 00:00:00 (TEL) STLMLC STLMLC [id number] [facility] 2022-03-25 00:00:00 2022-03-25 00:00:00 OFFICE VISIT ESTAB PT LEVEL 2 STLMLC STLMLC [id number] [facility] 2022-03-12 00:00:00 2022-03-12 00:00:00 (TEL) STLMLC STLMLC [id number] [facility] 2022-02-12 00:00:00 2022-02-12 00:00:00 OFFICE VISIT ESTAB PT LEVEL 4 STLMLC STLMLC [id number] [facility] 2021-12-08 00:00:00 2021-12-08 00:00:00 OFFICE VISIT EST PT LEVEL 3 STLMLC STLMLC [id number] [facility] 2021-11-10 00:00:00 2021-11-10 00:00:00 (TEL) STLMLC STLMLC [id number] [facility] 2021-08-13 00:00:00 2021-08-13 00:00:00 OFFICE VISIT ESTAB PT LEVEL 1 STLMLC STLMLC [id number] [facility] 2021-07-21 00:00:00 2021-07-21 00:00:00 (TEL) STLMLC STLMLC [id number] [facility] 2021-07-11 00:00:00 2021-07-11 00:00:00 OFFICE VISIT EST PT LEVEL 3 STLMLC STLMLC [id number] [facility] 2021-07-11 00:00:00 2021-07-11 00:00:00 SUB ANNUAL [facility] WELLNESS VISIT STLMLC STLMLC [id number] [facility] 2021-07-10 00:00:00 2021-07-10 00:00:00 Postop visit STLMLC STLMLC [id number] [facility] 2021-07-09 00:00:00 2021-07-09 00:00:00 (ESTPT) Establishe d Patient STLMLC STLMLC [id number] [facility] 2021-07-07 00:00:00 2021-07-07 00:00:00 (TEL) STLMLC STLMLC [id number] [facility] 2021-05-28 00:00:00 2021-05-28 00:00:00 OFFICE VISIT EST PT LEVEL 3 STLMLC STLMLC [id number] [facility] 2021-04-23 00:00:00 2021-04-23 00:00:00 (PROC) Procedure STLMLC STLMLC [id number] [facility] 2021-03-13 00:00:00 2021-03-13 00:00:00 OFFICE VISIT ESTAB PT LEVEL 2 STLMLC STLMLC [id number] [facility] 2021-02-26 00:00:00 2021-02-26 00:00:00 OFFICE VISIT ESTAB PT LEVEL 4 STLMLC STLMLC [id number] [facility] 2021-02-26 00:00:00 2021-02-26 00:00:00 (TEL) STLMLC STLMLC [id number] [facility] 2021-02-26 00:00:00 2021-02-26 00:00:00 OFFICE VISIT NEW PT LEVEL 4 STLMLC STLMLC [id number] [facility] Results Test Description Test Time Test Comments Results Result Co mments Source [facility],POST-VOID RES,US,[id number] 16:29:00* Test Item Value Reference Range Interpretation Comme nts PVR (URINE VOLUME) (test code = 5193) 0 ml 0-100 [facility],POST-VOID RES,US,[id number] 16:29:00* Test Item Value Reference Range Interpretation Comme nts PVR (URINE VOLUME) (test code = 5193) 0 ml 0-100 [facility],POST-VOID RES,US,[id number] 16:29:00* Test Item Value Reference Range Interpretation Comme nts PVR (URINE VOLUME) (test code = 5193) 0 ml 0-100 [facility], [id number] 16:15:00 * Test Item Value Reference Range Interpretation Comme nts POCT U SP GRAV (test code = 3255) 1.020 mg/dl 1.005-1.025 POCT PH U (test code = 3254) 7.0 mg/dl 5-8 POCT U LEUK EST (test code = 3263) Trace Negative - Negative POCT U NIT (test code = 3262) Negative Negative - Negati ve POCT U PROT (test code = 3259) Negative Negative - Negative POCT U GLU (test code = 3256) Negative Negative - Negati ve POCT U KETONE (test code = 3258) Negative Negative - Negative POCT U UROBILI (test code = 3260) 1.0 mg/dl 0.2-1 POCT U BILI (test code = 3261) Negative Negative - Negative POCT U BLD (test code = 3257) Negative Negative - Negati ve POCT U COLOR (test code = 3266) Yellow POCT U APPEAR (test code = 3267) [facility] Urinalysis, [id number] 16:15:00 * Test Item Value Reference Range Interpretation Comme nts POCT U SP GRAV (test code = 3255) 1.020 mg/dl 1.005-1.025 POCT PH U (test code = 3254) 7.0 mg/dl 5-8 POCT U LEUK EST (test code = 3263) Trace Negative - Negative POCT U NIT (test code = 3262) Negative Negative - Negati ve POCT U PROT (test code = 3259) Negative Negative - Negative POCT U GLU (test code = 3256) Negative Negative - Negati ve POCT U KETONE (test code = 3258) Negative Negative - Negative POCT U UROBILI (test code = 3260) 1.0 mg/dl 0.2-1 POCT U BILI (test code = 3261) Negative Negative - Negative POCT U BLD (test code = 3257) Negative Negative - Negati ve POCT U COLOR (test code = 3266) Yellow POCT U APPEAR (test code = 3267) [facility] Urinalysis, [id number] 16:15:00 * Test Item Value Reference Range Interpretation Comme nts POCT U SP GRAV (test code = 3255) 1.020 mg/dl 1.005-1.025 POCT PH U (test code = 3254) 7.0 mg/dl 5-8 POCT U LEUK EST (test code = 3263) Trace Negative - Negative POCT U NIT (test code = 3262) Negative Negative - Negati ve POCT U PROT (test code = 3259) Negative Negative - Negative POCT U GLU (test code = 3256) Negative Negative - Negati ve POCT U KETONE (test code = 3258) Negative Negative - Negative POCT U UROBILI (test code = 3260) 1.0 mg/dl 0.2-1 POCT U BILI (test code = 3261) Negative Negative - Negative POCT U BLD (test code = 3257) Negative Negative - Negati ve POCT U COLOR (test code = 3266) Yellow POCT U APPEAR (test code = 3267) [facility] [id number] 00:00:00* Test Item Value Reference Range Interpretation Comme nts CALC LDL CHOL (test code = 06076-0) 101 MG/DL See_Comment H [[facility] [employer]] The system which generated this result transmitted reference range: <100 MG/DL. The reference range was not used to interpret this result as normal/abnormal. CHOLESTEROL (test code = 2093-3) 169 MG/DL See_Comment [[facility] [employer]] The system which generated this result transmitted reference range: <200 MG/DL. The reference range was not used to interpret this result as normal/abnormal. HDL CHOLESTEROL (test code = 2085-9) 48 MG/DL See_Comment [Automated IPG] The system which generated this result transmitted reference range: >39 MG/DL. The reference range was not used to interpret this result as normal/abnormal. RISK RATIO LDL/HDL (test code = 36290-0) 2.10 RATIO See_Comment [Automated message] The system which generated this result transmitted reference range: <3.55 RATIO. The reference range was not used to interpret this result as normal/abnormal. TRIGLYCERIDES (test code = 2571-8) 103 MG/DL See_Comment [[facility] [employer]] The system which generated this result transmitted reference range: <150 MG/DL. The reference range was not used to interpret this result as normal/abnormal.
[2024-03-23] MEDS ORDERED: ONDANSETRON 4 MG/2 ML VIAL ONE (05:28)
[2024-03-23] MEDS ORDERED: LORazepam 2 MG/ML VIAL ONE (05:29)
[2024-03-23] MEDS ORDERED: HYDROMORPHONE HCL 1 MG/ML INJ ONE (05:29)
[2024-03-23] MEDS ORDERED: NA CHLORIDE 0.9% 1,000 ML ONE (05:31)
[2024-03-23] MEDS ORDERED: PANTOPRAZOLE 40 MG INJ ONE (05:31)
[2024-03-23 05:50] LABS: PT Prothrombin Time 11.1 SECONDS (9.4-12.5); Protime INR 0.99
[2024-03-23 06:00] LABS: Absolute Basophils 0.1 K/uL (0-0.5); Absolute Eosinophils 0.2 K/uL (0-0.5); Absolute Lymphocytes (CBC) 1.7 K/uL (0.7-4.9); Absolute Monocytes 0.5 K/uL (0.1-1.3); Absolute Neutrophil 4.9 K/uL (1.8-8.0); Eosinophils % 2.6 % (0-4.4); Hematocrit 43.6 % (39.6-49.0); Hemoglobin 14.7 g/dL (13.6-17.9); MCH 31.6 pg (27.0-35.0); MCHC 33.7 g/dL (32.0-36.0); MCV 93.8 fL (80-100); MPV 7.5 fL (7.6-11.3); Monocytes % 6.5 % (3.3-12.3); Neutrophils % 66.9 % (41.7-73.7); Nucleated Red Blood Cells % 0.4 % (0-0); Platelets 201 thou/uL (152-406); RBC Red Blood Cell Count 4.65 M/uL (4.33-5.43); Red Cell Distribution Width 13.6 % (12.1-15.2)
[2024-03-23 06:05] LABS: Albumin 3.5 g/dL (3.4-5.0); Albumin/Globulin Ratio 1.2 (1.1-1.8); Anion Gap 12.7 mEq/L (5.0-15.0); Bilirubin Total 0.7 mg/dL (0.2-1.0); Globulin 2.9 g/dL (2.3-3.5); Potassium 3.7 mEq/L (3.5-5.1); Protein, Total 6.4 g/dL (6.4-8.2)
--- NOTE | 2024-03-23 07:50 | RAD REPORT ---
EXAMINATION: CT Abdomen Pelvis W Contrast CLINICAL INDICATION: Male, 83 years old. inguinal hernia right TECHNIQUE: CT abdomen and pelvis was performed, after the administration of IV contrast, as per [facility] protocol. Axial, sagittal and coronal reconstructions were obtained. One or more of the following dose reduction techniques were used: Automated exposure control, adjustment of the mA and k V according to patient size, and iterative reconstruction. Unless otherwise specified, incidental findings do not require dedicated imaging follow-up. COMPARISON: CT abdomen and pelvis 07/24/2023 and 12/30/2022. FINDINGS: LOWER CHEST: The visualized lung bases are clear. LIVER: Normal in size and contour. No focal lesion. BILIARY SYSTEM: Status post cholecystectomy. SPLEEN: Normal size. No focal lesion. PANCREAS: Uncinate process of the pancreas shows a 1.5 cm cystic lesion, appears progressive compared to prior exams. This can be further evaluated by pancreatic mass protocol CT or MRI on nonemergent basis. No ductal dilation, or alpesh-pancreatic fluid. ADRENALS: Normal; no mass. KIDNEYS: Normal size and contour. No hydronephrosis. URINARY BLADDER: Few small bladder diverticula arising from the right bladder wall.. GASTROINTESTINAL TRACT: Long segment of fluid distention and air-fluid levels along distal small chinmay l, with gradual caliber tapering, and mild fat stranding along the transition, for example see series 201 image 47, may suggest infectious or inflammatory enteritis with a degree of ileus. Distal colonic diverticulosis.. No evidence of free air, significant intra-abdominal free fluid, bowel obstruction or abscess. APPENDIX: Appendix not visualized, but no inflammatory changes in region of appendix. LYMPH NODES: No lymphadenopathy. MUSCULOSKELETAL: No acute or suspicious osseous abnormality. ADDITIONAL FINDINGS: Large right inguinal hernia containing fluid. IMPRESSION: Segmental mild fluid distention with mild central interstitial fat stranding along the regions of gra dual transition to normal small bowel caliber, along the ileum, suggesting infectious or inflammatory enteritis mild ileus. Distal colonic diverticulosis. Large right inguinal hernia containing fluid. Uncinate process of the pancreas shows a 1.5 cm cystic lesion, appears progressive compared to prior exams. This can be further evaluated by pancreatic mass protocol CT or MRI on nonemergent basis.
[2024-03-23 08:35] LABS: Specific Gravity 1.024 (1.005-1.030); Sqamous Epithelial None Seen /HPF (None Seen); Urine Bacteria None Seen /HPF (<20); Urine Bilirubin NEGATIVE (Negative); Urine Blood Negative (Negative); Urine Clarity Clear (Clear); Urine Color Colorless (Yellow); Urine Culture Reflex Order NOT NEEDED; Urine Glucose NEGATIVE (Negative); Urine Ketones NEGATIVE (Negative); Urine Microscopic Reflex YN ORDER UMIC; Urine Nitrite NEGATIVE (Negative); Urine Protein NEGATIVE (Negative); Urine RBC <5 /HPF (None Seen); Urine Urobilinogen Normal (Normal); Urine WBC <5 /HPF (<5); Urine pH 6.5 (5.0-7.0)
--- NOTE | 2024-03-23 08:42 | EDPHYS ---
Physician Documentation [facility] Name: Get Stephens Age: 83 yrs Sex: Male : 1940 Arrival Date: 03/23/2024 Time: 05:06 Bed 6 Private MD: ED Physician Jose Alejandro Elliott HPI: 03/23 05:12 This 83 yrs old Male presents to ER via Unassigned with complaints of Groin sp4 Pain. 06:14 Right groin pain.. sp4 06:22 Patient is elderly demented 83-year-old male presents from skilled nursing with moderate sp4 to severe right groin pain . Patient's primary physician is Dr. Genao. . 06:33 Patient presents from skilled nursing with acute moderate to severe right groin pain sp4 associated with bulging in the right groin. Past medical history includes CVA, encephalopathy, dementia, bradycardia, bilateral carotid stenosis, hypertension, hyperlipidemia, enlarged prostate, vertigo, chronic constipation, sigmoid diverticulosis, and the inguinal hernia on the right. Patient's medications include the sorbic acid, chewable aspirin 81 mg daily, atorvastatin 40 mg daily, cholecalciferol 1 tab daily, cyanocobalamin mean p.o. daily, Depakote 250 3 times daily, B12 for cyanocobalamin, famotidine 1 mg daily, Gaviscon tablets every 6 hours, metoprolol tartrate 25 twice daily, ondansetron 40 mg p.o. every 8 hours, polyethylene glycol 17 g p.o. daily, selenium 1 tab daily, tamsulosin 0.4 mg twice daily, also clonidine 0.1 mg p.o. every 8 hours, lisinopril 20 mg p.o. daily. Historical: - Allergies: 05:13 PENICILLINS; ay - PMHx: 05:13 BPH (Unknown); GERD; High Cholesterol; Hypertension; Vertigo; ay - PSHx: 05:13 Unable to Obtain; ay - Immunization history:: Adult Immunizations unknown. - Infectious Disease History:: UNKNOWN. - Social history:: Smoking status: unknown. - Family history:: not pertinent. ROS: 06:35 Constitutional: ROS not available secondary to progressive dementia sp4 06:35 All other systems are negative, 06:35 Unable to obtain ROS due to baseline dementia, Exam: 06:36 Constitutional: Frail elderly male, moderate distress secondary to pain, moderate sp4 dementia, Head/Face: Normocephalic, atraumatic. Eyes: Pupils equal round and reactive to light, extra-ocular motions intact. Lids and lashes normal. Conjunctiva and sclera are not injected. Cornea within normal limits. Periorbital areas with no swelling, redness, or edema. ENT: Nares patent. No nasal discharge, no septal abnormalities noted. Tympanic membranes are normal and external auditory canals are clear. Oropharynx with no redness, swelling, or masses, exudates, or evidence of obstruction, uvula midline. Mucous membranes moist. Neck: Trachea midline, no thyromegaly or masses palpated, and no cervical lymphadenopathy. Supple, full range of motion without nuchal rigidity, or vertebral point tenderness. Chest/axilla: Normal chest wall appearance and motion. Nontender with no deformity. No lesions are appreciated. Cardiovascular: Regular rate and rhythm with a normal S1 and S2. No gallops, murmurs, or rubs. Normal PMI, no JVD. No pulse deficits. Respiratory: Lungs have equal breath sounds bilaterally, clear to auscultation and percussion. No rales, rhonchi or wheezes noted. No increased work of breathing, no retractions or nasal flaring. Abdomen/GI: Soft, with normal bowel sounds. No distension or tympany. No guarding or rebound. No evidence of tenderness throughout. Moderate right-sided very painful right inguinal hernia. Back: No spinal tenderness. No costovertebral tenderness. Male : Positive moderate to large size right inguinal hernia feels distended and very tender on exam. Appears to be nonreducible. Skin: Warm, dry with normal turgor. Normal color with no rashes, no lesions, and no evidence of cellulitis. MS/ Extremity: Pulses equal, no cyanosis. Neurovascular intact. Full, normal range of motion. Neuro: Awake , patient is oriented to self only, grossly no lateralizing neurologic deficits. Vital Signs: 05:09 BP 200 / 89; Pulse 70; Resp 17; Temp 98.5; Pulse Ox 100% ; Weight 68.04 kg; ay 05:19 BP 161 / 78; Pulse 64; Resp 17; Pulse Ox 97% on R/A; ay 06:14 BP 162 / 69; Pulse 56; Resp 15; Pulse Ox 96% ; dd2 07:00 BP 136 / 65; Pulse 67; Resp 16; Pulse Ox 95% ; bp 08:39 BP 118 / 58; Pulse 49; Resp 15; Pulse Ox 98% ; bp Stephanie Coma Score: 05:19 Eye Response: spontaneous(4). Motor Response: obeys commands(6). Verbal Response: ay confused(4). Total: 14. 06:36 Eye Response: spontaneous(4). Motor Response: obeys commands(6). Verbal Response: sp4 oriented(5). Total: 15. MDM: 05:14 Medical Screening Exam initiated sp4 06:59 Differential diagnosis: appendicitis, UTI, urinary retention, prostatitis, urethritis. sp4 Data reviewed: vital signs, nurses notes, EMS record, lab test result(s), radiologic studies, CT scan. Consideration of Admission/Observation Escalation of care including admission/observation considered. Transition of care: After a detail discussion of the patient's case, care is transferred to Jose Alejandro Elliott MD. ED course: Patient is awaiting for CT report.. 08:22 Counseling: I had a detailed discussion with the patient and/or guardian regarding the rn historical points, exam findings, and any diagnostic results supporting the discharge/admit diagnosis, lab results, radiology results, the need for further work-up and treatment in the hospital. 03/23 05:14 Order name: CBC with Diff; Complete Time: 06:14 sp4 03/23 05:14 Order name: CMP; Complete Time: 06:14 sp4 03/23 05:14 Order name: Lipase; Complete Time: 06:14 sp4 03/23 05:14 Order name: Urinalysis w/ reflexes; Complete Time: 08:50 sp4 03/23 05:14 Order name: PT-INR; Complete Time: 05:57 sp4 03/23 05:14 Order name: Type And Screen; Complete Time: 08:17 sp4 03/23 05:14 Order name: CT Abd/Pelvis - IV Contrast Only; Complete Time: 08:17 sp4 03/23 05:13 Order name: NPO; Complete Time: 05:53 sp4 03/23 05:14 Order name: IV Saline Lock; Complete Time: 05:21 sp4 03/23 05:14 Order name: Labs collected and sent; Complete Time: 05:21 sp4 Administered Medications: 05:52 Drug: HYDROmorphone IVP 1 mg IVP once Route: IVP; Site: left antecubital; ay 10:09 Follow up: Response: No adverse reaction bp 05:52 Drug: Ativan IVP 0.5 mg IVP once Route: IVP; Site: left antecubital; ay 10:08 Follow up: Response: No adverse reaction bp 05:52 Drug: Ondansetron IVP 4 mg IVP once; over 2 minutes Route: IVP; Site: left antecubital; ay 08:06 Follow up: Response: No adverse reaction bp 05:52 Drug: NS 0.9% IV 1000 ml IV at 1 bolus Per protocol; to be given as a bolus over 60 ay minutes Route: IV; Rate: 1 bolus; Site: left antecubital; 08:07 Follow up: IV Status: Completed infusion bp 05:52 Drug: Pantoprazole IVP 40 mg IVP once Route: IVP; Site: left antecubital; ay 08:06 Follow up: Response: No adverse reaction bp Disposition Summary: 03/23/24 08:41 Hospitalization Ordered Notes: Hospitalization Status: Inpatient Admission rn Provider: Omar Polanco [facility] Condition: Stable rn Problem: new rn Symptoms: have improved rn Bed/Room Type: Standard rn Room Assignment: 215(03/23/24 09:48) em1 Diagnosis - Ileus, unspecified rn - Unilateral inguinal hernia, without obstruction or gangrene, not specified as rn recurrent Forms: - Medication Reconciliation Form rn - SBAR form rn - Leadership Thank You Letter rn Signatures: Dispatcher [employer] Jose Alejandro Martinez MD MD rn Martinez, Eric em1 Artie Patrick MD MD sp4 Fouzia Cobb RN RN ay Peltier, Brian RN bp Corrections: (The following items were deleted from the chart) 09:48 08:41 rn em1
--- NOTE | 2024-03-23 08:42 | ER ---
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 PT IS ay FROM [facility]. Coronavirus screen: At this time, the client does not indicate any symptoms associated with coronavirus-19. Ebola Screen: No symptoms or risks identified at this time. Initial Sepsis Screen: Does the patient meet any 2 criteria? No. Patient's initial sepsis screen is negative. Does the patient have a suspected source of infection? No. Patient's initial sepsis screen is negative. Risk Assessment: Do you want to hurt yourself or someone else? Patient reports no desire to harm self or others. Onset of symptoms was March 23, 2024. Care prior to arrival: Medication(s) given: zofran 4 mg, IV initiated. 18 GA, in the left antecubital area. Transition of care: patient was received from another setting of care (long-term care facility), [facility]. 05:09 Method Of Arrival: EMS: [facility] ay 05:09 Acuity: LARA 3 ay Triage Assessment: 05:13 General: Appears uncomfortable, Behavior is anxious. Pain: Complains of pain in groin ay Unable to use pain scale. Does not appear to understand pain scale. Patient appears to be grimacing, to be guarding, restless. EENT: No deficits noted. No signs and/or symptoms were reported regarding the EENT system. Neuro: Level of Consciousness is awake, alert, confused, Oriented to person. Cardiovascular: Patient's skin is warm and dry. Respiratory: Airway is patent Respiratory effort is even, unlabored, Respiratory pattern is regular, symmetrical. GI: Abdomen is non-distended, Abd is soft and non tender X 4 quads. : Swelling noted TENDERNESS TO GROIN Parent/caregiver report the patient having pain in suprapubic area. Derm: No deficits noted. No signs and/or symptoms reported regarding the dermatologic system. Musculoskeletal: No deficits noted. No signs and/or symptoms reported regarding the musculoskeletal system. Circulation, motion, and sensation intact. Range of motion: intact in all extremities. Historical: - Allergies: 05:13 PENICILLINS; ay - PMHx: 05:13 BPH (Unknown); GERD; High Cholesterol; Hypertension; Vertigo; ay - PSHx: 05:13 Unable to Obtain; ay - Immunization history:: Adult Immunizations unknown. - Infectious Disease History:: UNKNOWN. - Social history:: Smoking status: unknown. - Family history:: not pertinent. Screenin:19 [facility] ED Fall Risk Assessment (Adult) History of falling in the last 3 months, ay including since admission No falls in past 3 months (0 pts) Confusion or Disorientation Yes (5 pts) Intoxicated or Sedated No (0 pts) Impaired Gait No (0 pts) Mobility Assist Device Used Yes (1 pt) Altered Elimination No (0 pt) Score/Fall Risk Level 3 or more points = High Risk Oriented to surroundings, Maintained a safe environment, Educated pt \T\ family on fall prevention, incl call for assistance when getting out of bed, Assessed \T\ reinforced patient's understanding of fall precautions, Hourly rounding (assess needs \T\ fall precautionary measures) done. Abuse screen: Denies threats or abuse. Nutritional screening: No deficits noted. Tuberculosis screening: No symptoms or risk factors identified. Assessment: 05:19 Reassessment: SEE TRIAGE ASSESSMENT FOR FULL ASSESSMENT. ay 07:00 Reassessment: RECD REPORT FROM DEVIN VU. 83YO WM P/W HERNIA PAIN, SENT FROM [facility]. DISPO PENDING. 08:39 Reassessment: ALL CURRENT ORDERS COMPLETED, DISPO PENDING. bp Vital Signs: 05:09 BP 200 / 89; Pulse 70; Resp 17; Temp 98.5; Pulse Ox 100% ; Weight 68.04 kg; ay 05:19 BP 161 / 78; Pulse 64; Resp 17; Pulse Ox 97% on R/A; ay 06:14 BP 162 / 69; Pulse 56; Resp 15; Pulse Ox 96% ; dd2 07:00 BP 136 / 65; Pulse 67; Resp 16; Pulse Ox 95% ; bp 08:39 BP 118 / 58; Pulse 49; Resp 15; Pulse Ox 98% ; bp Stephanie Coma Score: 05:19 Eye Response: spontaneous(4). Motor Response: obeys commands(6). Verbal Response: ay confused(4). Total: 14. 06:36 Eye Response: spontaneous(4). Motor Response: obeys commands(6). Verbal Response: sp4 oriented(5). Total: 15. ED Course: 05:09 Patient arrived in ED. ay 05:12 Artie Patrick MD is Attending Physician. sp4 05:13 Triage completed. ay 05:13 Arm band placed on right wrist. Patient placed in an exam room, on a stretcher, on ay pulse oximetry. 05:19 Patient has correct armband on for positive identification. Bed in low position. Call ay light in reach. Side rails up X2. Client placed on continuous cardiac and pulse oximetry monitoring. NIBP monitoring applied. Door closed. Noise minimized. Warm blanket given. Pillow given. Verbal reassurance given. 05:19 Maintain EMS IV. Dressing intact. Good blood return noted. Site clean \T\ dry. Gauge \T\ ay site: 18G LAC. Flushed with 10 mL NS. Patient maintains SpO2 saturation greater than 95% on room air. 05:20 Radiology exam delayed due to lab results not completed at this time. (BUN/Creatinine). jc4 05:51 Fouzia Cobb RN is Primary Nurse. ay 06:38 CT Abd/Pelvis - IV Contrast Only In Process Unspecified. EDMS 07:03 Attending Physician role handed off by Artie Patrick MD rn 07:03 Jose Alejandro Elliott MD is Attending Physician. rn 07:11 Primary Nurse role handed off by Fouzia Cobb RN bp 07:11 Evangelista Walker, MIRELLA is Primary Nurse. bp 08:03 CONDOM CATH. bp 08:40 Omar Polanco is Hospitalizing Provider. rn Administered Medications: 05:52 Drug: HYDROmorphone IVP 1 mg IVP once Route: IVP; Site: left antecubital; ay 10:09 Follow up: Response: No adverse reaction bp 05:52 Drug: Ativan IVP 0.5 mg IVP once Route: IVP; Site: left antecubital; ay 10:08 Follow up: Response: No adverse reaction bp 05:52 Drug: Ondansetron IVP 4 mg IVP once; over 2 minutes Route: IVP; Site: left antecubital; ay 08:06 Follow up: Response: No adverse reaction bp 05:52 Drug: NS 0.9% IV 1000 ml IV at 1 bolus Per protocol; to be given as a bolus over 60 ay minutes Route: IV; Rate: 1 bolus; Site: left antecubital; 08:07 Follow up: IV Status: Completed infusion bp 05:52 Drug: Pantoprazole IVP 40 mg IVP once Route: IVP; Site: left antecubital; ay 08:06 Follow up: Response: No adverse reaction bp Medication: 05:19 VIS not applicable for this client. ay Outcome: 08:41 Decision to Hospitalize by Provider. rn 10:56 Patient left the ED. bp Signatures: Dispatcher [employer] EDMS Jose Alejandro Elliott MD MD rn Peltier, Brian, RN RN bp Artie Patrick MD MD sp4 Solitario Villatoro4 DEVIN LEDESMA RN RN dd2 Fouzia Cobb RN RN ay
--- NOTE | 2024-03-23 09:16 | P.HP ---
Certification for Inpatient Patient admitted to: Inpatient With expected LOS: >2 Midnights Practitioner: I am a practitioner with admitting privileges, knowledge of patient current condition, hospital course, and medical plan of care. Services: Services provided to patient in accordance with Admission requirements found in Title 42 Section 412.3 of the Code of Federal Regulations Patient History Date of Service: 03/23/24 Reason for admission: Enteris Mild ileus and right inguinal hernia History of Present Illness: Get Stephens is an 83-year-old male with past medical history of BPH, CVA, bilateral carotid stenosis, chronic constipation, sigmoid diverticulosis dementia, GERD, high cholesterol, hypertension, vertigo presented to the ED with severe right groin pain. Due to the patient's dementia, unable to obtain history. On examination, Get denies abdominal pain, right inguinal hernia reduced and nontender. Laboratory evaluation significant for serum glucose 154 and lipase 229. Initial vitals BP 200 / 89; Pulse 70; Resp 17; Temp 98.5; Pulse Ox 100% CT abd/pelvis reports "Segmental mild fluid distention with mild central interstitial fat stranding along the regions of gradual transition to normal small bowel caliber, along the ileum, suggesting infectious or inflammatory enteritis mild ileus. Distal colonic diverticulosis. Large right inguinal hernia containing fluid. Uncinate process of the pancreas shows a 1.5 cm cystic lesion, appears progressive compared to prior exams. This can be further evaluated by pancreatic mass protocol CT or MRI on nonemergent basis." Get had this right inguinal hernia in Jul, 2023 and was evaluated by Dr. Juan who recommended outpatient follow up. It is unclear if this visit took place. Get will be admitted to hospitalist service for further evaluation of right inguinal hernia and enteritis with mild ileus Allergies Penicillins Allergy (Verified 02/24/22 15:18) Hives/Rash,muscular problems Home Medications: Ascorbic Acid 500 mg PO DAILY 07/24/23 Aspirin Chewable [Aspirin Chewable*] 81 mg PO DAILY 07/24/23 Atorvastatin Calcium 40 mg PO BEDTIME 07/24/23 Cholecalciferol (Vitamin D3) [Vitamin D3] 1 cap PO DAILY 07/24/23 Mag/Aluminum/Sod Bicarb/Alginc [Gaviscon 80-14.2 mg Tab Chew] 2 tab PO Q6H PRN 07/24/23 Metoprolol Tartrate 12.5 mg PO BID 6AM 6PM 07/24/23 Ondansetron [Zofran (Odt)*] 4 mg PO Q8H PRN 07/24/23 Polyethylene Glycol 3350 [Miralax] 17 gm PO DAILY 07/24/23 Selenium 1 tab PO DAILY 07/24/23 Tamsulosin HCl [Flomax] 0.4 mg PO BID 07/24/23 cloNIDine HCL [Clonidine HCl] 0.1 mg PO Q8H PRN 07/24/23 lisinopriL [Lisinopril] 20 mg PO DAILY 07/24/23 Donepezil HCl 1 tab PO BEDTIME 03/23/24 Ferrous Sulfate 1 tab PO BID 03/23/24 Finasteride 1 tab PO DAILY 03/23/24 Lactulose 20 gm PO DAILY 03/23/24 Meclizine HCl 1 tab PO Q8H PRN 03/23/24 Psyllium [Metamucil (Hydrocil)*] 2 tbsp PO BID 03/23/24 - Past Medical/Surgical History Diabetic: No -: Hypertension -: Hyperlipidemia -: Enlarged prostate -: Vertigo -: Polyps removal from colon Psychosocial/ Personal History: Lives at home alone - Family History Father -: Heart disease, Hypertension - Social History Smoking Status: Unknown if ever smoked Alcohol use: No CD- Drugs: No Caffeine use: No Review of Systems is unable to be obtained Physical Examination - Physical Exam General: In no apparent distress, Other (sleeping) HEENT: Atraumatic, Normocephalic Neck: Supple, 2+ carotid pulse no bruit Respiratory: Clear to auscultation bilaterally, Normal air movement Cardiovascular: Normal pulses, Regular rate/rhythm, Normal S1 S2 Capillary refill: <2 Seconds Gastrointestinal: Normal bowel sounds, Soft and benign, No tenderness Musculoskeletal: No clubbing Integumentary: No rashes Neurological: Dementia - Studies Laboratory Data (last 24 hrs) 03/23/24 03/23/24 03/23/24 05:30 05:30 05:30 WBC 7.40 Hgb 14.7 Hct 43.6 Plt Count 201 PT 11.1 INR 0.99 Sodium 140 Potassium 3.7 BUN 14 Creatinine 1.03 Glucose 154 H Total Bilirubin 0.7 AST 24 ALT 34 Alkaline Phosphatase 87 Lipase 229 H Assessment and Plan - Plan Assessment and plan Right inguinal hernia Enteritis mild Ileus Pancreatic cystic lesion Distal colonic diverticulosis -CT abd/pelvis reports "Segmental mild fluid distention with mild central interstitial fat stranding along the regions of gradual transition to normal small bowel caliber, along the ileum, suggesting infectious or inflammatory enteritis mild ileus. Distal colonic diverticulosis. Large right inguinal hernia containing fluid. Uncinate process of the pancreas shows a 1.5 cm cystic lesion, appears progressive compared to prior exams. This can be further evaluated by pancreatic mass protocol CT or MRI on nonemergent basis." -Serial abdominal x-ray in the a.m. -Lipase 229, monitor daily -Protonix -Cipro and Flagyl IV -Gentle IV fluids -Clear liquid diet -Pain control -planned to follow up with Dr. Juan for right inguinal hernia, unknown if this was accomplished Hyperglycemic -Serum glucose 154 -Monitoring a.m. labs GERD Hypercholesterolemia Hypertension Vertigo Dementia Bilateral carotid stenosis -Continue home medication -Follow-up outpatient DVT PPx Full code LOS 2-3 days Discharge Plan: Long-Term Plan to discharge in: 48 Hours - Advance Directives Does patient have a Living Will: No Does patient have a Durable POA for Healthcare: No
[2024-03-23] MEDS ORDERED: ACETAMINOPHEN 325 MG TABLET PO PRN (09:36)
[2024-03-23] MEDS ORDERED: SODIUM CHLORIDE 0.9% 10ML INJ IV PRN (09:44)
[2024-03-23 11:07] VITALS: O2SAT 98
[2024-03-23] MEDS: CIPROFLOXACIN 400mg IV 400 MG/200 ML BAG IV SCH (12:05)
[2024-03-23] MEDS: METRONIDAZOLE 500mg IVPB 500 MG/100 ML BAG IV SCH (12:05)
[2024-03-23] MEDS: NA CHLORIDE 0.9% 1,000 ML IV SCH (12:05)
[2024-03-23 12:08] VITALS: BMI 21.5
[2024-03-23 16:35] LABS: Magnesium 2.3 mg/dL (1.6-2.4); Phosphorus 2.8 mg/dL (2.5-4.9)
[2024-03-23] MEDS ORDERED: MECLIZINE HCL 12.5 MG TAB PO PRN (19:46)
[2024-03-23] MEDS ORDERED: MORPHINE 2 MG/ML SYR IV PRN (19:57)
[2024-03-23] MEDS: FERROUS SULFATE 325 MG TAB PO SCH (20:32)
[2024-03-23] MEDS: DONEPEZIL HCL 5 MG TAB PO SCH (20:32)
[2024-03-23] MEDS: TAMSULOSIN 0.4 MG SR CAP PO SCH (20:32)
[2024-03-23] MEDS: ATORVASTATIN 40 MG TAB PO SCH (20:32)
[2024-03-23] MEDS: PANTOPRAZOLE 40 MG INJ IVP SCH (20:32)
[2024-03-24] MEDS: cloNIDine HCL 0.1 MG TAB PO PRN (04:36)
[2024-03-24 05:06] LABS: Absolute Basophils 0.1 K/uL (0-0.5); Absolute Eosinophils 0.2 K/uL (0-0.5); Absolute Lymphocytes (CBC) 1.1 K/uL (0.7-4.9); Absolute Monocytes 0.7 K/uL (0.1-1.3); Absolute Neutrophil 5.4 K/uL (1.8-8.0); Eosinophils % 3.1 % (0-4.4); Hematocrit 40.5 % (39.6-49.0); Hemoglobin 13.7 g/dL (13.6-17.9); Lymphocytes % 14.8 % (15.3-44.8); MCH 31.8 pg (27.0-35.0); MCHC 33.8 g/dL (32.0-36.0); MCV 94.2 fL (80-100); MPV 7.6 fL (7.6-11.3); Monocytes % 8.8 % (3.3-12.3); Neutrophils % 72.3 % (41.7-73.7); Nucleated Red Blood Cells % 0.1 % (0-0); Platelets 179 thou/uL (152-406); Red Cell Distribution Width 13.6 % (12.1-15.2)
[2024-03-24] MEDS: METOPROLOL TAR 25 MG TAB PO SCH (05:31)
[2024-03-24 05:32] LABS: Magnesium 2.1 mg/dL (1.6-2.4); Phosphorus 2.7 mg/dL (2.5-4.9)
--- NOTE | 2024-03-24 07:43 | RAD REPORT ---
EXAM: XR of the abdomen HISTORY: Abdominal pain follow up COMPARISON: None FINDINGS: XR of the abdomen shows a mildly thickened small bowel loops in the left abdomen. This coul d indicate inflammation. No bowel obstruction.. No suspicious calcifications are seen. Right upper quadrant surgical clips. Moderate degenerative change with levoscoliosis of the lumbar spine.
[2024-03-24] MEDS: lisinopriL 20 MG TAB PO SCH (08:28)
[2024-03-24] MEDS: VITAMIN D 1000 UNIT TAB PO SCH (08:29)
[2024-03-24] MEDS: ASPIRIN 81 MG CHEWABLE TABLET PO SCH (08:29)
[2024-03-24] MEDS: FINASTERIDE 5 MG TAB PO SCH (08:30)
[2024-03-24] MEDS: ENOXAPARIN 40 MG/0.4 ML SQ SCH (08:30)
--- NOTE | 2024-03-24 15:21 | P.CNS ---
Date of Consult: 03/24/24 PC: I was asked to see this 83-year-old male in regards to abdominal pain, and right inguinal hernia. HPC: This patient presented with abdominal pain, and at the time of admission was indicating pain in his right hernia. The patient is demented and has a difficulty communicating. PSHx: Patient has a long history of prostate issues Social Hx: Allergic to penicillins Sys R: Difficult communicate with the patient, but indicates no other problems O/E: Awake alert vital signs are stable HEENT: Negative Chest: Chest movement equal bilaterally Abd: Soft nontender no guarding or rebound. Has a large right fluid-filled hemiscrotum. [place]: Intact Data: The CT scan shows right inguinal hernia, but there is no intestinal comp onent with this. It is mostly hydrocele. Patient also has an ileus. Impression: Nonsurgical right inguinal hernia with ileal Plan: Patient has had this right inguinal hernia since at least 2012. It is not the cause of his pathology at the moment. Will follow with you.
--- NOTE | 2024-03-24 17:11 | P.PN ---
Date of Service: 03/24/24 Subjective Extremely hard of hearing and cannot read without his glasses- difficult communication Advanced diet to Full liquid BM recorded on 03/23, will continue to monitor ROS 10 point ROS as noted above, otherwise negative Physical Exam General: Awake, Alert, hard of hearing HEENT: Atraumatic, Normocephalic Neck: Supple, 2+ carotid pulse no bruit Respiratory: Clear to auscultation bilaterally, Normal air movement, on RA Cardiovascular: Normal pulses, NSR, Normal S1 S2 Capillary refill: <2 Seconds Gastrointestinal: Normal bowel sounds, Soft on palpation, ND/NT Musculoskeletal: No clubbing Integumentary: No rashes Neurological: Dementia Vitals Reviewed Problem list Right inguinal hernia Right Hydrocele Enteritis mild Ileus Pancreatic cystic lesion Distal colonic diverticulosis Hyperglycemic GERD Hypercholesterolemia Hypertension Vertigo Dementia Bilateral carotid stenosis Assessment and Plan Right inguinal hernia Right Hydrocele Enteritis mild Ileus Pancreatic cystic lesion Distal colonic diverticulosis -CT abd/pelvis reports "Segmental mild fluid distention with mild central interstitial fat stranding along the regions of gradual transition to normal small bowel caliber, along the ileum, suggesting infectious or inflammatory enteritis mild ileus. Distal colonic diverticulosis. Large right inguinal hernia containing fluid. Uncinate process of the pancreas shows a 1.5 cm cystic lesion, appears progressive compared to prior exams. This can be further evaluated by pancreatic mass protocol CT or MRI on nonemergent basis." -Serial abdominal x-ray in the a.m. -Lipase 229/22 -Protonix -Continue Cipro and Flagyl IV -Gentle IV fluids -Clear liquid diet -Pain control -Dr. Bateman- reports nonsurgical hernia Hyperglycemic -Serum glucose 107, A1C 5.5 -Monitoring a.m. labs GERD Hypercholesterolemia Hypertension Vertigo Dementia Bilateral carotid stenosis -Continue home medication -Follow-up outpatient DVT PPx Full code LOS 2-3 days Discharge Plan: Jail Plan to discharge in: 48 Hours
[2024-03-24] MEDS: MAGNESIUM CITRATE 300 ML BOT PO SCH (19:00)
[2024-03-24] MEDS: HALOPERIDOL LACT 5 MG/ML INJ ONE (21:43)
[2024-03-24] MEDS ORDERED: WATER FOR INJ,STERILE 10 ML IM PRN (21:46)
[2024-03-24] MEDS: HALOPERIDOL LACT 5 MG/ML INJ IV PRN (22:00)
[2024-03-24] MEDS: ZIPRASIDONE MESYLA 20 MG/VIAL IM PRN (22:18)
[2024-03-25 04:30] LABS: Absolute Basophils 0.1 K/uL (0-0.5); Absolute Eosinophils 0.2 K/uL (0-0.5); Absolute Monocytes 0.7 K/uL (0.1-1.3); Absolute Neutrophil 5.7 K/uL (1.8-8.0); Eosinophils % 2.6 % (0-4.4); Hematocrit 40.8 % (39.6-49.0); Hemoglobin 13.8 g/dL (13.6-17.9); Lymphocytes % 13.6 % (15.3-44.8); MCH 31.3 pg (27.0-35.0); MCHC 33.9 g/dL (32.0-36.0); MCV 92.4 fL (80-100); MPV 7.8 fL (7.6-11.3); Monocytes % 8.7 % (3.3-12.3); Neutrophils % 74.1 % (41.7-73.7); Platelets 157 thou/uL (152-406); RBC Red Blood Cell Count 4.42 M/uL (4.33-5.43); Red Cell Distribution Width 13.5 % (12.1-15.2)
[2024-03-25 04:44] LABS: Anion Gap 7.5 mEq/L (5.0-15.0); Magnesium 2.1 mg/dL (1.6-2.4); Phosphorus 2.6 mg/dL (2.5-4.9); Potassium 3.5 mEq/L (3.5-5.1)
[2024-03-25] MEDS: POTASSIUM CL SA 10 MEQ TAB PO ONE (08:26)
--- NOTE | 2024-03-25 09:28 | P.DS ---
Admission Date: 03/24/24 Discharge Date: 03/26/24 Disposition: TRANSFER TO LONG TERM Discharge Condition: GOOD Reason for Admission: Enteris Mild ileus and right inguinal hernia Brief History of Present Illness: Diagnosis Right inguinal hernia Right Hydrocele Enteritis mild Ileus Pancreatic cystic lesion Distal colonic diverticulosis Hyperglycemic GERD Hypercholesterolemia Hypertension Vertigo Dementia Bilateral carotid stenosis HPI 03/23/24 Get Stephens is an 83-year-old male with past medical history of BPH, CVA, bilateral carotid stenosis, chronic constipation, sigmoid diverticulosis dementia, GERD, high cholesterol, hypertension, vertigo presented to the ED with severe right groin pain. Due to the patient's dementia, unable to obtain history. On examination, Get denies abdominal pain, right inguinal hernia reduced and nontender. Laboratory evaluation significant for serum glucose 154 and lipase 229. Initial vitals BP 200 / 89; Pulse 70; Resp 17; Temp 98.5; Pulse Ox 100% CT abd/pelvis reports "Segmental mild fluid distention with mild central interstitial fat stranding along the regions of gradual transition to normal small bowel caliber, along the ileum, suggesting infectious or inflammatory enteritis mild ileus. Distal colonic diverticulosis. Large right inguinal hernia containing fluid. Uncinate process of the pancreas shows a 1.5 cm cystic lesion, appears progressive compared to prior exams. This can be further evaluated by pancreatic mass protocol CT or MRI on nonemergent basis." Get had this right inguinal hernia in Jul, 2023 and was evaluated by Dr. Juan who recommended outpatient follow up. It is unclear if this visit took place. Get will be admitted to hospitalist service for further evaluation of right inguinal hernia and enteritis with mild ileus Hospital Course: Get presented with pain to his right groin when a hernia was noted. CT abd/pelvis reports mild ileus and right inguinal hernia. This right inguinal hernia was present at his last admission in July 2023 with expectation to follow up with Dr. Bateman for further evaluation of surgical repair. This admission, Get was treated with Cipro/flagyl, he had a BM on 03/25, tolerated NPO and advanced successfully. Serial abdominal xrays showing no obstruction. Get was cleared for discharge. Get will need to follow up with Dr. Juan for further evaluation of the Right inguinal hernia. On 03/26/2024, Get was seen on morning rounds and deemed medically stable for discharge. Get was discharged with instructions to schedule follow-up appointments with PCP and Dr. Juan. Get was provided prescriptions for Cipro and Flagyl. Physical Exam General: Awake and alert, hard of hearing, NAD HEENT: Atraumatic, Normocephalic Neck: Supple, 2+ carotid pulse no bruit Respiratory: Clear BBS, nonlabored breathing, on RA Cardiovascular: Normal pulses, regular rate and rhythm, Normal S1 S2 present Capillary refill: <2 Seconds Gastrointestinal: Normal active bowel sounds, Soft on palpation, ND/NT Musculoskeletal: No clubbing Integumentary: No rashes Neurological: Dementia Vital Signs/Physical Exam: Temp Pulse Resp BP Pulse Ox 98.2 F 73 20 214/95 H 98 03/25/24 08:00 03/25/24 08:26 03/25/24 08:00 03/25/24 08:26 03/25/24 08:00 Laboratory Data at Discharge: WBC 7.70 thou/uL (4.3-10.9) 03/25/24 04:09 Hgb 13.8 g/dL (13.6-17.9) 03/25/24 04:09 Hct 40.8 % (39.6-49.0) 03/25/24 04:09 Plt Count 157 thou/uL (152-406) 03/25/24 04:09 PT 11.1 SECONDS (9.4-12.5) 03/23/24 05:30 INR 0.99 03/23/24 05:30 Sodium 142 mEq/L (136-145) 03/25/24 04:09 Potassium 3.5 mEq/L (3.5-5.1) 03/25/24 04:09 BUN 8 mg/dL (7-18) 03/25/24 04:09 Creatinine 0.76 mg/dL (0.70-1.30) 03/25/24 04:09 Glucose 108 mg/dL (74-106) H 03/25/24 04:09 Phosphorus 2.6 mg/dL (2.5-4.9) 03/25/24 04:09 Magnesium 2.1 mg/dL (1.6-2.4) 03/25/24 04:09 Total Bilirubin 0.7 mg/dL (0.2-1.0) 03/23/24 05:30 AST 24 U/L (15-37) 03/23/24 05:30 ALT 34 U/L (16-61) 03/23/24 05:30 Alkaline Phosphatase 87 U/L (45-117) 03/23/24 05:30 Lipase 12 U/L (13-75) L 03/25/24 04:09 Home Medications: Ascorbic Acid 500 mg PO DAILY 07/24/23 Aspirin Chewable [Aspirin Chewable*] 81 mg PO DAILY 07/24/23 Atorvastatin Calcium 40 mg PO BEDTIME 07/24/23 Cholecalciferol (Vitamin D3) [Vitamin D3] 1 cap PO DAILY 07/24/23 Mag/Aluminum/Sod Bicarb/Alginc [Gaviscon 80-14.2 mg Tab Chew] 2 tab PO Q6H PRN 07/24/23 Metoprolol Tartrate 12.5 mg PO BID 6AM 6PM 07/24/23 Ondansetron [Zofran (Odt)*] 4 mg PO Q8H PRN 07/24/23 Polyethylene Glycol 3350 [Miralax] 17 gm PO DAILY 07/24/23 Selenium 1 tab PO DAILY 07/24/23 Tamsulosin HCl [Flomax] 0.4 mg PO BID 07/24/23 cloNIDine HCL [Clonidine HCl] 0.1 mg PO Q8H PRN 07/24/23 lisinopriL [Lisinopril] 20 mg PO DAILY 07/24/23 Donepezil HCl 1 tab PO BEDTIME 03/23/24 Ferrous Sulfate 1 tab PO BID 03/23/24 Finasteride 1 tab PO DAILY 03/23/24 Lactulose 20 gm PO DAILY 03/23/24 Meclizine HCl 1 tab PO Q8H PRN 03/23/24 Psyllium [Metamucil (Hydrocil)*] 2 tbsp PO BID 03/23/24 Ciprofloxacin HCl [Cipro 500 MG Tablet] 500 mg PO BID 5 Days #10 tab 03/25/24 metroNIDAZOLE [Flagyl] 375 mg PO Q8H 5 Days #15 cap 03/25/24 New Medications: Ciprofloxacin HCl [Cipro 500 MG Tablet] 500 mg PO BID 5 Days #10 tab metroNIDAZOLE [Flagyl] 375 mg PO Q8H 5 Days #15 cap Physician Discharge Instructions: 1. Please call and schedule a follow-up appointment with your PCP in 3-5 days - Please follow-up with your PCP for medication refills/adjustments 2. Please call and schedule a follow-up appointment with Dr Bateman in 3-5 days -evaluate right inguinal hernia and right hydrocele 3. Continue heart healthy diet 4. activity restrictions fall precautions 5. Return to the ED if symptoms worsen New medications cipro 400 mg q12h x 5 days flagyl 500 mg q8h x 5 days Over the counter Dulcolax 100 mg daily Diet: Regular Activity: Fall precautions Followup: Scooter Juan MD [ACTIVE - CAN ADMIT] - OOTTRINY [Primary Care Provider] -
[2024-03-25] MEDS: HYDRALAZINE HCL 20 MG/ML VIAL IV PRN (09:32)
--- NOTE | 2024-03-25 18:09 | RAD REPORT ---
EXAM: XR Abdomen W Erect HISTORY: [facility] MAIN ileus COMPARISON: 03/24/2024 abdomen radiograph 03/23/2024 CT abdomen and pelvis FINDINGS: Single view of the abdomen shows a nonspecific, nonobstructive bowel gas pattern. Improved gaseous distention since the prior radiograph. Mild to moderate residual stool burden in the ascending colon. No suspicious calcifications are seen. The bones are unremarkable. IMPRESSION: Interval improvement of gaseous distention as above.
[2024-03-26 04:37] LABS: Absolute Basophils 0.1 K/uL (0-0.5); Absolute Eosinophils 0.3 K/uL (0-0.5); Absolute Lymphocytes (CBC) 1.2 K/uL (0.7-4.9); Absolute Monocytes 0.7 K/uL (0.1-1.3); Absolute Neutrophil 5.5 K/uL (1.8-8.0); Basophils % 0.8 % (0-1.3); Eosinophils % 4.3 % (0-4.4); Hematocrit 41.1 % (39.6-49.0); Hemoglobin 14.2 g/dL (13.6-17.9); Lymphocytes % 15.2 % (15.3-44.8); MCH 31.8 pg (27.0-35.0); MCHC 34.5 g/dL (32.0-36.0); MCV 92.1 fL (80-100); MPV 7.8 fL (7.6-11.3); Monocytes % 9.4 % (3.3-12.3); Neutrophils % 70.3 % (41.7-73.7); Platelets 164 thou/uL (152-406); RBC Red Blood Cell Count 4.46 M/uL (4.33-5.43); Red Cell Distribution Width 13.5 % (12.1-15.2)
[2024-03-26 04:51] LABS: Anion Gap 8.6 mEq/L (5.0-15.0); Magnesium 2.1 mg/dL (1.6-2.4); Phosphorus 2.6 mg/dL (2.5-4.9); Potassium 3.6 mEq/L (3.5-5.1)
[2024-03-26] MEDS: POTASSIUM 25 MEQ EFFERV TAB PO ONE (08:41)
--- NOTE | 2024-03-26 11:30 | P.PN ---
Date of Service: 03/25/24 Subjective No new complaints BP controlled stable for discharge ROS 10 point ROS as noted above, otherwise negative Physical Exam General: Awake, Alert, hard of hearing HEENT: Atraumatic, Normocephalic Neck: Supple, 2+ carotid pulse no bruit Respiratory: Clear to auscultation bilaterally, nonlabored breathing, on RA Cardiovascular: Normal pulses, NSR, Normal S1 S2 Capillary refill: <2 Seconds Gastrointestinal: Normal Active bowel sounds, Soft on palpation, ND/NT Musculoskeletal: No clubbing Integumentary: No rashes Neurological: Dementia Vitals Reviewed Problem list Right inguinal hernia Right Hydrocele Enteritis mild Ileus Pancreatic cystic lesion Distal colonic diverticulosis Hyperglycemic GERD Hypercholesterolemia Hypertension Vertigo Dementia Bilateral carotid stenosis Assessment and Plan Right inguinal hernia Right Hydrocele Enteritis mild Ileus Pancreatic cystic lesion Distal colonic diverticulosis -CT abd/pelvis reports "Segmental mild fluid distention with mild central interstitial fat stranding along the regions of gradual transition to normal small bowel caliber, along the ileum, suggesting infectious or inflammatory enteritis mild ileus. Distal colonic diverticulosis. Large right inguinal hernia containing fluid. Uncinate process of the pancreas shows a 1.5 cm cystic lesion, appears progressive compared to prior exams. This can be further evaluated by pancreatic mass protocol CT or MRI on nonemergent basis." -Serial abdominal x-ray in the a.m. -Lipase 229/22 -Protonix -Continue Cipro and Flagyl PO -Gentle IV fluids -Clear liquid diet -Pain control -Dr. Bateman- reports nonsurgical hernia Hyperglycemic -Serum glucose 108, A1C 5.5 -Monitoring a.m. labs GERD Hypercholesterolemia Hypertension Vertigo Dementia Bilateral carotid stenosis -Continue home medication -Follow-up outpatient DVT PPx Full code LOS 2-3 days Discharge Plan: [facility] Plan to discharge in: 48 Hours
[2024-03-26] MEDS: metroNIDAZOLE 500 MG TABLET PO SCH (13:26)
[2024-03-26] MEDS ORDERED: CIPROFLOXACIN HCL 500 MG TAB PO SCH (21:00)
[2024-03-28 15:09] VITALS: BP 145/73
[2024-03-28 15:11] VITALS: TEMP 98.1
== END 2024-03-26 13:56 | DRG 394 ==
LOC: ER 05:06 → ERHOLD 09:35 → 2ND 10:12 → OBSVTOIN 03-24 18:32
PROVIDERS: ADMIT Internal Medicine; ATTEND Internal Medicine
DX: K40.90 Unilateral inguinal hernia, without obstruction or gangrene, not specified as recurrent (principal); K56.7 Ileus, unspecified; K86.2 Cyst of pancreas; I10 Essential (primary) hypertension; I65.23 Occlusion and stenosis of bilateral carotid arteries; H91.90 Unspecified hearing loss, unspecified ear; N43.3 Hydrocele, unspecified; E78.00 Pure hypercholesterolemia, unspecified; K52.9 Noninfective gastroenteritis and colitis, unspecified; K21.9 Gastro-esophageal reflux disease without esophagitis; N40.0 Benign prostatic hyperplasia without lower urinary tract symptoms; K57.30 Diverticulosis of large intestine without perforation or abscess without bleeding; F03.90 Unspecified dementia, unspecified severity, without behavioral disturbance, psychotic disturbance, mood disturbance, and anxiety; R42 Dizziness and giddiness; R73.9 Hyperglycemia, unspecified; Z60.2 Problems related to living alone; Z88.0 Allergy status to penicillin; Z79.82 Long term (current) use of aspirin; Z86.73 Personal history of transient ischemic attack (TIA), and cerebral infarction without residual deficits; Z79.899 Other long term (current) drug therapy
CPT/HCPCS: 36415; 74019; 74177; 80048; 80053; 81001; 83036; 83690; 83735; 84100; 85025; 85610; 86850; 86900; 86901; 96361; 96374; 96375; 99284; G0378; J0360; J0744; J1171; J1630; J1650; J2405; J2470; J3486; J7030; Q9967

== ENCOUNTER 2024-12-14 20:42 | Emergency (ER) | payer OTHER ==
--- OUTSIDE RECORDS SUMMARY | 2024-12-14 20:47 | XMS REPORT | Continuity of Care Document ---
Author Name Unknown Address [address] [facility] [address] [place] [address] [facility] Address [address] [facility] [place] [address] Care Team Providers Care Supervisor Records Change Name Role Phone Sarwat Genao Primary Care Physician [phone] Carrie Miramontes Attending Clinician Unavailable Doctor Unassigned, [place] Attending Clinician U AMANDA Saxena Attending Clinician Unavaila STEPHENIE Garrido Attending Clinician Unavailable Stephenie Phillips MD Attending Clinician [phone] MAYELIN ALDANA Attending Clinician Unavailable Mayelin Aldana MD Attending Clinician [phone] Amanda Funes Attending Clinician [phone] CLARK_YEFRI_Bren Attending Clinician Unavailable Blane Admitting Clinician Unavailable Payers Payer Name Policy Type Policy Number Effective Date Expirati on Date Source [place]: SED Web [id number] 2006 00:00:00 [employer] ([facility]) [id number] 2016 00:00:00 2023 00:00:00 Problems Condition Name Condition Details Condition Category Status Onset Date Resolution Date Last Treatment Date Treating Clinician Comments Source Carotid artery stenosis Carotid Artery Stenosis Problem Active 0 8-18 00:00: 00 [facility] Osteoarthr itis of cervical spine Osteoarthr itis of Cervical Spine Problem Active 8-18 00:00: 00 [facility] [place] [facility] Problem Active 2-02 00:00: 00 [facility] Palliative care Palliative Care Problem Active 2-02 00:00: 00 [facility] 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 Atheroscle rosis of Arteries of the Extremitie s Problem Active 1-16 00:00: 00 [facility] Cyst of pancreas Cyst of Pancreas Problem Active 1-16 00:00: 00 [facility] Chronic vertigo Chronic Vertigo Problem Active 1-16 00:00: 00 [facility] Tobacco dependence caused by cigarettes Tobacco Dependence Caused by Cigarettes Problem Active 1-16 00:00: 00 [facility] 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 Problem Active 8-07 00:00: 00 [facility] Urinary incontinen ce Urinary Incontinen ce Problem Active 5-31 00:00: 00 [facility] Liver cyst Liver Cyst Problem Active 5-30 00:00: 00 [facility] BPH (benign prostatic hyperplasi a) BPH (benign prostatic hyperplasi a) Disease Active 4-25 00:00: 00 [facility] Esophageal reflux Esophageal reflux Disease Active 4-25 00:00: 00 [facility] HLD (hyperlipi demia) HLD (hyperlipi demia) Disease Active 4-25 00:00: 00 [facility] HTN (hypertens ion) HTN (hypertens ion) Disease Active 4-25 00:00: 00 [facility] Rectal bleeding Rectal bleeding Disease Active 4-25 00:00: 00 [facility] Grade I hemorrhoid s Grade I hemorrhoid s Disease Active 4-25 00:00: 00 [facility] Chronic idiopathic constipati on Chronic idiopathic constipati on Disease Active 4-25 00:00: 00 [facility] Sensorineu ral hearing loss of bilateral ears Sensorineu ral Hearing Loss of Bilateral Ears Problem Active 3-06 00:00: 00 [facility] Indirect right inguinal hernia Indirect Right Inguinal Hernia Problem Active 2022-03 2-05 00:00: 00 [facility] Vascular dementia without behavioral disturbanc e Vascular Dementia without Behavioral Disturbanc e Problem Active 2022-03 1-08 00:00: 00 [facility] Atheroscle rosis of aorta Atheroscle rosis of Aorta Problem Active 2022-03 1- 00:00: 00 [facility] Hyperlipid emia Hyperlipid emia Problem Active 2022-03 0-20 00:00: 00 [facility] Senile purpura Senile [...] for Personal Care Assistance Problem Active 2022-03 020 00:00: 00 [facility] [id number] Foreign body in bladder, initial encounter Problem [facility] [id number] Detrusor instabilit y Problem [facility] [id number] Voiding dysfunctio n Problem [facility] Neurogenic dysfunctio n of the urinary bladder Neurogenic urinary bladder disorder Problem [facility] Lower urinary tract symptoms due to benign prostatic hypertroph y BPH with obstructio n/lower urinary tract symptoms Problem [facility] [id number] S/P TURP Problem [facility] [id number] Dysuria Problem [facility] [id number] Lesion of bladder Problem [facility] Benign prostatic hypertroph y without outflow obstructio n BPH loc w/o ur obs/LUTS Problem [facility] [id number] Painful bladder spasm Problem [facility] [id number] Recurrent vertigo Problem [facility] [id number] Wears hearing aid Problem [facility] [id number] Cancer of prostate w/low recurrence risk (T1-2a, Lyons<7 & PSA<10) Problem [facility] Benign prostatic hypertroph y with outflow obstructio n BPH loc w urin obs/LUTS Problem [facility] Essential hypertensi on Essential hypertensi on Problem [facility] Dyslipidem ia Dyslipidem ia Problem [facility] [id number] Urinary retention Problem [facility] Bladder diverticul um Bladder diverticul um Problem [facility] Disorder of urinary bladder Bladder disorder, unspecifie d Problem [facility] [id number] Acute prostatiti s Problem [facility] [id number] Sensation of chest pressure Problem [facility] Urinary tract obstructio n Urinary obstructio n Problem [facility] [id number] Jock itch Problem [facility] Allergies, Adverse Reactions, Alerts Allergy Name Allergy Type Status Severity Reaction(s) Onset Date Inactive Date Treating Clinician Comments Source PENICILL IN G SODIUM DRUG INGREDI Active Unknown-Cmnt 07-07 00:00: 00 [facility] Penicill in G Sodium Drug Allergy Active Unknown - See comments 07-07 00:00: 00 [facility] PENICILL IN G SODIUM Allergy to substanc e Active 07-07 00:00: 00 [facility] penicill in G penicill in G Active limb distortion [facility] NO KNOWN ALLERGIE S Drug Class Active [facility] PENICILL INS Allergy to substanc e Active [facility] Depakote Allergy to substanc e Active [facility] Social History Social Habit Start Date Stop Date Quantity Comments Source History of Tobacco Use [facility] Tobacco use and exposure 2023-07-08 00:00:00 2023-07-08 00:00:00 Smokeless tobacco non-user [facility] History of Social function 2023-06-25 00:00:00 2023-06-25 00:00:00 [facility] Sex assigned at 1940 00:00:00 1940 00:00:00 [facility] Smoking Status Start Date Stop Date Source Former Smoker [facility] Never smoked tobacco [facility] Tobacco smoking consumption unknown [facility] Medications Ordered Medication Name Filled Medication Name Start Date Stop Date Current Medication? Ordering Clinician Indication Dosage Frequency Signature (SIG) Comments Components Source Ascorbate Calcium 500 mg Tab 07-07 08:21: 35 Yes Take by mouth. [facility] Cholecalcif sarbjit, Vitamin D3, 25 mcg (1,000 unit) Chew 07-07 08:18: 23 Yes Take by mouth. [facility] vitamin B-12 1,000 mcg tablet 07-07 08:18: 23 Yes 1000ug Take 1 tablet by mouth in the morning. [facility] selenium 200 mcg Cap 07-07 08:18: 23 Yes Take by mouth. [facility] ondansetron (ZOFRAN) 4 mg tablet 07-07 08:18: 23 Yes 4mg Take 1 tablet by mouth every 8 (eight) hours as needed. [facility] Al Hyd-Mg Tr-Alg Ac-Sod Bicarb (GAVISCON) 80-14.2 mg Chew 07-07 08:18: 23 Yes Take by mouth. [facility] aspirin 81 mg Cap 07-07 08:14: 26 Yes Take by mouth. [facility] polyethylen e glycol 3350 (MIRALAX) 17 gram powder 07-07 00:00: 00 Yes [id number] Take 1 packet dissolved in 4-8 ounces beverage. [facility] Wheat Dextrin (BENEFIBER CLEAR) 3 gram/3.5 gram PwPk 07-07 00:00: 00 Yes [id number] 1{dose} Take 1 Dose by mouth in the morning. [facility] tamsulosin 0.4 mg 24 hr capsule 06-24 00:00: 00 Yes [id number] .4mg Take 1 capsule by mouth in the morning and 1 capsule in the evening. [facility] famotidine 20 mg tablet 06-22 00:00: 00 Yes [facility] lisinopriL 20 mg tablet 06-15 00:00: 00 Yes [facility] tamsulosin 0.4 mg 24 hr capsule 06-15 00:00: 00 06-24 00:00 :00 No [facility] atorvastati n 40 mg tablet 06-14 00:00: 00 Yes [facility] metoprolol tartrate 25 mg tablet 06-07 00:00: 00 Yes [facility] esomeprazol e 40 mg capsule 06-07 00:00: 00 Yes [facility] cloNIDine 0.1 mg tablet 06-06 00:00: 00 Yes [facility] Nystatin [id number] UNIT/GM Nystatin 864089 UNIT/GM 0 - 00:00: 00 No 1{appli cation} BID Nystatin 016465 UNIT/GM Nystatin 775015 UNIT/GM Nystatin 498788 UNIT/GM 2022-0 8- 00:00: 00 No 1{appli cation} BID Nystatin 630288 UNIT/GM Nystatin 417473 UNIT/GM Nystatin 278856 UNIT/GM 2023-0 8-16 00:00: 00 No 1{appli cation} BID Nystatin 868295 UNIT/GM Nystatin 972017 UNIT/GM Nystatin 228207 UNIT/GM 2023-0 8-16 00:00: 00 No 1{appli cation} BID Nystatin 331617 UNIT/GM Nystatin 972048 UNIT/GM Nystatin 946544 UNIT/GM 2023-0 8-16 00:00: 00 No 1{appli cation} BID Nystatin 659321 UNIT/GM Nystatin 213217 UNIT/GM Nystatin 734046 UNIT/GM 2023-0 8-16 00:00: 00 No 1{appli cation} BID Nystatin 428119 UNIT/GM Nystatin 467693 UNIT/GM Nystatin 411229 UNIT/GM 2023-0 8-16 00:00: 00 No 1{appli cation} BID Nystatin 795244 UNIT/GM Nystatin 595322 UNIT/GM Nystatin 751603 UNIT/GM 2023-0 8-16 00:00: 00 No 1{appli cation} BID Nystatin 149021 UNIT/GM Myrbetriq 25 MG Myrbetriq 25 MG 2022-0 1-11 00:00: 00 07-23 00:00 :00 No 1{table t} QD Myrbetriq 25 MG Myrbetriq 25 MG Myrbetriq 25 MG 2022-0 1-11 00:00: 00 07-23 00:00 :00 No 1{table t} QD Myrbetriq 25 MG Myrbetriq 25 MG Myrbetriq 25 MG 2022-0 1-11 00:00: 00 07-23 00:00 :00 No 1{table t} QD Myrbetriq 25 MG Tamsulosin HCl 0.4 MG Tamsulosin HCl 0.4 MG 2021-0 5-09 00:00: 00 01-17 00:00 :00 No 1{capsu le} QD Tamsulosin HCl 0.4 MG Levaquin 500 MG Levaquin 500 MG 2020-03 2-15 00:00: 00 03-11 00:00 :00 No 1{table t} QD Levaquin 500 MG Levaquin 500 MG Levaquin 500 MG 2020-03 2-15 00:00: 00 03-11 00:00 :00 No 1{table t} QD Levaquin 500 MG amlodipine 10 mg tablet Take 1 tablet every day by oral route. amlodipine 10 mg tablet Take 1 tablet every day by oral route. No 1 Q1D amlodipine 10 mg tablet Take 1 tablet every day by oral route. [facility] gabapentin 100 mg capsule gabapentin 100 mg capsule No gabapentin 100 mg capsule [facility] aspirin 81 mg tablet,jacqueline yed release Take 1 tablet every day by oral route. aspirin 81 mg tablet,jacqueline yed release Take 1 tablet every day by oral route. No 1 Q1D aspirin 81 mg tablet,del ayed release Take 1 tablet every day by oral route. [facility] cholecalcif sarbjit (vitamin D3) 25 mcg (1,000 unit) tablet Take 1 tablet every day by oral route. cholecalcif sarbjit (vitamin D3) 25 mcg (1,000 unit) tablet Take 1 tablet every day by oral route. No 1 Q1D cholecalci ferol (vitamin D3) 25 mcg (1,000 unit) tablet Take 1 tablet every day by oral route. [facility] selenium 200 mcg capsule selenium 200 mcg capsule No 1capsul e(s) Q1D selenium 200 mcg capsule [facility] meclizine 25 mg tablet meclizine 25 mg tablet No meclizine 25 mg tablet [facility] donepezil 10 mg tablet Take 1 tablet every day by oral route for 30 days. donepezil 10 mg tablet Take 1 tablet every day by oral route for 30 days. No 1 Q1D donepezil 10 mg tablet Take 1 tablet every day by oral route for 30 days. [facility] finasteride 5 mg tablet Take 1 tablet every day by oral route for 30 days. finasteride 5 mg tablet Take 1 tablet every day by oral route for 30 days. No 1 Q1D finasterid e 5 mg tablet Take 1 tablet every day by oral route for 30 days. [facility] lactulose 10 gram/15 mL oral solution lactulose 10 gram/15 mL oral solution No lactulose 10 gram/15 mL oral solution [facility] Meclizine HCl 25 MG Meclizine HCl 25 [...] t} QD Valsartan- hydroCHLOR Othiazide 80-12.5 MG L-Lysine L-Lysine No L-Lysine Meclizine HCl 25 MG Meclizine HCl 25 MG No Meclizine HCl 25 MG Simvastatin 10 MG Simvastatin 10 MG No 1{table t_in e_eveni ng} QD Simvastati n 10 MG Valsartan-h ydroCHLOROt hiazide 80-12.5 MG Valsartan-h ydroCHLOROt hiazide 80-12.5 MG No 1{table t} QD Valsartan- hydroCHLOR Othiazide 80-12.5 MG L-Lysine L-Lysine No L-Lysine Meclizine HCl 25 MG Meclizine HCl 25 MG No Meclizine HCl 25 MG Simvastatin 10 MG Simvastatin 10 MG No 1{table t_in e_eveni ng} QD Simvastati n 10 MG Valsartan-h ydroCHLOROt hiazide 80-12.5 MG Valsartan-h ydroCHLOROt hiazide 80-12.5 MG No 1{table t} QD Valsartan- hydroCHLOR Othiazide 80-12.5 MG Valsartan-h ydroCHLOROt hiazide 80-12.5 MG Valsartan-h [...] t} QD Valsartan- hydroCHLOR Othiazide 80-12.5 MG Potassium Potassium No Potassium Meclizine HCl 25 MG Meclizine HCl 25 MG No Meclizine HCl 25 MG Simvastatin 10 MG Simvastatin 10 MG No Simvastati n 10 MG Valsartan-h ydroCHLOROt hiazide 80-12.5 MG Valsartan-h ydroCHLOROt hiazide 80-12.5 MG No 1{table t} QD Valsartan- hydroCHLOR Othiazide 80-12.5 MG Potassium Potassium No Potassium Meclizine HCl 25 MG Meclizine HCl 25 MG No Meclizine HCl 25 MG Simvastatin 10 MG Simvastatin 10 MG No Simvastati n 10 MG Valsartan-h ydroCHLOROt hiazide 80-12.5 MG Valsartan-h ydroCHLOROt hiazide 80-12.5 MG No 1{table t} QD Valsartan- hydroCHLOR Othiazide 80-12.5 MG Potassium Potassium No Potassium Meclizine HCl 25 MG Meclizine HCl 25 MG No Meclizine HCl 25 MG Simvastatin 10 MG Simvastatin 10 MG No Simvastati n 10 MG Simvastatin 10 MG [...] _bedtim e_as_ne eded} QID Gaviscon 80-14.2 MG Meclizine HCl 25 MG Meclizine HCl 25 MG No Meclizine HCl 25 MG B12 B12 No B12 Meclizine HCl 25 MG Meclizine HCl 25 MG No Meclizine HCl 25 MG Simvastatin 10 MG Simvastatin 10 MG No Simvastati n 10 MG Valsartan-h ydroCHLOROt hiazide 80-12.5 MG Valsartan-h ydroCHLOROt hiazide 80-12.5 MG No 1{table t} QD Valsartan- hydroCHLOR Othiazide 80-12.5 MG B12 B12 No B12 Meclizine HCl [...] MG No QD Simvastati n 10 MG Immunizations Ordered Immunization Name Filled Immunization Name Date Status Comments Source COVID-19 Vaccine (Marco) COVID-19 Vaccine (Marco) 2020-05-30 14:43:00 Completed [facility] COVID-19 Vaccine (Marco) COVID-19 Vaccine (Marco) 2020-05-30 14:43:00 Completed [facility] COVID-19 Vaccine (Marco) COVID-19 Vaccine (Marco) 2020-05-30 14:43:00 Completed [facility] COVID-19 Vaccine (Marco) COVID-19 Vaccine (Marco) 2020-05-30 14:43:00 Completed [facility] COVID-19 Vaccine (Marco) COVID-19 Vaccine (Marco) 2020-05-30 14:43:00 Completed [facility] COVID-19 Vaccine (Marco) COVID-19 Vaccine (Marco) 2020-05-30 14:43:00 Completed [facility] COVID-19 Vaccine (Marco) COVID-19 Vaccine (Marco) 2020-05-30 14:43:00 Completed [facility] COVID-19 Vaccine (Marco) COVID-19 Vaccine (Marco) 2020-05-30 14:43:00 Completed [facility] COVID-19 Vaccine (Marco) COVID-19 Vaccine (Marco) 2020-05-30 14:43:00 Completed [facility] COVID-19 Vaccine (Marco) COVID-19 Vaccine (Marco) 2020-05-30 14:43:00 Completed [facility] COVID-19 Vaccine (Marco) COVID-19 Vaccine (Marco) 2020-05-30 14:43:00 Completed [facility] COVID-19 Vaccine (Marco) COVID-19 Vaccine (Marco) 2020-05-30 14:43:00 Completed [facility] influenza, unspecified formulation influenza, unspecified formulation Unknown Completed [facility] COVID-19 vaccine, vector-nr, rS-Ad26, PF, 0.5 mL (Marco) COVID-19 vaccine, vector-nr, rS-Ad26, PF, 0.5 mL (Marco) Unknown Completed [facility] COVID-19 Vaccine (Marco) COVID-19 Vaccine (Marco) Unknown Completed [facility] COVID-19 Vaccine (Marco) COVID-19 Vaccine (Marco) Unknown Completed [facility] COVID-19 Vaccine (Marco) COVID-19 Vaccine (Marco) Unknown Completed [facility] COVID-19 Vaccine (Marco) COVID-19 Vaccine (Marco) Unknown Completed [facility] COVID-19 Vaccine (Marco) COVID-19 Vaccine (Marco) Unknown Completed [facility] COVID-19 Vaccine (Marco) COVID-19 Vaccine (Marco) Unknown Completed [facility] COVID-19 Vaccine (Marco) COVID-19 Vaccine (Marco) Unknown Completed [facility] COVID-19 Vaccine (Marco) COVID-19 Vaccine (Marco) Unknown Completed [facility] Vital Signs Vital Name Observation Time Observation Value Comments S ource BMI (Body Mass Index) 2024-12-01 00:00:00 24.9 kg/m2 [facility] Height 2024-12-01 00:00:00 68 [in_i] [facility] BP Systolic 2024-12-01 00:00:00 112 mm[Hg] [facility] BP Diastolic 2024-12-01 00:00:00 65 mm[Hg] [facility] Body Weight 2024-12-01 00:00:00 2624 [oz_av] [facility] Height 2024-11-30 00:00:00 68 [in_i] [facility] Body Weight 2024-11-30 00:00:00 2668.8 [oz_av] [facility] BMI (Body Mass Index) 2024-11-30 00:00:00 25.4 kg/m2 [facility] BP Systolic 2024-11-30 00:00:00 125 mm[Hg] [facility] BP Diastolic 2024-11-30 00:00:00 63 mm[Hg] [facility] Body Weight 2024-11-03 00:00:00 2664 [oz_av] [facility] BP Systolic 2024-11-03 00:00:00 129 mm[Hg] [facility] BP Diastolic 2024-11-03 00:00:00 61 mm[Hg] [facility] Height 2024-11-03 00:00:00 68 [in_i] [facility] BMI (Body Mass Index) 2024-11-03 00:00:00 25.3 kg/m2 [facility] Body Weight 2024-10-30 00:00:00 2664 [oz_av] [facility] BP Systolic 2024-10-30 00:00:00 132 mm[Hg] [facility] Height 2024-10-30 00:00:00 68 [in_i] [facility] BP Diastolic 2024-10-30 00:00:00 63 mm[Hg] [facility] BMI (Body Mass Index) 2024-10-30 00:00:00 25.3 kg/m2 [facility] BP Diastolic 2024-10-03 00:00:00 60 mm[Hg] [facility] BMI (Body Mass Index) 2024-10-03 00:00:00 24.7 kg/m2 [facility] Body Weight 2024-10-03 00:00:00 2595.2 [oz_av] [facility] BP Systolic 2024-10-03 00:00:00 121 mm[Hg] [facility] Height 2024-10-03 00:00:00 68 [in_i] [facility] BP Systolic 2024-09-06 00:00:00 146 mm[Hg] [facility] BP Diastolic 2024-09-06 00:00:00 91 mm[Hg] [facility] BMI (Body Mass Index) 2024-09-06 00:00:00 24.2 kg/m2 [facility] Body Weight 2024-09-06 00:00:00 2548 [oz_av] [facility] Height 2024-09-06 00:00:00 68 [in_i] [facility] BMI (Body Mass Index) 2024-08-09 00:00:00 23.7 kg/m2 [facility] BP Diastolic 2024-08-09 00:00:00 56 mm[Hg] [facility] BP Systolic 2024-08-09 00:00:00 124 mm[Hg] [facility] Body Weight 2024-08-09 00:00:00 2496 [oz_av] [facility] Height 2024-08-09 00:00:00 68 [in_i] [facility] Body Weight 2024-08-03 00:00:00 2496 [oz_av] [facility] Height 2024-08-03 00:00:00 68 [in_i] [facility] BP Diastolic 2024-08-03 00:00:00 66 mm[Hg] [facility] BMI (Body Mass Index) 2024-08-03 00:00:00 23.7 kg/m2 [facility] BP Systolic 2024-08-03 00:00:00 143 mm[Hg] [facility] Body Weight 2024-07-04 00:00:00 2451.2 [oz_av] [facility] Height 2024-07-04 00:00:00 68 [in_i] [facility] BMI (Body Mass Index) 2024-07-04 00:00:00 23.3 kg/m2 [facility] BP Systolic 2024-07-04 00:00:00 125 mm[Hg] [facility] BP Diastolic 2024-07-04 00:00:00 62 mm[Hg] [facility] BP Systolic 2024-06-08 00:00:00 106 mm[Hg] [facility] Height 2024-06-08 00:00:00 68 [in_i] [facility] BP Diastolic 2024-06-08 00:00:00 70 mm[Hg] [facility] BMI (Body Mass Index) 2024-06-08 00:00:00 22.9 kg/m2 [facility] Body Weight 2024-06-08 00:00:00 2406.4 [oz_av] [facility] Height 2024-06-02 00:00:00 68 [in_i] [facility] BP Systolic 2024-06-02 00:00:00 125 mm[Hg] [facility] BMI (Body Mass Index) 2024-06-02 00:00:00 22.9 kg/m2 [facility] Body Weight 2024-06-02 00:00:00 2406.4 [oz_av] [facility] BP Diastolic 2024-06-02 00:00:00 60 mm[Hg] [facility] BP Systolic 2024-05-05 00:00:00 133 mm[Hg] [facility] BMI (Body Mass Index) 2024-05-05 00:00:00 22.8 kg/m2 [facility] Height 2024-05-05 00:00:00 68 [in_i] [facility] Body Weight 2024-05-05 00:00:00 2402 [oz_av] [facility] BP Diastolic 2024-05-05 00:00:00 65 mm[Hg] [facility] Body Weight 2024-04-07 00:00:00 2356 [oz_av] [facility] BP Systolic 2024-04-07 00:00:00 136 mm[Hg] [facility] BMI (Body Mass Index) 2024-04-07 00:00:00 22.4 kg/m2 [facility] BP Diastolic 2024-04-07 00:00:00 71 mm[Hg] [facility] Height 2024-04-07 00:00:00 68 [in_i] [facility] BMI (Body Mass Index) 2024-03-30 00:00:00 22.4 kg/m2 [facility] BP Systolic 2024-03-30 00:00:00 91 mm[Hg] [facility] BP Diastolic 2024-03-30 00:00:00 56 mm[Hg] [facility] Body Weight 2024-03-30 00:00:00 2356 [oz_av] [facility] Height 2024-03-30 00:00:00 68 [in_i] [facility] Height 2024-03-28 00:00:00 68 [in_i] [facility] BMI (Body Mass Index) 2024-03-28 00:00:00 22.4 kg/m2 [facility] BP Diastolic 2024-03-28 00:00:00 64 mm[Hg] [facility] BP Systolic 2024-03-28 00:00:00 122 mm[Hg] [facility] Body Weight 2024-03-28 00:00:00 2356 [oz_av] [facility] BMI (Body Mass Index) 2024-02-25 00:00:00 22.4 [...] Systolic blood pressure 2023-09-14 14:36:00 171 mm[Hg] [facility] Diastolic blood pressure 2023-09-14 14:36:00 68 mm[Hg] [facility] Heart rate 2023-09-14 14:36:00 52 /min [facility] Oxygen saturation in Arterial blood by Pulse oximetry 2023-09-14 14:36:00 99 /min [facility] Body temperature 2023-09-14 14:35:00 36.78 Kyara [facility] Body height 2023-09-14 14:35:00 177.8 cm [facility] Body weight 2023-09-14 14:35:00 65.318 kg [facility] BMI 2023-09-14 14:35:00 20.66 kg/m2 [facility] BP Systolic 2023-09-10 00:00:00 137 mm[Hg] [facility] [...] Systolic blood pressure 2023-07-08 13:13:00 127 mm[Hg] [facility] Diastolic blood pressure 2023-07-08 13:13:00 51 mm[Hg] [facility] Heart rate 2023-07-08 13:13:00 73 /min [facility] Body temperature 2023-07-08 13:13:00 36.44 Kyara [facility] Respiratory rate 2023-07-08 13:13:00 20 /min [facility] Body height 2023-07-08 13:13:00 177.8 cm [facility] Body weight 2023-07-08 13:13:00 66.225 kg [facility] BMI 2023-07-08 13:13:00 20.95 kg/m2 [facility] Oxygen saturation in Arterial blood by Pulse oximetry 2023-07-08 13:13:00 98 /min [facility] BP Diastolic 2023-07-05 00:00:00 83 mm[Hg] [facility] BP Systolic 2023-07-05 00:00:00 135 mm[Hg] [facility] BMI (Body Mass Index) 2023-07-05 00:00:00 22.4 kg/m2 [facility] Height 2023-07-05 00:00:00 68 [in_i] [facility] Body Weight 2023-07-05 00:00:00 2352 [oz_av] [facility] Systolic blood pressure 2023-06-25 16:24:00 168 mm[Hg] [facility] Diastolic blood pressure 2023-06-25 16:24:00 57 mm[Hg] [facility] Respiratory rate 2023-06-25 16:24:00 18 /min [facility] Body height 2023-06-25 16:24:00 175.3 cm General acute hospital Body weight 2023-06-25 16:24:00 65.227 kg General acute hospital BMI 2023-06-25 16:24:00 21.24 kg/m2 General acute hospital Oxygen saturation in Arterial blood by Pulse oximetry 2023-06-25 16:24:00 100 /min [facility] Heart rate 2023-06-25 16:20:00 65 /min [facility] Height 2023-06-25 00:00:00 68 [in_i] [facility] [...] height 2022-11-10 10:00:00 67 [in_i] Commo n [facility] weight 2022-11-10 10:00:00 149.0 [lb_av] Co [facility] temperature 2022-11-10 10:00:00 97.9 [degF] Com [facility] bmi 2022-11-10 10:00:00 23.33 kg/m2 Comm on [facility] oximetry 2022-11-10 10:00:00 98 % Commo n [facility] respiratory rate 2022-11-10 10:00:00 15 /min [facility] blood pressure systolic 2022-11-10 10:00:00 122 mm[Hg] [facility] blood pressure diastolic 2022-11-10 10:00:00 63 mm[Hg] [facility] height 2022-10-28 15:00:00 67 [in_i] Commo n [facility] weight 2022-10-28 15:00:00 148.6 [lb_av] Co [facility] temperature 2022-10-28 15:00:00 98.2 [degF] Com [facility] bmi 2022-10-28 15:00:00 23.27 kg/m2 Comm on [facility] oximetry 2022-10-28 15:00:00 97 % [facility] respiratory rate 2022-10-28 15:00:00 16 /min Common [facility] blood pressure systolic 2022-10-28 15:00:00 130 mm[Hg] [facility] blood pressure diastolic 2022-10-28 15:00:00 62 mm[Hg] [facility] height 2022-10-20 08:00:00 67 [in_i] Commo n [facility] weight 2022-10-20 08:00:00 152.6 [lb_av] Co on [facility] temperature 2022-10-20 08:00:00 98.8 [degF] Com [facility] bmi 2022-10-20 08:00:00 23.9 kg/m2 Commo n [facility] oximetry 2022-10-20 08:00:00 94 % Commo [facility] respiratory rate 2022-10-20 08:00:00 16 /min Common [facility] blood pressure systolic 2022-10-20 08:00:00 164 mm[Hg] [facility] blood pressure diastolic 2022-10-20 08:00:00 94 mm[Hg] [facility] height 2022-07-31 11:00:00 67 [in_i] Commo n [facility] weight 2022-07-31 11:00:00 148.8 [lb_av] Co mmon [facility] temperature 2022-07-31 11:00:00 99.1 [degF] Com mon [facility] bmi 2022-07-31 11:00:00 23.3 kg/m2 Commo n [facility] oximetry 2022-07-31 11:00:00 96 % Commo [facility] respiratory rate 2022-07-31 11:00:00 16 /min [facility] blood pressure systolic 2022-07-31 11:00:00 123 mm[Hg] [facility] blood pressure diastolic 2022-07-31 11:00:00 62 mm[Hg] [facility] height 2022-07-31 11:40:00 67 [in_i] Commo n [facility] weight 2022-07-31 11:40:00 148.8 [lb_av] Co mmon [facility] temperature 2022-07-31 11:40:00 99.1 [degF] Com mon [facility] bmi 2022-07-31 11:40:00 23.3 kg/m2 Commo [facility] oximetry 2022-07-31 11:40:00 96 % Commo [facility] respiratory rate 2022-07-31 11:40:00 16 /min Common [facility] blood pressure systolic 2022-07-31 11:40:00 123 mm[Hg] [facility] blood pressure diastolic 2022-07-31 11:40:00 62 mm[Hg] [facility] height 2022-04-29 15:15:00 67 [in_i] Commo n [facility] weight 2022-04-29 15:15:00 150 [lb_av] Comm on [facility] temperature 2022-04-29 15:15:00 98.6 [degF] Com mon [facility] bmi 2022-04-29 15:15:00 23.49 kg/m2 Comm on [facility] oximetry 2022-04-29 15:15:00 98 % Commo [facility] respiratory rate 2022-04-29 15:15:00 18 /min Common [facility] blood pressure systolic 2022-04-29 15:15:00 160 mm[Hg] [facility] blood pressure diastolic 2022-04-29 15:15:00 72 mm[Hg] [facility] height 2022-03-25 09:45:00 67 [in_i] Commo n [facility] weight 2022-03-25 09:45:00 147 [lb_av] Comm on [facility] temperature 2022-03-25 09:45:00 98.4 [degF] Com mon [facility] bmi 2022-03-25 09:45:00 23.02 kg/m2 Comm on [facility] oximetry 2022-03-25 09:45:00 97 % Commo [facility] respiratory rate 2022-03-25 09:45:00 16 /min [facility] blood pressure systolic 2022-03-25 09:45:00 113 mm[Hg] [facility] blood pressure diastolic 2022-03-25 09:45:00 58 mm[Hg] [facility] height 2022-02-12 11:00:00 67 [in_i] Commo n [facility] weight 2022-02-12 11:00:00 150 [lb_av] Comm on [facility] temperature 2022-02-12 11:00:00 98.8 [degF] Com [facility] bmi 2022-02-12 11:00:00 23.49 kg/m2 Comm on [facility] oximetry 2022-02-12 11:00:00 97 % Commo n [facility] respiratory rate 2022-02-12 11:00:00 18 /min Common [facility] blood pressure systolic 2022-02-12 11:00:00 145 mm[Hg] [facility] blood pressure diastolic 2022-02-12 11:00:00 64 mm[Hg] [facility] height 2021-12-08 08:00:00 67 [in_i] Commo n [facility] weight 2021-12-08 08:00:00 146 [lb_av] Comm on [facility] temperature 2021-12-08 08:00:00 97.8 [degF] Com mon [facility] bmi 2021-12-08 08:00:00 22.86 kg/m2 Comm on [facility] oximetry 2021-12-08 08:00:00 97 % Commo [facility] respiratory rate 2021-12-08 08:00:00 16 /min Common [facility] blood pressure systolic 2021-12-08 08:00:00 126 mm[Hg] [facility] blood pressure diastolic 2021-12-08 08:00:00 62 mm[Hg] [facility] height 2021-08-13 09:00:00 67.5 [in_i] Comm on [facility] weight 2021-08-13 09:00:00 149.8 [lb_av] Co [facility] temperature 2021-08-13 09:00:00 99.1 [degF] Com mon [facility] bmi 2021-08-13 09:00:00 23.11 kg/m2 Comm on [facility] oximetry 2021-08-13 09:00:00 98 % Commo n [facility] respiratory rate 2021-08-13 09:00:00 16 /min Common [facility] blood pressure systolic 2021-08-13 09:00:00 143 mm[Hg] [facility] blood pressure diastolic 2021-08-13 09:00:00 65 mm[Hg] [facility] height 2021-07-11 08:00:00 67.5 [in_i] Comm on [facility] weight 2021-07-11 08:00:00 149 [lb_av] Comm on [facility] temperature 2021-07-11 08:00:00 97.7 [degF] Com mon [facility] bmi 2021-07-11 08:00:00 22.99 kg/m2 Comm on [facility] oximetry 2021-07-11 08:00:00 95 % Commo n [facility] respiratory rate 2021-07-11 08:00:00 16 /min [facility] blood pressure systolic 2021-07-11 08:00:00 139 mm[Hg] [facility] blood pressure diastolic 2021-07-11 08:00:00 66 mm[Hg] [facility] height 2021-07-11 08:00:00 67.5 [in_i] Comm on [facility] weight 2021-07-11 08:00:00 149 [lb_av] Comm on [facility] temperature 2021-07-11 08:00:00 97.7 [degF] Com [facility] bmi 2021-07-11 08:00:00 22.99 kg/m2 Comm on [facility] oximetry 2021-07-11 08:00:00 95 % Commo n [facility] respiratory rate 2021-07-11 08:00:00 16 /min [facility] blood pressure systolic 2021-07-11 08:00:00 139 mm[Hg] [facility] blood pressure diastolic 2021-07-11 08:00:00 66 mm[Hg] [facility] height 2021-05-28 13:30:00 67.5 [in_i] Comm on [facility] weight 2021-05-28 13:30:00 165 [lb_av] Comm on [facility] temperature 2021-05-28 13:30:00 98.6 [degF] Com [facility] bmi 2021-05-28 13:30:00 25.46 kg/m2 Comm on [facility] oximetry 2021-05-28 13:30:00 96 % Commo [facility] respiratory rate 2021-05-28 13:30:00 16 /min Common [facility] blood pressure systolic 2021-05-28 13:30:00 123 mm[Hg] [facility] blood pressure diastolic 2021-05-28 13:30:00 60 mm[Hg] [facility] height 2021-03-13 13:15:00 67.5 [in_i] Comm on [facility] weight 2021-03-13 13:15:00 139.8 [lb_av] Co [facility] temperature 2021-03-13 13:15:00 98 [degF] Comm on [facility] bmi 2021-03-13 13:15:00 21.57 kg/m2 Comm on [facility] oximetry 2021-03-13 13:15:00 94 % Commo [facility] blood pressure systolic 2021-03-13 13:15:00 90 mm[Hg] [facility] blood pressure diastolic 2021-03-13 13:15:00 42 mm[Hg] [facility] height 2021-02-26 14:00:00 67.5 [in_i] Comm on [facility] weight 2021-02-26 14:00:00 151 [lb_av] Comm on [facility] temperature 2021-02-26 14:00:00 98.2 [degF] Com mon [facility] bmi 2021-02-26 14:00:00 23.3 kg/m2 Commo [facility] oximetry 2021-02-26 14:00:00 97 % Com[facility] respiratory rate 2021-02-26 14:00:00 16 /min Common [facility] blood pressure systolic 2021-02-26 14:00:00 140 mm[Hg] [facility] blood pressure diastolic 2021-02-26 14:00:00 82 mm[Hg] [facility] height 2021-02-26 15:30:00 67.5 [in_i] Comm on [facility] weight 2021-02-26 15:30:00 150.6 [lb_av] Co [facility] temperature 2021-02-26 15:30:00 98.3 [degF] Com mon [facility] bmi 2021-02-26 15:30:00 23.24 kg/m2 Comm on [facility] oximetry 2021-02-26 15:30:00 100 % Com[facility] respiratory rate 2021-02-26 15:30:00 18 /min [facility] blood pressure systolic 2021-02-26 15:30:00 199 mm[Hg] [facility] blood pressure diastolic 2021-02-26 15:30:00 95 mm[Hg] [facility] Procedures Procedure Date / Time Performed Performing Clinician Source TONYA,POST-VOID RES,US,NON-IMAGING 2023-09-14 00:00:00 Stephenie Phillips [facility] TONYA,POST-VOID RES,US,NON-IMAGING 2023-06-25 16:29:00 Amanda Hewitt [facility] POCT URINALYSIS AUTO 2023-06-25 16:15:00 Indra Hewitt [facility] REFERRAL- REQUEST/RESPONSE 2023-06-21 20:01:42 D octor Unassigned, [place] [facility] PVR 2022-04-29 00:00:00 Common [facility] Cholecyst[facility] En[facility] Start Date/Time End Date/Time Encounter Type Admission Type Attending Clinicians Care Facility Care Department Encounter ID Source 2021-12-05 10:25:01 Outpatient [facility] [id number] [facility] 2021-11-06 08:07:01 Outpatient Carrie Miramontes [facility] [id number] [facility] 2021-07-14 09:54:02 [facility] [id number] [facility] 2021-04-09 14:25:22 Outpatient Carrie [facility]ontes [facility] [id number] [facility] 2024-12-01 00:00:00 2024-12-01 00:00:00 Greer Shah PA: [address] [place] [phone] , Ph. [facility] [id number] [facility] 2024-11-30 00:00:00 2024-11-30 00:00:00 Sarwat Genao MD: [address] [place] [phone] , Ph. [facility] [id number] [facility] 2024-11-03 00:00:00 2024-11-03 00:00:00 Greer Shah PA: [address] [place] [phone] , Ph. [facility] [id number] [facility] 2024-10-30 00:00:00 2024-10-30 00:00:00 Greer Shah PA: [address] [place] [phone] , Ph. [facility] [id number] [facility] 2024-10-03 00:00:00 2024-10-03 00:00:00 Sarwat Genao MD: [address] [place] [phone] , Ph. [facility] - [facility] [id number] [facility] 2024-09-06 00:00:00 2024-09-06 00:00:00 Greer Shah PA: [address] [place], [place] [address] , Ph. [phone] [place] [address] - [facility] [id number] [facility] 2024-08-09 00:00:00 2024-08-09 00:00:00 Greer Shah PA: [address] [place] [address] , Ph. [phone] [place] [address] - [facility] [id number] [facility] 2024-08-03 00:00:00 2024-08-03 00:00:00 Sarwat Genao MD: [address] [place], [place] [address] , Ph. [phone] [place] [address] - [facility] [id number] [facility] 2024-07-04 00:00:00 2024-07-04 00:00:00 Greer Shah PA: [address] [place] [phone] , Ph. [phone] [place] [address] - [facility] [id number] [facility] 2024-06-08 00:00:00 2024-06-08 00:00:00 Sarwat Genao MD: [address] [place] [phone] , Ph. [facility] - [facility] [id number] [facility] 2024-06-02 00:00:00 2024-06-02 00:00:00 Greer Shah PA: [address] [place] [address] , Ph. [facility] [id number] [facility] 2024-05-05 00:00:00 2024-05-05 00:00:00 Greer Shah PA: [address] [place] [address] , Ph. [facility] [id number] [facility] 2023-06-21 00:00:00 2024-04-29 02:25:57 Orders Only Doctor Unassigned, [place] Doctor Unassigned, [place] [facility] [id number] [facility] 2024-04-07 00:00:00 2024-04-07 00:00:00 Greer Shah PA: [address] [place] [phone] , Ph. [facility] [id number] [facility] 2024-03-30 00:00:00 2024-03-30 00:00:00 Sarwat Genao MD: [address] [place] [phone] , Ph. [facility] [id number] [facility] 2024-03-28 00:00:00 2024-03-28 00:00:00 NATHALY Flanagan: [address] [place] [address] , Ph. [facility] [id number] [facility] 2024-02-25 00:00:00 2024-02-25 00:00:00 NATHALY Flanagan: [address] [place] [phone] , Ph. [facility] - [facility] [id number] [facility] 2024-02-04 00:00:00 2024-02-04 00:00:00 NATHALY Flanagan: [address] [place] [phone] , Ph. [facility] - [facility] [id number] [facility] 2024-01-20 00:00:00 2024-01-20 00:00:00 Sarwat Genao MD: [address] [place] [phone] , Ph. [facility] - [facility] [id number] [facility] 2023-12-22 00:00:00 2023-12-22 00:00:00 NATHALY Flanagan: [address] [place] [phone] , Ph. [facility] - [facility] [id number] [facility] 2023-11-19 00:00:00 2023-11-19 00:00:00 NATHALY Flanagan: [address] [place] [phone] , Ph. [facility] - [facility] [id number] [facility] 2023-11-18 00:00:00 2023-11-18 00:00:00 Sarwat Genao MD: [address] [place] [phone] , Ph. [facility] - [facility] [id number] [facility] 2023-11-12 00:00:00 2023-11-12 00:00:00 Greer Shah PA: [address] [place] [phone] , Ph. [facility] - [facility] [id number] [facility] 2023-10-19 00:00:00 2023-10-19 00:00:00 Greer Shah PA: [address] [place] [phone] , Ph. [facility] - [facility] [id number] [facility] 2023-10-11 00:00:00 2023-10-11 00:00:00 Greer Shah PA: [address] [place] [phone] , Ph. [facility] - [facility] [id number] [facility] 2023-09-28 11:00:00 2023-09-28 11:00:00 Outpatient AMANDA HERNANDEZ [facility] [id number] [facility] 2023-09-27 00:00:00 2023-09-27 00:00:00 NATHALY Flanagan: [address] [place] [phone] , Ph. [facility] - [facility] [id number] [facility] 2023-09-23 00:00:00 2023-09-23 00:00:00 Sarwat Genao MD: [address] [place] [phone] , Ph. [facility] - [facility] [id number] [facility] 2023-09-14 09:30:00 2023-09-14 10:15:43 Outpatient R STEPHENIE PHILLIPS [facility] [id number] [facility] 2023-09-14 09:30:00 2023-09-14 09:45:00 Office Visit Stephenie Phillips [facility] [id number] [facility] 2023-09-10 00:00:00 2023-09-10 00:00:00 NATHALY Flanagan: [address] [place] [address] , Ph. [facility] [id number] [facility] 2023-08-27 00:00:00 2023-08-27 00:00:00 NATHALY Flanagan: [address] [place], [place] [phone] , Ph. [facility] [id number] [facility] 2023-08-18 00:00:00 2023-08-18 00:00:00 Greer Shah PA: [address] [place], [place] [phone] , Ph. [facility] [id number] [facility] 2023-08-13 00:00:00 2023-08-13 00:00:00 NATHALY Flanagan: [address] [place], [place] [phone] , Ph. [facility] [id number] [facility] 2023-08-11 00:00:00 2023-08-11 00:00:00 NATHALY Flanagan: [address] [place] [phone] , Ph. [facility] - [facility] [id number] [facility] 2023-08-04 00:00:00 2023-08-04 00:00:00 Greer Shah PA: [address] [place] [phone] , Ph. [phone] [place] [address] - [facility] [id number] [facility] 2023-07-30 00:00:00 2023-07-30 00:00:00 NATHALY Flanagan: [address] [place] [phone] , Ph. [phone] [place] [address] [facility] [id number] [facility] 2023-07-23 00:00:00 2023-07-23 00:00:00 Greer Shah PA: [address] [place] [phone] , Ph. [phone] [place] [address] - [facility] [id number] [facility] 2023-07-15 00:00:00 2023-07-15 00:00:00 Sarwat Genao MD: [address] [place] [phone] , Ph. [phone] [place] [address] - [facility] [id number] [facility] 2023-07-09 00:00:00 2023-07-09 00:00:00 NATHALY Flanagan: [address] [place] [phone] , Ph. [facility] - [facility] [id number] [facility] 2023-07-08 08:00:00 2023-07-08 09:21:12 Outpatient R MAYELIN ALDANA [facility] [id number] [facility] 2023-07-08 08:00:00 2023-07-08 09:21:12 Office Visit Mayelin Aldana [facility] [id number] [facility] 2023-07-05 00:00:00 2023-07-05 00:00:00 Greer Shah PA: [address] [place] [phone] , Ph. [facility] - [facility] [id number] [facility] 2023-06-25 11:00:00 2023-06-25 11:58:40 Outpatient R AMANDA HEWITT [facility] [id number] [facility] 2023-06-25 11:00:00 2023-06-25 11:58:40 Office Visit Amanda Hewitt [facility] [id number] [facility] 2023-06-25 00:00:00 2023-06-25 00:00:00 NATHALY Flanagan: [address] [place] [address] , Ph. [facility] - [facility] [id number] [facility] 2023-06-17 00:00:00 2023-06-17 00:00:00 Outpatient [facility] [id number] [facility] 2023-06-10 00:00:00 2023-06-10 00:00:00 Outpatient GC_[facility]HC_Tod d_J [facility] [id number] [facility] 2023-06-07 00:00:00 2023-06-07 00:00:00 NATHALY Flanagan: [address] [place] [phone] , Ph. [facility] [id number] [facility] 2023-05-13 00:00:00 2023-05-13 00:00:00 Sarwat Genao MD: [address] [place] [phone] , Ph. [facility] [id number] [facility] 2023-04-20 00:00:00 2023-04-20 00:00:00 NATHALY Flanagan: [address] [place] [phone] , Ph. [facility] [id number] [facility] 2022-11-10 00:00:00 2022-11-10 00:00:00 OFFICE VISIT ESTAB PT LEVEL 3 STLMLC STLMLC [id number] [facility] 2022-10-28 00:00:00 2022-10-28 00:00:00 OFFICE VISIT ESTAB PT LEVEL 3 STLMLC STLMLC [id number] [facility] 2022-10-20 00:00:00 2022-10-20 00:00:00 OFFICE VISIT ESTAB PT LEVEL 3 STLMLC STLMLC [id number] [facility] 2022-08-03 00:00:00 2022-08-03 00:00:00 (TEL) STLMLC STLMLC [id number] [facility] 2022-07-31 00:00:00 2022-07-31 00:00:00 SUB ANNUAL [facility]LL[facility] VISIT STLMLC STLMLC [id number] [facility] 2022-07-31 00:00:00 2022-07-31 00:00:00 OFFICE VISIT ESTAB PT LEVEL 3 STLMLC STLMLC [id number] [facility] 2022-04-30 00:00:00 2022-04-30 00:00:00 (TEL) STLMLC STLMLC [id number] [facility] 2022-04-29 00:00:00 2022-04-29 00:00:00 OFFICE VISIT ESTAB PT LEVEL 2 STLMLC STLMLC [id number] [facility] 2022-03-30 00:00:00 2022-03-30 00:00:00 (TEL) STLMLC STLMLC [id number] [facility] 2022-03-25 00:00:00 2022-03-25 00:00:00 (TEL) STLMLC STLMLC [id number] [facility] 2022-03-25 00:00:00 2022-03-25 00:00:00 OFFICE VISIT ESTAB PT LEVEL 2 STLMLC STLMLC [id number] [facility] 2022-03-12 00:00:00 2022-03-12 00:00:00 (TEL) STLMLC STLMLC [id number] [facility] 2022-02-12 00:00:00 2022-02-12 00:00:00 OFFICE VISIT ESTAB PT LEVEL 4 STLMLC STLMLC [id number] [facility] 2021-12-08 00:00:00 2021-12-08 00:00:00 OFFICE VISIT EST PT LEVEL 3 STLMLC STLMLC [id number] [facility] 2021-11-10 00:00:00 2021-11-10 00:00:00 (TEL) STLMLC STLMLC [id number] [facility] 2021-08-13 00:00:00 2021-08-13 00:00:00 OFFICE VISIT ESTAB PT LEVEL 1 STLMLC STLMLC [id number] [facility] 2021-07-21 00:00:00 2021-07-21 00:00:00 (TEL) STLMLC STLMLC [id number] [facility] 2021-07-11 00:00:00 2021-07-11 00:00:00 OFFICE VISIT EST PT LEVEL 3 STLMLC STLMLC [id number] [facility] 2021-07-11 00:00:00 2021-07-11 00:00:00 SUB ANNUAL MCR WELLNESS VISIT STLMLC STLMLC [id number] [facility] 2021-07-10 00:00:00 2021-07-10 00:00:00 Postop visit STLMLC STLMLC [id number] [facility] 2021-07-09 00:00:00 2021-07-09 00:00:00 (ESTPT) Establishe d Patient STLMLC STLMLC [id number] [facility] 2021-07-07 00:00:00 2021-07-07 00:00:00 (TEL) STLMLC STLMLC [id number] [facility] 2021-05-28 00:00:00 2021-05-28 00:00:00 OFFICE VISIT EST PT LEVEL 3 STLMLC STLMLC [id number] [facility] 2021-04-23 00:00:00 2021-04-23 00:00:00 (PROC) Procedure STLMLC STLMLC [id number] [facility] 2021-03-13 00:00:00 2021-03-13 00:00:00 OFFICE VISIT ESTAB PT LEVEL 2 STLMLC STLMLC [id number] [facility] 2021-02-26 00:00:00 2021-02-26 00:00:00 OFFICE VISIT ESTAB PT LEVEL 4 STLMLC STLMLC [id number] [facility] 2021-02-26 00:00:00 2021-02-26 00:00:00 (TEL) STLMLC STLMLC [id number] [facility] 2021-02-26 00:00:00 2021-02-26 00:00:00 OFFICE VISIT NEW PT LEVEL 4 STLMLC STLMLC [id number] [facility] Results Test Description Test Time Test Comments Results Result Co mments Source [facility],[id number] 16:29:00* Test Item Value Reference Range Interpretation Comme nts PVR (URINE VOLUME) (test code = 5193) 0 ml 0-100 [facility],POST-VOID RES,US,[id number] 16:29:00* Test Item Value Reference Range Interpretation Comme nts PVR (URINE VOLUME) (test code = 5193) 0 ml 0-100 [facility],POST-VOID RES,US,[id number] 16:29:00* Test Item Value Reference Range Interpretation Comme nts PVR (URINE VOLUME) (test code = 5193) 0 ml 0-100 [facility], [id number] 16:15:00 * Test Item Value Reference Range [...] U APPEAR (test code = 3267) Clear [facility], [id number] 16:15:00 * Test Item Value Reference Range [...] U APPEAR (test code = 3267) Clear [facility], [id number] 16:15:00 * Test Item Value Reference Range [...] U APPEAR (test code = 3267) Clear [facility]- REQUEST/[id number] 20:01:42 Ordered by an unspecified provider.[facility] 2022-07-31 00:00:00* Test Item Value Reference Range Interpretation Comme nts CALC LDL CHOL (test code = 78781-5) 101 MG/DL See_Comment H [Automated messa ge] The system which generated this result transmitted reference range: <100 MG/DL. The reference range was not used to interpret this result as normal/abnormal. CHOLESTEROL (test code = 2093-3) 169 MG/DL See_Comment [Automated Kiddy] The system which generated this result transmitted reference range: <200 MG/DL. The reference range was not used to interpret this result as normal/abnormal. HDL CHOLESTEROL (test code = 2085-9) 48 MG/DL See_Comment [Automated Kiddy] The system which generated this result transmitted reference range: >39 MG/DL. The reference range was not used to interpret this result as normal/abnormal. RISK RATIO LDL/HDL (test code = 24593-2) 2.10 RATIO See_Comment [Automated message] The system which generated this result transmitted reference range: <3.55 RATIO. The reference range was not used to interpret this result as normal/abnormal. TRIGLYCERIDES (test code = 2571-8) 103 MG/DL See_Comment [Automated Kiddy] The system which generated this result transmitted reference range: <150 MG/DL. The reference range was not used to interpret this result as normal/abnormal.
[2024-12-14 21:27] LABS: Sqamous Epithelial <5 /HPF (None Seen); Urine Crystals Unidentified Few /HPF (None Seen); Urine Culture Reflex Order REFLEXED; Urine Microscopic Reflex YN ORDER UMIC; Urine WBC Clump Rare /HPF (None Seen); Urine Yeast (Budding) Occasional /HPF (None Seen)
[2024-12-14] MEDS ORDERED: HYDROMORPHONE HCL 0.5 MG/0.5 ML INJ ONE (21:32)
[2024-12-14] MEDS ORDERED: ONDANSETRON 4 MG/2 ML VIAL ONE (21:32)
[2024-12-14 21:38] LABS: ALT/SGPT 46.0 U/L (16-61); Albumin 3.4 g/dL (3.4-5.0); Albumin/Globulin Ratio 1.0 (1.1-1.8); Alkaline Phosphatase 102.0 U/L (45-117); Anion Gap 7.9 mEq/L (5.0-15.0); BUN Blood Urea Nitrogen 32.0 mg/dL (7-18); Globulin 3.4 g/dL (2.3-3.5); Glucose Level 200.0 mg/dL (74-106); Lipase 17.0 U/L (13-75)
[2024-12-14 21:45] LABS: AST/SGOT 55.0 U/L (15-37); Potassium 4.9 mEq/L (3.5-5.1)
[2024-12-14 21:57] LABS: Absolute Lymphocytes (CBC) 1.1 K/uL (0.7-4.9); Hematocrit 38.4 % (39.6-49.0); Hemoglobin 13.2 g/dL (13.6-17.9); MCH 30.7 pg (27.0-35.0); MCHC 34.3 g/dL (32.0-36.0); MCV 89.4 fL (80-100); MPV 7.6 fL (7.6-11.3); Nucleated RBC Absolute Count 0.0 (0-0); Nucleated Red Blood Cells % 0.1 % (0-0); RBC Red Blood Cell Count 4.30 M/uL (4.33-5.43); White Blood Count 13.20 thou/uL (4.3-10.9)
[2024-12-14] MEDS ORDERED: CEFTRIAXONE 2000 MG/VIAL ONE (23:12)
[2024-12-14] MEDS ORDERED: NA CHLORIDE 0.9% 50 ML ONE (23:13)
[2024-12-14] MEDS ORDERED: LORazepam 2 MG/ML VIAL ONE (23:49)
--- NOTE | 2024-12-15 00:47 | RAD REPORT ---
Procedure description: CT ABDOMEN PELVIS WITH IV CONTRAST CLINICAL INDICATION: SWELLING TECHNIQUE: Axial imaging obtained through the abdomen and pelvis. Sagittal and coronal reconstruction s obtained. CONTRAST: Nonionic IV contrast. See hospital information system for dose. COMPARISON: March 23, 2024 FINDINGS: CT abdomen/pelvis: The lung bases are clear consolidation. No pleural or pericardial effusions. Promi nent coronary arterial disease is present. There is a small to moderate size hiatal hernia of stomach in the lower mediastinum. A low-density lesion measuring 2.1 cm in the left lobe of the liver has density measurements consiste nt with a cyst and is stable. No follow-up imaging recommended. The gallbladder appears unremarkable. The portal vein is patent. No bile duct dilatation. A couple mayers rgical clips are present in the gaurav hepatis region. A small cyst in the uncinate process of the pancreas is again noted measuring approximately 1.2 cm an d is stable. The spleen, adrenal glands and kidneys are without acute finding. Respiratory motion artifact in the upper to mid abdomen limits the exam. There is marked thickening o f a long segment of the transverse colon most likely representing acute colitis. No small bowel distention or inflammation. The remainder the colon is without inflammation. Extensive diverticulosis of the distal colon. There is a right inguinal hernia of small intestine without evidence of incarceration. Previously the re was no bowel in the hernia sac. The aorta is atherosclerotic without aneurysm or dissection. No free fluid or free air. The prostate gland is not significantly enlarged but there is bladder wall thickening and bladder div erticuli are present. This appearance is similar to previous exam. IMPRESSION: 1: Prominent thickening of a long segment of the mid transverse colon consistent with acute colitis w ithout evidence of complication. 2: Large right inguinal hernia of adipose tissue and small intestine without evidence of significant obstruction or incarceration. 3: Bladder wall thickening and diverticuli within normal size prostate gland. 4: Hiatal hernia. RADIATION DOSE REDUCTION: This exam was performed according to our departmental dose-optimization pro gram which includes automated exposure control, adjustment of the mA and/or kV according to patient size and/or use of iterative reconstruction technique. Electronically signed by: Micah Belle MD 12/15/2024 12:05 AM CDT RP Due to temporary technical issues with the PACS/[employer] reporting system, reports are being ian d by the in-house radiologist without review as a courtesy to ensure prompt reporting the interpreting radiologist is fully responsible for the content of the report. Transcribed Date/Time: 12/15/2024 12:47 AM
[2024-12-15] MEDS ORDERED: NA CHLORIDE 0.9% 1,000 ML ONE ×2 (01:06)
--- NOTE | 2024-12-15 01:39 | ER ---
Nurse's Notes [facility] Name: Get Stephens Age: 84 yrs Sex: Male : 1940 Arrival Date: 12/14/2024 Time: 20:42 Bed 4 Private MD: Diagnosis: Acute cystitis without hematuria;Indeterminate colitis Presentation: 12/14 21:15 Chief complaint: Patient states: right sided pelvic pain X2 days with burning on lg3 urination. Coronavirus screen: Client denies travel out of the [place] in the last 14 days. Ebola Screen: No symptoms or risks identified at this time. Initial Sepsis Screen: Does the patient meet any 2 criteria? No. Patient's initial sepsis screen is negative. Does the patient have a suspected source of infection? No. Patient's initial sepsis screen is negative. Risk Assessment: Do you want to hurt yourself or someone else? Patient reports no desire to harm self or others. Onset of symptoms is unknown. 21:15 Method Of Arrival: EMS: [facility] 21:15 Acuity: LARA 3 lg3 Triage Assessment: 21:17 General: Appears in no apparent distress. uncomfortable, Behavior is calm, cooperative. lg3 Pain: Complains of pain in pelvis Pain currently is 6 out of 10 on a pain scale. EENT: No deficits noted. No signs and/or symptoms were reported regarding the EENT system. Neuro: No deficits noted. Benitez Agitation-Sedation Scale (RASS): 0 - Alert and Calm Level of Consciousness is awake, alert, obeys commands, Oriented to person, place, situation, Appropriate for age. Cardiovascular: No deficits noted. Denies chest pain, shortness of breath, Capillary refill < 3 seconds Clubbing of nail beds is absent JVD is absent Patient's skin is warm and dry. Respiratory: No deficits noted. Airway is patent Respiratory effort is even, unlabored, Respiratory pattern is regular, symmetrical. GI: No deficits noted. No signs and/or symptoms were reported involving the gastrointestinal system. Abdomen is flat, non-distended. : Urine is clear, mass noted to tight inguinal area noted Reports burning with urination, urinary frequency. Derm: No deficits noted. No signs and/or symptoms reported regarding the dermatologic system. Skin is intact, is thin, Skin is dry, Skin is normal, Skin temperature is warm. Musculoskeletal: No deficits noted. No signs and/or symptoms reported regarding the musculoskeletal system. Circulation, motion, and sensation intact. Range of motion: intact in all extremities. Historical: - Allergies: 21:17 PENICILLINS; lg3 - PMHx: 21:17 BPH (Unknown); GERD; High Cholesterol; Hypertension; Vertigo; Alzheimer's disease; lg3 - PSHx: 21:17 Unable to Obtain; lg3 - Immunization history:: Adult Immunizations up to date. - Infectious Disease History:: Denies. - Social history:: Smoking status: Patient denies any tobacco usage or history of. Patient/guardian denies using alcohol, street drugs. Screenin:21 [facility] ED Fall Risk Assessment (Adult) History of falling in the last 3 months, lg3 including since admission No falls in past 3 months (0 pts) Confusion or Disorientation No (0 pts) Intoxicated or Sedated No (0 pts) Impaired Gait Yes (1 pt) Mobility Assist Device Used Yes (1 pt) Altered Elimination No (0 pt) Score/Fall Risk Level 0 - 2 = Low Risk Oriented to surroundings, Maintained a safe environment, Educated pt \T\ family on fall prevention, incl call for assistance when getting out of bed, Assessed \T\ reinforced patient's understanding of fall precautions, Provided non-skid footwear. Abuse screen: Denies threats or abuse. Denies injuries from another. Nutritional screening: No deficits noted. Tuberculosis screening: No symptoms or risk factors identified. Assessment: 21:21 General: see triage assessment. lg3 22:06 Reassessment: preformed bladder scan, showed 0ml. kb4 22:06 Pain: Complains of pain in abdomen Pain currently is 10 out of 10 on a pain scale. at kb4 worst was 10 out of 10 on a pain scale. 22:39 Reassessment: Patient appears in no apparent distress at this time. No changes from lg3 previously documented assessment. Patient and/or family updated on plan of care and expected duration. Pain level reassessed. 22:39 Neuro: Benitez Agitation-Sedation Scale (RASS): +1 Restless Level of Consciousness is lg3 awake, alert, confused. 23:20 Reassessment: No changes from previously documented assessment. Patient and/or family kb4 updated on plan of care and expected duration. Pain level reassessed. 10/03 00:00 Reassessment: No changes from previously documented assessment. Patient and/or family kb4 updated on plan of care and expected duration. Pain level reassessed. pt kaycee andrade at bedside for pt safety. 01:35 Reassessment: No changes from previously documented assessment. Patient and/or family kb4 updated on plan of care and expected duration. Pain level reassessed. 01:46 Reassessment: Patient appears in no apparent distress at this time. No changes from lg3 previously documented assessment. Patient and/or family updated on plan of care and expected duration. Pain level reassessed. DC pending transportation back to facility. Vital Signs: 12/14 21:15 BP 157 / 62; Pulse 108; Resp 20 S; Temp 99.1(O); Pulse Ox 99% on R/A; Weight 72.57 kg lg3 (R); Height 5 ft. 10 in. (R); Pain 6/10; 22:07 BP 157 / 62; Pulse 108; Resp 18; Pulse Ox 98% ; kb4 23:28 BP 157 / 81; Pulse 108; Resp 19 S; Pulse Ox 98% on R/A; lg3 12/15 00:10 BP 143 / 90; Pulse 104; Resp 19 S; Pulse Ox 95% on R/A; lg3 01:18 BP 165 / 106; Pulse 116; Resp 17; vk 12/14 21:15 Body Mass Index 22.96 (72.57 kg, 177.8 cm) lg3 12/14 21:15 Pain Scale: Adult lg3 ED Course: 12/14 20:50 Patient arrived in ED. rv1 20:58 Noel Encinas DO is Attending Physician. tt7 21:07 Maricruz Julien, MIRELLA is Primary Nurse. kb4 21:17 Triage completed. lg3 21:17 Arm band placed on right wrist. lg3 21:21 Patient has correct armband on for positive identification. Placed in gown. Bed in low lg3 position. Call light in reach. Side rails up X2. Client placed on continuous cardiac and pulse oximetry monitoring. NIBP monitoring applied. Door closed. Noise minimized. Warm blanket given. Pillow given. Assisted with urinal. Cleaned of incontinence. Linen changed. One-on-one care X 30 minutes. 21:21 Initial lab(s) drawn, by me, sent to lab. Urine collected: clean catch specimen, clear. lg3 Inserted saline lock: 20 gauge in right antecubital area, using aseptic technique. Blood collected. Flushed with 10 mL NS. 21:23 CBC with Diff Sent. lg3 21:23 CMP Sent. lg3 21:23 Lipase Sent. lg3 21:23 UA Rfx Rafy Cult if indicated Sent. lg3 22:39 CT Abd/Pelvis - IV Contrast Only In Process Unspecified. EDMS 23:27 Blood Culture Adult (2) Sent. lg3 23:27 Lactate w/ 2H reflex if indic. Sent. lg3 12/15 01:38 Favian Conklin MD is Referral Physician. tt7 01:46 No provider procedures requiring assistance completed. IV discontinued, intact, lg3 bleeding controlled, No redness/swelling at site. Pressure dressing applied. Administered Medications: 12/14 21:49 Drug: HYDROmorphone IVP 0.5 mg IVP once Route: IVP; Site: right antecubital; 4 23:28 Follow up: Response: No adverse reaction lg3 21:49 Drug: Ondansetron IVP 4 mg IVP once; over 2 minutes Route: IVP; Site: right antecubital;4 23:28 Follow up: Response: No adverse reaction lg3 23:07 Drug: Droperidol IVP 1.25 mg IVP once Route: IVP; Site: right antecubital; lg3 23:52 Follow up: Response: No adverse reaction; RASS: Restless (+1) lg3 23:27 Drug: Rocephin IV 2 grams IV at bolus once; Given slow IV push per pharmarcy lg3 instructions Route: IV; Rate: bolus; Site: right antecubital; 12/15 02:18 Follow up: Response: No adverse reaction; IV Status: Completed infusion; IV Intake: 17pxrd0 12/14 23:59 Drug: Droperidol IVP 2.5 mg IVP once Route: IVP; Site: right antecubital; [facility] 12/15 00:49 Follow up: Response: No adverse reaction [facility] 12/14 23:59 Drug: Ativan IVP 0.5 mg IVP once Route: IVP; Site: right antecubital; [facility] 12/15 00:49 Follow up: Response: No adverse reaction kb4 01:09 Drug: NS 0.9% IV (30 ml/kg) 30 ml/kg IV at bolus once; Sepsis Protocol; to be given as kb4 a bolus over 60 minutes Route: IV; Rate: bolus; Site: right antecubital; 01:46 Follow up: Response: No adverse reaction; IV Status: Completed infusion; IV Intake: lg3 2200ml Medication: 12/14 21:21 VIS not applicable for this client. lg3 Intake: 12/15 01:46 IV: 2200ml; Total: 2200ml. lg3 02:18 IV: 50ml; Total: 2250ml. lg3 Outcome: 01:39 Discharge ordered by . tt7 02:17 Discharged to [facility]. Report called to [facility] lg3 02:17 Condition: stable 02:17 Discharge instructions given to [facility], Instructed on discharge instructions, follow up and referral plans. medication usage, Demonstrated understanding of instructions, follow-up care, medications, Prescriptions given X 1, 02:17 Patient left the ED. lg3 Signatures: Dispatcher [employer] EDMS Yessenia Jenkins, RN RN lg3 Maia Palacios rv1 Kaycee Patton Kayla, RN RN kb4 Noel Encinas DO DO tt7 Corrections: (The following items were deleted from the chart) 12/14 23:52 22:39 Reassessment: Patient appears in no apparent distress at this time. No changes lg3 from previously documented assessment. Patient and/or family updated on plan of care and expected duration. Pain level reassessed. Patient is alert, oriented x 3, equal unlabored respirations, skin warm/dry/pink. lg3
--- NOTE | 2024-12-15 01:39 | EDPHYS ---
Physician Documentation [facility] Name: Get Stephens Age: 84 yrs Sex: Male : 1940 Arrival Date: 12/14/2024 Time: 20:42 Bed 4 Private MD: ED Physician Noel Encinas HPI: 12/15 03:35 This 84 yrs old Male presents to ER via EMS with complaints of Urinary Problem. tt7 03:36 Patient reports dysuria for the past 2 days with associated right sided pelvic pain. tt7 Pelvic pain is described as sharp and intermittent. Mild in severity. Past medical history includes GERD, hypertension, Alzheimer's disease. Historical: - Allergies: 12/14 21:17 PENICILLINS; lg3 - PMHx: 21:17 BPH (Unknown); GERD; High Cholesterol; Hypertension; Vertigo; Alzheimer's disease; lg3 - PSHx: 21:17 Unable to Obtain; lg3 - Immunization history:: Adult Immunizations up to date. - Infectious Disease History:: Denies. - Social history:: Smoking status: Patient denies any tobacco usage or history of. Patient/guardian denies using alcohol, street drugs. ROS: 12/15 03:36 Constitutional: negative for fever. Cardiovascular: negative for chest pain. tt7 Respiratory: negative for shortness of breath. Abdomen/GI: negative for abdominal pain, nausea, vomiting, diarrhea. MS/Extremity: negative for injury and deformity. Skin: negative for rash. Neuro: negative for focal weakness. : Positive for pelvic pain, burning with urination, Exam: 03:36 Constitutional: vital signs reviewed, well appearing. Head/Face: normocephalic, tt7 atraumatic. Eyes: no conjunctival injection, anicteric sclerae. ENT: mucus membranes moist. Neck: trachea midline, no JVD, no meningismus. Cardiovascular: Mildly tachycardic, regular rhythm, no lower extremity edema. Respiratory: normal respiratory effort, no accessory muscle use, no audible wheezing. Abdomen/GI: soft, nondistended, nontender, no guarding or rebound, negative Ray's sign, no McBurney point tenderness. Back: normal ROM. Male : normal genitalia with no discharge or lesions, large right-sided inguinal hernia without tenderness Skin: warm, dry, intact, normal turgor, normal color, no rash. MS/ Extremity: normal ROM of extremities, no gross deformities. Neuro: alert and oriented with appropriate mental status, normal speech, follows commands, no focal neurologic deficits. Psych: appropriate mood and affect. Vital Signs: 12/14 21:15 BP 157 / 62; Pulse 108; Resp 20 S; Temp 99.1(O); Pulse Ox 99% on R/A; Weight 72.57 kg lg3 (R); Height 5 ft. 10 in. (R); Pain 6/10; 22:07 BP 157 / 62; Pulse 108; Resp 18; Pulse Ox 98% ; kb4 23:28 BP 157 / 81; Pulse 108; Resp 19 S; Pulse Ox 98% on R/A; lg3 12/15 00:10 BP 143 / 90; Pulse 104; Resp 19 S; Pulse Ox 95% on R/A; lg3 01:18 BP 165 / 106; Pulse 116; Resp 17; vk 12/14 21:15 Body Mass Index 22.96 (72.57 kg, 177.8 cm) lg3 12/14 21:15 Pain Scale: Adult lg3 MDM: 12/14 20:58 Medical Screening Exam initiated tt7 12/15 03:38 Differential Diagnosis Acute cystitis, pyelonephritis, inguinal hernia, tt7 ureterolithiasis, rectal abscess, prostatitis. Data reviewed: vital signs, nurses notes, lab test result(s), radiologic studies. ED course: 84-year-old male with dysuria and pelvic pain, he is tachycardic on exam but normotensive, otherwise stable vital signs, physical exam is overall reassuring, there is a nontender large right inguinal hernia. 03:43 ED course: Workup was initiated including laboratory studies, urinalysis, CT imaging of tt7 the abdomen/pelvis, laboratory studies showed leukocytosis of 13,000, mild anemia with hemoglobin of 13.2, normal platelets, chemistry shows no acidosis, hyperglycemia with glucose of 200, normal creatinine, urinalysis shows leukocyte esterase with 20-50 white blood cells and 21-50 red blood cells, less than 5 squames, this is consistent with acute cystitis, lipase is normal, CT imaging demonstrates possible findings of transverse colon colitis but patient is not clinically having the symptoms, a large right inguinal hernia is seen but no evidence of obstruction or incarceration, there is bladder wall thickening consistent with cystitis, no evidence of prostatitis or enlarged prostate, the patient did end up meeting SIRS criteria so sepsis workup was ordered including blood cultures, empiric ceftriaxone was given, IV fluid resuscitation was started, lactate was within normal limits, after IV fluid resuscitation the patient's pulse normalized, is no longer tachycardic, remained normotensive, felt significantly improved, will continue treatment for complicated acute cystitis given patient's male sex with outpatient course of cefpodoxime, after completion of the patient's emergency department evaluation, I do not suspect a life-threatening or disabling process. Patient is medically stable and not in need of emergent medical intervention. I had a detailed discussion with the patient regarding the historical points, exam findings, emergency department evaluation, diagnostic results, and the discharge diagnosis. I instructed the patient on outpatient management of their condition. I discussed the need for outpatient follow-up with a primary care physician. I informed the patient on return precautions, including the need to return to the ED if symptoms do not improve, worsen, or if there are any questions or concerns that arise at home. The patient was discharged in stable condition. 12/14 20:58 Order name: CBC with Diff; Complete Time: 23:04 tt7 12/14 20:58 Order name: CMP; Complete Time: 21:58 tt7 12/14 20:58 Order name: Lipase; Complete Time: 21:58 tt7 12/14 20:58 Order name: UA Rfx Rafy Cult if indicated; Complete Time: 21:58 tt7 12/14 21:32 Order name: Urine Culture EDRI 12/14 23:09 Order name: Blood Culture Adult (2) tt7 12/14 23:09 Order name: Lactate w/ 2H reflex if indic.; Complete Time: 00:53 tt7 12/14 21:31 Order name: CT Abd/Pelvis - IV Contrast Only; Complete Time: 00:53 tt7 12/14 20:58 Order name: IV Saline Lock; Complete Time: 21:23 tt7 12/14 20:58 Order name: Labs collected and sent; Complete Time: 21:23 tt7 12/14 23:09 Order name: Cardiac monitoring; Complete Time: 23:28 tt7 12/14 23:09 Order name: IV Saline Lock - Large Bore; Complete Time: 23:27 tt7 12/14 23:09 Order name: O2 Per Protocol; Complete Time: 23:27 tt7 12/14 23:09 Order name: O2 Sat Monitoring; Complete Time: 23:27 tt7 12/14 23:09 Order name: Vital Signs; Complete Time: 23:27 tt7 Administered Medications: 12/14 21:49 Drug: HYDROmorphone IVP 0.5 mg IVP once Route: IVP; Site: right antecubital; kb4 23:28 Follow up: Response: No adverse reaction lg3 21:49 Drug: Ondansetron IVP 4 mg IVP once; over 2 minutes Route: IVP; Site: right antecubital;kb4 23:28 Follow up: Response: No adverse reaction lg3 23:07 Drug: Droperidol IVP 1.25 mg IVP once Route: IVP; Site: right antecubital; lg3 23:52 Follow up: Response: No adverse reaction; RASS: Restless (+1) lg3 23:27 Drug: Rocephin IV 2 grams IV at bolus once; Given slow IV push per pharmarcy lg3 instructions Route: IV; Rate: bolus; Site: right antecubital; 12/15 02:18 Follow up: Response: No adverse reaction; IV Status: Completed infusion; IV Intake: [id number] 12/14 23:59 Drug: Droperidol IVP 2.5 mg IVP once Route: IVP; Site: right antecubital; kb4 12/15 00:49 Follow up: Response: No adverse reaction kb4 12/14 23:59 Drug: Ativan IVP 0.5 mg IVP once Route: IVP; Site: right antecubital; kb4 12/15 00:49 Follow up: Response: No adverse reaction kb4 01:09 Drug: NS 0.9% IV (30 ml/kg) 30 ml/kg IV at bolus once; Sepsis Protocol; to be given as kb4 a bolus over 60 minutes Route: IV; Rate: bolus; Site: right antecubital; 01:46 Follow up: Response: No adverse reaction; IV Status: Completed infusion; IV Intake: lg3 2200ml Disposition: 03:43 Co-signature as Attending Physician, Noel Encinas DO. tt7 Disposition Summary: 12/15/24 01:39 Discharge Ordered Notes: Location: Home tt7 Problem: new tt7 Symptoms: have improved tt7 Condition: Stable tt7 Diagnosis - Acute cystitis without hematuria tt7 - Indeterminate colitis tt7 Followup: tt7 - With: Emergency Department - When: As needed - Reason: Followup: tt7 - With: Favian Conklin MD - When: 1 - 2 days - Reason: Discharge Instructions: - Discharge Summary Sheet tt7 - Urinary Tract Infection, Adult, Xiaz-no-Jdji tt7 - Urosepsis, Adult tt7 Forms: - Medication Reconciliation Form tt7 - Antibiotic Education tt7 - Prescription Opioid Use tt7 - Patient Portal Instructions tt7 - Leadership Thank You Letter tt7 Prescriptions: - cefpodoxime 200 mg Oral tablet - take 1 tablet ORAL route every 12 hours for 10 days with food; 20 tablet; tt7 Refills: 0, Product Selection Permitted Signatures: Dispatcher [employer] EDMS Yessenia Jenkins, RN RN lg3 Maricruz Julien RN RN kb4 Noel Encinas, DO tt7 Corrections: (The following items were deleted from the chart) 12/14 21:31 21:31 Abdomen Pelvis W Con+CT.RAD.BRZ ordered. EDMS EDMS 23:09 23:09 BLOOD CULTURE*+BA.LAB.BRZ ordered. EDMS EDMS 23:09 23:09 LACTATE+C.LAB.BRZ ordered. EDMS EDMS
[2024-12-15 02:58] VITALS: TEMP 99.1
[2024-12-15 03:03] VITALS: O2SAT 95
[2024-12-15 03:05] VITALS: BP 165/106
== END 2024-12-15 02:17 | disposition home or self-care (01) ==
LOC: ER 20:42
DX: N30.00 Acute cystitis without hematuria (principal); K52.3 Indeterminate colitis
CPT/HCPCS: 96365; 87040 ×2; 87088; 85025; 81001; 87086; 36415; 83605; 83690; 80053; 74177; 96375; 99285; 96366; Q9967; J1171; J2405; J0696; J1790 ×2; J7030 ×2

== ENCOUNTER 2024-12-18 20:52 | Inpatient (IN) | payer OTHER ==
[2024-12-18] MEDS ORDERED: NA CHLORIDE 0.9% 1,000 ML ONE (21:55)
--- NOTE | 2024-12-18 22:09 | RAD REPORT ---
EXAMINATION: Head Brain Wo Cont CLINICAL INDICATION: Male, 84 years old.CONFUSED TECHNIQUE: Axial CT images from the skull base to the vertex without intravenous contrast. Coronal an d sagittal reformatted images were created from the data set. One or more of the following dose reduction techniques were used: Automated exposure control, adjustment of the mA and/or kV according to patient size, and/or iterative reconstruction. Unless otherwise specified, incidental findings do not require dedicated imaging follow-up. [id number]. COMPARISON: 07/24/2023 FINDINGS: INTRACRANIAL: No acute intracranial hemorrhage. No acute large vascular territory infarct. No hydroce phalus. No mass effect or midline shift. Mild chronic small vessel ischemic changes.Mild cerebral atrophy. VASCULATURE: No visualized abnormalities in the arteries or dural venous sinuses. SCALP/SKULL: No calvarial fracture identified. No acute soft tissue abnormality. SINUSES: The visualized paranasal sinuses are mostly clear. No significant mastoid fluid. IMPRESSION: No acute intracranial abnormality.
--- NOTE | 2024-12-18 22:29 | RAD REPORT ---
EXAM: Chest Single View HISTORY: 84 years Male CHEST PAIN COMPARISON: 07/24/23 FINDINGS: LUNGS/PLEURA: The lungs are clear. No pleural effusions or pneumothorax. No pulmonary edema. CARDIAC/MEDIASTINUM: The cardiac silhouette is within normal limits. UPPER ABDOMEN: No significant abnormality. BONES: No acute abnormality. LINES/TUBES/OTHER: N/A IMPRESSION: No evidence of acute cardiopulmonary disease.
[2024-12-18 22:45] LABS: PT Prothrombin Time 11.6 SECONDS (10-13.0); Protime INR 1.03
[2024-12-18 22:49] LABS: Sqamous Epithelial <5 /HPF (None Seen); Urine Culture Reflex Order NOT NEEDED; Urine Microscopic Reflex YN ORDER UMIC
[2024-12-18 22:49] LABS: Absolute Lymphocytes (CBC) 1.1 K/uL (0.7-4.9); Hematocrit 33.9 % (39.6-49.0); Hemoglobin 12.0 g/dL (13.6-17.9); MCH 31.5 pg (27.0-35.0); MCHC 35.5 g/dL (32.0-36.0); MCV 88.6 fL (80-100); MPV 7.5 fL (7.6-11.3); Nucleated RBC Absolute Count 0.0 (0-0); Nucleated Red Blood Cells % 0.1 % (0-0); RBC Red Blood Cell Count 3.83 M/uL (4.33-5.43); White Blood Count 7.60 thou/uL (4.3-10.9)
[2024-12-18 23:08] LABS: ALT/SGPT 36 U/L (16-61); AST/SGOT 26 U/L (15-37); Albumin 3.2 g/dL (3.4-5.0); Albumin/Globulin Ratio 0.9 (1.1-1.8); Alkaline Phosphatase 85 U/L (45-117); Anion Gap 11.2 mEq/L (5.0-15.0); BUN Blood Urea Nitrogen 30 mg/dL (7-18); Globulin 3.4 g/dL (2.3-3.5); Glucose Level 153 mg/dL (74-106); Magnesium 2.3 mg/dL (1.6-2.4); NT PRO-BNP 249 pg/mL (<450); Potassium 4.2 mEq/L (3.5-5.1); Thyroid Stimulating Hormone 2.400 uIU/mL (0.358-3.740); Troponin High Sensitivity 5.5 pg/mL (<58.9)
[2024-12-18 23:10] LABS: Bilirubin Indirect, Calculated 0.2 mg/dL (0.2-0.8)
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
[2024-12-18] MEDS ORDERED: CEFTRIAXONE 1000 MG/VIAL ONE (23:29)
[2024-12-18] MEDS ORDERED: NA CHLORIDE 0.9% 100 ML ONE (23:29)
[2024-12-18] MEDS ORDERED: ACETAMINOPHEN 325 MG TABLET PO PRN (23:32)
[2024-12-18] MEDS ORDERED: ONDANSETRON 4 MG/2 ML VIAL IV PRN (23:32)
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
[2024-12-18] MEDS: AZTREONAM 1 GM in NA CHLORIDE 0.9% 100 ML IV SCH (23:39)
[2024-12-19 03:08] VITALS: BMI 21.7
[2024-12-19 06:01] LABS: Absolute Lymphocytes (CBC) 1.1 K/uL (0.7-4.9); Hematocrit 33.5 % (39.6-49.0); Hemoglobin 11.5 g/dL (13.6-17.9); MCH 30.7 pg (27.0-35.0); MCHC 34.4 g/dL (32.0-36.0); MCV 89.1 fL (80-100); MPV 7.4 fL (7.6-11.3); Nucleated RBC Absolute Count 0.0 (0-0); Nucleated Red Blood Cells % 0.1 % (0-0); RBC Red Blood Cell Count 3.76 M/uL (4.33-5.43); White Blood Count 6.20 thou/uL (4.3-10.9)
--- NOTE | 2024-12-19 06:05 | P.PN ---
Subjective Date of Service: 12/19/24 Chief Complaint: Acute Encephalopathy Subjective: No new changes Review of Systems 10-point ROS is otherwise unremarkable Physical Examination - Vital Signs Temperature: 97.5 F Blood Pressure: 149/65 Pulse: 66 Respirations: 16 Pulse Ox (%): 99 - Physical Exam General: Alert, In no apparent distress, Cooperative, Confused HEENT: Atraumatic, Normocephalic Neck: Supple Respiratory: Clear to auscultation bilaterally, Normal air movement Cardiovascular: Regular rate/rhythm, Normal S1 S2 Capillary refill: <2 Seconds Gastrointestinal: Soft and benign, W/out hepatosplenomegaly Musculoskeletal: No clubbing, No swelling Integumentary: No rashes Neurological: Other (Alert, Awake , Non focal , Confused ) Lymphatics: No axilla or inguinal lymphadenopathy - Studies Laboratory Data (last 24 hrs) 12/18/24 12/18/24 12/18/24 21:51 21:51 21:51 WBC 7.60 Hgb 12.0 L Hct 33.9 L Plt Count 216 PT 11.6 INR 1.03 Sodium 140 Potassium 4.2 BUN 30 H Creatinine 0.93 Glucose 153 H Magnesium 2.3 Total Bilirubin 0.4 AST 26 ALT 36 Alkaline Phosphatase 85 Assessment And Plan - Plan Acute encephalopathy Dementia Monitor neuro vital signs closely CT head negative for any acute changes Supportive management Continue home medications for dementia UTI Started on IV antibiotic Will obtain cultures Will change antibiotic as per sensitivity Hypertension Antihypertensives titrated Continue home medications and titrate as needed Hyperlipidemia Continue statin History of BPH History of vertigo -Continue home medications GI/DVT prophylaxis Advanced directive full code Discharge Plan: Senior Care Plan to discharge in: 48 Hours - Code Status/Comfort Care Code Status: Full Code
[2024-12-19 06:21] LABS: ALT/SGPT 30.0 U/L (16-61); AST/SGOT 21.0 U/L (15-37); Albumin 3.0 g/dL (3.4-5.0); Albumin/Globulin Ratio 1.0 (1.1-1.8); Alkaline Phosphatase 69.0 U/L (45-117); Anion Gap 7.6 mEq/L (5.0-15.0); BUN Blood Urea Nitrogen 21.0 mg/dL (7-18); Globulin 3.0 g/dL (2.3-3.5); Glucose Level 111.0 mg/dL (74-106); Potassium 3.6 mEq/L (3.5-5.1)
[2024-12-19] MEDS: VITAMIN D 1000 UNIT TAB PO SCH (09:00)
[2024-12-19] MEDS: POTASSIUM 25 MEQ EFFERV TAB PO ONE (09:05)
[2024-12-19] MEDS: FERROUS SULFATE 325 MG TAB PO SCH (09:05)
[2024-12-19] MEDS: ASCORBIC ACID 500 MG TABLET PO SCH (09:05)
[2024-12-19] MEDS: ENOXAPARIN 40 MG/0.4 ML SQ SCH (09:05)
[2024-12-19] MEDS: LACTULOSE 20 GM/30 ML UCUP PO SCH (09:05)
[2024-12-19] MEDS: ASPIRIN 81 MG CHEWABLE TABLET PO SCH (09:06)
[2024-12-19] MEDS: FINASTERIDE 5 MG TAB PO SCH (09:06)
[2024-12-19] MEDS: ATORVASTATIN 40 MG TAB PO SCH (20:54)
[2024-12-19] MEDS: DONEPEZIL HCL 5 MG TAB PO SCH (20:54)
[2024-12-20 06:08] LABS: Anion Gap 10.1 mEq/L (5.0-15.0); BUN Blood Urea Nitrogen 23.0 mg/dL (7-18); Glucose Level 100.0 mg/dL (74-106); Potassium 4.1 mEq/L (3.5-5.1)
--- NOTE | 2024-12-20 12:12 | P.PN ---
Date of Service: 12/20/24 Subjective: intermittent lower abdominal pain mentation improving Physical Exam: GEN: hard of hearing CV: Regular rate and rhythm, no edema Pulm:Nonlabored respirations on room air, clear bilaterally ABD: soft, nontender, nondistended Integumentary: No rashes Problem List: Acute encephalopathy Dementia Recent Colitis/Questionable UTI Hypertension Hyperlipidemia Hx BPH Hx Vertigo Acute encephalopathy Dementia on admission, presents with increased confusion and agitation at [place]. Most info obtained from chart review due mentation. CT head negative. CXR negative. confirm home meds, restart as appropriate resume home donepezil, clonidine, ascorbic acid Recent Colitis/Questionable UTI Had ER visit few days ago for right sided abdominal pain, burning on urination. CT abd/pelvis (12/14): Prominent thickening of a long segment of the mid transverse colon consistent with acute colitis without evidence of complication. Bladder wall thickening and diverticuli. Large right inguinal hernia. Hiatal hernia. Was given prescriptions for Augmentin and Ciprofloxacin x7 days Urine culture done 12/15 grew mixed skin tristan <10k CFU/mL. Blood Cx from 12/14 negative. UA not suggestive of UTI. No reflex culture obtained although patient has been on antibiotics. empiric Aztreonam for now Follow blood cultures pain control, IV fluids Hypertension Hyperlipidemia Hx BPH Hx Vertigo resume home lisinopril, finasteride, ferrous sulfate, statin, asa 81mg VTE: Lovenox Code: Full Dispo: back to [facility] Time Spent Managing Pts Care (In Minutes): 55
[2024-12-20] MEDS: HYDROCODONE/APAP 5/325 MG TAB PO PRN (14:05)
[2024-12-20] MEDS: MELATONIN 5 MG TABLET PO PRN (21:53)
[2024-12-21 04:28] LABS: Absolute Lymphocytes (CBC) 1.3 K/uL (0.7-4.9); Hematocrit 36.1 % (39.6-49.0); Hemoglobin 12.4 g/dL (13.6-17.9); MCH 30.4 pg (27.0-35.0); MCHC 34.4 g/dL (32.0-36.0); MCV 88.4 fL (80-100); MPV 7.3 fL (7.6-11.3); Nucleated RBC Absolute Count 0.0 (0-0); Nucleated Red Blood Cells % 0.1 % (0-0); RBC Red Blood Cell Count 4.09 M/uL (4.33-5.43); White Blood Count 8.00 thou/uL (4.3-10.9)
[2024-12-21 04:43] LABS: Anion Gap 11.7 mEq/L (5.0-15.0); BUN Blood Urea Nitrogen 29.0 mg/dL (7-18); Glucose Level 106.0 mg/dL (74-106); Magnesium 2.1 mg/dL (1.6-2.4); Potassium 3.7 mEq/L (3.5-5.1)
[2024-12-21] MEDS: POTASSIUM CL SA 10 MEQ TAB PO ONE (09:08)
[2024-12-21 09:52] VITALS: O2SAT 100
[2024-12-21 12:14] VITALS: BP 150/85; TEMP 98.1
--- NOTE | 2024-12-21 13:15 | P.DS ---
Admission Date: 12/18/24 Discharge Date: 12/21/24 Disposition: TRANSFER TO [facility] Discharge Condition: GOOD Reason for Admission: Acute Encephalopathy Brief History of Present Illness: 84yo M, PMH: dementia, vertigo, hypertension, hyperlipidemia, enlarged prostate Patient presents to the ED from the group home with complaints of altered mental status . longterm reports they noticed a decline yesterday as patient was altered, confused and was aggressive. Denies any fever or chills. Patient is confused and could not offer any history hence most of the history is obtained from the chart review and also talking to the ER physician. As per EMS, patient was combative initially at the group home. Denies any focal weakness. Denies any fever chills or shortness of breath. Patient was assessed in the ER and was admitted for further management of UTI and acute encephalopathy Hospital Course: Problem List: Acute encephalopathy, improved Dementia Hypertension Hyperlipidemia Hx BPH Hx Vertigo Physician discharge instructions: Patient presents from a group home with increased confusion and agitation. Unclear etiology. Possibly secondary to progressive dementia. CT head was negative for any acute findings. Chest xray was negative. On arrival to ER, ER staff report patient is hard of hearing but cooperative, stated he was defending himself. Bloodwork and imaging negative for any acute findings. No fever, no leukocytosis. On further review of chart, patient was noted to have been seen in ER a few days ago and given prescriptions for Augmentin/Ciprofloxacin x7 days due to concern for possible UTI/Colitis. Urinalysis this hospitalization was not suggestive of UTI so no reflex culture was sent per protocol. Urine and blood cultures from ER visit 12/14 were negative. There was no evidence to support ongoing infection however given his mentation on arrival, patient did receive ~2 days of IV Aztreonam to cover possible infection. Patient's mentation seemed to be improved / back to baseline shortly after admissions Throughout hospitalization he was noted to have some discomfort with urination. Per patient - this has been ongoing for years, and nothing new. He does this at the group home, and at times it brings him to tears. He reports he takes a medication from his doctors to help, but doesn't do much. I confirmed again with him if this was more severe or different than his usual - via writing, since he is hard of hearing. He reported that this is not different. For many years he has been dealing with difficulty urinating and pain from his hernia. He remained afebrile and without leukocytosis, no evidence of infection. No further antibiotic warranted. Medications: No change in meds. Follow up with PCP/ Urology for chronic issues. Physical Exam: GEN: hard of hearing CV: Regular rate and rhythm, no edema Pulm:Nonlabored respirations on room air, clear bilaterally ABD: soft, nontender, nondistended Integumentary: No rashes Vital Signs/Physical Exam: Temp Pulse Resp BP Pulse Ox 98.1 F 82 16 150/85 H 99 12/21/24 12:00 12/21/24 12:00 12/21/24 12:00 12/21/24 12:00 12/21/24 12:00 Laboratory Data at Discharge: WBC 8.00 thou/uL (4.3-10.9) 12/21/24 04:22 Hgb 12.4 g/dL (13.6-17.9) L 12/21/24 04:22 Hct 36.1 % (39.6-49.0) L 12/21/24 04:22 Plt Count 213 thou/uL (152-406) 12/21/24 04:22 PT 11.6 SECONDS (10-13.0) 12/18/24 21:51 INR 1.03 12/18/24 21:51 Sodium 144 mEq/L (136-145) 12/21/24 04:22 Potassium 3.7 mEq/L (3.5-5.1) 12/21/24 04:22 BUN 29 mg/dL (7-18) H 12/21/24 04:22 Creatinine 0.80 mg/dL (0.70-1.30) 12/21/24 04:22 Glucose 106 mg/dL (74-106) 12/21/24 04:22 Phosphorus 3.3 mg/dL (2.5-4.9) 12/20/24 05:34 Magnesium 2.1 mg/dL (1.6-2.4) 12/21/24 04:22 Total Bilirubin 0.4 mg/dL (0.2-1.0) 12/19/24 05:36 AST 21 U/L (15-37) 12/19/24 05:36 ALT 30 U/L (16-61) 12/19/24 05:36 Alkaline Phosphatase 69 U/L (45-117) 12/19/24 05:36 Home Medications: Ascorbic Acid 500 mg PO DAILY 07/24/23 Aspirin Chewable [Aspirin Chewable*] 81 mg PO DAILY 07/24/23 Atorvastatin Calcium 40 mg PO BEDTIME 07/24/23 Cholecalciferol (Vitamin D3) [Vitamin D3] 1 cap PO DAILY 07/24/23 Mag/Aluminum/Sod Bicarb/Alginc [Gaviscon 80-14.2 mg Tab Chew] 2 tab PO Q6H PRN 07/24/23 Metoprolol Tartrate 12.5 mg PO BID 6AM 6PM 07/24/23 Ondansetron [Zofran (Odt)*] 4 mg PO Q8H PRN 07/24/23 Polyethylene Glycol 3350 [Miralax] 17 gm PO DAILY 07/24/23 Selenium 1 tab PO DAILY 07/24/23 cloNIDine HCL [Clonidine HCl] 0.1 mg PO Q8H PRN 07/24/23 lisinopriL [Lisinopril] 20 mg PO DAILY 07/24/23 Donepezil HCl 1 tab PO BEDTIME 03/23/24 Finasteride 1 tab PO DAILY 03/23/24 Lactulose 20 gm PO DAILY 03/23/24 Meclizine HCl 1 tab PO BID 03/23/24 Psyllium [Metamucil (Hydrocil)*] 2 tbsp PO BEDTIME 03/23/24 Ciprofloxacin HCl [Cipro 500 MG Tablet] 500 mg PO BID 5 Days #10 tab 03/25/24 Amlodipine Besylate [Norvasc] 1 tab PO DAILY 12/19/24 Docusate Sodium [Dulcolax Stool Softener] 1 cap PO DAILY 12/19/24 Gabapentin [Neurontin*] 2 cap PO BEDTIME 12/19/24 Tamsulosin [Flomax*] 1 cap PO BID 12/19/24 Physician Discharge Instructions: Physician discharge instructions: Patient presents from a group home with increased confusion and agitation. Unclear etiology. Possibly secondary to progressive dementia. CT head was negative for any acute findings. Chest xray was negative. On arrival to ER, ER staff report patient is hard of hearing but cooperative, stated he was defending himself. Bloodwork and imaging negative for any acute findings. No fever, no leukocytosis. On further review of chart, patient was noted to have been seen in ER a few days ago and given prescriptions for Augmentin/Ciprofloxacin x7 days due to concern for possible UTI/Colitis. Urinalysis this hospitalization was not suggestive of UTI so no reflex culture was sent per protocol. Urine and blood cultures from ER visit 12/14 were negative. There was no evidence to support ongoing infection however given his mentation on arrival, patient did receive ~2 days of IV Aztreonam to cover possible infection. Patient's mentation seemed to be improved / back to baseline shortly after admissions Throughout hospitalization he was noted to have some discomfort with urination. Per patient - this has been ongoing for years, and nothing new. He does this at the group home, and at times it brings him to tears. He reports he takes a medication from his doctors to help, but doesn't do much. I confirmed again with him if this was more severe or different than his usual - via writing, since he is hard of hearing. He reported that this is not different. For many years he has been dealing with difficulty urinating and pain from his hernia. He remained afebrile and without leukocytosis, no evidence of infection. No further antibiotic warranted. Medications: No change in meds. Follow up with PCP/ Urology for chronic issues. Followup: Srikanth Amor MD [Primary Care Provider] - Time spent managing pt's care (in minutes): 45
== END 2024-12-21 14:30 | DRG 56 ==
LOC: ER 21:31 → 4TH 23:32
PROVIDERS: ADMIT Family Medicine; ATTEND Hospitalist
DX: G30.9 Alzheimer's disease, unspecified (principal); G93.41 Metabolic encephalopathy; F02.B11 Dementia in other diseases classified elsewhere, moderate, with agitation; F05 Delirium due to known physiological condition; I10 Essential (primary) hypertension; E78.00 Pure hypercholesterolemia, unspecified; K21.9 Gastro-esophageal reflux disease without esophagitis; K52.9 Noninfective gastroenteritis and colitis, unspecified; N40.0 Benign prostatic hyperplasia without lower urinary tract symptoms; Z88.0 Allergy status to penicillin; Z60.2 Problems related to living alone; Z79.82 Long term (current) use of aspirin; Z79.899 Other long term (current) drug therapy
CPT/HCPCS: 36415; 70450; 71045; 80048; 80053; 80076; 81001; 82550; 83605; 83735; 83880; 84100; 84439; 84443; 84484; 85025; 85610; 87040; 93005; 94760; 96374; 99285; J0696; J1650; J7030